=== PATIENT | female | born 1955 | race African-American/Black ===

== ENCOUNTER → 2017-01-19 | Outpatient (CLI) | payer MEDICARE, MEDICAID | LOC: OD 09:46 | PROVIDERS: ATTEND Internal Medicine | DX: M25.562 Pain in left knee (principal) ==

== ENCOUNTER 2017-03-08 10:34 | Emergency (ER) | payer MEDICARE, MEDICAID ==
[2017-03-08] MEDS ORDERED: COLCHICINE 0.6 MG TABLET PO ONE (11:06)
[2017-03-08] MEDS ORDERED: KETOROLAC TROMETHAMINE 60 MG/2 ML SDV IM ONE (11:06)
[2017-03-08 13:00] LABS: ABSOLUTE BASOPHILS # (AUTO) 0.1 10^3/uL (0.0-0.2); ABSOLUTE EOSINOPHILS # (AUTO) 0.3 10^3/uL (0.0-0.6); ABSOLUTE LYMPHOCYTES (AUTO) 1.3 10^3/uL (0.5-4.7); ABSOLUTE MONOCYTES (AUTO) 0.6 10^3/uL (0.1-1.4); ABSOLUTE NEUT (AUTO) 4.6 10^3/uL (1.7-8.2); EOSINOPHILS % (AUTO) 4.9 % (0-6); HEMOGLOBIN 9.1 g/dL (12.0-15.5); HGB HCT DIFFERENCE 1.3; LYMPHOCYTES % (AUTO) 18.6 % (13-45); MEAN CORPUSCULAR HEMOGLOBIN 30.2 pg (27.0-33.4); MEAN CORPUSCULAR HGB CONC 35.2 g/dL (32.0-36.0); MEAN CORPUSCULAR VOLUME 86 fl (80-97); MONOCYTES % (AUTO) 8.3 % (3-13); RED BLOOD COUNT 3.03 10^6/uL (3.72-5.28); RED CELL DISTRIBUTION WIDTH 15.1 % (11.5-14.0); SEGMENTED NEUTROPHILS % (AUTO) 67.2 % (42-78); WHITE BLOOD COUNT 6.9 10^3/uL (4.0-10.5)
[2017-03-08 13:22] LABS: ALANINE AMINOTRANSFERASE 19 U/L (9-52); ALBUMIN 4.2 g/dL (3.5-5.0); ALKALINE PHOSPHATASE 86 U/L (38-126); ANION GAP 15 (5-19); ASPARTATE AMINO TRANSFERASE 10 U/L (14-36); BILIRUBIN,DIRECT 0.4 mg/dL (0.0-0.4); BILIRUBIN,TOTAL 0.6 mg/dL (0.2-1.3); BLOOD UREA NITROGEN 23 mg/dL (7-20); CALCIUM 8.7 mg/dL (8.4-10.2); CARBON DIOXIDE 29 mmol/L (22-30); CHLORIDE 98 mmol/L (98-107); CREATININE RESULT 6.24 mg/dL (0.52-1.25); GLUCOSE 83 mg/dL (75-110); POTASSIUM 3.6 mmol/L (3.6-5.0); SODIUM 141.7 mmol/L (137-145); TOTAL PROTEIN 7.4 g/dL (6.3-8.2); URIC ACID 2.7 mg/dL (2.5-7.5)
--- NOTE | 2017-03-08 13:34 | ER Document Report ---
HPI - HPI Patient complains to provider of: GOUT Onset: Other - ONE MONTH Onset/Duration: Constant Quality of pain: Throbbing Severity: Severe Pain Level: 5 Context: Complains of gout to both knees, right knee worse than left. Associated Symptoms: None Exacerbated by: Movement, Walking Relieved by: Denies Similar symptoms previously: Yes Recently seen / treated by doctor: Yes Notes: Patient states she was seen by her doctor and told she had pseudogout. States her last dose of colchicine was this past Tuesday. Has been taking Tylenol for pain. - ROS ROS below otherwise negative: Yes Notes: Patient states she was last dialyzed this morning. Systems Reviewed and Negative: Yes All other systems reviewed and negative - CONSTITUTIONAL Constitutional: DENIES: Fever - EENT EENT: DENIES: Congestion - NEURO Neurology: DENIES: Headache - CARDIOVASCULAR Cardiovascular: DENIES: Chest pain - RESPIRATORY Respiratory: DENIES: Trouble Breathing - GASTROINTESTINAL Gastrointestinal: DENIES: Abdominal Pain - URINARY Urinary: DENIES: Dysuria - REPRODUCTIVE Reproductive: DENIES: : - MUSCULOSKELETAL Musculoskeletal: REPORTS: Extremity pain - Both knees, right more than le - DERM Skin Color: Normal Skin Problems: None Past Medical History - General Information source: Patient - Social History Smoking Status: Never Smoker Chew tobacco use (# tins/day): No Frequency of alcohol use: None Drug Abuse: None Lives with: Family Family History: Reviewed & Not Pertinent Patient has suicidal ideation: No Patient has homicidal ideation: No - Past Medical History Cardiac Medical History: Reports: Hx Coronary Artery Disease, Hx Hypercholesterolemia, Hx Hypertension Denies: Hx Heart Attack Pulmonary Medical History: Reports: Hx Asthma Denies: Hx Bronchitis, Hx COPD, Hx Pneumonia, Hx Tuberculosis Neurological Medical History: Denies: Hx Cerebrovascular Accident, Hx Seizures Renal/ Medical History: Reports: Hx End Stage Renal Disease - DIALYSIS T- , Hx Hemodialysis. Denies: Hx Peritoneal Dialysis GI Medical History: Reports: Hx Gastroesophageal Reflux Disease, Hx Hiatal Hernia Musculoskeltal Medical History: Reports Hx Arthritis - generalized Psychiatric Medical History: Denies: Hx Depression Infectious Medical History: Past Surgical History: Reports: Hx Abdominal Surgery - GALL BLADDER, Hx Cardiac Catheterization - 2011, Hx Section, Hx Cholecystectomy, Hx Gynecologic Surgery - hysteroscopy. Denies: Hx Hysterectomy - Immunizations Hx Diphtheria, Pertussis, Tetanus Vaccination: Yes Hx Pneumococcal Vaccination: 08/14/15 Vertical Provider Document - CONSTITUTIONAL Agree With Documented VS: Yes General Appearance: WD/WN, Moderate Distress Notes: Patient crying, hard to obtain information. Asking for something for pain. After medications given, patient more comfortable, stating pain is better. No longer crying. - INFECTION CONTROL TRAVEL OUTSIDE OF THE [place] IN LAST 30 DAYS: No - HEENT HEENT: Atraumatic, Normocephalic - RESPIRATORY Respiratory: Breath Sounds Normal, No Respiratory Distress O2 Sat by Pulse Oximetry: 99 - CARDIOVASCULAR Cardiovascular: Regular Rate, Regular Rhythm - GI/ABDOMEN Gastrointestinal: Abdomen Soft - MUSCULOSKELETAL/EXTREMETIES Musculoskeletal/Extremeties: MAEW Notes: Fistula with dressing noted to left forearm. - NEURO Level of Consciousness: Awake, Alert - DERM Integumentary: Warm, Dry Notes: Right knee feels warm, but no redness noted. Course - Re-evaluation Re-evalutation: 03/08/17 13:57 Discussed lab work with patient. Patient instructed to call her physician today for follow-up appointment. 03/08/17 13:[address] Rand. put on prednisone and give pain medications. - Vital Signs Vital signs: Temp Pulse Resp BP Pulse Ox 98.3 F 71 24 H 149/81 H 99 03/08/17 10:40 03/08/17 10:40 03/08/17 10:40 03/08/17 10:40 03/08/17 10:40 - Laboratory Result Diagrams: 03/08/17 12:30 03/08/17 12:30 Laboratory results interpreted by me: 03/08/17 03/08/17 12:30 12:30 RBC 3.03 L Hgb 9.1 L Hct 26.0 L RDW 15.1 H BUN 23 H Creatinine 6.24 H Est GFR ( Amer) 8 L Est GFR (Non-Af Amer) 7 L AST 10 L Discharge - Discharge Clinical Impression: Bilateral knee pain Qualifiers: Chronicity: acute Qualified Code(s): M25.561 - Pain in right knee; M25.562 - Pain in left knee Condition: Good Disposition: HOME, SELF-CARE Additional Instructions: Prednisone as prescribed Tylenol as needed for pain Call Dr. Salas bae for follow-up appointment Return as needed Prescriptions: Prednisone [Deltasone 10 mg Tablet] 10 mg PO ASDIR PRN #21 tablet PRN Reason:
[2017-03-08 14:19] VITALS: BP 167/91
== END 2017-03-08 14:21 | disposition home or self-care (01) ==
LOC: ER 10:34
DX: M11.262 Other chondrocalcinosis, left knee (principal); M11.261 Other chondrocalcinosis, right knee; M25.561 Pain in right knee; M25.562 Pain in left knee; I12.0 Hypertensive chronic kidney disease with stage 5 chronic kidney disease or end stage renal disease; N18.6 End stage renal disease; Z99.2 Dependence on renal dialysis; I25.10 Atherosclerotic heart disease of native coronary artery without angina pectoris
CPT/HCPCS: 99283; 96372; 36415; 84550; 85025; 80053; A9270; J1885

== ENCOUNTER 2017-05-11 14:38 | Emergency (ER) | payer MEDICARE, MEDICAID ==
[2017-05-11] MEDS ORDERED: ACETAMINOPHEN 325 MG TABLET PO ONE (15:33)
--- NOTE | 2017-05-11 15:39 | ER Document Report ---
ED Medical Screen (RME) - General Chief Complaint: Knee Pain Stated Complaint: KNEE PAIN Time Seen by Provider: 05/11/17 15:32 Notes: Patient is a 61-year-old female, past medical history ESRD ([facility]), pseudogout , presents with several days of right knee pain and swelling and 1 day of fever and redness. Denies injury, numbness, tingling, urinary symptoms, SOB, cough or open wounds. PE: febrile, swollen and tender right knee, no surrounding erythema I have greeted and performed a rapid initial assessment of this patient. A comprehensive ED assessment and evaluation of the patient, analysis of test results and completion of the medical decision making process will be conducted by additional ED providers. TRAVEL OUTSIDE OF THE [place] IN LAST 30 DAYS: No - Related Data Allergies/Adverse Reactions: codeine [Codeine] Allergy (Severe, Verified 05/11/17 14:49) Lips & tongue swell hydrocodone bitartrate [From Vicodin] Allergy (Severe, Verified 05/11/17 14:49) Throat & tongue swell, severe itch Iodinated Contrast- Oral and IV Dye [IV Dye, Iodine Containing] Allergy (Severe , Verified 05/11/17 14:49) Anaphylaxis lanthanum carbonate [From FOSRENOL] Allergy (Severe, Verified 05/11/17 14:49) losartan potassium [From Cozaar] Allergy (Severe, Verified 05/11/17 14:49) Swelling of Throat oxycodone HCl [From OxyContin] Allergy (Severe, Verified 05/11/17 14:49) Throat & tongue swell, severe itch propoxyphene napsylate [From Darvocet-N 100] Allergy (Severe, Verified 05/11/17 14:49) Mouth swells, itch ramipril [From Altace] Allergy (Severe, Verified 05/11/17 14:49) Lips, tongue & throat swell Penicillins Allergy (Intermediate, Verified 05/11/17 14:49) Generalized Itching adhesive tape [Adhesive Tape] Adverse Reaction (Intermediate, Verified 05/11/17 14:49) ITCHING, PULLS SKIN OFF aspirin [Aspirin] Adverse Reaction (Intermediate, Verified 05/11/17 14:49) Tegaderm Allergy (Intermediate, Uncoded 05/11/17 14:49) Pulls skin off, itching Past Medical History - Past Medical History Cardiac Medical History: Reports: Hx Coronary Artery Disease, Hx Hypercholesterolemia, Hx Hypertension Denies: Hx Heart Attack Pulmonary Medical History: Reports: Hx Asthma Denies: Hx Bronchitis, Hx COPD, Hx Pneumonia, Hx Tuberculosis Neurological Medical History: Denies: Hx Cerebrovascular Accident, Hx Seizures Renal/ Medical History: Reports: Hx End Stage Renal Disease - DIALYSIS T-- , Hx Hemodialysis, Hx Peritoneal Dialysis - // GI Medical History: Reports: Hx Gastroesophageal Reflux Disease, Hx Hiatal Hernia Musculoskeltal Medical History: Reports Hx Arthritis - generalized Psychiatric Medical History: Denies: Hx Depression Infectious Medical History: Past Surgical History: Reports: Hx Abdominal Surgery - GALL BLADDER, Hx Cardiac Catheterization - 2011, Hx Section, Hx Cholecystectomy, Hx Gynecologic Surgery - hysteroscopy. Denies: Hx Hysterectomy - Immunizations Hx Diphtheria, Pertussis, Tetanus Vaccination: Yes Physical Exam - Vital signs Vitals: Temp Pulse Resp BP Pulse Ox 100.9 F H 73 16 150/105 H 94 05/11/17 14:45 05/11/17 14:45 05/11/17 14:45 05/11/17 14:45 05/11/17 14:45 Course - Vital Signs Vital signs: Temp Pulse Resp BP Pulse Ox 100.9 F H 73 16 150/105 H 94 05/11/17 14:45 05/11/17 14:45 05/11/17 14:45 05/11/17 14:45 05/11/17 14:45
[2017-05-11 16:01] LABS: ABSOLUTE BASOPHILS # (AUTO) 0.1 10^3/uL (0.0-0.2); ABSOLUTE EOSINOPHILS # (AUTO) 0.4 10^3/uL (0.0-0.6); ABSOLUTE LYMPHOCYTES (AUTO) 1.3 10^3/uL (0.5-4.7); ABSOLUTE MONOCYTES (AUTO) 0.7 10^3/uL (0.1-1.4); ABSOLUTE NEUT (AUTO) 4.8 10^3/uL (1.7-8.2); BASOPHILS % (AUTO) 1.4 % (0-2); EOSINOPHILS % (AUTO) 4.8 % (0-6); HEMATOCRIT 29.7 % (36.0-47.0); HEMOGLOBIN 10.2 g/dL (12.0-15.5); HGB HCT DIFFERENCE 0.9; LYMPHOCYTES % (AUTO) 18.1 % (13-45); MEAN CORPUSCULAR HEMOGLOBIN 30.9 pg (27.0-33.4); MEAN CORPUSCULAR HGB CONC 34.2 g/dL (32.0-36.0); MEAN CORPUSCULAR VOLUME 90 fl (80-97); MONOCYTES % (AUTO) 10.1 % (3-13); RED BLOOD COUNT 3.29 10^6/uL (3.72-5.28); SEGMENTED NEUTROPHILS % (AUTO) 65.6 % (42-78); WHITE BLOOD COUNT 7.3 10^3/uL (4.0-10.5)
[2017-05-11] MEDS ORDERED: COLCHICINE 0.6 MG TABLET PO ONE (16:19)
[2017-05-11] MEDS ORDERED: KETOROLAC TROMETHAMINE 60 MG/2 ML SDV IM ONE (16:19)
[2017-05-11 16:28] LABS: ANION GAP 16 (5-19); BLOOD UREA NITROGEN 38 mg/dL (7-20); C-REACTIVE PROTEIN 18.6 mg/L (<10.0); CALCIUM 8.8 mg/dL (8.4-10.2); CARBON DIOXIDE 27 mmol/L (22-30); CHLORIDE 96 mmol/L (98-107); CREATININE RESULT 9.66 mg/dL (0.52-1.25); GLUCOSE 91 mg/dL (75-110); POTASSIUM 4.9 mmol/L (3.6-5.0); SODIUM 138.8 mmol/L (137-145)
--- NOTE | 2017-05-11 16:28 | ER Document Report ---
ED Extremity Problem, Lower - General Chief Complaint: Knee Pain Stated Complaint: KNEE PAIN Time Seen by Provider: 05/11/17 15:32 Notes: Patient is complaining of right knee pain. She has been diagnosed as having pseudogout. She has been having problems intermittently with her right knee since December. This episode began on Tuesday. No injury. Patient takes Fiorinal once a day. She also takes colchicine but is out of that medication. Not currently on any specific pain medication and she is not on any steroids, although she has been treated with him in the past. Patient is a renal dialysis patient on Tuesday, , Tuesday. Unaware of any fever although she has a slight fever here. Patient denies nausea, vomiting, or diarrhea. No UTI symptoms. No cough or cold or chest congestion. Denies fever. TRAVEL OUTSIDE OF THE [place] IN LAST 30 DAYS: No - Related Data Allergies/Adverse Reactions: codeine [Codeine] Allergy (Severe, Verified 05/11/17 14:49) Lips & tongue swell hydrocodone bitartrate [From Vicodin] Allergy (Severe, Verified 05/11/17 14:49) Throat & tongue swell, severe itch Iodinated Contrast- Oral and IV Dye [IV Dye, Iodine Containing] Allergy (Severe , Verified 05/11/17 14:49) Anaphylaxis lanthanum carbonate [From FOSRENOL] Allergy (Severe, Verified 05/11/17 14:49) losartan potassium [From Cozaar] Allergy (Severe, Verified 05/11/17 14:49) Swelling of Throat oxycodone HCl [From OxyContin] Allergy (Severe, Verified 05/11/17 14:49) Throat & tongue swell, severe itch propoxyphene napsylate [From Darvocet-N 100] Allergy (Severe, Verified 05/11/17 14:49) Mouth swells, itch ramipril [From Altace] Allergy (Severe, Verified 05/11/17 14:49) Lips, tongue & throat swell Penicillins Allergy (Intermediate, Verified 05/11/17 14:49) Generalized Itching adhesive tape [Adhesive Tape] Adverse Reaction (Intermediate, Verified 05/11/17 14:49) ITCHING, PULLS SKIN OFF aspirin [Aspirin] Adverse Reaction (Intermediate, Verified 05/11/17 14:49) Tegaderm Allergy (Intermediate, Uncoded 05/11/17 14:49) Pulls skin off, itching Past Medical History - Social History Smoking Status: Unknown if Ever Smoked Cigarette use (# per day): No Family History: Reviewed & Not Pertinent - Past Medical History Cardiac Medical History: Reports: Hx Coronary Artery Disease, Hx Hypercholesterolemia, Hx Hypertension Pulmonary Medical History: Reports: Hx Asthma Endocrine Medical History: Reports: Hx Hyperthyroidism Renal/ Medical History: Reports: Hx End Stage Renal Disease - DIALYSIS , Hx Hemodialysis, Hx Peritoneal Dialysis - // GI Medical History: Reports: Hx Gastroesophageal Reflux Disease, Hx Hiatal Hernia Musculoskeltal Medical History: Reports Hx Arthritis - generalized Infectious Medical History: Past Surgical History: Reports: Hx Abdominal Surgery - GALL BLADDER, Hx Cardiac Catheterization - 2011, Hx Section, Hx Cholecystectomy, Hx Gynecologic Surgery - hysteroscopy. Denies: Hx Hysterectomy - Immunizations Hx Diphtheria, Pertussis, Tetanus Vaccination: Yes Hx Pneumococcal Vaccination: 08/14/15 Review of Systems - Review of Systems Notes: REVIEW OF SYSTEMS: CONSTITUTIONAL : Denies fever. EENT: Denies eye, ear, nose or mouth or throat pain or other symptoms. CARDIOVASCULAR: Denies chest pain. RESPIRATORY: Denies cough, chest congestion, or shortness of breath. GASTROINTESTINAL: Denies abdominal pain or nausea, vomiting, or diarrhea. GENITOURINARY: Denies difficulty or painful urinating, urinary frequency, blood in urine. MUSCULOSKELETAL: Denies back or neck pain. See HPI. SKIN: Denies rash or skin lesions. NEUROLOGICAL: Denies LOC or altered mental status. Denies headache. Denies sensory loss or motor deficits. ALL OTHER SYSTEMS REVIEWED AND NEGATIVE. Physical Exam - Vital signs Vitals: Temp Pulse Resp BP Pulse Ox 100.9 F H 73 16 150/105 H 94 05/11/17 14:45 05/11/17 14:45 05/11/17 14:45 05/11/17 14:45 05/11/17 14:45 Interpretation: Hypertensive, Febrile - Low-grade - Notes Notes: PHYSICAL EXAMINATION: GENERAL: Well-appearing, in no acute distress except when her right knee is touched or moved. HEAD: Atraumatic, normocephalic. NECK: Normal range of motion, supple. LUNGS: Breath sounds clear and equal bilaterally. HEART: Regular rate and rhythm without murmurs. ABDOMEN: Soft, nontender. No guarding or rebound. BACK: No tenderness throughout entire back. EXTREMITIES: Medius slightly swollen and there may be some fluid present. It is difficult to assess because of the patient's size and the size and girth of her knee. It is very painful to touch the knee joint or to flex it or move it. It is slightly warm to the touch, but not erythematous. No definite fluctuance or fluid noted. NEUROLOGICAL: Normal speech, normal gait. Normal sensory, motor, and reflex exams. Awake, alert, and oriented x3. Cranial nerves normal. PSYCH: Normal mood, normal affect. SKIN: Warm, dry, no rashes. Course - Re-evaluation Re-evalutation: 05/11/17 23:[address] Clancy injected her knee a few months ago. In addition, patient says that she was here in February and received an injection for pain which helped a lot. I looked back in her files and it was Toradol 60 mg IM. I know patient has severe renal disease requiring dialysis. And, she makes some urine. However I do not think one injection of an NSAID will risk damaging what residual kidney function she still has. - Vital Signs Vital signs: Temp Pulse Resp BP Pulse Ox 100.9 F H 77 16 172/86 H 98 05/11/17 14:45 05/11/17 17:00 05/11/17 17:00 05/11/17 17:00 05/11/17 17:00 - Laboratory Result Diagrams: 05/11/17 15:46 05/11/17 15:46 Laboratory results interpreted by me: 05/11/17 05/11/17 15:46 15:46 RBC 3.29 L Hgb 10.2 L Hct 29.7 L RDW 16.0 H ESR 81 H Chloride 96 L BUN 38 H Creatinine 9.66 H Est GFR ( Amer) 5 L Est GFR (Non-Af Amer) 4 L C-Reactive Protein 18.6 H Discharge - Discharge Clinical Impression: Acute gout Qualifiers: Gout site: knee Gout etiology: idiopathic Laterality: right Qualified Code(s): M10.061 - Idiopathic gout, right knee Condition: Stable Disposition: HOME, SELF-CARE Additional Instructions: Gout You have been diagnosed as having gout. Gout is a problem caused by an excess of uric acid, a natural chemical found in the body. The cause of this disease is unknown. Gout arthritis occurs when crystals of uric acid form in the joints. The big toe is the most common joint involved, but any joint can become affected. Persons with gout may also form uric acid kidney stones, resulting in flank pain and blood in the urine. Nodules of uric acid may form under the skin. The first step of treatment is to decrease the inflammation in the joint with antiinflammatory medication. Medication to lower the uric acid level in the blood may then be prescribed. This medication should be taken regularly, as any sudden change in dosage may provoke an attack of gout. Some foods, such as red meat, can provoke an attack in some gout sufferers. Call the doctor if new symptoms arise, or if you do not improve. Colchicine Colchicine is a medication used in acute attacks of gout arthritis. It's usually very effective at stopping an attack if started within the first day of pain. It can also be used to prevent attacks. Standard treatment for an acute attack is two tablets, then one tablet every one or two hours until the pain subsides. Intestinal symptoms such as nausea, vomiting, or diarrhea are common with colchicine. These side effects become more likely with higher doses of the medicine. When taking colchicine for an acute gout attack, stop taking the pills when intestinal symptoms develop. Call the physician if you develop fever, worsening joint pain, rash, shortness of breath or wheezing, itching, or severe abdominal symptoms. STEROID MEDICATION: You have been given a medicine of the cortisone/steroid class. This medication is used to control inflammation or allergy. It is usually only given for a short period of time, until the acute process subsides. There are usually no side effects from short-term use of cortisone-like medications. Some persons feel an increased sense of well-being and are not sleepy at bedtime. Long-term use of cortisone medications is best avoided, unless required for a severe condition. If your condition does not remit, or relapses after the course of corticosteroid medication, you should consult your physician. Toradol Injection You have been given an injection of ketorolac tromethamine (Toradol). This is an excellent, safe drug for pain control. It also has potent antiinflammatory action. You should have significant pain relief within about one hour. Toradol is not addicting and is non-sedating. It does not interfere with driving or work. Call or return if you develop itching, hives, shortness of breath, or rash. Oral Narcotic Medication You have been given a prescription for pain control. This medication is a narcotic. It's best taken with food, as nausea can result if taken on an empty stomach. Don't operate machinery or drive within six hours of taking this medication. Do not combine this medicine with alcohol, or with any medication which can cause sedation (such as cold tablets or sleeping pills) unless you get permission from the physician. Narcotics tend to cause constipation. If possible, drink plenty of fluids and eat a diet high in fiber and fruits. FOLLOW-UP CARE: If you have been referred to a physician for follow-up care, call the physician s office for an appointment as you were instructed or within the next two days. If you experience worsening or a significant change in your symptoms, notify the physician immediately or return to the Emergency Department at any time for re-evaluation. Apply ice packs to your knee. Limit activity on your knee. Follow-up with your primary care provider if not better Tuesday. Prescriptions: Hydromorphone HCl [Dilaudid 2 mg Tablet] 2 mg PO Q4HP PRN #20 tablet PRN Reason: Colchicine [Colchicine 0.6 mg Tablet] 0.6 mg PO QIDP PRN #30 tablet PRN Reason: Prednisone [Deltasone 10 mg Tablet] 10 mg PO ASDIR PRN #25 tablet PRN Reason: Referrals: KEVIN REED MD [Primary Care Provider] - Follow up as needed
[2017-05-11 16:38] LABS: ERYTHROCYTE SEDIMENTATION RATE 81 mm/hr (0-30)
[2017-05-11 17:02] VITALS: BP 172/86
== END 2017-05-11 17:02 | disposition home or self-care (01) ==
LOC: ER 14:38
DX: M10.061 Idiopathic gout, right knee (principal); M25.561 Pain in right knee
CPT/HCPCS: 99283; 96372; 36415; 85025; 85652; 86140; 80048; A9270 ×2; J1885

== ENCOUNTER 2017-05-23 08:05 | Day surgery (SDC) | payer MEDICARE, MEDICAID ==
--- NOTE | 2017-05-20 09:05 | RADIOLOGY REPORT (SQ) ---
EXAM DESCRIPTION: CHEST PA/LATERAL COMPLETED DATE/TIME: 05/20/2017 8:12 am REASON FOR STUDY: PRE-OP COMPARISON: Chest films 10/04/2013, 11/08/2014 EXAM PARAMETERS: NUMBER OF VIEWS: two views TECHNIQUE: Digital Frontal and Lateral radiographic views of the chest acquired. RADIATION DOSE: NA LIMITATIONS: none FINDINGS: LUNGS AND PLEURA: Bandlike scarring along the right minor fissure and lingula. No fluffy alveolar infiltrates worrisome for edema or pneumonia. No pneumothorax or pleural effusion MEDIASTINUM AND HILAR STRUCTURES: No masses or contour abnormalities. HEART AND VASCULAR STRUCTURES: Mild cardiomegaly BONES: No acute findings. HARDWARE: None in the chest. OTHER: No other significant finding. IMPRESSION: Mild cardiomegaly. No acute findings TECHNICAL DOCUMENTATION: JOB ID: [id number] All Rights Reserved
[2017-05-20 09:16] LABS: HEMATOCRIT 31.4 % (36.0-47.0); HEMOGLOBIN 10.6 g/dL (12.0-15.5); HGB HCT DIFFERENCE 0.4; MEAN CORPUSCULAR HEMOGLOBIN 30.5 pg (27.0-33.4); MEAN CORPUSCULAR HGB CONC 33.7 g/dL (32.0-36.0); MEAN CORPUSCULAR VOLUME 90 fl (80-97); RED BLOOD COUNT 3.48 10^6/uL (3.72-5.28); RED CELL DISTRIBUTION WIDTH 16.1 % (11.5-14.0); WHITE BLOOD COUNT 5.8 10^3/uL (4.0-10.5)
[2017-05-20 09:28] LABS: ANION GAP 18 (5-19); BLOOD UREA NITROGEN 43 mg/dL (7-20); CALCIUM 8.9 mg/dL (8.4-10.2); CARBON DIOXIDE 22 mmol/L (22-30); CHLORIDE 100 mmol/L (98-107); CREATININE RESULT 9.64 mg/dL (0.52-1.25); GLUCOSE 91 mg/dL (75-110); SODIUM 139.7 mmol/L (137-145)
[2017-05-23] MEDS ORDERED: DIAZEPAM 5 MG TABLET ONE (09:08)
[2017-05-23] MEDS ORDERED: MIDAZOLAM 2 MG/2 ML INJ ONE (09:23)
[2017-05-23] MEDS ORDERED: LIDOCAINE 0.5% INJ-PF (5 MG/ML) 50 ML SDV ONE (09:24)
[2017-05-23] MEDS ORDERED: FENTANYL CITRATE INJ/PF 100 MCG/2 ML AMPUL ONE (09:24)
[2017-05-23] MEDS ORDERED: HEPARIN SOD (PORCINE) 5,000 UNIT/ML 1 ML SYRINGE ONE (09:24)
--- NOTE | 2017-05-23 10:36 | PDOC DISCHARGE SUMMARY ---
Discharge Summary (SDC) - Discharge Final Diagnosis: #1 malfunctioning arteriovenous fistula, left radiocephalic. 2. End-stage renal disease on hemodialysis. 3. Chronic central venous obstruction. 4.. Hypertension. Date of Surgery: 05/23/17 Discharge Date: 05/23/17 Condition: Fair Forms: Sedation D/C Instructions, [facility] Discharge Plan Referrals: REJI ERWIN MD [ACTIVE STAFF] - Discharge Diet: Other (Comments) - Renal Respiratory Treatments at Home: Deep Breathing/Coughing Discharge Activity: Activity As Tolerated Report the Following to Your Physician Immediately: Shortness of Breath, Unusual Bleeding
--- NOTE | 2017-05-23 10:43 | Operative Report ---
Operative Report DATE OF SURGERY: 05/23/17 PREOPERATIVE DIAGNOSIS: #1 malfunctioning arteriovenous fistula, left radiocephalic. 2. End-stage renal disease on hemodialysis. 3. Chronic central venous obstruction. 4.. Hypertension. POSTOPERATIVE DIAGNOSIS: #1 malfunctioning arteriovenous fistula, left radiocephalic. 2. End-stage renal disease on hemodialysis. 3. Chronic central venous obstruction. 4.. Hypertension. OPERATION: 1. Needle access into fistula. 2. AV fistula angioplasty. 3. Angiogram interpretation. SURGEON: REJI DE LEON [employer]: None ANESTHESIA: Moderate Sedation TISSUE REMOVED OR ALTERED: Not applicable. COMPLICATIONS: None ESTIMATED BLOOD LOSS: 5 mL. INTRAOPERATIVE FINDINGS: Firm. Stenoses noted at 25 cm and just above the axilla. Each of these represent about 50% stenosis. A stenosis noted at the distal cephalic cephalic subclavian junction 80% of the adjacent lumen about a centimeter long all of these resolved after angioplasty. Known complete occlusion of the innominate vein is again appreciated with drainage through the left internal jugular and small collaterals. PROCEDURE: PROCEDURE: After verifying the procedure and having obtained informed consent, the patient's left arm was prepared with Chlorhexidine and draped out with sterile linen. Local anesthesia infiltrated. Percutaneous access into the fistula , for, obtained about [4 cm] from the arteriovenous anastomosis using a 16-gauge needle A 0.035 [place] wire was inserted, and over this, a 7 Czech short introducer was placed, this was followed by a [8-mm ] angioplasty balloon . Angioplasty was Done first of the cephalad cephalic into the subclavian inflating up to 25 eva in increments for up to 2 minutes. This was repeated after initial angiogram was unsatisfactory. Second angiogram was actually very satisfactory. Inflation up to 20 eva done at the lesion in the axilla and also the one at 25 cm. With improvement in fistula function, not perfect as the patient has chronic obstruction of the innominate vein, the procedure concluded. Completion angiogram demonstrated [satisfactory result]. The instrumentation was now withdrawn over pressure for 10 minutes. Dressings applied, procedure concluded. Exposure time: 3 minutes Radiation: 21.3 mcg/cm Contrast: 25 mL milliliters of Isovue-300 low osmolality. DICTATING PHYSICIAN: REJI ERWIN M.D. cc: REJI ERWIN M.D. ([id number]) >>
[2017-05-23 11:47] VITALS: BP 163/79
--- NOTE | 2017-05-23 13:37 | RADIOLOGY REPORT (SQ) ---
EXAM DESCRIPTION: FISTULAGRAM W/PLASTY COMPLETED DATE/TIME: 05/23/2017 11:12 am REASON FOR STUDY: T82.858A T82.858A STENOSIS OF OTHER VASCULAR PROSTH DEV/GRFT, INIT COMPARISON: 12/01/2015 FLUOROSCOPY TIME: 3 minutes total fluoro time Multiple angiographic upper extremity cine fluoro images saved to PACS. TECHNIQUE: Intra-operative images acquired during surgical procedure to evaluate progress. NUMBER OF IMAGES: Cine fluoroscopic images. LIMITATIONS: None. FINDINGS: Imaging in fluoroscopy during left upper extremity dialysis access evaluation and plasty b y Dr. Dr. Hung . Please refer to the operative report for further details. IMPRESSION: INTRA PROCEDURAL IMAGING ABOVE . COMMENT: Quality ID [id number]: Final reports for procedures using fluoroscopy that document radiation exp osure indices, or exposure time and number of fluorographic images (if radiation exposure indices are not available) Please consult full operative report of the attending physician for description of the procedure. TECHNICAL DOCUMENTATION: JOB ID: [id number] [employer]- All Rights Reserved
== END 2017-05-23 11:34 | disposition home or self-care (01) ==
LOC: SC 08:05
PROVIDERS: ATTEND Surgery
PROC: 057F3DZ Dilation of Left Cephalic Vein with Intraluminal Device, Percutaneous Approach (ICD-10-PCS; principal; 2017-05-23)
DX: T82.858A Stenosis of other vascular prosthetic devices, implants and grafts, initial encounter (principal); Y83.2 Surgical operation with anastomosis, bypass or graft as the cause of abnormal reaction of the patient, or of later complication, without mention of misadventure at the time of the procedure; I12.0 Hypertensive chronic kidney disease with stage 5 chronic kidney disease or end stage renal disease; N18.6 End stage renal disease; Z99.2 Dependence on renal dialysis; E03.9 Hypothyroidism, unspecified; E66.9 Obesity, unspecified; Z88.8 Allergy status to other drugs, medicaments and biological substances; Z88.0 Allergy status to penicillin; Z88.5 Allergy status to narcotic agent; Z79.899 Other long term (current) drug therapy; Z79.82 Long term (current) use of aspirin
CPT/HCPCS: 36415; 85027; 80048; 36907; 36902; 71020; C1725; C1894; Q9967; C1769; J2250; J1644 ×2; A9270; J3010; J3490

== ENCOUNTER 2017-06-12 08:14 | Emergency (ER) | payer MEDICARE, MEDICAID ==
--- NOTE | 2017-06-12 09:16 | RADIOLOGY REPORT (SQ) ---
EXAM DESCRIPTION: KNEE RIGHT 4 VIEWS COMPLETED DATE/TIME: 06/12/2017 8:51 am REASON FOR STUDY: knee pain COMPARISON: None. NUMBER OF VIEWS: Four views. TECHNIQUE: AP, lateral, and both oblique radiographic images acquired of the right knee. LIMITATIONS: None. FINDINGS: MINERALIZATION: Normal. BONES: Osteophytes medial and patellofemoral compartments. JOINT: Joint effusion. Chondrocalcinosis. OTHER: Vascular calcifications. IMPRESSION: CPPD arthropathy. Joint effusion. TECHNICAL DOCUMENTATION: JOB ID: [id number]- All Rights Reserved
--- NOTE | 2017-06-12 10:00 | ER Document Report ---
ED General - General Chief Complaint: Knee Pain Stated Complaint: RIGHT KNEE PAIN Time Seen by Provider: 06/12/17 08:26 Mode of Arrival: Wheelchair Information source: Patient Notes: 61-year-old female history of chronic knee pain presents with complaints of pain in the right posterior thigh. Pt denies any knee pain tday, states she was walking and felt a pop sensation. states it hurts ot ambulate, de TRAVEL OUTSIDE OF THE [place] IN LAST 30 DAYS: No - HPI Onset: Just prior to arrival Onset/Duration: Sudden Quality of pain: Sharp Severity: Moderate Pain Level: 2 Associated symptoms: Body/muscle aches, Other Exacerbated by: Walking Relieved by: Denies Similar symptoms previously: Yes Recently seen / treated by doctor: No - Related Data Allergies/Adverse Reactions: codeine [Codeine] Allergy (Severe, Verified 06/12/17 08:37) Lips & tongue swell hydrocodone bitartrate [From Vicodin] Allergy (Severe, Verified 06/12/17 08:37) Throat & tongue swell, severe itch Iodinated Contrast- Oral and IV Dye [IV Dye, Iodine Containing] Allergy (Severe , Verified 06/12/17 08:37) Anaphylaxis lanthanum carbonate [From FOSRENOL] Allergy (Severe, Verified 06/12/17 08:37) losartan potassium [From Cozaar] Allergy (Severe, Verified 06/12/17 08:37) Swelling of Throat oxycodone HCl [From OxyContin] Allergy (Severe, Verified 06/12/17 08:37) Throat & tongue swell, severe itch propoxyphene napsylate [From Darvocet-N 100] Allergy (Severe, Verified 06/12/17 08:37) Mouth swells, itch ramipril [From Altace] Allergy (Severe, Verified 06/12/17 08:37) Lips, tongue & throat swell Penicillins Allergy (Intermediate, Verified 06/12/17 08:37) Generalized Itching adhesive tape [Adhesive Tape] Adverse Reaction (Intermediate, Verified 06/12/17 08:37) ITCHING, PULLS SKIN OFF aspirin [Aspirin] Adverse Reaction (Intermediate, Verified 06/12/17 08:37) Tegaderm Allergy (Intermediate, Uncoded 06/12/17 08:37) Pulls skin off, itching Past Medical History - Social History Smoking Status: Never Smoker Cigarette use (# per day): No Chew tobacco use (# tins/day): No Smoking Education Provided: No Frequency of alcohol use: None Drug Abuse: None Family History: Reviewed & Not Pertinent - Past Medical History Cardiac Medical History: Reports: Hx Hypercholesterolemia, Hx Hypertension Denies: Hx Coronary Artery Disease, Hx Heart Attack Pulmonary Medical History: Reports: Hx Asthma, Hx COPD - asthma Denies: Hx Bronchitis, Hx Pneumonia, Hx Tuberculosis Neurological Medical History: Denies: Hx Cerebrovascular Accident, Hx Seizures Endocrine Medical History: Reports: Hx Hyperthyroidism Renal/ Medical History: Reports: Hx End Stage Renal Disease - DIALYSIS , Hx Hemodialysis. Denies: Hx Peritoneal Dialysis GI Medical History: Reports: Hx Gastroesophageal Reflux Disease, Hx Hiatal Hernia Musculoskeltal Medical History: Reports Hx Arthritis Psychiatric Medical History: Denies: Hx Depression Infectious Medical History: Past Surgical History: Reports: Hx Abdominal Surgery - GALL BLADDER, Hx Cardiac Catheterization - 2011, Hx Section, Hx Cholecystectomy, Hx Gynecologic Surgery - hysteroscopy. Denies: Hx Hysterectomy - Immunizations Hx Diphtheria, Pertussis, Tetanus Vaccination: Yes Hx Pneumococcal Vaccination: 08/14/15 Review of Systems - Review of Systems Notes: REVIEW OF SYSTEMS: CONSTITUTIONAL : Denies fever, chills, or sweats. Denies recent illness. EENT: Denies eye, ear, throat, or mouth pain or symptoms. Denies nasal or sinus congestion or discharge. Denies throat, tongue, or mouth swelling or difficulty swallowing. CARDIOVASCULAR: Denies chest pain. Denies palpitations or racing or irregular heart beat. Denies ankle edema. RESPIRATORY: Denies cough, cold, or chest congestion. Denies shortness of breath, difficulty breathing, or wheezing. GASTROINTESTINAL: Denies abdominal pain or distention. Denies nausea, vomiting , or diarrhea. Denies blood in vomitus, stools, or per rectum. Denies black, tarry stools. Denies constipation. GENITOURINARY: Denies difficulty urinating, painful urination, burning, frequency, blood in urine, or discharge. FEMALE GENITOURINARY: Denies vaginal bleeding, heavy or abnormal periods, irregular periods. Denies vaginal discharge or odor. MUSCULOSKELETAL: Admits to right posterior thigh pain SKIN: Denies rash, lesions or sores. HEMATOLOGIC : Denies easy bruising or bleeding. LYMPHATIC: Denies swollen, enlarged glands. NEUROLOGICAL: Denies confusion or altered mental status. Denies passing out or loss of consciousness. Denies dizziness or lightheadedness. Denies headache. Denies weakness or paralysis or loss of use of either side. Denies problems with gait or speech. Denies sensory loss, numbness, or tingling. Denies seizures. PSYCHIATRIC: Denies anxiety or stress. Denies depression, suicidal ideation, or homicidal ideation. ALL OTHER SYSTEMS REVIEWED AND NEGATIVE. PHYSICAL EXAMINATION: GENERAL: Well-appearing, well-nourished and in no acute distress. HEAD: Atraumatic, normocephalic. EYES: Pupils equal round and reactive to light, extraocular movements intact, conjunctiva are normal. ENT: Nares patent, oropharynx clear without exudates. Moist mucous membranes. NECK: Normal range of motion, supple without lymphadenopathy LUNGS: Breath sounds clear to auscultation bilaterally and equal. No wheezes rales or rhonchi. HEART: Regular rate and rhythm without murmurs ABDOMEN: Soft, nontender, nondistended abdomen. No guarding, no rebound. No masses appreciated. Female : deferred Musculoskeletal: Bilateral knee effusions NEUROLOGICAL: Cranial nerves grossly intact. Normal speech, normal gait. Normal sensory, motor exams PSYCH: Normal mood, normal affect. SKIN: Warm, Dry, normal turgor, no rashes or lesions noted. Dictation was performed using [employer] voice recognition software Physical Exam - Vital signs Vitals: Temp Pulse Resp BP Pulse Ox 98.1 F 66 16 131/76 H 97 06/12/17 08:19 06/12/17 08:19 06/12/17 08:19 06/12/17 08:19 06/12/17 08:19 Course - Re-evaluation Re-evalutation: 06/12/17 11:06 Patient's x-rays consistent with fusion as well as osteoarthritic changes. Patient otherwise is stable. Since this is a traumatic injury I have very low suspicion for a pulmonary emboli or DVT. Patient otherwise appears well will be given pain control and follow-up with her own orthopedic physician After performing a Medical Screening Examination, I estimate there is LOW risk for INTRACRANIAL HEMORRHAGE, UNSTABLE SPINE FRACTURE, CENTRAL CORD SYNDROME, CAUDA EQUINA, THORACIC AORTIC DISSECTION, PNEUMOTHORAX, PERFORATED BOWEL, RUPTURED ABDOMINAL AORTIC ANEURYSM, ACUTE TENDON RUPTURE, COMPARTMENT SYNDROME, or OPEN FRACTURE, thus I consider the discharge disposition reasonable. Also, there is no evidence or peritonitis, sepsis, or toxicity. I have reevaluated this patient multiple times and no significant life threatening changes are noted. The patient and I have discussed the diagnosis and risks, and we agree with discharging home to follow-up with their primary doctor with the understanding that symptoms and presentations can change. We also discussed returning to the Emergency Department immediately if new or worsening symptoms occur. We have discussed the symptoms which are most concerning (e.g., bloody stool, fever, changing or worsening pain, vomiting) that necessitate immediate return. - Vital Signs Vital signs: Temp Pulse Resp BP Pulse Ox 97.6 F 64 16 147/75 H 95 06/12/17 10:06/12/17 10:06/12/17 10:09 06/12/17 10:06/12/17 10:09 - Diagnostic Test Radiology reviewed: Image reviewed - Osteoarthritis, Reports reviewed Discharge - Discharge Clinical Impression: Right thigh pain Knee pain Qualifiers: Chronicity: chronic Laterality: right Qualified Code(s): M25.561 - Pain in right knee Condition: Stable Disposition: HOME, SELF-CARE Instructions: Muscle Strain ([facility]) Prescriptions: Hydromorphone HCl [Dilaudid 2 mg Tablet] 2 mg PO Q4HP PRN #14 tablet PRN Reason: Referrals: KEVIN REED MD [Primary Care Provider] - Follow up tomorrow JAKE DODGE MD [ACTIVE STAFF] - Follow up tomorrow
[2017-06-12] MEDS ORDERED: HYDROMORPHONE HCL 2 MG TABLET PO ONE (10:02)
[2017-06-12 10:13] VITALS: BP 147/75
== END 2017-06-12 10:13 | disposition home or self-care (01) ==
LOC: ER 08:14
DX: M79.651 Pain in right thigh (principal); M25.461 Effusion, right knee; M25.462 Effusion, left knee; M25.561 Pain in right knee; G89.29 Other chronic pain; J44.9 Chronic obstructive pulmonary disease, unspecified; I12.0 Hypertensive chronic kidney disease with stage 5 chronic kidney disease or end stage renal disease; N18.6 End stage renal disease; Z99.2 Dependence on renal dialysis; Z88.5 Allergy status to narcotic agent; Z88.0 Allergy status to penicillin; Z91.048 Other nonmedicinal substance allergy status; Z88.6 Allergy status to analgesic agent; Z91.041 Radiographic dye allergy status; Z87.892 Personal history of anaphylaxis; Z88.8 Allergy status to other drugs, medicaments and biological substances
CPT/HCPCS: 99283; 73564; A9270

== ENCOUNTER → 2017-09-07 | Outpatient (CLI) | payer MEDICARE, MEDICAID ==
--- NOTE | 2017-09-07 15:09 | RADIOLOGY REPORT (SQ) ---
EXAM DESCRIPTION: SHOULDER RIGHT 2 OR MORE VIEWS COMPLETED DATE/TIME: 09/07/2017 2:44 pm REASON FOR STUDY: PAIN IN RIGHT SHOULDER M25.511 PAIN IN RIGHT SHOULDER COMPARISON: None. NUMBER OF VIEWS: Three views. TECHNIQUE: Internal rotation, external rotation, and Y view images acquired of the right shoulder. LIMITATIONS: None. FINDINGS: MINERALIZATION: Normal. BONES: No acute fracture or dislocation. No worrisome bone lesions. JOINTS: No dislocation. VISUALIZED LUNGS AND RIBS: No pneumothorax. No rib fracture. SOFT TISSUES: No radiopaque foreign body. OTHER: No other significant finding. IMPRESSION: NEGATIVE STUDY OF THE RIGHT SHOULDER. NO RADIOGRAPHIC EVIDENCE OF ACUTE INJURY. TECHNICAL DOCUMENTATION: JOB ID: [id number] [employer]- All Rights Reserved
== END ==
LOC: OD 14:16
PROVIDERS: ATTEND Internal Medicine
DX: M25.511 Pain in right shoulder (principal)

== ENCOUNTER 2017-10-13 15:18 | Inpatient (IN) | payer MEDICARE, MEDICAID ==
[2017-10-13] MEDS ORDERED: ASPIRIN 81 MG TABLET, CHEWABLE PO ONE (16:27)
--- NOTE | 2017-10-13 16:30 | ER Document Report ---
ED General - General Chief Complaint: Shortness Of Breath Stated Complaint: SHORTNESS OF BREATH Time Seen by Provider: 10/13/17 16:24 Mode of Arrival: Ambulatory Information source: Patient Notes: 62-year-old female presents with complaints of chest pain shortness of breath. Patient notes it is 2 out of 10 pain. She states she has a history of chronic kidney disease received dialysis today. Patient also has a history of hypertension, she noted the chest pain started this morning with shortness of breath went to dialysis and symptoms improved a bit and then when she woke up from a nap she noted that the symptoms had returned TRAVEL OUTSIDE OF THE [place] IN LAST 30 DAYS: No - HPI Onset: This morning Onset/Duration: Sudden Quality of pain: Pressure Severity: Mild Pain Level: 2 Associated symptoms: Chest pain, Nonproductive cough, Shortness of breath Exacerbated by: Denies Relieved by: Denies Similar symptoms previously: No Recently seen / treated by doctor: No - Related Data Allergies/Adverse Reactions: codeine [Codeine] Allergy (Severe, Verified 10/13/17 15:56) Lips & tongue swell hydrocodone bitartrate [From Vicodin] Allergy (Severe, Verified 10/13/17 15:56) Throat & tongue swell, severe itch Iodinated Contrast- Oral and IV Dye [IV Dye, Iodine Containing] Allergy (Severe , Verified 10/13/17 15:56) Anaphylaxis lanthanum carbonate [From FOSRENOL] Allergy (Severe, Verified 10/13/17 15:56) losartan potassium [From Cozaar] Allergy (Severe, Verified 10/13/17 15:56) Swelling of Throat oxycodone HCl [From OxyContin] Allergy (Severe, Verified 10/13/17 15:56) Throat & tongue swell, severe itch propoxyphene napsylate [From Darvocet-N 100] Allergy (Severe, Verified 10/13/17 15:56) Mouth swells, itch ramipril [From Altace] Allergy (Severe, Verified 10/13/17 15:56) Lips, tongue & throat swell Penicillins Allergy (Intermediate, Verified 10/13/17 15:56) Generalized Itching adhesive tape [Adhesive Tape] Adverse Reaction (Intermediate, Verified 10/13/17 15:56) ITCHING, PULLS SKIN OFF aspirin [Aspirin] Adverse Reaction (Intermediate, Verified 10/13/17 15:56) Tegaderm Allergy (Intermediate, Uncoded 10/13/17 15:56) Pulls skin off, itching Past Medical History - Social History Smoking Status: Never Smoker Cigarette use (# per day): No Chew tobacco use (# tins/day): No Smoking Education Provided: No Frequency of alcohol use: None Drug Abuse: None Family History: Reviewed & Not Pertinent Patient has suicidal ideation: No Patient has homicidal ideation: No - Past Medical History Cardiac Medical History: Reports: Hx Hypercholesterolemia, Hx Hypertension Denies: Hx Coronary Artery Disease, Hx Heart Attack Pulmonary Medical History: Reports: Hx Asthma, Hx COPD - asthma Denies: Hx Bronchitis, Hx Pneumonia, Hx Tuberculosis Neurological Medical History: Denies: Hx Cerebrovascular Accident, Hx Seizures Endocrine Medical History: Reports: Hx Hyperthyroidism Renal/ Medical History: Reports: Hx End Stage Renal Disease - DIALYSIS , Hx Hemodialysis. Denies: Hx Peritoneal Dialysis GI Medical History: Reports: Hx Gastroesophageal Reflux Disease, Hx Hiatal Hernia Musculoskeltal Medical History: Reports Hx Arthritis Psychiatric Medical History: Denies: Hx Depression Infectious Medical History: Past Surgical History: Reports: Hx Abdominal Surgery - GALL BLADDER, Hx Cardiac Catheterization - 2011, Hx Section, Hx Cholecystectomy, Hx Gynecologic Surgery - hysteroscopy. Denies: Hx Hysterectomy - Immunizations Hx Diphtheria, Pertussis, Tetanus Vaccination: Yes Hx Pneumococcal Vaccination: 08/14/15 Review of Systems - Review of Systems Notes: REVIEW OF SYSTEMS: CONSTITUTIONAL : Denies fever, chills, or sweats. Denies recent illness. EENT: Denies eye, ear, throat, or mouth pain or symptoms. Denies nasal or sinus congestion or discharge. Denies throat, tongue, or mouth swelling or difficulty swallowing. CARDIOVASCULAR: Admits to chest pain RESPIRATORY: Admits to shortness of breath admits to cough that started this morning GASTROINTESTINAL: Denies abdominal pain or distention. Denies nausea, vomiting , or diarrhea. Denies blood in vomitus, stools, or per rectum. Denies black, tarry stools. Denies constipation. GENITOURINARY: Denies difficulty urinating, painful urination, burning, frequency, blood in urine, or discharge. FEMALE GENITOURINARY: Denies vaginal bleeding, heavy or abnormal periods, irregular periods. Denies vaginal discharge or odor. MUSCULOSKELETAL: Denies back or neck pain or stiffness. Denies joint pain or swelling. SKIN: Denies rash, lesions or sores. HEMATOLOGIC : Denies easy bruising or bleeding. LYMPHATIC: Denies swollen, enlarged glands. NEUROLOGICAL: Denies confusion or altered mental status. Denies passing out or loss of consciousness. Denies dizziness or lightheadedness. Denies headache. Denies weakness or paralysis or loss of use of either side. Denies problems with gait or speech. Denies sensory loss, numbness, or tingling. Denies seizures. PSYCHIATRIC: Denies anxiety or stress. Denies depression, suicidal ideation, or homicidal ideation. ALL OTHER SYSTEMS REVIEWED AND NEGATIVE. PHYSICAL EXAMINATION: GENERAL: Well-appearing, well-nourished and in no acute distress. HEAD: Atraumatic, normocephalic. EYES: Pupils equal round and reactive to light, extraocular movements intact, conjunctiva are normal. ENT: Nares patent, oropharynx clear without exudates. Moist mucous membranes. NECK: Normal range of motion, supple without lymphadenopathy LUNGS: Breath sounds clear to auscultation bilaterally and equal. No wheezes rales or rhonchi. HEART: Regular rate and rhythm without murmurs ABDOMEN: Soft, nontender, nondistended abdomen. No guarding, no rebound. No masses appreciated. Female : deferred Musculoskeletal: Normal range of motion, no pitting or edema. No cyanosis. NEUROLOGICAL: Cranial nerves grossly intact. Normal speech, normal gait. Normal sensory, motor exams PSYCH: Normal mood, normal affect. SKIN: Dialysis access noted Dictation was performed using [employer] voice recognition software Physical Exam - Vital signs Vitals: Temp Pulse Resp BP Pulse Ox 98.6 F 59 L 20 178/86 H 94 10/13/17 15:31 10/13/17 15:31 10/13/17 15:31 10/13/17 15:31 10/13/17 15:31 Course - Re-evaluation Re-evalutation: 10/13/17 16:29 Patient is in no distress at this time there is an inverted T-wave noted in V5 which is new there is a worsening T-wave inversion in V6 in comparison to previous, pt is noted to have had a cough that started this moirning 10/13/17 16:41 10/13/17 17:38 I spoke with patient's primary care physician, I noted her hypertension new EKG change as well as possible infiltrate, we agreed for admission to the hospital - Vital Signs Vital signs: Temp Pulse Resp BP Pulse Ox 98.6 F 59 L 16 196/96 H 94 10/13/17 15:31 10/13/17 15:31 10/13/17 17:01 10/13/17 17:01 10/13/17 17:01 - Laboratory Result Diagrams: 10/13/17 16:47 10/13/17 16:47 Laboratory results interpreted by me: 10/13/17 10/13/17 10/13/17 16:47 16:47 16:47 Hgb 11.8 L Hct 35.0 L RDW 16.9 H Eosinophils % 7.0 H Chloride 97 L BUN 22 H Creatinine 5.97 H Est GFR ( Amer) 9 L Est GFR (Non-Af Amer) 7 L Direct Bilirubin 0.5 H Alkaline Phosphatase 237 H NT-Pro-B Natriuret Pep 57826 H - EKG Interpretation by Me EKG shows normal: Sinus rhythm, [place], Intervals, QRS Complexes When compared to previous EKG there are: Changes noted - iverted t wave in v5 v6 , Other Critical Care Note - Critical Care Note Total time excluding time spent on procedures (mins): 34 Comments: 34 minutes of critical care time spent in direct contact evaluating and reevaluating the patient, treating symptoms, reviewing labs and studies and speaking with family and consultants excluding any procedures Discharge - Discharge Clinical Impression: End-stage renal disease (ESRD), Acute electrocardiogram changes HTN (hypertension) Qualifiers: Hypertension type: renovascular hypertension Qualified Code(s): I15.0 - Renovascular hypertension Pneumonia Qualifiers: Pneumonia type: due to unspecified organism Laterality: left Lung location: unspecified part of lung Qualified Code(s): J18.9 - Pneumonia, unspecified organism Condition: Stable Disposition: ADMITTED INPATIENT Admitting Provider: [facility] Unit Admitted: Telemetry
--- NOTE | 2017-10-13 16:58 | RADIOLOGY REPORT (SQ) ---
EXAM DESCRIPTION: CHEST SINGLE VIEW COMPLETED DATE/TIME: 10/13/2017 4:46 pm REASON FOR STUDY: chest pain sob COMPARISON: 05/20/2017 EXAM PARAMETERS: NUMBER OF VIEWS: One view. TECHNIQUE: Single frontal radiographic view of the chest acquired. RADIATION DOSE: NA LIMITATIONS: None. FINDINGS: LUNGS AND PLEURA: There is ill-defined opacification adjacent to the left heart border. N o significant pleural effusion. No mass. MEDIASTINUM AND HILAR STRUCTURES: No masses. Contour normal. HEART AND VASCULAR STRUCTURES: Heart size is borderline. No failure. BONES: No acute findings. HARDWARE: None in the chest. OTHER: No other significant finding. IMPRESSION: Borderline cardiomegaly with no failure. Cannot exclude limited lingular infiltrate. TECHNICAL DOCUMENTATION: JOB ID: [id number] [employer]- All Rights Reserved
[2017-10-13 16:59] LABS: ABSOLUTE EOSINOPHILS # (AUTO) 0.4 10^3/uL (0.0-0.6); ABSOLUTE LYMPHOCYTES (AUTO) 1.5 10^3/uL (0.5-4.7); ABSOLUTE MONOCYTES (AUTO) 0.5 10^3/uL (0.1-1.4); BASOPHILS % (AUTO) 0.6 % (0-2); HEMOGLOBIN 11.8 g/dL (12.0-15.5); HGB HCT DIFFERENCE 0.4; LYMPHOCYTES % (AUTO) 23.1 % (13-45); MEAN CORPUSCULAR HEMOGLOBIN 30.4 pg (27.0-33.4); MEAN CORPUSCULAR HGB CONC 33.8 g/dL (32.0-36.0); MEAN CORPUSCULAR VOLUME 90 fl (80-97); MONOCYTES % (AUTO) 7.6 % (3-13); RED CELL DISTRIBUTION WIDTH 16.9 % (11.5-14.0); SEGMENTED NEUTROPHILS % (AUTO) 61.7 % (42-78); WHITE BLOOD COUNT 6.4 10^3/uL (4.0-10.5)
[2017-10-13 17:14] LABS: ALANINE AMINOTRANSFERASE 14 U/L (9-52); ALBUMIN 4.4 g/dL (3.5-5.0); ALKALINE PHOSPHATASE 237 U/L (38-126); ANION GAP 14 (5-19); ASPARTATE AMINO TRANSFERASE 16 U/L (14-36); BILIRUBIN,DIRECT 0.5 mg/dL (0.0-0.4); BILIRUBIN,TOTAL 0.8 mg/dL (0.2-1.3); BLOOD UREA NITROGEN 22 mg/dL (7-20); CALCIUM 8.9 mg/dL (8.4-10.2); CARBON DIOXIDE 29 mmol/L (22-30); CHLORIDE 97 mmol/L (98-107); CREATINE KINASE 61 U/L (30-135); CREATININE RESULT 5.97 mg/dL (0.52-1.25); GLUCOSE 82 mg/dL (75-110); POTASSIUM 4.5 mmol/L (3.6-5.0); SODIUM 140.3 mmol/L (137-145); TOTAL PROTEIN 7.4 g/dL (6.3-8.2)
[2017-10-13 17:26] LABS: CREATINE KINASE MB 0.25 ng/mL (<4.55)
[2017-10-13 17:32] LABS: TROPONIN I 0.056 ng/mL
[2017-10-13] MEDS ORDERED: CEFTRIAXONE 1 GM/D5W RTU 1 GM/50 ML RTUPB IV ONE (17:37)
[2017-10-13] MEDS ORDERED: HYDRALAZINE HCL INJ/PF 20 MG/1 ML SDV IV ONE (17:38)
--- NOTE | 2017-10-13 18:56 | EKG REPORT ---
SEVERITY:- ABNORMAL ECG - SINUS RHYTHM PROBABLE LEFT ATRIAL ABNORMALITY LEFT VENTRICULAR HYPERTROPHY ABNORMAL T, CONSIDER ISCHEMIA, LATERAL LEADS : Confirmed by: Hayden Cardoso MD 13-Oct-2017 18:54:50
[2017-10-13 21:18] LABS: CREATINE KINASE MB 0.31 ng/mL (<4.55); TROPONIN I 0.062 ng/mL
[2017-10-13] MEDS ORDERED: DIPHENHYDRAMINE HCL 25 MG CAPSULE PO PRN (23:09)
[2017-10-13] MEDS ORDERED: HYDROMORPHONE HCL 2 MG TABLET PO PRN (23:09)
[2017-10-13] MEDS ORDERED: COLCHICINE 0.6 MG TABLET PO PRN (23:09)
[2017-10-13] MEDS ORDERED: FAMOTIDINE 20 MG TABLET PO PRN (23:09)
[2017-10-13] MEDS ORDERED: BUDESONIDE/FORMOTEROL 80-4.5 MCG 60 PUFF/6.9 GM MDI IH PRN (23:09)
[2017-10-13] MEDS ORDERED: ALBUTEROL SULFATE HFA (90 MCG/PUFF) 8 GM MDI (1 MDI/ER DISP) IH PRN (23:09)
[2017-10-13] MEDS ORDERED: (PENDING PHARMACY ID) (Metoprolol Succinate [Toprol Xl] 200 MG) PO SCH (23:15)
[2017-10-13] MEDS ORDERED: (PENDING PHARMACY ID) (Clonidine Hcl [Catapres 0.3 Mg Tablet] 0.3 MG) PO SCH (23:15)
[2017-10-13] MEDS ORDERED: (PENDING PHARMACY ID) (Nifedipine [Nifedipine Er] 60 MG) PO SCH (23:15)
[2017-10-13] MEDS ORDERED: (PENDING PHARMACY ID) (Diclofenac Sodium [Voltaren] 100 GM) TP SCH (23:15)
[2017-10-13] MEDS ORDERED: METOPROLOL SUCCINATE 50 MG TAB.SR.24H PO ONE (23:45)
[2017-10-13] MEDS ORDERED: NIFEDIPINE 30 MG TAB.ER.24 PO ONE (23:45)
[2017-10-13] MEDS ORDERED: CINACALCET HCL 30 MG TABLET PO ONE (23:45)
[2017-10-13] MEDS ORDERED: CLONIDINE HCL 0.2 MG TABLET PO ONE (23:45)
[2017-10-14] MEDS ORDERED: CINACALCET HCL 30 MG TABLET PO ONE (02:08)
[2017-10-14] MEDS ORDERED: ACETAMINOPHEN 325 MG TABLET PO ONE (02:30)
[2017-10-14 03:04] LABS: CREATINE KINASE MB < 0.22 ng/mL (<4.55); TROPONIN I 0.058 ng/mL
[2017-10-14] MEDS ORDERED: ALBUTEROL SULFATE HFA (90 MCG/PUFF) 200 PUFF/8.5 GM MDI IH PRN (06:57)
[2017-10-14 09:46] LABS: HEMATOCRIT 34.4 % (36.0-47.0); HEMOGLOBIN 11.7 g/dL (12.0-15.5); HGB HCT DIFFERENCE 0.7; MEAN CORPUSCULAR HEMOGLOBIN 30.4 pg (27.0-33.4); MEAN CORPUSCULAR HGB CONC 34.1 g/dL (32.0-36.0); MEAN CORPUSCULAR VOLUME 89 fl (80-97); RED BLOOD COUNT 3.87 10^6/uL (3.72-5.28); RED CELL DISTRIBUTION WIDTH 17.3 % (11.5-14.0); WHITE BLOOD COUNT 5.1 10^3/uL (4.0-10.5)
[2017-10-14] MEDS ORDERED: NIFEDIPINE 30 MG TAB.ER.24 PO SCH (10:00)
[2017-10-14 10:11] LABS: ANION GAP 15 (5-19); BLOOD UREA NITROGEN 31 mg/dL (7-20); CALCIUM 8.6 mg/dL (8.4-10.2); CARBON DIOXIDE 27 mmol/L (22-30); CHLORIDE 97 mmol/L (98-107); CREATININE RESULT 8.31 mg/dL (0.52-1.25); GLUCOSE 125 mg/dL (75-110); POTASSIUM 4.3 mmol/L (3.6-5.0); SODIUM 138.6 mmol/L (137-145)
[2017-10-14 10:23] LABS: TROPONIN I 0.056 ng/mL
[2017-10-14 10:24] LABS: CREATINE KINASE MB < 0.22 ng/mL (<4.55)
[2017-10-14] MEDS: METOPROLOL SUCCINATE 50 MG TAB.SR.24H PO SCH (13:43)
[2017-10-14] MEDS: MONTELUKAST SODIUM 10 MG TABLET PO SCH (13:43)
[2017-10-14] MEDS: NIFEDIPINE 30 MG TAB.ER.24 PO SCH ×2 (13:45→21:53)
[2017-10-14] MEDS: CLONIDINE HCL 0.2 MG TABLET PO SCH ×3 (13:46→19:03)
[2017-10-14] MEDS: CEFTRIAXONE SODIUM 1,500 MG in DEXTROSE 5%-WATER 100 ML IV SCH (13:47)
[2017-10-14] MEDS ORDERED: PROMETHAZINE HCL INJ 25 MG/1 ML VIAL IV PRN (14:29)
[2017-10-14] MEDS: PROMETHAZINE HCL 25 MG TABLET PO PRN ×2 (14:38→21:53)
[2017-10-14] MEDS: LACTULOSE SYRUP 20 GM/30 ML UDCUP PO PRN (14:39)
--- NOTE | 2017-10-14 15:06 | PDOC CONSULTATION ---
Consultation Consult Date: 10/14/17 Consult reason:: ESRD for hemodialysis. History of Present Illness Admission Date/PCP: 10/13/17 17:46 KEVIN REED MD History of Present Illness: CAPO HDEZ is a 62 year old femaleHistory of ESRD in the background of hypertension comes in with a history of chest pressure for the last few days. The pressure is retrosternal with no radiation. No precipitating or relieving factors. She also describes a cough with mucopurulent expectoration going on for the last few days. No history of any hemoptysis, fever or chills. Evaluations in the ER has revealed that she has a lingular infiltrate on the chest x-ray.She was given IV Rocephin in the ER. Currently she feels better. No further orders for the antibiotic is seen in the moment. She was seen on hemodialysis that she is undergoing without any issues. Is being supervised to ensure safe and smooth procedure. Vital signs are stable. Past Medical History Cardiac Medical History: Reports: Hyperlipidemia, Hypertension-primary Denies: Coronary Artery Disease, Myocardial Infarction Pulmonary Medical History: Reports: Asthma, Bronchitis, Chronic Obstructive Pulmonary Disease (COPD) - asthma Denies: Pneumonia, Tuberculosis Neurological Medical History: Denies: Seizures Endocrine Medical History: Reports: Hyperthyroidism Renal/ Medical History: Reports: End Stage Renal Disease, Secondary Hyperparathyroidism GI Medical History: Reports: Gastroesophageal Reflux Disease, Hiatal Hernia Musculoskeltal Medical History: Reports: Arthritis Psychiatric Medical History: Denies: Depression Past Surgical History Past Surgical History: Reports: Cardiac Catheterization - 2011, Section, Cholecystectomy Denies: Hysterectomy Social History Smoking Status: Former Smoker Frequency of Alcohol Use: None Hx Recreational Drug Use: No Drugs: None Hx Prescription Drug Abuse: No - Advance Directive Resuscitation Status: Full Code Family History Parental Family History Reviewed: Yes - Negative for ESRD. Children Family History Reviewed: No Sibling(s) Family History Reviewed.: No Medication/Allergy Home Medications: Albuterol Sulfate [Proair HFA] 2 puff IH Q4HP PRN 10/14/17 Budesonide/Formoterol Fumarate [Symbicort Hfa 160-4.5 Mcg Inhaler 6 gm] 2 puff IH Q12 10/14/17 Calcium Acetate [Phoslo 667 Mg Capsule] 2,201 mg PO MEALS 10/14/17 Calcium Carbonate [Tums Chewable 500 mg Tab.chew] 500 mg PO QID 10/14/17 Chlorpheniramine Maleate [Chlor-Trimeton 4 mg Tablet] 4 mg PO Q6HP PRN 10/14/17 Cinacalcet HCl [Sensipar 60 mg Tablet] 1 tab PO DAILY 10/14/17 Clobetasol Propionate [Clobetasol Propionate Cream] 1 applic TP BID 10/14/17 Clonidine HCl [Catapres 0.3 mg Tablet] 0.3 mg PO Q8 10/14/17 Folic Acid/Vit B Complex and C [Nephro-Juan Tablet] 1 mg PO DAILY 10/14/17 Lactulose [Cephulac 20 gm/30 ml Syrup UD Cup] 20 gm PO TIDP PRN 10/14/17 Linaclotide [Linzess 145 Mcg Capsule] 145 mcg PO DAILY 10/14/17 Metoprolol Succinate [Toprol XL 200 mg Tablet] 200 mg PO DAILY 10/14/17 Montelukast Sodium [Singulair 10 mg Tablet] 10 mg PO QHS 10/14/17 Nifedipine [Nifedipine ER] 60 mg PO BID 10/14/17 Ondansetron HCl [Zofran 4 mg Tablet] 8 mg PO DAILY 10/14/17 Promethazine HCl 12.5 mg PO Q6HP PRN 10/14/17 Sevelamer Carbonate [Renvela] 1,600 mg PO DAILYP PRN 10/14/17 Sevelamer Carbonate [Renvela] 2,400 mg PO MEALS 10/14/17 Allergies/Adverse Reactions: codeine [Codeine] Allergy (Severe, Verified 10/13/17 15:56) Lips & tongue swell hydrocodone bitartrate [From Vicodin] Allergy (Severe, Verified 10/13/17 15:56) Throat & tongue swell, severe itch Iodinated Contrast- Oral and IV Dye [IV Dye, Iodine Containing] Allergy (Severe , Verified 10/13/17 15:56) Anaphylaxis lanthanum carbonate [From FOSRENOL] Allergy (Severe, Verified 10/13/17 15:56) losartan potassium [From Cozaar] Allergy (Severe, Verified 10/13/17 15:56) Swelling of Throat oxycodone HCl [From OxyContin] Allergy (Severe, Verified 10/13/17 15:56) Throat & tongue swell, severe itch propoxyphene napsylate [From Darvocet-N 100] Allergy (Severe, Verified 10/13/17 15:56) Mouth swells, itch ramipril [From Altace] Allergy (Severe, Verified 10/13/17 15:56) Lips, tongue & throat swell Penicillins Allergy (Intermediate, Verified 10/13/17 15:56) Generalized Itching adhesive tape [Adhesive Tape] Adverse Reaction (Intermediate, Verified 10/13/17 15:56) ITCHING, PULLS SKIN OFF aspirin [Aspirin] Adverse Reaction (Intermediate, Verified 10/13/17 15:56) Tegaderm Allergy (Intermediate, Uncoded 10/13/17 15:56) Pulls skin off, itching Review of Systems Constitutional: PRESENT: fatigue, weakness. ABSENT: fever(s), headache(s), night sweats Cardiovascular: ABSENT: edema, orthropnea, palpitations Respiratory: PRESENT: cough. ABSENT: dyspnea, hemoptysis Gastrointestinal: ABSENT: constipation, diarrhea, dysphagia, heartburn, hematemesis, hematochezia Neurological: ABSENT: abnormal movements, confusion, convulsions Endocrine: ABSENT: cold intolerance, heat intolerance Physical Exam Vital Signs: Temp Pulse Resp BP Pulse Ox 98.6 F 65 16 135/68 H 93 10/14/17 08:31 10/14/17 08:31 10/14/17 08:31 10/14/17 08:31 10/14/17 08:31 Intake & Output 10/13/17 10/14/17 10/15/17 06:59 06:59 06:59 Intake Total 770 360 Output Total 0 Balance 770 360 Weight 104.3 kg General appearance: PRESENT: no acute distress Eye exam: PRESENT: conjunctiva pink, EOMI, PERRLA Ear exam: PRESENT: normal external ear exam Mouth exam: PRESENT: moist, neck supple Neck exam: ABSENT: lymphadenopathy, meningismus, tenderness, thyromegaly, tracheal deviation Respiratory exam: PRESENT: clear to auscultation alcira. ABSENT: crackles, rhonchi , stridor Cardiovascular exam: PRESENT: +S1, +S2 GI/Abdominal exam: PRESENT: normal bowel sounds, soft. ABSENT: organomegaly, tenderness Extremities exam: PRESENT: +1 edema Neurological exam: PRESENT: alert, awake, oriented to person, oriented to place Skin exam: PRESENT: dry. ABSENT: erythema, mottled, rash Results Laboratory Results: 10/14/17 08:55 10/14/17 08:55 10/14/17 10/14/17 08:55 08:55 WBC 5.1 RBC 3.87 Hgb 11.7 L Hct 34.4 L MCV 89 MCH 30.4 MCHC 34.1 RDW 17.3 H Plt Count 174 Sodium 138.6 Potassium 4.3 Chloride 97 L Carbon Dioxide 27 Anion Gap 15 BUN 31 H Creatinine 8.31 H Est GFR ( Amer) 6 L Est GFR (Non-Af Amer) 5 L Glucose 125 H Calcium 8.6 10/13/17 10/13/17 10/14/17 20:15 20:15 02:23 Creatine Kinase 48 42 CK-MB (CK-2) 0.31 Troponin I 0.062 10/14/17 10/14/17 10/14/17 02:23 08:55 08:55 Creatine Kinase 47 CK-MB (CK-2) < 0.22 < 0.22 Troponin I 0.058 0.056 Impressions: Chest X-Ray 10/13/17 16:28 IMPRESSION: Borderline cardiomegaly with no failure. Cannot exclude limited lingular infiltrate. Assessment & Plan - Diagnosis (1) End-stage renal disease (ESRD) Plan: Is currently undergoing dialysis without any issues. Is being supervised to ensure safe and smooth procedure. Vital signs are stable. Plan to remove 1-2 L as tolerated. Orders were discussed with the treating nurse Tereza. (2) HTN (hypertension) Qualifiers: Hypertension type: renovascular hypertension Qualified Code(s): I15.0 - Renovascular hypertension Plan: Controlled on hemodialysis. (3) Pneumonia Qualifiers: Pneumonia type: due to unspecified organism Laterality: left Lung location: unspecified part of lung Qualified Code(s): J18.9 - Pneumonia, unspecified organism Plan: Lingular infiltrate. She was given IV Rocephin in the ER according to the patient. She had no allergic reactions for that. Will order the same starting this evening.
--- NOTE | 2017-10-14 20:31 | PDOC H&P ---
History of Present Illness Admission Date/PCP: 10/13/17 17:46 KEVIN REED MD History of Present Illness: Patient 62-year-old female with end-stage kidney disease on maintenance hemodialysis she came to the emergency room for evaluation of chest pain, the pain is retrosternal it does not radiate. A chest x-ray was done in the emergency room there was questionable left lingula infiltrate, patient is not showing symptoms of pneumonia, , she had chest pain before she went for dialysis she was dialyze as well today, the chest pain persisted after hemodialysis so she came to emergency room. Past Medical History Cardiac Medical History: Reports: Hyperlipidema, Hypertension Pulmonary Medical History: Reports: Asthma, Bronchitis, Chronic Obstructive Pulmonary Disease (COPD) - asthma Renal/ Medical History: Reports: End Stage Renal Disease GI Medical History: Reports: Gastroesophageal Reflux Disease, Hiatal Hernia Musculoskeltal Medical History: Reports: Arthritis Hematology: Reports: Anemia Past Surgical History Past Surgical History: Reports: Cardiac Catheterization - 2011, Section, Cholecystectomy Denies: Hysterectomy Social History Smoking Status: Former Smoker Frequency of Alcohol Use: None Hx Recreational Drug Use: No Drugs: None Hx Prescription Drug Abuse: No - Advance Directive Resuscitation Status: Full Code Family History Family History: Reviewed & Not Pertinent Parental Family History Reviewed: Yes Children Family History Reviewed: Yes Sibling(s) Family History Reviewed.: Yes Medication/Allergy Home Medications: Albuterol Sulfate [Proair HFA] 2 puff IH Q4HP PRN 10/14/17 Albuterol Sulfate [Ventolin Hfa] 2 puff IH Q4HP PRN 10/14/17 Allopurinol [Zyloprim 100 mg Tablet] 100 mg PO DAILY 10/14/17 Budesonide/Formoterol Fumarate [Symbicort Hfa 160-4.5 Mcg Inhaler 6 gm] 2 puff IH Q12 10/14/17 Calcium Acetate [Phoslo 667 Mg Capsule] 2,201 mg PO MEALS 10/14/17 Calcium Carbonate [Tums Chewable 500 mg Tab.chew] 500 mg PO QID 10/14/17 Chlorpheniramine Maleate [Chlor-Trimeton 4 mg Tablet] 4 mg PO Q6HP PRN 10/14/17 Cinacalcet HCl [Sensipar 60 mg Tablet] 1 tab PO DAILY 10/14/17 Clobetasol Propionate [Clobetasol Propionate Cream] 1 applic TP BID 10/14/17 Clonidine HCl [Catapres 0.3 mg Tablet] 0.3 mg PO Q8 10/14/17 Colchicine [Colcrys 0.6 mg Tablet] 1 tab PO DAILY 10/14/17 Diclofenac Sodium [Voltaren] 100 gm TP DAILY 10/14/17 Folic Acid/Vit B Complex and C [Nephro-Juan Tablet] 1 mg PO DAILY 10/14/17 Lactulose [Cephulac 20 gm/30 ml Syrup UD Cup] 20 gm PO TIDP PRN 10/14/17 Linaclotide [Linzess 145 Mcg Capsule] 145 mcg PO DAILY 10/14/17 Metoprolol Succinate [Toprol XL 200 mg Tablet] 200 mg PO DAILY 10/14/17 Montelukast Sodium [Singulair 10 mg Tablet] 10 mg PO QHS 10/14/17 Nifedipine [Nifedipine ER] 60 mg PO BID 10/14/17 Ondansetron HCl [Zofran 4 mg Tablet] 8 mg PO DAILY 10/14/17 Promethazine HCl 12.5 mg PO Q6HP PRN 10/14/17 Sevelamer Carbonate [Renvela] 1,600 mg PO DAILYP PRN 10/14/17 Sevelamer Carbonate [Renvela] 2,400 mg PO MEALS 10/14/17 Allergies/Adverse Reactions: codeine [Codeine] Allergy (Severe, Verified 10/13/17 15:56) Lips & tongue swell hydrocodone bitartrate [From Vicodin] Allergy (Severe, Verified 10/13/17 15:56) Throat & tongue swell, severe itch Iodinated Contrast- Oral and IV Dye [IV Dye, Iodine Containing] Allergy (Severe , Verified 10/13/17 15:56) Anaphylaxis lanthanum carbonate [From FOSRENOL] Allergy (Severe, Verified 10/13/17 15:56) losartan potassium [From Cozaar] Allergy (Severe, Verified 10/13/17 15:56) Swelling of Throat oxycodone HCl [From OxyContin] Allergy (Severe, Verified 10/13/17 15:56) Throat & tongue swell, severe itch propoxyphene napsylate [From Darvocet-N 100] Allergy (Severe, Verified 10/13/17 15:56) Mouth swells, itch ramipril [From Altace] Allergy (Severe, Verified 10/13/17 15:56) Lips, tongue & throat swell Penicillins Allergy (Intermediate, Verified 10/13/17 15:56) Generalized Itching adhesive tape [Adhesive Tape] Adverse Reaction (Intermediate, Verified 10/13/17 15:56) ITCHING, PULLS SKIN OFF aspirin [Aspirin] Adverse Reaction (Intermediate, Verified 10/13/17 15:56) Tegaderm Allergy (Intermediate, Uncoded 10/13/17 15:56) Pulls skin off, itching Review of Systems Constitutional: ABSENT: chills, fever(s), headache(s), weight gain, weight loss Eyes: ABSENT: visual disturbances Ears: ABSENT: hearing changes Respiratory: ABSENT: cough, hemoptysis Gastrointestinal: ABSENT: abdominal pain, constipation, diarrhea, hematemesis, hematochezia, nausea, vomiting Genitourinary: ABSENT: dysuria, hematuria Musculoskeletal: ABSENT: joint swelling Integumentary: ABSENT: rash, wounds Neurological: ABSENT: abnormal gait, abnormal speech, confusion, dizziness, focal weakness, syncope Psychiatric: ABSENT: anxiety, depression, homidical ideation, suicidal ideation Endocrine: ABSENT: cold intolerance, heat intolerance, menstrual abnormalities, polydipsia, polyuria Hematologic/Lymphatic: ABSENT: easy bleeding, easy bruising, lymphadenopathy Physical Exam Vital Signs: Temp Pulse Resp BP Pulse Ox 98.6 F 65 12 131/68 H 94 10/14/17 15:53 10/14/17 19:00 10/14/17 15:53 10/14/17 15:53 10/14/17 15:53 Intake & Output 10/13/17 10/14/17 10/15/17 06:59 06:59 06:59 Intake Total 770 360 Output Total 2500 Balance 770 -2140 Weight 104.3 kg General appearance: PRESENT: no acute distress, well-developed, well-nourished Head exam: PRESENT: atraumatic, normocephalic Eye exam: PRESENT: conjunctiva pink, EOMI, PERRLA Ear exam: PRESENT: normal external ear exam Mouth exam: PRESENT: moist, tongue midline Neck exam: PRESENT: full ROM Respiratory exam: PRESENT: clear to auscultation alcira Cardiovascular exam: PRESENT: RRR, +S1, +S2 Pulses: PRESENT: normal dorsalis pedis pul, +2 pedal pulses bilateral Vascular exam: PRESENT: normal capillary refill GI/Abdominal exam: PRESENT: normal bowel sounds, soft Rectal exam: PRESENT: deferred Neurological exam: PRESENT: alert, awake, oriented to person, oriented to place , oriented to time, oriented to situation, CN II-XII grossly intact. ABSENT: motor sensory deficit Psychiatric exam: PRESENT: appropriate affect, normal mood Skin exam: PRESENT: dry, intact, warm Results Laboratory Results: 10/14/17 08:55 10/14/17 08:55 10/14/17 10/14/17 08:55 08:55 WBC 5.1 RBC 3.87 Hgb 11.7 L Hct 34.4 L MCV 89 MCH 30.4 MCHC 34.1 RDW 17.3 H Plt Count 174 Sodium 138.6 Potassium 4.3 Chloride 97 L Carbon Dioxide 27 Anion Gap 15 BUN 31 H Creatinine 8.31 H Est GFR ( Amer) 6 L Est GFR (Non-Af Amer) 5 L Glucose 125 H Calcium 8.6 10/13/17 10/13/17 10/14/17 20:15 20:15 02:23 Creatine Kinase 48 42 CK-MB (CK-2) 0.31 Troponin I 0.062 10/14/17 10/14/17 10/14/17 02:23 08:55 08:55 Creatine Kinase 47 CK-MB (CK-2) < 0.22 < 0.22 Troponin I 0.058 0.056 Impressions: Chest X-Ray 10/13/17 16:28 IMPRESSION: Borderline cardiomegaly with no failure. Cannot exclude limited lingular infiltrate. Assessment & Plan - Diagnosis (1) Chest pain Qualifiers: Chest pain type: unspecified Qualified Code(s): R07.9 - Chest pain, unspecified Is this a current diagnosis for this admission?: Yes Plan: She has chest pain, history of end-stage renal disease increased risk of CAD she had a stress test in April of this year (2) End-stage renal disease (ESRD) Is this a current diagnosis for this admission?: Yes (3) HTN (hypertension) Qualifiers: Hypertension type: renovascular hypertension Qualified Code(s): I15.0 - Renovascular hypertension
[2017-10-14] MEDS ORDERED: AZITHROMYCIN 250 MG TABLET PO SCH (22:00)
[2017-10-14] MEDS ORDERED: CINACALCET HCL 30 MG TABLET PO SCH (22:00)
[2017-10-15] MEDS: MONTELUKAST SODIUM 10 MG TABLET PO SCH (07:33)
[2017-10-15] MEDS: NIFEDIPINE 30 MG TAB.ER.24 PO SCH (11:08)
[2017-10-15] MEDS: CLONIDINE HCL 0.2 MG TABLET PO SCH ×2 (11:09→13:54)
[2017-10-15] MEDS: METOPROLOL SUCCINATE 50 MG TAB.SR.24H PO SCH (11:11)
[2017-10-15] MEDS: LACTULOSE SYRUP 20 GM/30 ML UDCUP PO PRN (11:20)
[2017-10-15 12:41] VITALS: BP 145/76
--- NOTE | 2017-10-15 12:41 | PDOC DISCHARGE SUMMARY ---
General - Admit/Disc Date/PCP Admission Date/Primary Care Provider: 10/13/17 17:46 KEVIN REED MD Discharge Date: 10/15/17 - Discharge Diagnosis (1) Chest pain Is this a current diagnosis for this admission?: Yes (2) End-stage renal disease (ESRD) Is this a current diagnosis for this admission?: Yes - Additional Information Resuscitation Status: Full Code Discharge Diet: Other (Comments) - RENAL DIET Discharge Activity: Activity As Tolerated Home Medications: Albuterol Sulfate [Proair HFA] 2 puff IH Q4HP PRN 10/14/17 Albuterol Sulfate [Ventolin Hfa] 2 puff IH Q4HP PRN 10/14/17 Allopurinol [Zyloprim 100 mg Tablet] 100 mg PO DAILY 10/14/17 Budesonide/Formoterol Fumarate [Symbicort HFA 160-4.5 mcg Inhaler 6 gm] 2 puff IH Q12 10/14/17 Calcium Acetate [Phoslo 667 mg Capsule] 2,201 mg PO MEALS 10/14/17 Calcium Carbonate [Tums Chewable 500 mg Tab.chew] 500 mg PO QID 10/14/17 Chlorpheniramine Maleate [Chlor-Trimeton 4 mg Tablet] 4 mg PO Q6HP PRN 10/14/17 Cinacalcet HCl [Sensipar 60 mg Tablet] 1 tab PO DAILY 10/14/17 Clobetasol Propionate [Clobetasol Propionate Cream] 1 applic TP BID 10/14/17 Clonidine HCl [Catapres 0.3 mg Tablet] 0.3 mg PO Q8 10/14/17 Colchicine [Colcrys 0.6 mg Tablet] 1 tab PO DAILY 10/14/17 Diclofenac Sodium [Voltaren] 100 gm TP DAILY 10/14/17 Folic Acid/Vit B Complex and C [Nephro-Juan Tablet] 1 mg PO DAILY 10/14/17 Lactulose [Cephulac Syrup 20 gm/30 ml Udcup] 20 gm PO TIDP PRN 10/14/17 Linaclotide [Linzess 145 Mcg Capsule] 145 mcg PO DAILY 10/14/17 Metoprolol Succinate [Toprol XL 200 mg Tablet] 200 mg PO DAILY 10/14/17 Montelukast Sodium [Singulair 10 mg Tablet] 10 mg PO QHS 10/14/17 Nifedipine [Nifedipine ER] 60 mg PO BID 10/14/17 Ondansetron HCl [Zofran 4 mg Tablet] 8 mg PO DAILY 10/14/17 Promethazine HCl 12.5 mg PO Q6HP PRN 10/14/17 Sevelamer Carbonate [Renvela] 1,600 mg PO DAILYP PRN 10/14/17 Sevelamer Carbonate [Renvela] 2,400 mg PO MEALS 10/14/17 Azithromycin [Zithromax 250 mg Tablet] 250 mg PO QHS #7 tablet 10/15/17 History of Present Illness History of Present Illness: Patient 62-year-old female with end-stage kidney disease on maintenance hemodialysis she came to the emergency room for evaluation of chest pain, the pain is retrosternal it does not radiate. A chest x-ray was done in the emergency room there was questionable left lingula infiltrate, patient is not showing symptoms of pneumonia, , she had chest pain before she went for dialysis she was dialyze as well today, the chest pain persisted after hemodialysis so she came to emergency room. Hospital Course Hospital Course: Patient was admitted for evaluation of chest pain, 3 sets of cardiac enzymes did not suggest any acute injury, she has a history of end-stage renal disease on maintenance hemodialysis, he was seen by nephrology she underwent dialysis on this admission. She was brought in for observation. She had a stress test done April of this year, the stress test was negative for any ischemia. There was a question of infiltrate in the lingular lobe the left lung, patient did not show any signs of pneumonia, there is no cough there is no shortness of breath there is no fever there is no reason to believe she has pneumonia. She was observed for 2 days she feels much better to be discharged home today Physical Exam Vital Signs: Temp Pulse Resp BP Pulse Ox 97.5 F 53 L 16 131/73 H 97 10/15/17 09:28 10/15/17 09:28 10/15/17 09:28 10/15/17 09:28 10/15/17 09:28 Intake & Output 10/14/17 10/15/17 10/16/17 06:59 06:59 06:59 Intake Total 770 892 Output Total 2500 Balance 770 -1608 Weight 104.3 kg General appearance: PRESENT: no acute distress, well-developed, well-nourished Head exam: PRESENT: atraumatic, normocephalic Eye exam: PRESENT: conjunctiva pink, EOMI, PERRLA Ear exam: PRESENT: normal external ear exam Mouth exam: PRESENT: moist, tongue midline Neck exam: PRESENT: full ROM Respiratory exam: PRESENT: clear to auscultation alcira Cardiovascular exam: PRESENT: RRR, +S1, +S2 Pulses: PRESENT: normal dorsalis pedis pul, +2 pedal pulses bilateral Vascular exam: PRESENT: normal capillary refill GI/Abdominal exam: PRESENT: normal bowel sounds, soft Rectal exam: PRESENT: deferred Neurological exam: PRESENT: alert, awake, oriented to person, oriented to place , oriented to time, oriented to situation, CN II-XII grossly intact Psychiatric exam: PRESENT: appropriate affect, normal mood Skin exam: PRESENT: dry, intact, warm. ABSENT: cyanosis, rash Results Laboratory Results: 10/14/17 08:55 10/14/17 08:55 10/13/17 10/13/17 10/14/17 20:15 20:15 02:23 Creatine Kinase 48 42 CK-MB (CK-2) 0.31 Troponin I 0.062 10/14/17 10/14/17 10/14/17 02:23 08:55 08:55 Creatine Kinase 47 CK-MB (CK-2) < 0.22 < 0.22 Troponin I 0.058 0.056 Impressions: Chest X-Ray 10/13/17 16:28 IMPRESSION: Borderline cardiomegaly with no failure. Cannot exclude limited lingular infiltrate.
[2017-10-15] MEDS: CEFTRIAXONE SODIUM 1,500 MG in DEXTROSE 5%-WATER 100 ML IV SCH (13:54)
== END 2017-10-15 13:45 | disposition home or self-care (01) | DRG 313 ==
LOC: ER 15:18 → EH 17:46 → 4S 19:17
PROVIDERS: ADMIT Internal Medicine; ATTEND Internal Medicine
PROC: 5A1D70Z Performance of Urinary Filtration, Intermittent, Less than 6 Hours Per Day (ICD-10-PCS; principal; 2017-10-14)
DX: R07.89 Other chest pain (principal); N18.6 End stage renal disease; I12.0 Hypertensive chronic kidney disease with stage 5 chronic kidney disease or end stage renal disease; R91.8 Other nonspecific abnormal finding of lung field; K21.9 Gastro-esophageal reflux disease without esophagitis; M19.90 Unspecified osteoarthritis, unspecified site; E05.90 Thyrotoxicosis, unspecified without thyrotoxic crisis or storm; J44.9 Chronic obstructive pulmonary disease, unspecified; Z99.2 Dependence on renal dialysis; E78.5 Hyperlipidemia, unspecified; Z88.6 Allergy status to analgesic agent; Z79.51 Long term (current) use of inhaled steroids; Z91.041 Radiographic dye allergy status; Z79.899 Other long term (current) drug therapy; Z88.0 Allergy status to penicillin; Z88.8 Allergy status to other drugs, medicaments and biological substances; Z87.891 Personal history of nicotine dependence
CPT/HCPCS: 36415; 71010; 80048; 80053; 82550; 82553; 83880; 84484; 85025; 85027; 86317; 86704; 87040; 87340; 93005; 93010; 94660; 99291; J0360; J0696; J3490

== ENCOUNTER 2018-01-23 15:34 | Inpatient (IN) | payer MEDICARE, MEDICAID ==
--- NOTE | 2018-01-23 21:13 | PDOC H&P ---
History of Present Illness Admission Date/PCP: 01/23/18 15:34 KEVIN REED MD History of Present Illness: CAPO HDEZ 62 Year old female , She has end-stage renal disease on maintenance hemodialysis, she came to the office this morning for evaluation of acute onset, 1 day duration substernal chest pain associated with shortness of breath. She has a history of superior vena cava syndrome, presently being evaluated at [facility] scheduled for a procedure soon. In the office, 12-lead EKG was done, it shows sinus rhythm, Q-wave in inferolateral leads suggesting old MO, the age of the MO could not be ascertained. She stated that she had a stress test last year at [place] and she said it was normal, I have no access to the result of the stress test, because she has significant risk factor for ischemic heart disease, she is a patient on hemodialysis, history of hypertension, now present with suspicious chest pain, I felt patient needed to be admitted to the hospital for evaluation and management. Past Medical History Cardiac Medical History: Reports: Hyperlipidema, Hypertension Pulmonary Medical History: Reports: Asthma, Bronchitis, Chronic Obstructive Pulmonary Disease (COPD) - asthma Endocrine Medical History: Reports: Hyperthyroidism Renal/ Medical History: Reports: End Stage Renal Disease GI Medical History: Reports: Gastroesophageal Reflux Disease, Hiatal Hernia Musculoskeltal Medical History: Reports: Arthritis Hematology: Reports: Anemia Past Surgical History Past Surgical History: Reports: Cardiac Catheterization - 2011, Section, Cholecystectomy Social History Smoking Status: Former Smoker Frequency of Alcohol Use: None Hx Recreational Drug Use: No Drugs: None Hx Prescription Drug Abuse: No Family History Family History: Reviewed & Not Pertinent Parental Family History Reviewed: Yes Children Family History Reviewed: Yes Sibling(s) Family History Reviewed.: Yes Medication/Allergy Home Medications: Albuterol Sulfate [Proair HFA] 2 puff IH Q4HP PRN 10/14/17 Albuterol Sulfate [Ventolin Hfa] 2 puff IH Q4HP PRN 10/14/17 Allopurinol [Zyloprim 100 mg Tablet] 100 mg PO DAILY 10/14/17 Budesonide/Formoterol Fumarate [Symbicort HFA 160-4.5 mcg Inhaler 6 gm] 2 puff IH Q12 10/14/17 Calcium Acetate [Phoslo 667 mg Capsule] 2,201 mg PO MEALS 10/14/17 Calcium Carbonate [Tums Chewable 500 mg Tab.chew] 500 mg PO QID 10/14/17 Chlorpheniramine Maleate [Chlor-Trimeton 4 mg Tablet] 4 mg PO Q6HP PRN 10/14/17 Cinacalcet HCl [Sensipar 60 mg Tablet] 1 tab PO DAILY 10/14/17 Clobetasol Propionate [Clobetasol Propionate Cream] 1 applic TP BID 10/14/17 Clonidine HCl [Catapres 0.3 mg Tablet] 0.3 mg PO Q8 10/14/17 Colchicine [Colcrys 0.6 mg Tablet] 1 tab PO DAILY 10/14/17 Diclofenac Sodium [Voltaren] 100 gm TP DAILY 10/14/17 Folic Acid/Vit B Complex and C [Nephro-Juan Tablet] 1 mg PO DAILY 10/14/17 Lactulose [Cephulac Syrup 20 gm/30 ml Udcup] 20 gm PO TIDP PRN 10/14/17 Linaclotide [Linzess 145 Mcg Capsule] 145 mcg PO DAILY 10/14/17 Metoprolol Succinate [Toprol XL 200 mg Tablet] 200 mg PO DAILY 10/14/17 Montelukast Sodium [Singulair 10 mg Tablet] 10 mg PO QHS 10/14/17 Nifedipine [Nifedipine ER] 60 mg PO BID 10/14/17 Ondansetron HCl [Zofran 4 mg Tablet] 8 mg PO DAILY 10/14/17 Promethazine HCl 12.5 mg PO Q6HP PRN 10/14/17 Sevelamer Carbonate [Renvela] 1,600 mg PO DAILYP PRN 10/14/17 Sevelamer Carbonate [Renvela] 2,400 mg PO MEALS 10/14/17 Azithromycin [Zithromax 250 mg Tablet] 250 mg PO QHS #7 tablet 10/15/17 Allergies/Adverse Reactions: codeine [Codeine] Allergy (Severe, Verified 10/13/17 15:56) Lips & tongue swell hydrocodone bitartrate [From Vicodin] Allergy (Severe, Verified 10/13/17 15:56) Throat & tongue swell, severe itch Iodinated Contrast- Oral and IV Dye [IV Dye, Iodine Containing] Allergy (Severe , Verified 10/13/17 15:56) Anaphylaxis lanthanum carbonate [From FOSRENOL] Allergy (Severe, Verified 10/13/17 15:56) losartan potassium [From Cozaar] Allergy (Severe, Verified 10/13/17 15:56) Swelling of Throat oxycodone HCl [From OxyContin] Allergy (Severe, Verified 10/13/17 15:56) Throat & tongue swell, severe itch propoxyphene napsylate [From Darvocet-N 100] Allergy (Severe, Verified 10/13/17 15:56) Mouth swells, itch ramipril [From Altace] Allergy (Severe, Verified 10/13/17 15:56) Lips, tongue & throat swell Penicillins Allergy (Intermediate, Verified 10/13/17 15:56) Generalized Itching adhesive tape [Adhesive Tape] Adverse Reaction (Intermediate, Verified 10/13/17 15:56) ITCHING, PULLS SKIN OFF aspirin [Aspirin] Adverse Reaction (Intermediate, Verified 10/13/17 15:56) Tegaderm Allergy (Intermediate, Uncoded 10/13/17 15:56) Pulls skin off, itching Review of Systems Constitutional: ABSENT: chills, fever(s), headache(s), weight gain, weight loss Eyes: ABSENT: visual disturbances Ears: ABSENT: hearing changes Cardiovascular: PRESENT: chest pain Respiratory: PRESENT: dyspnea. ABSENT: cough, hemoptysis Gastrointestinal: ABSENT: abdominal pain, constipation, diarrhea, hematemesis, hematochezia, nausea, vomiting Genitourinary: ABSENT: dysuria, hematuria Musculoskeletal: ABSENT: joint swelling Integumentary: ABSENT: rash, wounds Neurological: ABSENT: abnormal gait, abnormal speech, confusion, dizziness, focal weakness, syncope Psychiatric: ABSENT: anxiety, depression, homidical ideation, suicidal ideation Endocrine: ABSENT: cold intolerance, heat intolerance, menstrual abnormalities, polydipsia, polyuria Hematologic/Lymphatic: ABSENT: easy bleeding, easy bruising, lymphadenopathy Physical Exam Vital Signs: Temp Pulse Resp BP Pulse Ox 98.5 F 78 21 H 152/77 H 100 01/23/18 20:12 01/23/18 20:12 01/23/18 20:12 01/23/18 20:12 01/23/18 20:12 Intake & Output 01/22/18 01/23/18 01/24/18 06:59 06:59 06:59 Weight 99.4 kg General appearance: PRESENT: no acute distress, well-developed, well-nourished Head exam: PRESENT: atraumatic, normocephalic Eye exam: PRESENT: conjunctiva pink, EOMI, PERRLA Ear exam: PRESENT: normal external ear exam Mouth exam: PRESENT: moist, tongue midline Neck exam: PRESENT: full ROM Respiratory exam: PRESENT: clear to auscultation alcira Cardiovascular exam: PRESENT: RRR, +S1, +S2 Pulses: PRESENT: normal dorsalis pedis pul, +2 pedal pulses bilateral Vascular exam: PRESENT: normal capillary refill GI/Abdominal exam: PRESENT: normal bowel sounds, soft Rectal exam: PRESENT: deferred Neurological exam: PRESENT: alert, awake, oriented to person, oriented to place , oriented to time, oriented to situation, CN II-XII grossly intact Psychiatric exam: PRESENT: appropriate affect, normal mood Skin exam: PRESENT: dry, intact, warm Assessment & Plan - Diagnosis (1) Chest pain Qualifiers: Chest pain type: unspecified Qualified Code(s): R07.9 - Chest pain, unspecified Is this a current diagnosis for this admission?: Yes Plan: She has acute onset 1 day duration substernal chest pain, suspicious for unstable angina, she is admitted for evaluation, given a dose of Plavix and aspirin, consultation requested from cardiology, Dr. Howe (2) Superior vena cava syndrome Is this a current diagnosis for this admission?: Yes (3) End-stage renal disease (ESRD) Is this a current diagnosis for this admission?: Yes Plan: Consultation obtained from nephrology, Dr. Lang Red
[2018-01-23 21:24] LABS: ABSOLUTE EOSINOPHILS # (AUTO) 0.3 10^3/uL (0.0-0.6); ABSOLUTE LYMPHOCYTES (AUTO) 0.9 10^3/uL (0.5-4.7); ABSOLUTE MONOCYTES (AUTO) 0.4 10^3/uL (0.1-1.4); ABSOLUTE NEUT (AUTO) 4.4 10^3/uL (1.7-8.2); BASOPHILS % (AUTO) 0.5 % (0-2); EOSINOPHILS % (AUTO) 5.3 % (0-6); HEMATOCRIT 35.6 % (36.0-47.0); LYMPHOCYTES % (AUTO) 15.4 % (13-45); MEAN CORPUSCULAR HEMOGLOBIN 29.6 pg (27.0-33.4); MEAN CORPUSCULAR HGB CONC 33.6 g/dL (32.0-36.0); MEAN CORPUSCULAR VOLUME 88 fl (80-97); MONOCYTES % (AUTO) 6.2 % (3-13); PLATELET COUNT 184 10^3/uL (150-450); RED BLOOD COUNT 4.04 10^6/uL (3.72-5.28); RED CELL DISTRIBUTION WIDTH 16.3 % (11.5-14.0); SEGMENTED NEUTROPHILS % (AUTO) 72.6 % (42-78); TOTAL CELLS COUNTED % (AUTO) 100 %; WHITE BLOOD COUNT 6.1 10^3/uL (4.0-10.5)
[2018-01-23 21:37] LABS: INTERNATIONAL RATION (INR) 0.87; PROTHROMBIN TIME 12.5 SEC (11.4-15.4)
[2018-01-23 21:38] LABS: PARTIAL THROMBOPLASTIN TIME 31.5 SEC (23.5-35.8)
[2018-01-23 21:45] LABS: ANION GAP 12 (5-19); BLOOD UREA NITROGEN 31 mg/dL (7-20); CALCIUM 9.1 mg/dL (8.4-10.2); CARBON DIOXIDE 29 mmol/L (22-30); CHLORIDE 98 mmol/L (98-107); GLUCOSE 120 mg/dL (75-110); POTASSIUM 3.7 mmol/L (3.6-5.0); SODIUM 139.1 mmol/L (137-145)
[2018-01-23] MEDS: ATORVASTATIN CALCIUM 80 MG TABLET PO SCH (21:57)
[2018-01-23 21:58] LABS: TROPONIN I 0.053 ng/mL
[2018-01-23 22:03] LABS: CREATINE KINASE MB < 0.22 ng/mL (<4.55)
[2018-01-23] MEDS ORDERED: CLOPIDOGREL BISULFATE 300 MG TABLET PO ONE (22:30)
--- NOTE | 2018-01-24 01:03 | RADIOLOGY REPORT (SQ) ---
EXAM DESCRIPTION: CHEST PA/LAT CLINICAL HISTORY: 62 years, Female, chest pain COMPARISON: None. NUMBER OF VIEWS: 2 LIMITATIONS: None. FINDINGS: Minimal atelectasis or scar of the left midlung field, stable. Atherosclerosis. Normal cardiac silhouette. Intact bony thorax. IMPRESSION: No acute cardiopulmonary findings.
[2018-01-24 03:40] LABS: HEMATOCRIT 34.4 % (36.0-47.0); HEMOGLOBIN 11.9 g/dL (12.0-15.5); MEAN CORPUSCULAR HEMOGLOBIN 30.7 pg (27.0-33.4); MEAN CORPUSCULAR HGB CONC 34.7 g/dL (32.0-36.0); MEAN CORPUSCULAR VOLUME 88 fl (80-97); PLATELET COUNT 173 10^3/uL (150-450); RED CELL DISTRIBUTION WIDTH 16.3 % (11.5-14.0); WHITE BLOOD COUNT 6.6 10^3/uL (4.0-10.5)
[2018-01-24 03:57] LABS: PHOSPHORUS 4.1 mg/dL (2.5-4.5); TRIGLYCERIDES 268 mg/dL (<150)
[2018-01-24 04:07] LABS: DIRECT LDL 70 mg/dL (<100)
[2018-01-24 04:08] LABS: TROPONIN I 0.068 ng/mL
[2018-01-24 04:10] LABS: VLDL CHOLESTEROL 53.6 mg/dL (10-31)
[2018-01-24 04:11] LABS: CREATINE KINASE MB < 0.22 ng/mL (<4.55)
--- NOTE | 2018-01-24 07:32 | EKG REPORT ---
SEVERITY:- ABNORMAL ECG - SINUS RHYTHM PROBABLE LEFT ATRIAL ABNORMALITY LEFT VENTRICULAR HYPERTROPHY ABNORMAL T, CONSIDER ISCHEMIA, LATERAL LEADS : Confirmed by: Hayden Cardoso MD 24-Jan-2018 07:31:28
[2018-01-24] MEDS ORDERED: ALBUTEROL SULFATE HFA (90 MCG/PUFF) 8 GM MDI (1 MDI/ER DISP) IH PRN (08:33)
[2018-01-24] MEDS ORDERED: LACTULOSE SYRUP 20 GM/30 ML UDCUP PO PRN (08:33)
[2018-01-24] MEDS ORDERED: CHLORPHENIRAMINE MALEATE 4 MG TABLET PO PRN (08:33)
--- NOTE | 2018-01-24 09:25 | Physician Advisory Note ---
Physician Advisor ProgressNote .: [facility] I have reviewed the medical record for this patient. Physician Advisor Statement: Excellent documentation of clinical risk factors & concerns. Please: 1. continue to document the most likely cause of CP in PNs & DCSummary 2. also document "obesity w/BMI 42" in all notes. Status: approp'ly Obs. Thanks! CK
[2018-01-24] MEDS: ASPIRIN 81 MG TABLET, ENT COATED PO SCH (09:39)
[2018-01-24] MEDS: COLCHICINE 0.6 MG TABLET PO SCH ×3 (09:39→18:14)
[2018-01-24] MEDS: METOPROLOL SUCCINATE 50 MG TAB.SR.24H PO SCH (09:40)
[2018-01-24] MEDS: NIFEDIPINE 30 MG TAB.ER.24 PO SCH ×2 (09:40→21:12)
[2018-01-24] MEDS: CLONIDINE HCL 0.2 MG TABLET PO SCH (09:41)
[2018-01-24] MEDS: ALLOPURINOL 100 MG TABLET PO SCH (09:41)
[2018-01-24] MEDS: CALCIUM CARBONATE 500 MG TAB.CHEW PO SCH ×4 (09:41→21:11)
[2018-01-24] MEDS: FOLIC ACID/VITAMIN B COMP W-C CAPSULE PO SCH (09:42)
[2018-01-24] MEDS ORDERED: (PENDING PHARMACY ID) (Linaclotide 145 MCG) PO SCH (10:00)
[2018-01-24] MEDS ORDERED: FOLIC ACID PO SCH (10:00)
[2018-01-24] MEDS ORDERED: VIT B COMPLEX AND C PO SCH (10:00)
[2018-01-24 11:01] LABS: TROPONIN I 0.076 ng/mL
[2018-01-24 11:03] LABS: CREATINE KINASE MB < 0.22 ng/mL (<4.55)
[2018-01-24] MEDS ORDERED: CLOPIDOGREL BISULFATE 75 MG TABLET PO ONE (13:00)
--- NOTE | 2018-01-24 16:29 | PDOC CONSULTATION ---
Consultation Consult Date: 01/23/18 Consult reason:: For HD History of Present Illness Admission Date/PCP: 01/23/18 15:34 KEVIN REED MD History of Present Illness: CAPO HDEZ 62 Year old female with h/o Hypertension, end-stage renal disease on hemodialysis, was admitted by Dr Marina with a h/o substernal chest pain associated with shortness of breath. She also has had a a wet cough and the pain gets worse with that as well as deep breathing. There was no h/o radiation of the pain into the neck or arms. She was seen on HD yesterday and this is late note. She is undergoing HD without any issues. VS are stable and she is comfortable on the dialyser. Orders were discussed with her treating RN. She has a history of superior vena cava syndrome, presently being evaluated at [facility] scheduled for a procedure soon. Her 12-lead EKG was done apparently at Dr Marina office and it shows sinus rhythm, Q-wave in inferolateral leads suggesting old AZ, the age of the AZ could not be ascertained. She stated that she had a stress test last year at [place] . Past Medical History Cardiac Medical History: Reports: Hyperlipidemia, Hypertension-primary Pulmonary Medical History: Reports: Asthma, Bronchitis, Chronic Obstructive Pulmonary Disease (COPD) - asthma Endocrine Medical History: Reports: Hyperthyroidism Renal/ Medical History: Reports: End Stage Renal Disease, Secondary Hyperparathyroidism GI Medical History: Reports: Gastroesophageal Reflux Disease, Hiatal Hernia Musculoskeltal Medical History: Reports: Arthritis Psychiatric Medical History: Denies: Depression Hematology Medical History: Reports Anemia of Chronic Kidney Disease Past Surgical History Past Surgical History: Reports: Cardiac Catheterization - 2011, Section, Cholecystectomy Denies: Hysterectomy, Pacemaker Social History Smoking Status: Former Smoker Frequency of Alcohol Use: None Hx Recreational Drug Use: No Drugs: None Hx Prescription Drug Abuse: No Family History Parental Family History Reviewed: Yes - negative for ESRD Children Family History Reviewed: No Sibling(s) Family History Reviewed.: No Medication/Allergy Home Medications: Albuterol Sulfate [Ventolin Hfa] 2 puff IH Q4HP PRN 10/14/17 Allopurinol [Zyloprim 100 mg Tablet] 100 mg PO DAILY 10/14/17 Budesonide/Formoterol Fumarate [Symbicort HFA 160-4.5 mcg Inhaler 6 gm] 2 puff IH Q12 10/14/17 Calcium Carbonate [Tums Chewable 500 mg Tab.chew] 500 mg PO QID 10/14/17 Chlorpheniramine Maleate [Chlor-Trimeton 4 mg Tablet] 4 mg PO Q6HP PRN 10/14/17 Clonidine HCl [Catapres 0.3 mg Tablet] 0.3 mg PO Q8 10/14/17 Colchicine [Colcrys 0.6 mg Tablet] 1 tab PO TID 10/14/17 Folic Acid/Vit B Complex and C [Nephro-Juan Tablet] 1 mg PO DAILY 10/14/17 Lactulose [Cephulac Syrup 20 gm/30 ml Udcup] 20 gm PO TIDP PRN 10/14/17 Linaclotide [Linzess 145 Mcg Capsule] 145 mcg PO DAILY PRN 10/14/17 Metoprolol Succinate [Toprol XL 200 mg Tablet] 200 mg PO DAILY 10/14/17 Montelukast Sodium [Singulair 10 mg Tablet] 10 mg PO QHS 10/14/17 Nifedipine [Nifedipine ER] 60 mg PO BID 10/14/17 Promethazine HCl 12.5 mg PO Q6HP PRN 10/14/17 Sevelamer Carbonate [Renvela] 1,600 mg PO DAILYP PRN 10/14/17 Cinacalcet HCl [Sensipar 90 mg Tablet] 1 tab PO DAILY 18 Allergies/Adverse Reactions: codeine [Codeine] Allergy (Severe, Verified 10/13/17 15:56) Lips & tongue swell hydrocodone bitartrate [From Vicodin] Allergy (Severe, Verified 10/13/17 15:56) Throat & tongue swell, severe itch Iodinated Contrast- Oral and IV Dye [IV Dye, Iodine Containing] Allergy (Severe , Verified 10/13/17 15:56) Anaphylaxis lanthanum carbonate [From FOSRENOL] Allergy (Severe, Verified 10/13/17 15:56) losartan potassium [From Cozaar] Allergy (Severe, Verified 10/13/17 15:56) Swelling of Throat oxycodone HCl [From OxyContin] Allergy (Severe, Verified 10/13/17 15:56) Throat & tongue swell, severe itch propoxyphene napsylate [From Darvocet-N 100] Allergy (Severe, Verified 11/30/17 15:56) Mouth swells, itch ramipril [From Altace] Allergy (Severe, Verified 10/13/17 15:56) Lips, tongue & throat swell Penicillins Allergy (Intermediate, Verified 10/13/17 15:56) Generalized Itching adhesive tape [Adhesive Tape] Adverse Reaction (Intermediate, Verified 10/13/17 15:56) ITCHING, PULLS SKIN OFF aspirin [Aspirin] Adverse Reaction (Intermediate, Verified 10/13/17 15:56) Tegaderm Allergy (Intermediate, Uncoded 10/13/17 15:56) Pulls skin off, itching Review of Systems Constitutional: PRESENT: fatigue. ABSENT: fever(s), headache(s), night sweats, weakness Cardiovascular: PRESENT: chest pain, dyspnea on exertion. ABSENT: edema, orthropnea Gastrointestinal: ABSENT: abdominal pain, coffee ground emesis, diarrhea, dysphagia, heartburn, hematemesis, hematochezia, nausea, vomiting Musculoskeletal: ABSENT: joint swelling, muscle weakness Neurological: ABSENT: abnormal gait, abnormal movements, abnormal speech, focal weakness Psychiatric: ABSENT: anxiety Hematologic/Lymphatic: ABSENT: easy bruising, lymphadenopathy Physical Exam Vital Signs: Temp Pulse Resp BP Pulse Ox 99.2 F 69 16 151/86 H 98 01/24/18 07:22 01/24/18 07:22 01/24/18 07:22 01/24/18 07:22 01/24/18 07:22 Intake & Output 01/23/18 01/24/18 01/25/18 06:59 06:59 06:59 Intake Total 130 Output Total 3300 Balance -3170 Weight 104.3 kg General appearance: PRESENT: no acute distress Eye exam: PRESENT: conjunctiva pink, EOMI, PERRLA. ABSENT: nystagmus Ear exam: PRESENT: normal external ear exam Mouth exam: PRESENT: moist, neck supple Neck exam: ABSENT: lymphadenopathy, meningismus, tenderness, thyromegaly, tracheal deviation Respiratory exam: PRESENT: clear to auscultation alcira, other - no tenderness on pushing at her rib cage.. ABSENT: crackles, stridor Cardiovascular exam: PRESENT: RRR, +S1, +S2 GI/Abdominal exam: PRESENT: normal bowel sounds, soft. ABSENT: ascites, distended, guarding, organomegaly, tenderness Extremities exam: ABSENT: pedal edema Neurological exam: PRESENT: alert, awake, oriented to person, oriented to place Psychiatric exam: PRESENT: appropriate affect Skin exam: ABSENT: cyanosis, erythema, mottled Results Laboratory Results: 01/24/18 03:28 18 21:12 01/23/18 01/23/18 01/24/18 21:12 21:12 03:28 WBC 6.1 6.6 RBC 4.04 3.90 Hgb 12.0 11.9 L Hct 35.6 L 34.4 L MCV 88 88 MCH 29.6 30.7 MCHC 33.6 34.7 RDW 16.3 H 16.3 H Plt Count 184 173 Seg Neutrophils % 72.6 Lymphocytes % 15.4 Monocytes % 6.2 Eosinophils % 5.3 Basophils % 0.5 Absolute Neutrophils 4.4 Absolute Lymphocytes 0.9 Absolute Monocytes 0.4 Absolute Eosinophils 0.3 Absolute Basophils 0.0 Sodium 139.1 Potassium 3.7 Chloride 98 Carbon Dioxide 29 Anion Gap 12 BUN 31 H Creatinine 6.47 H Est GFR ( Amer) 8 L Est GFR (Non-Af Amer) 7 L Glucose 120 H Calcium 9.1 Phosphorus Triglycerides Cholesterol LDL Cholesterol Direct VLDL Cholesterol HDL Cholesterol 01/24/18 03:28 WBC RBC Hgb Hct MCV MCH MCHC RDW Plt Count Seg Neutrophils % Lymphocytes % Monocytes % Eosinophils % Basophils % Absolute Neutrophils Absolute Lymphocytes Absolute Monocytes Absolute Eosinophils Absolute Basophils Sodium Potassium Chloride Carbon Dioxide Anion Gap BUN Creatinine Est GFR ( Amer) Est GFR (Non-Af Amer) Glucose Calcium Phosphorus 4.1 Triglycerides 268 H Cholesterol 183.00 LDL Cholesterol Direct 70 VLDL Cholesterol 53.6 H HDL Cholesterol 56 01/23/18 01/24/18 01/24/18 21:12 03:28 09:02 CK-MB (CK-2) < 0.22 < 0.22 < 0.22 Troponin I 0.053 0.068 0.076 Impressions: Chest X-Ray 01/23/18 20:58 IMPRESSION: No acute cardiopulmonary findings. Assessment & Plan - Diagnosis (1) Chest pain Qualifiers: Chest pain type: unspecified Qualified Code(s): R07.9 - Chest pain, unspecified Is this a current diagnosis for this admission?: Yes Plan: As per Dr Poe (2) End-stage renal disease (ESRD) Is this a current diagnosis for this admission?: Yes Plan: Currently being dialysed. Its being supervised to ensure a safe and smooth procedure. VS are stable.Orders were discussed with her treating RN.Plan to remove 2-3 L as tolerated. (3) HTN (hypertension) Qualifiers: Hypertension type: renovascular hypertension Qualified Code(s): I15.0 - Renovascular hypertension Plan: Monitor.See response to HD.
[2018-01-24] MEDS: LANSOPRAZOLE 30 MG TAB.RAP.DR PO SCH (17:15)
[2018-01-24] MEDS: CINACALCET HCL 30 MG TABLET PO SCH (17:16)
[2018-01-24] MEDS: BUDESONIDE/FORMOTEROL 160-4.5 MCG 60 PUFF/6 GM MDI IH SCH ×2 (17:16→21:11)
--- NOTE | 2018-01-24 19:32 | PDOC CONSULTATION ---
Consultation Consult Date: 01/24/18 Attending physician:: KEVIN REED Consult reason:: Chest pain History of Present Illness Admission Date/PCP: 01/23/18 15:34 KEVIN REED MD Patient complains of: Chest pain History of Present Illness: CAPO HDEZ 62 Year old female , She has end-stage renal disease on maintenance hemodialysis, she came to the office this morning for evaluation of acute onset, 1 day duration substernal chest pain associated with shortness of breath. She has a history of superior vena cava syndrome, presently being evaluated at [facility] scheduled for a procedure soon. In the office, 12-lead EKG was done, it shows sinus rhythm, Q-wave in inferolateral leads suggesting old VT, the age of the VT could not be ascertained. She stated that she had a stress test last year at [place] and she said it was normal, I have no access to the result of the stress test, because she has significant risk factor for ischemic heart disease, she is a patient on hemodialysis, history of hypertension, now present with suspicious chest pain, I felt patient needed to be admitted to the hospital for evaluation and management. This history was reviewed and confirmed. Will try to obtain previous stress test report. Will order a 2D echocardiogram. Past Medical History Cardiac Medical History: Reports: Hyperlipidema, Hypertension Pulmonary Medical History: Reports: Asthma, Bronchitis, Chronic Obstructive Pulmonary Disease (COPD) - asthma Endocrine Medical History: Reports: Hyperthyroidism Renal/ Medical History: Reports: End Stage Renal Disease GI Medical History: Reports: Gastroesophageal Reflux Disease, Hiatal Hernia Musculoskeltal Medical History: Reports: Arthritis Psychiatric Medical History: Denies: Depression Hematology: Reports: Anemia Past Surgical History Past Surgical History: Reports: Cardiac Catheterization - 2011, Section, Cholecystectomy Denies: Adenoidectomy, Hysterectomy, Pacemaker Social History Information Source: Patient Smoking Status: Former Smoker Frequency of Alcohol Use: None Hx Recreational Drug Use: No Drugs: None Hx Prescription Drug Abuse: No - Advance Directive Resuscitation Status: Full Code Surrogate healthcare decision maker:: Patient's daughter is the surrogate decision-maker Family History Family History: Hypertension Parental Family History Reviewed: Yes Children Family History Reviewed: Yes Sibling(s) Family History Reviewed.: Yes Medication/Allergy Home Medications: Albuterol Sulfate [Ventolin Hfa] 2 puff IH Q4HP PRN 10/14/17 Allopurinol [Zyloprim 100 mg Tablet] 100 mg PO DAILY 10/14/17 Budesonide/Formoterol Fumarate [Symbicort HFA 160-4.5 mcg Inhaler 6 gm] 2 puff IH Q12 10/14/17 Calcium Carbonate [Tums Chewable 500 mg Tab.chew] 500 mg PO QID 10/14/17 Chlorpheniramine Maleate [Chlor-Trimeton 4 mg Tablet] 4 mg PO Q6HP PRN 10/14/17 Clonidine HCl [Catapres 0.3 mg Tablet] 0.3 mg PO Q8 10/14/17 Colchicine [Colcrys 0.6 mg Tablet] 1 tab PO TID 10/14/17 Folic Acid/Vit B Complex and C [Nephro-Juan Tablet] 1 mg PO DAILY 10/14/17 Lactulose [Cephulac Syrup 20 gm/30 ml Udcup] 20 gm PO TIDP PRN 10/14/17 Linaclotide [Linzess 145 Mcg Capsule] 145 mcg PO DAILY PRN 10/14/17 Metoprolol Succinate [Toprol XL 200 mg Tablet] 200 mg PO DAILY 10/14/17 Montelukast Sodium [Singulair 10 mg Tablet] 10 mg PO QHS 10/14/17 Nifedipine [Nifedipine ER] 60 mg PO BID 10/14/17 Promethazine HCl 12.5 mg PO Q6HP PRN 10/14/17 Sevelamer Carbonate [Renvela] 1,600 mg PO DAILYP PRN 10/14/17 Cinacalcet HCl [Sensipar 90 mg Tablet] 1 tab PO DAILY 01/24/18 Allergies/Adverse Reactions: codeine [Codeine] Allergy (Severe, Verified 10/13/17 15:56) Lips & tongue swell hydrocodone bitartrate [From Vicodin] Allergy (Severe, Verified 10/13/17 15:56) Throat & tongue swell, severe itch Iodinated Contrast- Oral and IV Dye [IV Dye, Iodine Containing] Allergy (Severe , Verified 10/13/17 15:56) Anaphylaxis lanthanum carbonate [From FOSRENOL] Allergy (Severe, Verified 10/13/17 15:56) losartan potassium [From Cozaar] Allergy (Severe, Verified 10/13/17 15:56) Swelling of Throat oxycodone HCl [From OxyContin] Allergy (Severe, Verified 10/13/17 15:56) Throat & tongue swell, severe itch propoxyphene napsylate [From Darvocet-N 100] Allergy (Severe, Verified 10/13/17 15:56) Mouth swells, itch ramipril [From Altace] Allergy (Severe, Verified 10/13/17 15:56) Lips, tongue & throat swell Penicillins Allergy (Intermediate, Verified 10/13/17 15:56) Generalized Itching adhesive tape [Adhesive Tape] Adverse Reaction (Intermediate, Verified 10/13/17 15:56) ITCHING, PULLS SKIN OFF aspirin [Aspirin] Adverse Reaction (Intermediate, Verified 10/13/17 15:56) Tegaderm Allergy (Intermediate, Uncoded 10/13/17 15:56) Pulls skin off, itching Physical Exam Vital Signs: Temp Pulse Resp BP Pulse Ox 99.2 F 69 16 151/86 H 98 01/24/18 07:22 01/24/18 07:22 01/24/18 07:22 01/24/18 07:22 01/24/18 07:22 Intake & Output 01/23/1818 18 06:59 06:59 06:59 Intake Total 130 Output Total 3300 Balance -3170 Weight 104.3 kg Exam: GENERAL: well-nourished and in no acute distress. Alert and oriented x3 HEAD: Atraumatic, normocephalic. EYES: Pupils equal round and reactive to light, extraocular movements intact, sclera anicteric, conjunctiva are normal. ENT: TMs normal, nares patent, oropharynx clear without exudates. Moist mucous membranes. No oral ulcerations or bleeding gums noted NECK: supple without lymphadenopathy. Trachea is central. No cervical or axillary lymphadenopathy noted. Carotids are 2+, JVD WNL LUNGS: Respiration seems nonlabored, no significant accessory muscle action noted. Breath sounds clear to auscultation bilaterally and equal noted. No wheezes rales or rhonchi noted. No significant dullness noted on percussion. CHEST: Palpation of the chest wall shows no significant chest wall tenderness. No other significant abnormalities noted. 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 ABDOMEN: Soft, no significant tenderness appreciated, normoactive bowel sounds. No guarding, no rebound. No rigidity noted . No masses appreciated. EXTREMITIES: Pedal pulses are 1-2+, no calf tenderness noted. No clubbing or cyanosis.trace to 1+ pedal edema noted NEUROLOGICAL: Focused neurological exam showed no significant neurologic deficit. Normal speech, no focal weakness appreciated. PSYCH: Normal mood, normal affect. Judgment and insight within normal limits. SKIN: No significant ecchymosis, skin is noted to be warm. MUSCULOSKELETAL EXAM: No significant acute joint swelling noted. Results Laboratory Results: 01/24/18 03:28 01/23/18 21:12 01/23/18 01/23/18 01/24/18 21:12 21:12 03:28 WBC 6.1 6.6 RBC 4.04 3.90 Hgb 12.0 11.9 L Hct 35.6 L 34.4 L MCV 88 88 MCH 29.6 30.7 MCHC 33.6 34.7 RDW 16.3 H 16.3 H Plt Count 184 173 Seg Neutrophils % 72.6 Lymphocytes % 15.4 Monocytes % 6.2 Eosinophils % 5.3 Basophils % 0.5 Absolute Neutrophils 4.4 Absolute Lymphocytes 0.9 Absolute Monocytes 0.4 Absolute Eosinophils 0.3 Absolute Basophils 0.0 Sodium 139.1 Potassium 3.7 Chloride 98 Carbon Dioxide 29 Anion Gap 12 BUN 31 H Creatinine 6.47 H Est GFR ( Amer) 8 L Est GFR (Non-Af Amer) 7 L Glucose 120 H Calcium 9.1 Phosphorus Triglycerides Cholesterol LDL Cholesterol Direct VLDL Cholesterol HDL Cholesterol 01/24/18 03:28 WBC RBC Hgb Hct MCV MCH MCHC RDW Plt Count Seg Neutrophils % Lymphocytes % Monocytes % Eosinophils % Basophils % Absolute Neutrophils Absolute Lymphocytes Absolute Monocytes Absolute Eosinophils Absolute Basophils Sodium Potassium Chloride Carbon Dioxide Anion Gap BUN Creatinine Est GFR ( Amer) Est GFR (Non-Af Amer) Glucose Calcium Phosphorus 4.1 Triglycerides 268 H Cholesterol 183.00 LDL Cholesterol Direct 70 VLDL Cholesterol 53.6 H HDL Cholesterol 56 01/23/18 01/24/18 01/24/18 21:12 03:28 09:02 CK-MB (CK-2) < 0.22 < 0.22 < 0.22 Troponin I 0.053 0.068 0.076 EKG Comments: Sinus rhythm with minor nonspecific T inversion lateral chest leads and limb leads. Impressions: Chest X-Ray 01/23/18 20:58 IMPRESSION: No acute cardiopulmonary findings. Assessment & Plan - Diagnosis (1) Chest pain Qualifiers: Chest pain type: unspecified Qualified Code(s): R07.9 - Chest pain, unspecified Is this a current diagnosis for this admission?: Yes (2) Superior vena cava syndrome Is this a current diagnosis for this admission?: Yes (3) End-stage renal disease (ESRD) Is this a current diagnosis for this admission?: Yes (4) HTN (hypertension) Qualifiers: Hypertension type: renovascular hypertension Qualified Code(s): I15.0 - Renovascular hypertension Is this a current diagnosis for this admission?: Yes (5) Shortness of breath Is this a current diagnosis for this admission?: Yes (6) Hyperlipidemia Qualifiers: Hyperlipidemia type: unspecified Qualified Code(s): E78.5 - Hyperlipidemia , unspecified Is this a current diagnosis for this admission?: Yes - Notes Notes: Chest pain: There are multiple differential diagnosis. Includes cardiac ischemia, gastroesophageal reflux, pericarditis, musculoskeletal pain. Patient did have a stress test last year, patient claims it was negative but need to review results prior to scheduling another one. Have placed patient on empiric proton pump inhibitor. May consider CTA of the chest to rule out pulmonary embolism. Would also recommend a 2D echo to look for any pericardial effusion since cardiac silhouette is somewhat enlarged on chest x-ray. Dyspnea: Possibly related to CHF from possibly diastolic dysfunction/systolic dysfunction. Chest x-ray shows fluid in the minor fissure and major fissure. Some pulmonary venous congestion is also noted. Recommend remove fluid on dialysis. Also will obtain 2D echocardiogram. History of superior vena cava syndrome. Currently seems stable. Hypertension: Blood pressure is reasonably well controlled. Continue with current management plans. Hyperlipidemia: Recommend statin therapy. LDL goal should be less than 100. End-stage renal disease: Currently being managed by sales and marketing vice president. Patient on a dialysis regimen. - Time Time Spent: 30 to 50 Minutes - CODE STATUS was discussed, patient remains full code. Surrogate decision-maker patient's daughter. Multiple medical problems were addressed. More than 50% of the time spent coordinating care, discussing management plans with involved caregivers. Management plans discussed with involved personnels. Medical decision making was of moderate to high complexity , patient's has multiple comorbidities. Medications reviewed and adjusted accordingly: Yes
--- NOTE | 2018-01-24 20:37 | PDOC PROGRESS REPORT ---
Subjective Progress Note for:: 01/24/18 Subjective:: Patient was admitted yesterday for evaluation of a suspicious chest pain, she presented to the office with a 1 day history of substernal chest pain associated with shortness of breath, because of concern for unstable angina she was admitted directly from the office to the hospital. Consultation was requested from cardiology and also from nephrology, she has end-stage renal disease on maintenance hemodialysis. She was seen by Dr. Lang Red contract assistant and she had hemodialysis yesterday, she was seen by Dr. Howe, cardiology, she has been scheduled for 2D echo to be done today. She was seen by the bedside she was coughing, the cough is dry, the d-dimer was elevated, CTA could not be done because she has contrast allergy, a VQ scan is ordered to rule out pulmonary embolism. Reason For Visit: ACUTE ONSET SUBSTERNAL CHEST PAIN,ESRD Physical Exam Vital Signs: Temp Pulse Resp BP Pulse Ox 100.0 F 75 16 141/71 H 98 01/24/18 15:24 01/24/18 15:24 01/24/18 15:24 01/24/18 15:24 01/24/18 15:24 Intake & Output 01/23/18 01/24/18 01/25/18 06:59 06:59 06:59 Intake Total 130 310 Output Total 3300 Balance -3170 310 Weight 104.3 kg General appearance: PRESENT: no acute distress Head exam: PRESENT: atraumatic, normocephalic Eye exam: PRESENT: conjunctiva pink, EOMI, PERRLA Mouth exam: PRESENT: moist, tongue midline Neck exam: PRESENT: full ROM Cardiovascular exam: PRESENT: RRR, +S1, +S2 Pulses: PRESENT: normal dorsalis pedis pul, +2 pedal pulses bilateral Vascular exam: PRESENT: normal capillary refill GI/Abdominal exam: PRESENT: normal bowel sounds, soft Rectal exam: PRESENT: deferred Neurological exam: PRESENT: alert, awake, oriented to person, oriented to place , oriented to time, oriented to situation, CN II-XII grossly intact Psychiatric exam: PRESENT: appropriate affect, normal mood Skin exam: PRESENT: dry, intact, warm Results Laboratory Results: 01/24/18 03:28 01/23/18 21:12 01/23/18 01/23/18 01/24/18 21:12 21:12 03:28 WBC 6.1 6.6 RBC 4.04 3.90 Hgb 12.0 11.9 L Hct 35.6 L 34.4 L MCV 88 88 MCH 29.6 30.7 MCHC 33.6 34.7 RDW 16.3 H 16.3 H Plt Count 184 173 Seg Neutrophils % 72.6 Lymphocytes % 15.4 Monocytes % 6.2 Eosinophils % 5.3 Basophils % 0.5 Absolute Neutrophils 4.4 Absolute Lymphocytes 0.9 Absolute Monocytes 0.4 Absolute Eosinophils 0.3 Absolute Basophils 0.0 Sodium 139.1 Potassium 3.7 Chloride 98 Carbon Dioxide 29 Anion Gap 12 BUN 31 H Creatinine 6.47 H Est GFR ( Amer) 8 L Est GFR (Non-Af Amer) 7 L Glucose 120 H Calcium 9.1 Phosphorus Triglycerides Cholesterol LDL Cholesterol Direct VLDL Cholesterol HDL Cholesterol 01/24/18 03:28 WBC RBC Hgb Hct MCV MCH MCHC RDW Plt Count Seg Neutrophils % Lymphocytes % Monocytes % Eosinophils % Basophils % Absolute Neutrophils Absolute Lymphocytes Absolute Monocytes Absolute Eosinophils Absolute Basophils Sodium Potassium Chloride Carbon Dioxide Anion Gap BUN Creatinine Est GFR ( Amer) Est GFR (Non-Af Amer) Glucose Calcium Phosphorus 4.1 Triglycerides 268 H Cholesterol 183.00 LDL Cholesterol Direct 70 VLDL Cholesterol 53.6 H HDL Cholesterol 56 01/23/18 01/24/18 01/24/18 21:12 03:28 09:02 CK-MB (CK-2) < 0.22 < 0.22 < 0.22 Troponin I 0.053 0.068 0.076 Impressions: Chest X-Ray 01/23/18 20:58 IMPRESSION: No acute cardiopulmonary findings. Assessment & Plan - Diagnosis (1) Chest pain Qualifiers: Chest pain type: unspecified Qualified Code(s): R07.9 - Chest pain, unspecified Is this a current diagnosis for this admission?: Yes (2) Superior vena cava syndrome Is this a current diagnosis for this admission?: Yes (3) End-stage renal disease (ESRD) Is this a current diagnosis for this admission?: Yes (4) Elevated d-dimer Is this a current diagnosis for this admission?: Yes Plan: VQ scan ordered
[2018-01-24] MEDS: AZITHROMYCIN 250 MG TABLET PO SCH (21:10)
[2018-01-24] MEDS: ATORVASTATIN CALCIUM 80 MG TABLET PO SCH (21:11)
[2018-01-24] MEDS: MONTELUKAST SODIUM 10 MG TABLET PO SCH (21:11)
--- NOTE | 2018-01-24 22:07 | RADIOLOGY REPORT (SQ) ---
EXAM DESCRIPTION: NM LUNG VENT/PERF SCAN COMPLETED DATE/TIME: 01/24/2018 9:12 pm REASON FOR STUDY: elevated D Dimer R07.89 OTHER CHEST PAIN COMPARISON: Two-view chest 01/24/2018 AP chest 10/13/2017 RADIONUCLIDE AND DOSE: 5 millicuries TC-99m MAA Intravenous 30 millicuries TC-99m DTPA Inhaled aerosol TECHNIQUE: Eight views of the lungs acquired post ventilation of DTPA aerosol. Eight matching views of the lungs acquired following injection of MAA. LIMITATIONS: None. FINDINGS: VENTILATION: Symmetric and homogeneous distribution of DTPA aerosol during ventilatory pha se. No significant areas of photopenia. PERFUSION: Perfusion images with normal homogenous activity and no wedge-shaped or segmental defects. No ventilation-perfusion mismatches. OTHER: No other significant finding. IMPRESSION: NORMAL VENTILATION-PERFUSION LUNG SCAN. NEGATIVE FOR PULMONARY EMBOLI. TECHNICAL DOCUMENTATION: JOB ID: [id number] [employer]- All Rights Reserved Reading location - IP/workstation name: [email or web address]
[2018-01-25] MEDS: LANSOPRAZOLE 30 MG TAB.RAP.DR PO SCH ×2 (05:12→17:25)
[2018-01-25 05:29] LABS: HEMATOCRIT 30.8 % (36.0-47.0); HEMOGLOBIN 10.8 g/dL (12.0-15.5); MEAN CORPUSCULAR HEMOGLOBIN 30.7 pg (27.0-33.4); MEAN CORPUSCULAR VOLUME 88 fl (80-97); PLATELET COUNT 154 10^3/uL (150-450); RED BLOOD COUNT 3.51 10^6/uL (3.72-5.28); RED CELL DISTRIBUTION WIDTH 15.9 % (11.5-14.0); WHITE BLOOD COUNT 6.2 10^3/uL (4.0-10.5)
[2018-01-25 05:52] LABS: ANION GAP 14 (5-19); BLOOD UREA NITROGEN 53 mg/dL (7-20); CALCIUM 8.5 mg/dL (8.4-10.2); CARBON DIOXIDE 27 mmol/L (22-30); CHLORIDE 95 mmol/L (98-107); GLUCOSE 92 mg/dL (75-110); POTASSIUM 4.9 mmol/L (3.6-5.0); SODIUM 135.9 mmol/L (137-145)
[2018-01-25] MEDS: ALBUTEROL SULFATE HFA (90 MCG/PUFF) 200 PUFF/8.5 GM MDI IH PRN (06:08)
[2018-01-25] MEDS: ACETAMINOPHEN 325 MG TABLET PO PRN ×2 (09:34→19:18)
[2018-01-25] MEDS: BUDESONIDE/FORMOTEROL 160-4.5 MCG 60 PUFF/6 GM MDI IH SCH ×2 (13:27→21:27)
[2018-01-25] MEDS: CLONIDINE HCL 0.2 MG TABLET PO SCH (13:28)
[2018-01-25] MEDS: ALLOPURINOL 100 MG TABLET PO SCH (13:29)
[2018-01-25] MEDS: CALCIUM CARBONATE 500 MG TAB.CHEW PO SCH ×3 (13:30→21:26)
[2018-01-25] MEDS: COLCHICINE 0.6 MG TABLET PO SCH ×2 (13:30→17:25)
[2018-01-25] MEDS: CLOPIDOGREL BISULFATE 75 MG TABLET PO SCH (13:30)
[2018-01-25] MEDS: ASPIRIN 81 MG TABLET, ENT COATED PO SCH (13:30)
[2018-01-25] MEDS: FOLIC ACID/VITAMIN B COMP W-C CAPSULE PO SCH (13:31)
[2018-01-25] MEDS: NIFEDIPINE 30 MG TAB.ER.24 PO SCH ×2 (13:31→21:24)
[2018-01-25] MEDS: METOPROLOL SUCCINATE 50 MG TAB.SR.24H PO SCH (13:32)
--- NOTE | 2018-01-25 16:38 | PDOC PROGRESS REPORT ---
Subjective Progress Note for:: 01/25/18 Subjective:: She was seen by the bedside, the VQ scan negative for PE, seen by cardiology, scheduled for Cardiolite Lexiscan stress test on Tuesday. She had hemodialysis today Reason For Visit: CHEST PAIN, ESRD Physical Exam Vital Signs: Temp Pulse Resp BP Pulse Ox 99.4 F 69 16 146/67 H 94 01/25/18 03:37 01/25/18 13:26 01/25/18 13:26 01/25/18 13:26 01/25/18 13:26 Intake & Output 01/24/18 01/25/18 01/26/18 06:59 06:59 06:59 Intake Total 230 320 733 Output Total 3301 0 Balance -3071 320 733 Weight 104.3 kg 102.4 kg General appearance: PRESENT: no acute distress Eye exam: PRESENT: PERRLA Respiratory exam: PRESENT: clear to auscultation alcira Cardiovascular exam: PRESENT: +S1, +S2 GI/Abdominal exam: PRESENT: soft Results Laboratory Results: 01/25/18 04:59 01/25/18 04:59 01/25/18 01/25/18 01/25/18 04:59 04:59 04:59 WBC 6.2 RBC 3.51 L Hgb 10.8 L Hct 30.8 L MCV 88 MCH 30.7 MCHC 35.0 RDW 15.9 H Plt Count 154 Sodium 135.9 L Potassium 4.9 Chloride 95 L Carbon Dioxide 27 Anion Gap 14 BUN 53 H Creatinine 10.87 H Est GFR ( Amer) 4 L Est GFR (Non-Af Amer) 4 L Glucose 92 Calcium 8.5 Phosphorus 4.2 01/23/18 01/24/18 01/24/18 21:12 03:28 09:02 CK-MB (CK-2) < 0.22 < 0.22 < 0.22 Troponin I 0.053 0.068 0.076 Impressions: Chest X-Ray 01/23/18 20:58 IMPRESSION: No acute cardiopulmonary findings. Lung Scan-VQ NM 01/24/18 17:59 IMPRESSION: NORMAL VENTILATION-PERFUSION LUNG SCAN. NEGATIVE FOR PULMONARY EMBOLI. Assessment & Plan - Diagnosis (1) Chest pain Qualifiers: Chest pain type: unspecified Qualified Code(s): R07.9 - Chest pain, unspecified Is this a current diagnosis for this admission?: Yes (2) Superior vena cava syndrome Is this a current diagnosis for this admission?: Yes (3) End-stage renal disease (ESRD) Is this a current diagnosis for this admission?: Yes (4) Elevated d-dimer Is this a current diagnosis for this admission?: Yes
[2018-01-25] MEDS: CINACALCET HCL 30 MG TABLET PO SCH (17:25)
--- NOTE | 2018-01-25 17:51 | XCELERA REPORT ---
[address] [address] Transthoracic Echocardiogram Report Name: CAPO HDEZ Age: 62 yrs Gender: Female : 1955 Patient Status: Inpatient Patient Location: [address] [place] [address] Study Date: 01/25/2018 01:10 PM Height: 62 in Weight: 229 lb BSA: 2.0 m2 Procedure: A complete two-dimensional transthoracic echocardiogram was performed (2D, M-mode, spectral and color flow Doppler). The study was technically adequate with some images being suboptimal in quality. Reason For Study: Chest pain Ordering Physician: DEE DEE CAMPA Performed By: Hamida Martinez Interpretation Summary The left ventricular ejection fraction is within normal limits. There is moderate concentric left ventricular hypertrophy. Doppler measurements suggest pseudonormalized left ventricular relaxation, which is associated with grade II/IV or mild to moderate diastolic dysfunction The left ventricle is grossly normal size. Wall motion cannot be accurately commented on, but no definite regional wall motion abnormalities noted. The right ventricular systolic function is normal. The left atrium is mildly dilated. The right atrium is normal in size There is a mild amount of mitral regurgitation There is no mitral valve stenosis. There is a trace to mild amount of aortic regurgitation There is no aortic valve stenosis There is no tricuspid stenosis. No tricuspid regurgitation. The aortic root is not well visualized but is probably normal size. The inferior vena cava appeared normal and decreased > 50% with respiration (RAP 5-10 mmHg) There is no pericardial effusion. MMode/2D Measurements & Calculations RVDd: 3.3 cm LVIDd: 4.9 cm FS: 38.7 % Ao root diam: 2.8 cm IVSd: 1.4 cm LVIDs: 3.0 cm EDV(Teich): 113.1 ml LVPWd: 1.3 cm ESV(Teich): 35.2 ml Ao root area: 6.2 cm2 EF(Teich): 68.9 % Doppler Measurements & Calculations MV E max abel: MV dec slope: Ao V2 max: AI max abel: 69.9 cm/sec 244.6 cm/sec 446.5 cm/sec MV A max abel: 335.4 cm/sec2 Ao max PG: AI max P.0 cm/sec MV dec time: 23.9 mmHg 79.7 mmHg MV E/A: 1.2 0.21 sec AI dec slope: 160.1 cm/sec2 AI P1/2t: 817.0 msec LV V1 max PG: PA V2 max: 9.1 mmHg 135.8 cm/sec LV V1 max: PA max P.4 mmHg 150.6 cm/sec Left Ventricle The left ventricle is grossly normal size. There is moderate concentric left ventricular hypertrophy. The left ventricular ejection fraction is within normal limits. Doppler measurements suggest pseudonormalized left ventricular relaxation, which is associated with grade II/IV or mild to moderate diastolic dysfunction. Wall motion cannot be accurately commented on, but no definite regional wall motion abnormalities noted. Right Ventricle The right ventricle is grossly normal size. There is normal right ventricular wall thickness. The right ventricular systolic function is normal. Atria The right atrium is normal in size. The left atrium is mildly dilated. Interarterial septum not well visualized and not well dopplered. Cannot comment on ASD/PFO presence. Mitral Valve The mitral valve leaflets are sclerotic, but show no functional abnormalities. There is no mitral valve stenosis. There is a mild amount of mitral regurgitation. Aortic Valve The aortic valve is grossly normal. There is no aortic valve stenosis. There is a trace to mild amount of aortic regurgitation. Tricuspid Valve The tricuspid valve is not well visualized, but is grossly normal. There is no tricuspid stenosis. No tricuspid regurgitation. Pulmonic Valve The pulmonic valve is not well visualized. Great Vessels The aortic root is not well visualized but is probably normal size. The inferior vena cava appeared normal and decreased > 50% with respiration (RAP 5-10 mmHg). Effusions There is no pericardial effusion. : DEE DEE CAMPA > Dee Dee Campa
[2018-01-25 19:34] LABS: APPEARANCE,URINE CLOUDY; BILIRUBIN,URINE NEGATIVE (NEGATIVE); COLOR,URINE YELLOW; GLUCOSE, URINE NEGATIVE (NEGATIVE); KETONES,URINE NEGATIVE (NEGATIVE); LEUKOCYTE ESTERASE,URINE NEGATIVE (NEGATIVE); NITRITE,URINE NEGATIVE (NEGATIVE); PROTEIN,URINE 100 mg/dL (NEGATIVE); URINE SPECIFIC GRAVITY 1.006; UROBILINOGEN,URINE NEGATIVE mg/dL (<2.0)
--- NOTE | 2018-01-25 20:02 | PDOC PROGRESS REPORT ---
Subjective Progress Note for:: 01/25/18 Subjective:: Patient seems to be doing better. Pt is denying any chest arm or neck discomfort. Patient denying any PND, orthopnea. Patient denied any sustained palpitations, dizziness, syncope, near syncope. Patient denying any fever chills. Patient denying any other significant discomfort. Patient is maintaining sinus rhythm. Review of systems: Rest review of systems negative. Medications: Medications have been reviewed. Reason For Visit: CHEST PAIN, ESRD Physical Exam Vital Signs: Temp Pulse Resp BP Pulse Ox 98.7 F 77 22 H 141/75 H 95 01/25/18 15:42 01/25/18 15:42 01/25/18 15:42 01/25/18 15:42 01/25/18 15:42 Intake & Output 01/24/18 01/25/18 01/26/18 06:59 06:59 06:59 Intake Total 993 320 1724 Output Total 3301 0 Balance -3071 320 1000 Weight 104.3 kg 102.4 kg 102.4 kg Exam: GENERAL: well-nourished and in no acute distress. Alert and oriented x3 HEAD: Atraumatic, normocephalic. EYES: Pupils equal round and reactive to light, extraocular movements intact, sclera anicteric, conjunctiva are normal. ENT: TMs normal, nares patent, oropharynx clear without exudates. Moist mucous membranes. No oral ulcerations or bleeding gums noted NECK: supple without lymphadenopathy. Trachea is central. No cervical or axillary lymphadenopathy noted. Carotids are 2+, JVD WNL LUNGS: Respiration seems nonlabored, no significant accessory muscle action noted. Breath sounds clear to auscultation bilaterally and equal noted. No wheezes rales or rhonchi noted. No significant dullness noted on percussion. CHEST: Palpation of the chest wall shows no significant chest wall tenderness. No other significant abnormalities noted. 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 ABDOMEN: Soft, no significant tenderness appreciated, normoactive bowel sounds. No guarding, no rebound. No rigidity noted . No masses appreciated. EXTREMITIES: Pedal pulses are 1-2+, no calf tenderness noted. No clubbing or cyanosis.trace to 1+ pedal edema noted NEUROLOGICAL: Focused neurological exam showed no significant neurologic deficit. Normal speech, no focal weakness appreciated. PSYCH: Normal mood, normal affect. Judgment and insight within normal limits. SKIN: No significant ecchymosis, skin is noted to be warm. MUSCULOSKELETAL EXAM: No significant acute joint swelling noted. Results Laboratory Results: 01/25/18 04:59 01/25/18 04:59 01/25/18 01/25/18 01/25/18 04:59 04:59 04:59 WBC 6.2 RBC 3.51 L Hgb 10.8 L Hct 30.8 L MCV 88 MCH 30.7 MCHC 35.0 RDW 15.9 H Plt Count 154 Sodium 135.9 L Potassium 4.9 Chloride 95 L Carbon Dioxide 27 Anion Gap 14 BUN 53 H Creatinine 10.87 H Est GFR ( Amer) 4 L Est GFR (Non-Af Amer) 4 L Glucose 92 Calcium 8.5 Phosphorus 4.2 Urine Color Urine Appearance Urine pH Ur Specific [place] Urine Protein Urine Glucose (UA) Urine Ketones Urine Blood Urine Nitrite Ur Leukocyte Esterase Urine WBC (Auto) Urine RBC (Auto) 01/25/18 17:00 WBC RBC Hgb Hct MCV MCH MCHC RDW Plt Count Sodium Potassium Chloride Carbon Dioxide Anion Gap BUN Creatinine Est GFR ( Amer) Est GFR (Non-Af Amer) Glucose Calcium Phosphorus Urine Color YELLOW Urine Appearance CLOUDY Urine pH 9.0 Ur Specific [place] 1.006 Urine Protein 100 H Urine Glucose (UA) NEGATIVE Urine Ketones NEGATIVE Urine Blood NEGATIVE Urine Nitrite NEGATIVE Ur Leukocyte Esterase NEGATIVE Urine WBC (Auto) 1 Urine RBC (Auto) 2 01/23/18 01/24/18 01/24/18 21:12 03:28 09:02 CK-MB (CK-2) < 0.22 < 0.22 < 0.22 Troponin I 0.053 0.068 0.076 EKG Comments: Telemetry shows sinus rhythm without any sustained tachycardia or bradycardia. Impressions: Chest X-Ray 01/23/18 20:58 IMPRESSION: No acute cardiopulmonary findings. Lung Scan-VQ NM 01/24/18 17:59 IMPRESSION: NORMAL VENTILATION-PERFUSION LUNG SCAN. NEGATIVE FOR PULMONARY EMBOLI. Assessment & Plan - Diagnosis (1) Chest pain Qualifiers: Chest pain type: unspecified Qualified Code(s): R07.9 - Chest pain, unspecified Is this a current diagnosis for this admission?: Yes (2) Superior vena cava syndrome Is this a current diagnosis for this admission?: Yes (3) End-stage renal disease (ESRD) Is this a current diagnosis for this admission?: Yes (4) HTN (hypertension) Qualifiers: Hypertension type: renovascular hypertension Qualified Code(s): I15.0 - Renovascular hypertension Is this a current diagnosis for this admission?: Yes (5) Shortness of breath Is this a current diagnosis for this admission?: Yes (6) Hyperlipidemia Qualifiers: Hyperlipidemia type: unspecified Qualified Code(s): E78.5 - Hyperlipidemia , unspecified Is this a current diagnosis for this admission?: Yes - Notes Notes: Awaiting nuclear stress test results from [facility]. Will order CT chest without contrast in the morning. This is to look for any other cause of chest pain. Especially since patient tells me that previous stress test was negative. I am told by Dr. Bell that patient is severely allergic to contrast agent. VQ scan was actually ordered yesterday and was noted to be negative. 2D echo was reviewed. Showed no significant findings. Findings to be discussed with the patient tomorrow. Patient otherwise stable. Management plans discussed. - Time Time with patient: 15-25 minutes - CODE STATUS was discussed, patient remains full code. Surrogate decision-maker unchanged. Multiple medical problems were addressed. More than 50% of the time spent coordinating care, discussing management plans with involved caregivers. Management plans discussed with involved personnels. Medical decision making was of moderate to high complexity , patient's has multiple comorbidities. Medications reviewed and adjusted accordingly: Yes
[2018-01-25] MEDS: MONTELUKAST SODIUM 10 MG TABLET PO SCH (21:24)
[2018-01-25] MEDS: ATORVASTATIN CALCIUM 80 MG TABLET PO SCH (21:26)
[2018-01-25] MEDS: AZITHROMYCIN 250 MG TABLET PO SCH (21:26)
[2018-01-26] MEDS: LANSOPRAZOLE 30 MG TAB.RAP.DR PO SCH ×2 (05:25→17:03)
[2018-01-26 06:30] LABS: HEMATOCRIT 30.4 % (36.0-47.0); HEMOGLOBIN 10.4 g/dL (12.0-15.5); MEAN CORPUSCULAR HGB CONC 34.1 g/dL (32.0-36.0); MEAN CORPUSCULAR VOLUME 88 fl (80-97); PLATELET COUNT 134 10^3/uL (150-450); RED BLOOD COUNT 3.45 10^6/uL (3.72-5.28); RED CELL DISTRIBUTION WIDTH 16.1 % (11.5-14.0); WHITE BLOOD COUNT 5.2 10^3/uL (4.0-10.5)
--- NOTE | 2018-01-26 10:20 | PDOC PROGRESS REPORT ---
Subjective Progress Note for:: 01/25/18 Reason For Visit: Seen on HD today.Has no issues.Still intermittent sub sternal chest pains. No dyspnea, fever or chills.Labs and meds were reviewed with her and treating HD RN. Physical Exam Vital Signs: Temp Pulse Resp BP Pulse Ox 99.4 F 69 16 146/67 H 94 01/25/18 03:37 01/25/18 13:26 01/25/18 13:26 01/25/18 13:26 01/25/18 13:26 Intake & Output 01/24/18 01/25/18 01/26/18 06:59 06:59 06:59 Intake Total 230 320 733 Output Total 3301 0 Balance -3071 320 733 Weight 104.3 kg 102.4 kg General appearance: PRESENT: no acute distress Respiratory exam: PRESENT: clear to auscultation alcira. ABSENT: crackles, rhonchi Cardiovascular exam: PRESENT: RRR, +S1, +S2 GI/Abdominal exam: PRESENT: normal bowel sounds, soft. ABSENT: ascites, distended, guarding, organomegaly, tenderness Extremities exam: ABSENT: pedal edema Neurological exam: PRESENT: alert, awake, oriented to person, oriented to place Results Laboratory Results: 01/25/18 04:59 01/25/18 04:59 01/25/18 01/25/18 01/25/18 04:59 04:59 04:59 WBC 6.2 RBC 3.51 L Hgb 10.8 L Hct 30.8 L MCV 88 MCH 30.7 MCHC 35.0 RDW 15.9 H Plt Count 154 Sodium 135.9 L Potassium 4.9 Chloride 95 L Carbon Dioxide 27 Anion Gap 14 BUN 53 H Creatinine 10.87 H Est GFR ( Amer) 4 L Est GFR (Non-Af Amer) 4 L Glucose 92 Calcium 8.5 Phosphorus 4.2 01/23/18 01/24/18 01/24/18 21:12 03:28 09:02 CK-MB (CK-2) < 0.22 < 0.22 < 0.22 Troponin I 0.053 0.068 0.076 Impressions: Chest X-Ray 01/23/18 20:58 IMPRESSION: No acute cardiopulmonary findings. Lung Scan-VQ NM 01/24/18 17:59 IMPRESSION: NORMAL VENTILATION-PERFUSION LUNG SCAN. NEGATIVE FOR PULMONARY EMBOLI. Assessment & Plan - Diagnosis (1) Chest pain Qualifiers: Chest pain type: unspecified Qualified Code(s): R07.9 - Chest pain, unspecified Is this a current diagnosis for this admission?: Yes Plan: As per Dr Poe (2) End-stage renal disease (ESRD) Is this a current diagnosis for this admission?: Yes Plan: Currently being dialysed. Its being supervised to ensure a safe and smooth procedure. VS are stable.Orders were discussed with her treating RN.Plan to remove 2 L as tolerated. (3) HTN (hypertension) Qualifiers: Hypertension type: renovascular hypertension Qualified Code(s): I15.0 - Renovascular hypertension Is this a current diagnosis for this admission?: Yes Plan: Monitor.See response to HD.
[2018-01-26] MEDS: CALCIUM CARBONATE 500 MG TAB.CHEW PO SCH ×4 (10:58→21:36)
[2018-01-26] MEDS: FOLIC ACID/VITAMIN B COMP W-C CAPSULE PO SCH (10:58)
[2018-01-26] MEDS: CLONIDINE HCL 0.2 MG TABLET PO SCH (10:58)
[2018-01-26] MEDS: METOPROLOL SUCCINATE 50 MG TAB.SR.24H PO SCH (10:59)
[2018-01-26] MEDS: COLCHICINE 0.6 MG TABLET PO SCH ×3 (10:59→17:04)
[2018-01-26] MEDS: ALLOPURINOL 100 MG TABLET PO SCH (10:59)
[2018-01-26] MEDS: NIFEDIPINE 30 MG TAB.ER.24 PO SCH ×2 (10:59→21:36)
[2018-01-26] MEDS: CLOPIDOGREL BISULFATE 75 MG TABLET PO SCH (11:00)
[2018-01-26] MEDS: ASPIRIN 81 MG TABLET, ENT COATED PO SCH (11:00)
[2018-01-26] MEDS: BUDESONIDE/FORMOTEROL 160-4.5 MCG 60 PUFF/6 GM MDI IH SCH ×2 (11:01→21:34)
[2018-01-26] MEDS: ALBUTEROL SULFATE HFA (90 MCG/PUFF) 200 PUFF/8.5 GM MDI IH PRN (11:01)
[2018-01-26] MEDS: ACETAMINOPHEN 325 MG TABLET PO PRN ×2 (11:10→19:48)
--- NOTE | 2018-01-26 12:27 | PDOC PROGRESS REPORT ---
Subjective Progress Note for:: 01/26/18 Subjective:: Patient seems to be doing better with gradual improvement. Pt is denying any chest arm or neck discomfort. Patient denying any PND, orthopnea. Patient denied any sustained palpitations, dizziness, syncope, near syncope. Patient denying any fever chills. Patient denying any other significant discomfort. Patient is maintaining sinus rhythm. Review of systems: Rest review of systems negative. Medications: Medications have been reviewed. Reason For Visit: CHEST PAIN, ESRD Physical Exam Vital Signs: Temp Pulse Resp BP Pulse Ox 98.0 F 67 15 158/91 H 100 01/26/18 08:08 01/26/18 08:08 01/26/18 08:08 01/26/18 08:08 01/26/18 08:08 Intake & Output 01/25/18 01/26/18 01/27/18 06:59 06:59 06:59 Intake Total 320 1237 Output Total 0 3800 Balance 320 -2563 Weight 102.4 kg 101.4 kg Exam: GENERAL: well-nourished and in no acute distress. Alert and oriented x3 HEAD: Atraumatic, normocephalic. EYES: Pupils equal round and reactive to light, extraocular movements intact, sclera anicteric, conjunctiva are normal. ENT: TMs normal, nares patent, oropharynx clear without exudates. Moist mucous membranes. No oral ulcerations or bleeding gums noted NECK: supple without lymphadenopathy. Trachea is central. No cervical or axillary lymphadenopathy noted. Carotids are 2+, JVD WNL LUNGS: Respiration seems nonlabored, no significant accessory muscle action noted. Breath sounds clear to auscultation bilaterally and equal noted. No wheezes rales or rhonchi noted. No significant dullness noted on percussion. CHEST: Palpation of the chest wall shows no significant chest wall tenderness. No other significant abnormalities noted. 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 ABDOMEN: Soft, no significant tenderness appreciated, normoactive bowel sounds. No guarding, no rebound. No rigidity noted . No masses appreciated. EXTREMITIES: Pedal pulses are 1-2+, no calf tenderness noted. No clubbing or cyanosis.trace pedal edema noted NEUROLOGICAL: Focused neurological exam showed no significant neurologic deficit. Normal speech, no focal weakness appreciated. PSYCH: Normal mood, normal affect. Judgment and insight within normal limits. SKIN: No significant ecchymosis, skin is noted to be warm. MUSCULOSKELETAL EXAM: No significant acute joint swelling noted. Results Laboratory Results: 01/26/18 05:35 01/25/18 04:59 01/25/18 01/26/18 01/26/18 17:00 05:35 05:35 WBC 5.2 RBC 3.45 L Hgb 10.4 L Hct 30.4 L MCV 88 MCH 30.0 MCHC 34.1 RDW 16.1 H Plt Count 134 L Phosphorus 4.0 Urine Color YELLOW Urine Appearance CLOUDY Urine pH 9.0 Ur Specific [place] 1.006 Urine Protein 100 H Urine Glucose (UA) NEGATIVE Urine Ketones NEGATIVE Urine Blood NEGATIVE Urine Nitrite NEGATIVE Ur Leukocyte Esterase NEGATIVE Urine WBC (Auto) 1 Urine RBC (Auto) 2 01/23/18 01/24/18 01/24/18 21:12 03:28 09:02 CK-MB (CK-2) < 0.22 < 0.22 < 0.22 Troponin I 0.053 0.068 0.076 EKG Comments: Shows sinus rhythm without any sustained tachycardia or bradycardia. Impressions: Chest X-Ray 01/23/18 20:58 IMPRESSION: No acute cardiopulmonary findings. Lung Scan-VQ NM 01/24/18 17:59 IMPRESSION: NORMAL VENTILATION-PERFUSION LUNG SCAN. NEGATIVE FOR PULMONARY EMBOLI. Assessment & Plan - Diagnosis (1) Chest pain Qualifiers: Chest pain type: unspecified Qualified Code(s): R07.9 - Chest pain, unspecified Is this a current diagnosis for this admission?: Yes (2) Superior vena cava syndrome Is this a current diagnosis for this admission?: Yes (3) End-stage renal disease (ESRD) Is this a current diagnosis for this admission?: Yes (4) HTN (hypertension) Qualifiers: Hypertension type: renovascular hypertension Qualified Code(s): I15.0 - Renovascular hypertension Is this a current diagnosis for this admission?: Yes (5) Shortness of breath Is this a current diagnosis for this admission?: Yes - Notes Notes: Chest pain: There are multiple differential diagnosis. Includes cardiac ischemia, gastroesophageal reflux, pericarditis, musculoskeletal pain. Patient did have a stress test last year, patient claims it was negative but need to review results prior to scheduling another one. Have placed patient on empiric proton pump inhibitor. 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 Therefore she prefers to do a nuclear stress test. 2D echo results were reviewed. It was negative for significant LV systolic dysfunction, valvular abnormalities or pericardial effusion. Patient did have a VQ scan which was reviewed and was noted to be negative. Dyspnea: Possibly related to CHF from possibly diastolic dysfunction/systolic dysfunction. Chest x-ray shows fluid in the minor fissure and major fissure. Some pulmonary venous congestion is also noted. Recommend remove fluid on dialysis. Currently seems stable. Hypertension: Blood pressure is reasonably well controlled. Continue with current management plans. End-stage renal disease: Currently being managed by sales team manager. Patient on a dialysis regimen. - Time Time with patient: Greater than 35 minutes - CODE STATUS was discussed, patient remains full code. Surrogate decision-maker unchanged. Multiple medical problems were addressed. More than 50% of the time spent coordinating care, discussing management plans with involved caregivers. Management plans discussed with involved personnels. Medical decision making was of moderate to high complexity, patient's has multiple comorbidities. Medications reviewed and adjusted accordingly: Yes
--- NOTE | 2018-01-26 12:50 | PDOC PROGRESS REPORT ---
Subjective Progress Note for:: 01/26/18 Subjective:: Patient is currently doing well. She is sitting up in bed not complaining of chest pain or pressure. Denies SOB, n/v/d/c. She did have a minor episode of chest pain last night. It went away without interventions. Possible stress test in the next few days. Reason For Visit: CHEST PAIN, ESRD Physical Exam Vital Signs: Temp Pulse Resp BP Pulse Ox 98.0 F 67 15 158/91 H 100 01/26/18 08:08 01/26/18 08:08 01/26/18 08:08 01/26/18 08:08 01/26/18 08:08 Intake & Output 01/25/18 01/26/18 01/27/18 06:59 06:59 06:59 Intake Total 320 1237 Output Total 0 3800 Balance 320 -2563 Weight 102.4 kg 101.4 kg General appearance: PRESENT: no acute distress, well-developed, well-nourished Mouth exam: PRESENT: moist, neck supple Respiratory exam: PRESENT: clear to auscultation alcira. ABSENT: accessory muscle use, crackles, rales, rhonchi, wheezes Cardiovascular exam: PRESENT: RRR, +S1, +S2 GI/Abdominal exam: PRESENT: normal bowel sounds, soft. ABSENT: ascites, distended, guarding, organomegaly, tenderness Extremities exam: PRESENT: pedal edema - -trace+. ABSENT: tenderness Musculoskeletal exam: ABSENT: normal inspection, tenderness Neurological exam: PRESENT: alert, awake, oriented to person, oriented to place , oriented to time, oriented to situation Psychiatric exam: PRESENT: appropriate affect, normal mood Skin exam: PRESENT: dry, intact, warm. ABSENT: cyanosis Results Laboratory Results: 01/26/18 05:35 01/25/18 04:59 01/25/18 01/26/18 01/26/18 17:00 05:35 05:35 WBC 5.2 RBC 3.45 L Hgb 10.4 L Hct 30.4 L MCV 88 MCH 30.0 MCHC 34.1 RDW 16.1 H Plt Count 134 L Phosphorus 4.0 Urine Color YELLOW Urine Appearance CLOUDY Urine pH 9.0 Ur Specific [place] 1.006 Urine Protein 100 H Urine Glucose (UA) NEGATIVE Urine Ketones NEGATIVE Urine Blood NEGATIVE Urine Nitrite NEGATIVE Ur Leukocyte Esterase NEGATIVE Urine WBC (Auto) 1 Urine RBC (Auto) 2 01/23/18 01/24/18 01/24/18 21:12 03:28 09:02 CK-MB (CK-2) < 0.22 < 0.22 < 0.22 Troponin I 0.053 0.068 0.076 Impressions: Chest X-Ray 01/23/18 20:58 IMPRESSION: No acute cardiopulmonary findings. Lung Scan-VQ NM 01/24/18 17:59 IMPRESSION: NORMAL VENTILATION-PERFUSION LUNG SCAN. NEGATIVE FOR PULMONARY EMBOLI. Assessment & Plan - Diagnosis (1) Chest pain Qualifiers: Chest pain type: unspecified Qualified Code(s): R07.9 - Chest pain, unspecified Is this a current diagnosis for this admission?: Yes Plan: currently being managed by cardiology. All test currently negative. Possible stress test soon (2) End-stage renal disease (ESRD) Is this a current diagnosis for this admission?: Yes Plan: Will set her up for dialysis tomorrow, lung sounds were normal, but chest x-ray shows some pulmonary congestion. Will look to continue challenging and removing extra fluid off. (3) HTN (hypertension) Qualifiers: Hypertension type: renovascular hypertension Qualified Code(s): I15.0 - Renovascular hypertension Is this a current diagnosis for this admission?: Yes Plan: blood pressure should become better controlled as extra fluid is removed on dialysis. - Notes Notes: case was discussed with Dr. Red.
[2018-01-26] MEDS: CINACALCET HCL 30 MG TABLET PO SCH (17:03)
--- NOTE | 2018-01-26 20:10 | PDOC PROGRESS REPORT ---
Subjective Progress Note for:: 01/26/18 Subjective:: Patient is scheduled for stress test in the morning Reason For Visit: CHEST PAIN, ESRD Physical Exam Vital Signs: Temp Pulse Resp BP Pulse Ox 98.7 F 71 17 124/70 96 01/26/18 16:13 01/26/18 16:13 01/26/18 16:13 01/26/18 16:13 01/26/18 16:13 Intake & Output 01/25/18 01/26/18 01/27/18 06:59 06:59 06:59 Intake Total 320 1237 731 Output Total 0 3800 Balance 320 -2563 731 Weight 102.4 kg 101.4 kg General appearance: PRESENT: no acute distress Eye exam: PRESENT: PERRLA Respiratory exam: PRESENT: clear to auscultation alcira Cardiovascular exam: PRESENT: +S1, +S2 GI/Abdominal exam: PRESENT: soft Results Laboratory Results: 01/26/18 05:35 01/25/18 04:59 01/26/18 01/26/18 05:35 05:35 WBC 5.2 RBC 3.45 L Hgb 10.4 L Hct 30.4 L MCV 88 MCH 30.0 MCHC 34.1 RDW 16.1 H Plt Count 134 L Phosphorus 4.0 01/23/18 01/24/18 01/24/18 21:12 03:28 09:02 CK-MB (CK-2) < 0.22 < 0.22 < 0.22 Troponin I 0.053 0.068 0.076 Impressions: Chest X-Ray 01/23/18 20:58 IMPRESSION: No acute cardiopulmonary findings. Lung Scan-VQ NM 01/24/18 17:59 IMPRESSION: NORMAL VENTILATION-PERFUSION LUNG SCAN. NEGATIVE FOR PULMONARY EMBOLI. Assessment & Plan - Diagnosis (1) Chest pain Qualifiers: Chest pain type: unspecified Qualified Code(s): R07.9 - Chest pain, unspecified Is this a current diagnosis for this admission?: Yes (2) Superior vena cava syndrome Is this a current diagnosis for this admission?: Yes (3) End-stage renal disease (ESRD) Is this a current diagnosis for this admission?: Yes (4) Elevated d-dimer Is this a current diagnosis for this admission?: Yes
[2018-01-26] MEDS: ATORVASTATIN CALCIUM 80 MG TABLET PO SCH (21:36)
[2018-01-26] MEDS: AZITHROMYCIN 250 MG TABLET PO SCH (21:37)
[2018-01-26] MEDS: MONTELUKAST SODIUM 10 MG TABLET PO SCH (21:37)
[2018-01-27] MEDS ORDERED: EPOETIN ALFA INJ 20000 UNIT/1 ML VIAL (RENAL) IV PRN (05:00)
[2018-01-27] MEDS: LANSOPRAZOLE 30 MG TAB.RAP.DR PO SCH ×2 (05:24→17:38)
[2018-01-27 07:21] LABS: HEMATOCRIT 31.1 % (36.0-47.0); HEMOGLOBIN 10.8 g/dL (12.0-15.5); MEAN CORPUSCULAR HEMOGLOBIN 30.3 pg (27.0-33.4); MEAN CORPUSCULAR HGB CONC 34.7 g/dL (32.0-36.0); MEAN CORPUSCULAR VOLUME 87 fl (80-97); PLATELET COUNT 130 10^3/uL (150-450); RED BLOOD COUNT 3.56 10^6/uL (3.72-5.28); RED CELL DISTRIBUTION WIDTH 15.7 % (11.5-14.0); WHITE BLOOD COUNT 5.6 10^3/uL (4.0-10.5)
[2018-01-27] MEDS: PROMETHAZINE HCL 25 MG TABLET PO PRN ×2 (07:30→13:25)
[2018-01-27 07:44] LABS: ANION GAP 18 (5-19); BLOOD UREA NITROGEN 59 mg/dL (7-20); CALCIUM 8.4 mg/dL (8.4-10.2); CARBON DIOXIDE 23 mmol/L (22-30); CHLORIDE 94 mmol/L (98-107); GLUCOSE 89 mg/dL (75-110); POTASSIUM 4.8 mmol/L (3.6-5.0); SODIUM 134.6 mmol/L (137-145)
[2018-01-27] MEDS ORDERED: EPOETIN ALFA 5,000 UNIT in SYRINGE, DISPOSABLE, 1 EACH IV PRN (08:56)
[2018-01-27] MEDS: ALLOPURINOL 100 MG TABLET PO SCH (09:58)
[2018-01-27] MEDS: BUDESONIDE/FORMOTEROL 160-4.5 MCG 60 PUFF/6 GM MDI IH SCH (09:58)
[2018-01-27] MEDS: CALCIUM CARBONATE 500 MG TAB.CHEW PO SCH ×3 (09:58→17:38)
[2018-01-27] MEDS: COLCHICINE 0.6 MG TABLET PO SCH ×3 (09:58→17:39)
[2018-01-27] MEDS: FOLIC ACID/VITAMIN B COMP W-C CAPSULE PO SCH (09:58)
[2018-01-27] MEDS: CLOPIDOGREL BISULFATE 75 MG TABLET PO SCH (10:00)
[2018-01-27] MEDS: NIFEDIPINE 30 MG TAB.ER.24 PO SCH (12:39)
[2018-01-27] MEDS: ASPIRIN 81 MG TABLET, ENT COATED PO SCH (12:41)
--- NOTE | 2018-01-27 14:25 | DRAGON STRESS TEST REPORT ---
INTRAVENOUS LEXISCAN CARDIOLITE STRESS TEST USING SINGLE PHOTON EMMISION COMPUTERIZED TOMOGRAPHIC. DATE OF PROCEDURE: January 27, 2018, INDICATION : Chest pain CARDIAC RISK FACTORS: Hypertension, dyslipidemia, end-stage renal disease RESTING EKG: Sinus rhythm, LVH with secondary ST-T wave changes STRESS EKG: No significant ST segment changes noted with LexiScan bolus REASON FOR TERMINATION: Protocol. PROCEDURE REPORT: Baseline heart rate 70 beats per minute with blood pressure of 155/92. Patient had no significant complaints. Patient was bolused with Lexiscan 0.4 mg intravenously followed by saline bolus. Heart rate at 2 minutes post bolus 81 with a blood pressure of 107/84. 3 minutes post bolus heart rate 78 with blood pressure of 168/88. No significant EKG changes were noted. Patient had no significant complaints during the procedure or postprocedure. Patient injected with Aminophyllin 75 mg at 3 minutes or later after Lexiscan bolus. CONCLUSIONS: Normal EKG and hemodynamic response to IV LexiScan. NUCLEAR DATA: At rest the patient was given 14.55 millicuries of technetium 99 sestamibi injected intravenously. As per protocol rest gated SPECT images were obtained. On day of stress test, the patient was given intravenous LexiScan at a dose of 0.4 mg in 5 mL intravenously, followed by flush with normal saline. Subsequently the stress dose of 44.1 millicuries of technetium 99 sestamibi was injected intravenously. As per protocol stress gated images were obtained. NUCLEAR INTERPRETATION: Both raw and processed data were used for interpretation. Visual, qualitative, computer-generated quantitative data was used. There was good myocardial uptake of technetium compound. Motion artifact and soft tissue attenuations were noted. Increased visceral uptake was noted. No definitive areas of transient perfusion defect noted, No definitive areas of fixed perfusion defect or scars noted. EKG gated imaging showed LV EF at 41 %, rest and stress gated EF similar visually. Mild distal lateral wall hypokinesia noted. T. I D. ratio was 1.05. Lung heart ratio noted to be within normal limits 0.29. No significant extracardiac and abnormal radiotracer activities were noted. RV free wall uptake was noted to be WNL. IMPRESSION: Also refer to comments under nuclear interpretation. Also test results needs to be interpreted in the context of pretest probability. 1. No definitive areas of transient perfusion defect noted. 2. Mild fixed defect noted distal lateral wall, consistent with prior myocardial infarction. Total area is small. 3. EKG gated imaging shows left ventricular ejection fraction of approx. 41 %. 4. Clinical correlation requested as occasionally single vessel disease or balanced ischemia could be missed. In approximately 10% of the cases Lexiscan may not cause adequate vasodilatory stress. RECOMMENDATIONS: Aggressive risk factor modification and medical management. Further evaluation may be needed if continued symptoms or other high risk indicators are noted on clinical evaluation. Close cardiology follow-up is also recommended. Clinical correlation with echocardiogram derived ejection fraction. Inability to exercise by itself can lead to increased cardiovascular event risks. Consider cardiology consultation and or follow-up if clinically indicated. 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 JENNIFER
--- NOTE | 2018-01-27 15:45 | PDOC PROGRESS REPORT ---
Subjective Progress Note for:: 01/27/18 Reason For Visit: Seen on HD today.Undergoing dialysis without any issues. She still has some chest pain but it is markedly better.No dyspnea, fever or chills. She has had a stress done today and is awaiting results.Labs and meds were reviewed with her.Orders were discussed with treating Shiela RN. Physical Exam Vital Signs: Temp Pulse Resp BP Pulse Ox 98.1 F 76 16 159/78 H 94 01/27/18 12:08 01/27/18 12:08 01/27/18 12:08 01/27/18 12:08 01/27/18 12:08 Intake & Output 01/26/18 01/27/18 01/28/18 06:59 06:59 06:59 Intake Total 1237 1231 150 Output Total 3800 Balance -2563 1231 150 Weight 101.4 kg 103.6 kg General appearance: PRESENT: no acute distress Respiratory exam: PRESENT: clear to auscultation alcira. ABSENT: crackles, rhonchi Cardiovascular exam: PRESENT: RRR, +S1, +S2 GI/Abdominal exam: PRESENT: normal bowel sounds, soft. ABSENT: ascites, distended, guarding, organomegaly, tenderness Extremities exam: ABSENT: pedal edema Neurological exam: PRESENT: alert, awake, oriented to person, oriented to place Results Laboratory Results: 01/27/18 06:21 01/27/18 06:21 01/27/18 01/27/18 06:21 06:21 WBC 5.6 RBC 3.56 L Hgb 10.8 L Hct 31.1 L MCV 87 MCH 30.3 MCHC 34.7 RDW 15.7 H Plt Count 130 L Sodium 134.6 L Potassium 4.8 Chloride 94 L Carbon Dioxide 23 Anion Gap 18 BUN 59 H Creatinine 11.39 H Est GFR ( Amer) 4 L Est GFR (Non-Af Amer) 3 L Glucose 89 Calcium 8.4 01/23/18 01/24/18 01/24/18 21:12 03:28 09:02 CK-MB (CK-2) < 0.22 < 0.22 < 0.22 Troponin I 0.053 0.068 0.076 Impressions: Chest X-Ray 01/23/18 20:58 IMPRESSION: No acute cardiopulmonary findings. Lung Scan-VQ NM 01/24/18 17:59 IMPRESSION: NORMAL VENTILATION-PERFUSION LUNG SCAN. NEGATIVE FOR PULMONARY EMBOLI. Assessment & Plan - Diagnosis (1) Chest pain Qualifiers: Chest pain type: unspecified Qualified Code(s): R07.9 - Chest pain, unspecified Is this a current diagnosis for this admission?: Yes Plan: As per Dr Poe (2) End-stage renal disease (ESRD) Is this a current diagnosis for this admission?: Yes Plan: Currently being dialysed. Its being supervised to ensure a safe and smooth procedure. VS are stable.Orders were discussed with her treating RN. Plan to remove 2 L as tolerated. (3) HTN (hypertension) Qualifiers: Hypertension type: renovascular hypertension Qualified Code(s): I15.0 - Renovascular hypertension Is this a current diagnosis for this admission?: Yes Plan: Relatively well controlled. Monitor.See response to HD.
[2018-01-27] MEDS ORDERED: AMINOPHYLLINE INJ/PF 250 MG/10 ML SDV IV ONE (15:54)
[2018-01-27] MEDS ORDERED: REGADENOSON INJ 0.4 MG/5 ML DISP.SYRIN IV ONE (15:54)
[2018-01-27] MEDS: CLONIDINE HCL 0.2 MG TABLET PO SCH (17:00)
[2018-01-27] MEDS: METOPROLOL SUCCINATE 50 MG TAB.SR.24H PO SCH (17:00)
--- NOTE | 2018-01-27 17:02 | PDOC DISCHARGE SUMMARY ---
General - Admit/Disc Date/PCP Admission Date/Primary Care Provider: 01/25/18 14:05 KEVIN REED MD Discharge Date: 01/27/18 - Discharge Diagnosis (1) Chest pain Is this a current diagnosis for this admission?: Yes (2) Superior vena cava syndrome Is this a current diagnosis for this admission?: Yes (3) End-stage renal disease (ESRD) Is this a current diagnosis for this admission?: Yes (4) Elevated d-dimer Is this a current diagnosis for this admission?: Yes (5) Acute bronchitis Is this a current diagnosis for this admission?: Yes - Additional Information Resuscitation Status: Full Code Prescriptions: Azithromycin [Zithromax 250 mg Tablet] 250 mg PO DAILY #5 tablet Home Medications: Albuterol Sulfate [Ventolin Hfa] 2 puff IH Q4HP PRN 10/14/17 Allopurinol [Zyloprim 100 mg Tablet] 100 mg PO DAILY 10/14/17 Budesonide/Formoterol Fumarate [Symbicort HFA 160-4.5 mcg Inhaler 6 gm] 2 puff IH Q12 10/14/17 Calcium Carbonate [Tums Chewable 500 mg Tab.chew] 500 mg PO QID 10/14/17 Chlorpheniramine Maleate [Chlor-Trimeton 4 mg Tablet] 4 mg PO Q6HP PRN 10/14/17 Clonidine HCl [Catapres 0.3 mg Tablet] 0.3 mg PO Q8 10/14/17 Colchicine [Colcrys 0.6 mg Tablet] 1 tab PO TID 10/14/17 Folic Acid/Vit B Complex and C [Nephro-Juan Tablet] 1 mg PO DAILY 10/14/17 Lactulose [Cephulac Syrup 20 gm/30 ml Udcup] 20 gm PO TIDP PRN 10/14/17 Linaclotide [Linzess 145 Mcg Capsule] 145 mcg PO DAILY PRN 10/14/17 Metoprolol Succinate [Toprol XL 200 mg Tablet] 200 mg PO DAILY 10/14/17 Montelukast Sodium [Singulair 10 mg Tablet] 10 mg PO QHS 10/14/17 Nifedipine [Nifedipine ER] 60 mg PO BID 10/14/17 Promethazine HCl 12.5 mg PO Q6HP PRN 10/14/17 Sevelamer Carbonate [Renvela] 1,600 mg PO DAILYP PRN 10/14/17 Cinacalcet HCl [Sensipar 90 mg Tablet] 1 tab PO DAILY 01/24/18 Azithromycin [Zithromax 250 mg Tablet] 250 mg PO DAILY #5 tablet 01/27/18 History of Present Illness History of Present Illness: CAPO HDEZ 62 Year old female , She has end-stage renal disease on maintenance hemodialysis, she came to the office this morning for evaluation of acute onset, 1 day duration substernal chest pain associated with shortness of breath. She has a history of superior vena cava syndrome, presently being evaluated at [facility] scheduled for a procedure soon. In the office, 12-lead EKG was done, it shows sinus rhythm, Q-wave in inferolateral leads suggesting old NM, the age of the NM could not be ascertained. She stated that she had a stress test last year at [place] and she said it was normal, I have no access to the result of the stress test, because she has significant risk factor for ischemic heart disease, she is a patient on hemodialysis, history of hypertension, now present with suspicious chest pain, I felt patient needed to be admitted to the hospital for evaluation and management. Hospital Course Hospital Course: She was admitted for the evaluation of chest pain, cardiac enzymes negative for acute NM, she underwent Cardiolite Lexiscan stress test there was no reversibility to suggest ischemia. A VQ scan was done because of elevated d- dimer, this was negative for pulmonary embolism. She has end-stage kidney disease on hemodialysis, she was seen by nephrology and she has sessions of hemodialysis at the hospital. She also had episode of cough that was productive of sputum, she was diagnosed as having bronchitis and she was treated with azithromycin. Physical Exam Vital Signs: Temp Pulse Resp BP Pulse Ox 98.1 F 75 16 159/78 H 94 01/27/18 12:08 01/27/18 14:00 01/27/18 12:08 01/27/18 12:08 01/27/18 12:08 Intake & Output 01/26/18 01/27/18 01/28/18 06:59 06:59 06:59 Intake Total 1237 1231 150 Output Total 3800 Balance -2563 1231 150 Weight 101.4 kg 103.6 kg General appearance: PRESENT: no acute distress, well-developed, well-nourished Head exam: PRESENT: atraumatic, normocephalic Eye exam: PRESENT: conjunctiva pink, EOMI, PERRLA Ear exam: PRESENT: normal external ear exam Mouth exam: PRESENT: moist, tongue midline Neck exam: PRESENT: full ROM Respiratory exam: PRESENT: clear to auscultation alcira Cardiovascular exam: PRESENT: RRR, +S1, +S2 Pulses: PRESENT: normal dorsalis pedis pul, +2 pedal pulses bilateral Vascular exam: PRESENT: normal capillary refill GI/Abdominal exam: PRESENT: normal bowel sounds, soft Rectal exam: PRESENT: deferred Neurological exam: PRESENT: alert, awake, oriented to person, oriented to place , oriented to time, oriented to situation, CN II-XII grossly intact Psychiatric exam: PRESENT: appropriate affect, normal mood Skin exam: PRESENT: dry, intact, warm Results Laboratory Results: 01/27/18 06:21 01/27/18 06:21 01/27/18 01/27/18 06:21 06:21 WBC 5.6 RBC 3.56 L Hgb 10.8 L Hct 31.1 L MCV 87 MCH 30.3 MCHC 34.7 RDW 15.7 H Plt Count 130 L Sodium 134.6 L Potassium 4.8 Chloride 94 L Carbon Dioxide 23 Anion Gap 18 BUN 59 H Creatinine 11.39 H Est GFR ( Amer) 4 L Est GFR (Non-Af Amer) 3 L Glucose 89 Calcium 8.4 01/23/18 01/24/18 01/24/18 21:12 03:28 09:02 CK-MB (CK-2) < 0.22 < 0.22 < 0.22 Troponin I 0.053 0.068 0.076 Impressions: Chest X-Ray 01/23/18 20:58 IMPRESSION: No acute cardiopulmonary findings. Lung Scan-VQ NM 01/24/18 17:59 IMPRESSION: NORMAL VENTILATION-PERFUSION LUNG SCAN. NEGATIVE FOR PULMONARY EMBOLI. Qualifiers - * PATEINT BEING DISCHARGED WITH ANY OF THE FOLLOWING DIAGNOSIS?: No VTE patient discharged on overlapping Therapy?: Yes
[2018-01-27] MEDS: CINACALCET HCL 30 MG TABLET PO SCH (17:39)
[2018-01-27 19:00] VITALS: BP 141/52
--- NOTE | 2018-01-27 21:20 | PDOC PROGRESS REPORT ---
Subjective Progress Note for:: 01/27/18 Subjective:: Patient seems to be doing better. Pt is denying any chest arm or neck discomfort. Patient denying any PND, orthopnea. Patient denied any sustained palpitations, dizziness, syncope, near syncope. Patient denying any fever chills. Patient denying any other significant discomfort. Patient is maintaining sinus rhythm. Review of systems: Rest review of systems negative. Medications: Medications have been reviewed. Reason For Visit: CHEST PAIN, ESRD Physical Exam Vital Signs: Temp Pulse Resp BP Pulse Ox 98.2 F 77 16 135/77 H 96 01/27/18 18:44 01/27/18 18:44 01/27/18 18:44 01/27/18 18:44 01/27/18 18:44 Intake & Output 01/26/18 01/27/18 01/28/18 06:59 06:59 06:59 Intake Total 1237 1231 180 Output Total 3800 3300 Balance -2563 1231 -3120 Weight 101.4 kg 103.6 kg Exam: GENERAL: well-nourished and in no acute distress. Alert and oriented x3 HEAD: Atraumatic, normocephalic. EYES: Pupils equal round and reactive to light, extraocular movements intact, sclera anicteric, conjunctiva are normal. ENT: TMs normal, nares patent, oropharynx clear without exudates. Moist mucous membranes. No oral ulcerations or bleeding gums noted NECK: supple without lymphadenopathy. Trachea is central. No cervical or axillary lymphadenopathy noted. Carotids are 2+, JVD WNL LUNGS: Respiration seems nonlabored, no significant accessory muscle action noted. Breath sounds clear to auscultation bilaterally and equal noted. No wheezes rales or rhonchi noted. No significant dullness noted on percussion. CHEST: Palpation of the chest wall shows no significant chest wall tenderness. No other significant abnormalities noted. HEART: [place] WIRE LATHER, No PSH, 1/6 CAROLANN aortic area, 1/6 bright systolic murmur mitral area, no rubs, no gallops. ABDOMEN: Soft, no significant tenderness appreciated, normoactive bowel sounds. No guarding, no rebound. No rigidity noted . No masses appreciated. EXTREMITIES: Pedal pulses are 1-2+, no calf tenderness noted. No clubbing or cyanosis.trace to 1+ pedal edema noted NEUROLOGICAL: Focused neurological exam showed no significant neurologic deficit. Normal speech, no focal weakness appreciated. PSYCH: Normal mood, normal affect. Judgment and insight within normal limits. SKIN: No significant ecchymosis, skin is noted to be warm. MUSCULOSKELETAL EXAM: No significant acute joint swelling noted. Results Laboratory Results: 01/27/18 06:21 01/27/18 06:21 01/27/18 01/27/18 06:21 06:21 WBC 5.6 RBC 3.56 L Hgb 10.8 L Hct 31.1 L MCV 87 MCH 30.3 MCHC 34.7 RDW 15.7 H Plt Count 130 L Sodium 134.6 L Potassium 4.8 Chloride 94 L Carbon Dioxide 23 Anion Gap 18 BUN 59 H Creatinine 11.39 H Est GFR ( Amer) 4 L Est GFR (Non-Af Amer) 3 L Glucose 89 Calcium 8.4 01/23/18 01/24/18 01/24/18 21:12 03:28 09:02 CK-MB (CK-2) < 0.22 < 0.22 < 0.22 Troponin I 0.053 0.068 0.076 Impressions: Chest X-Ray 01/23/18 20:58 IMPRESSION: No acute cardiopulmonary findings. Lung Scan-VQ NM 01/24/18 17:59 IMPRESSION: NORMAL VENTILATION-PERFUSION LUNG SCAN. NEGATIVE FOR PULMONARY EMBOLI. Assessment & Plan - Diagnosis (1) Chest pain Qualifiers: Chest pain type: unspecified Qualified Code(s): R07.9 - Chest pain, unspecified Is this a current diagnosis for this admission?: Yes (2) Superior vena cava syndrome Is this a current diagnosis for this admission?: Yes (3) End-stage renal disease (ESRD) Is this a current diagnosis for this admission?: Yes (4) HTN (hypertension) Qualifiers: Hypertension type: renovascular hypertension Qualified Code(s): I15.0 - Renovascular hypertension Is this a current diagnosis for this admission?: Yes (5) Shortness of breath Is this a current diagnosis for this admission?: Yes (6) Hyperlipidemia Qualifiers: Hyperlipidemia type: unspecified Qualified Code(s): E78.5 - Hyperlipidemia , unspecified Is this a current diagnosis for this admission?: Yes - Notes Notes: Chest pain was evaluated by a nuclear stress test. No significant ischemia noted. Stress test results were discussed with the patient and findings were discussed in detail. At this point medical management is being recommended. Should patient continue to have recurrent chest pain then heart catheterization could be considered after ruling out other causes of possible chest pain. Patient offered follow-up with me. Dyspnea: Possibly related to CHF from possibly diastolic dysfunction/systolic dysfunction. Chest x-ray shows fluid in the minor fissure and major fissure. Some pulmonary venous congestion is also noted. Recommend remove fluid on dialysis. Currently seems stable. Patient is significantly improved and is expected to be discharged. Hypertension: Blood pressure is reasonably well controlled. Continue with current management plans. End-stage renal disease: Currently being managed by tribal council member. Patient on a dialysis regimen. - Time Time Spent with patient: Patient was seen multiple times. Total time exceeds 40 minutes. In the morning nuclear stress test procedure, risks benefits, alternatives were discussed. Patient seen during the stress test. Patient also seen after stress test when results were discussed with the patient in detail. Patient's questions were answered. Nuclear stress test results were discussed with the patient. Patient was informed that no definitive evidence of pharmacologic stress- induced ischemia noted. No definite fixed defects were noted. Patient informed that occasionally significant single vessel disease or balanced ischemia could be missed. However based on the current study results, would recommend aggressive risk factor modification and medical therapy. It may also be worthwhile to consider evaluation or empiric management of other causes of chest pain. Should no other cause be found and if persistent in having chest pain, then cardiac catheterization should be considered. Right now, recommendations are for aggressive risk factor modification and medical management. Time with patient: Greater than 35 minutes Medications reviewed and adjusted accordingly: Yes
== END 2018-01-27 19:30 | disposition home or self-care (01) | DRG 682 ==
LOC: INTOOBSV 15:34 → 3S 15:34 → OBSVTOIN 01-25 14:05 → 3S 01-27 15:51
PROVIDERS: ADMIT Internal Medicine; ATTEND Internal Medicine
PROC: 5A1D70Z Performance of Urinary Filtration, Intermittent, Less than 6 Hours Per Day (ICD-10-PCS; principal; 2018-01-23)
PROC: 5A09457 Assistance with Respiratory Ventilation, 24-96 Consecutive Hours, Continuous Positive Airway Pressure (ICD-10-PCS; 2018-01-24)
PROC: 5A1D70Z Performance of Urinary Filtration, Intermittent, Less than 6 Hours Per Day (ICD-10-PCS; 2018-01-25)
PROC: 5A1D70Z Performance of Urinary Filtration, Intermittent, Less than 6 Hours Per Day (ICD-10-PCS; 2018-01-27)
DX: I13.11 Hypertensive heart and chronic kidney disease without heart failure, with stage 5 chronic kidney disease, or end stage renal disease (principal); N18.6 End stage renal disease; I87.1 Compression of vein; N25.81 Secondary hyperparathyroidism of renal origin; R79.1 Abnormal coagulation profile; J20.9 Acute bronchitis, unspecified; E78.00 Pure hypercholesterolemia, unspecified; J44.9 Chronic obstructive pulmonary disease, unspecified; K21.9 Gastro-esophageal reflux disease without esophagitis; M19.90 Unspecified osteoarthritis, unspecified site; D63.1 Anemia in chronic kidney disease; E05.90 Thyrotoxicosis, unspecified without thyrotoxic crisis or storm; I25.2 Old myocardial infarction; Z79.899 Other long term (current) drug therapy; Z99.2 Dependence on renal dialysis; Z90.49 Acquired absence of other specified parts of digestive tract; Z87.891 Personal history of nicotine dependence; Z88.0 Allergy status to penicillin; Z88.6 Allergy status to analgesic agent; Z91.041 Radiographic dye allergy status; Z82.49 Family history of ischemic heart disease and other diseases of the circulatory system; Z84.1 Family history of disorders of kidney and ureter
CPT/HCPCS: 36415; 71046; 78452; 78582; 80048; 80061; 81001; 82553; 84100; 84484; 85025; 85027; 85379; 85610; 85730; 93005; 93010; 93017; 93306; 94660; A9500; A9540; A9567; G0378; G0379; J0280; J2785; J3490; Q4081; Q9969

== ENCOUNTER 2018-02-27 07:19 | Day surgery (SDC) | payer MEDICARE, MEDICAID ==
[~2018-02-27 07:19] MED LIST: DIAZEPAM 5 MG TABLET PO PRN; OXYCODONE-ACETAMINOPHEN 5-325 MG TABLET PO PRN
[2018-02-27 08:27] LABS: HEMATOCRIT 32.2 % (36.0-47.0); HEMOGLOBIN 11.1 g/dL (12.0-15.5); MEAN CORPUSCULAR HEMOGLOBIN 30.5 pg (27.0-33.4); MEAN CORPUSCULAR HGB CONC 34.4 g/dL (32.0-36.0); MEAN CORPUSCULAR VOLUME 89 fl (80-97); PLATELET COUNT 205 10^3/uL (150-450); RED BLOOD COUNT 3.63 10^6/uL (3.72-5.28); RED CELL DISTRIBUTION WIDTH 16.8 % (11.5-14.0); WHITE BLOOD COUNT 8.6 10^3/uL (4.0-10.5)
[2018-02-27] MEDS ORDERED: FAMOTIDINE INJ/PF 20 MG/2 ML SDV IV ONE (08:28)
[2018-02-27 08:56] LABS: ANION GAP 18 (5-19); BLOOD UREA NITROGEN 58 mg/dL (7-20); CALCIUM 9.5 mg/dL (8.4-10.2); CARBON DIOXIDE 24 mmol/L (22-30); CHLORIDE 97 mmol/L (98-107); GLUCOSE 117 mg/dL (75-110); POTASSIUM 5.1 mmol/L (3.6-5.0); SODIUM 138.8 mmol/L (137-145)
[2018-02-27] MEDS ORDERED: MIDAZOLAM 2 MG/2 ML INJ ONE (10:50)
[2018-02-27] MEDS ORDERED: LIDOCAINE 0.5% INJ-PF (5 MG/ML) 50 ML SDV ONE (10:50)
[2018-02-27] MEDS ORDERED: HEPARIN SOD (PORCINE) 5,000 UNIT/ML 1 ML SYRINGE ONE (10:51)
[2018-02-27] MEDS ORDERED: FENTANYL CITRATE INJ/PF 100 MCG/2 ML AMPUL ONE (10:51)
--- NOTE | 2018-02-27 12:57 | Discharge Summary ---
Discharge Summary (SDC) - Discharge Final Diagnosis: #1 malfunctioning AV fistula left radiocephalic. 2. Central venous stenosis. 3. End-stage renal disease on hemodialysis. 4. Hypertension. Date of Surgery: 02/27/18 Discharge Date: 02/27/18 Condition: Good Treatment or Instructions: Discharge home [after recovery per ASU criteria]. Diet , [renal],as tolerated, when fully awake advance as tolerated. Activities within moderation encouraged. Follow up in my office by appointment in about [1 week]. Call for appointment. Leave wounds [covered], [keep clean and dry, until office visit in 1 week]. Meds per med rec. Hold of on school/work [until evaluation in office]. May shower [in 48 hrs], [try to keep operated area as dry as possible]. Referrals: KEVIN REED MD [Primary Care Provider] - Discharge Diet: Other (Comments) - Renal. Respiratory Treatments at Home: Deep Breathing/Coughing Discharge Activity: Activity As Tolerated Report the Following to Your Physician Immediately: Shortness of Breath, Unusual Bleeding
--- NOTE | 2018-02-27 13:01 | Operative Report ---
Operative Report DATE OF SURGERY: 02/27/18 PREOPERATIVE DIAGNOSIS: #1 malfunctioning AV fistula left radiocephalic. 2. Central venous stenosis. 3. End-stage renal disease on hemodialysis. 4. Hypertension. POSTOPERATIVE DIAGNOSIS: #1 malfunctioning AV fistula left radiocephalic. 2. Central venous stenosis. 3. End-stage renal disease on hemodialysis. 4. Hypertension. OPERATION: 1. Needle access into left forearm radiocephalic fistula. 2. Angioplasty in arteriovenous fistula. 3. Angiogram and interpretation. SURGEON: REJI ED LEON FIELD SERVICE TECHNICIAN POULTRY: None. ANESTHESIA: Moderate Sedation TISSUE REMOVED OR ALTERED: Not applicable. COMPLICATIONS: None. ESTIMATED BLOOD LOSS: 2 mL. INTRAOPERATIVE FINDINGS: Of a well founded left forearm radiocephalic fistula. Somewhat aneurysmal and hyper pulsatile. Subjectively improved to palpation post procedure. Findings consisted of multiple stenoses, 4 in number, from the cephalic subclavian junction up to the upper arm. Another at about 27 cm. Each of these individually about 70% of the adjacent lumen. All corrected by angioplasty. Most disappointingly, the central stenosis alleviated by Dr. Sparks at [place] on 15 February is back. I was unable to cross the left innominate with the 0.035 Glidewire. Flow preferentially seems upward into the internal jugular. PROCEDURE: PROCEDURE: After verifying the procedure and having obtained informed consent, the patient's left arm was prepared with Chlorhexidine and draped out with sterile linen. Local anesthesia infiltrated. Percutaneous access into the fistula ,[ antegrade], obtained about [10 cm] from the arteriovenous anastomosis using a micro puncture needle followed by micro puncture wire and then a micro puncture catheter. Angiogram demonstrated the aforementioned findings. Angioplasty was elected. A 0.035 [place] wire was inserted, and over this, a 7 [place] short introducer was placed, this was followed by a 8-mm] angioplasty balloon . Angioplasty was done in the culprit areas from the cephalic subclavian junction to the introducer. Inflating with a 3 mils syringe for 1-2 minutes at a time.]. Completion angiogram demonstrated [satisfactory result]. The instrumentation was now withdrawn over a short piece of catheter and a 5-0 Prolene suture. Dressings applied, procedure concluded. DICTATING PHYSICIAN: REJI ERWIN M.D. cc: REJI ERWIN M.D. ([id number]) >>
[2018-02-27 13:38] VITALS: BP 145/87
--- NOTE | 2018-02-27 14:26 | RADIOLOGY REPORT (SQ) ---
EXAM DESCRIPTION: FISTULAGRAM W/PLASTY COMPLETED DATE/TIME: 02/27/2018 12:21 pm REASON FOR STUDY: T82.858A T82.858A STENOSIS OF OTHER VASCULAR PROSTH DEV/GRFT, INIT COMPARISON: Multiple previous FLUOROSCOPY TIME: 1.9 minutes 28 series of digital images saved to PACS. TECHNIQUE: Intra-operative images acquired during surgical procedure to evaluate progress. NUMBER OF IMAGES: 28 series of digital images saved to pac's LIMITATIONS: None. FINDINGS: Imaging and fluoro during evaluation and plasty of a left upper extremity dialysis access. Please see the operative report for further details IMPRESSION: Intra procedural imaging and fluoro COMMENT: Quality ID [id number]: Final reports for procedures using fluoroscopy that document radiation exp osure indices, or exposure time and number of fluorographic images (if radiation exposure indices are not available) Please consult full operative report of the attending physician for description of the procedure. TECHNICAL DOCUMENTATION: JOB ID: [id number] [employer]- All Rights Reserved Reading location - IP/workstation name: [email or web address]
== END 2018-02-27 13:38 | disposition home or self-care (01) ==
LOC: CCL 07:19
PROVIDERS: ATTEND Surgery
PROC: 057F3DZ Dilation of Left Cephalic Vein with Intraluminal Device, Percutaneous Approach (ICD-10-PCS; principal; 2018-02-27)
DX: T82.858A Stenosis of other vascular prosthetic devices, implants and grafts, initial encounter (principal); Y83.2 Surgical operation with anastomosis, bypass or graft as the cause of abnormal reaction of the patient, or of later complication, without mention of misadventure at the time of the procedure; I12.0 Hypertensive chronic kidney disease with stage 5 chronic kidney disease or end stage renal disease; N18.6 End stage renal disease; Z99.2 Dependence on renal dialysis; E66.9 Obesity, unspecified; I87.1 Compression of vein; E03.9 Hypothyroidism, unspecified; Z88.5 Allergy status to narcotic agent; Z88.0 Allergy status to penicillin; Z88.8 Allergy status to other drugs, medicaments and biological substances; Z87.891 Personal history of nicotine dependence; Z79.82 Long term (current) use of aspirin; Z79.899 Other long term (current) drug therapy; Z91.041 Radiographic dye allergy status; Z68.32 Body mass index [BMI] 32.0-32.9, adult
CPT/HCPCS: 36415; 85027; 80048; 36902; C1725; C1752; C1894; Q9967; C1769; J2250; J1644 ×2; A9270; J3010; J3490; S0028

== ENCOUNTER 2018-04-05 08:18 | Day surgery (SDC) | payer MEDICARE, MEDICAID ==
[2018-04-05] MEDS ORDERED: MIDAZOLAM 2 MG/2 ML INJ ONE (08:50)
[2018-04-05] MEDS ORDERED: LIDOCAINE 0.5% INJ-PF (5 MG/ML) 50 ML SDV ONE (08:50)
[2018-04-05] MEDS ORDERED: FENTANYL CITRATE INJ/PF 100 MCG/2 ML AMPUL ONE (08:51)
[2018-04-05] MEDS ORDERED: BACITRACIN INJ 50,000 UNIT VIAL ONE (08:51)
[2018-04-05] MEDS ORDERED: HEPARIN SOD (PORCINE) 1,000 UNIT/ML 10 ML VIAL ONE (08:54)
--- NOTE | 2018-04-05 09:09 | RADIOLOGY REPORT (SQ) ---
EXAM DESCRIPTION: CHEST SINGLE VIEW COMPLETED DATE/TIME: 04/05/2018 8:53 am REASON FOR STUDY: preop COMPARISON: Chest films 11/08/2014, 10/13/2017, 01/24/2018 EXAM PARAMETERS: NUMBER OF VIEWS: One view. TECHNIQUE: Single frontal radiographic view of the chest acquired. RADIATION DOSE: NA LIMITATIONS: None. FINDINGS: LUNGS AND PLEURA: No focal infiltrates. Mild thickening right minor fissure, bandlike at electasis left perihilar region unchanged. No pleural effusions. No pneumothorax. MEDIASTINUM AND HILAR STRUCTURES: No masses. Contour normal. HEART AND VASCULAR STRUCTURES: Stable mild cardiomegaly BONES: No acute findings. HARDWARE: None in the chest. OTHER: No other significant finding. IMPRESSION: No acute changes TECHNICAL DOCUMENTATION: JOB ID: [id number] [employer]- All Rights Reserved Reading location - IP/workstation name: [email or web address]
[2018-04-05 09:41] LABS: HEMATOCRIT 31.7 % (36.0-47.0); HEMOGLOBIN 10.8 g/dL (12.0-15.5); MEAN CORPUSCULAR HEMOGLOBIN 29.8 pg (27.0-33.4); MEAN CORPUSCULAR VOLUME 88 fl (80-97); PLATELET COUNT 194 10^3/uL (150-450); RED BLOOD COUNT 3.61 10^6/uL (3.72-5.28); RED CELL DISTRIBUTION WIDTH 16.9 % (11.5-14.0); WHITE BLOOD COUNT 6.8 10^3/uL (4.0-10.5)
[2018-04-05 10:04] LABS: INTERNATIONAL RATION (INR) 0.99; PROTHROMBIN TIME 13.6 SEC (11.4-15.4)
[2018-04-05 10:05] LABS: PARTIAL THROMBOPLASTIN TIME 30.3 SEC (23.5-35.8)
[2018-04-05 10:06] LABS: ANION GAP 17 (5-19); BLOOD UREA NITROGEN 41 mg/dL (7-20); CALCIUM 9.9 mg/dL (8.4-10.2); CARBON DIOXIDE 27 mmol/L (22-30); CHLORIDE 97 mmol/L (98-107); GLUCOSE 111 mg/dL (75-110); POTASSIUM 4.1 mmol/L (3.6-5.0); SODIUM 141.4 mmol/L (137-145)
[2018-04-05] MEDS ORDERED: HEPARIN SOD (PORCINE) 5,000 UNIT/ML 1 ML SYRINGE ONE (10:59)
--- NOTE | 2018-04-05 11:28 | Discharge Summary ---
Discharge Summary (SDC) - Discharge Final Diagnosis: #1 malfunctioning AV fistula, left radiocephalic. 2. End-stage renal disease on hemodialysis. 3. Superior vena cava syndrome, chronic. 4. Obesity. 5. Hypertension. Date of Surgery: 04/05/18 Discharge Date: 04/05/18 Condition: Good Treatment or Instructions: Discharge home [after recovery per ASU criteria]. Diet , [renal],as tolerated, when fully awake advance as tolerated. Activities within moderation encouraged. Follow up in my office by appointment in about [1 week]. Call for appointment. Leave wounds [covered], [keep clean and dry, until hemodialysis. Hold of on school/work [until evaluation in office]. Meds per med rec. May shower [in 48 hrs], [try to keep operated area as dry as possible]. Referrals: KEVIN REED MD [Primary Care Provider] - Discharge Diet: Other (Comments) - Renal. Respiratory Treatments at Home: Deep Breathing/Coughing Discharge Activity: Activity As Tolerated Report the Following to Your Physician Immediately: Shortness of Breath
--- NOTE | 2018-04-05 11:32 | Operative Report ---
Operative Report DATE OF SURGERY: 04/05/18 PREOPERATIVE DIAGNOSIS: #1 malfunctioning AV fistula, left radiocephalic. 2. End-stage renal disease on hemodialysis. 3. Superior vena cava syndrome, chronic. 4. Obesity. 5. Hypertension. POSTOPERATIVE DIAGNOSIS: #1 malfunctioning AV fistula, left radiocephalic. 2. End-stage renal disease on hemodialysis. 3. Superior vena cava syndrome, chronic. 4. Obesity. 5. Hypertension. OPERATION: 1. Needle access into fistula. 2. Angioplasty and fistula. 3. Angiogram and interpretation. SURGEON: REJI DE LEON MATH AND SCIENCES DEPARTMENT CHAIR: None. ANESTHESIA: Moderate Sedation TISSUE REMOVED OR ALTERED: None. COMPLICATIONS: None. ESTIMATED BLOOD LOSS: 2 mL. INTRAOPERATIVE FINDINGS: Of a well founded, [place] fistula in the left forearm, radiocephalic. Angiogram demonstrated a stenosis at the cephalad cephalic about 2 cm long, both 70% of the adjacent lumen. Completely corrected with angioplasty using an 8 mm balloon. In addition there is continued complete occlusion of the left innominate vein with collateral circulation left internal jugular, retrograde. This is consistent with her chronic superior vena cava syndrome. In addition his stenoses representing about 70% of the lumen were noted at 27 cm and at about 35 cm from the anastomosis. These were corrected with the 8 mm angioplasty balloon. PROCEDURE: PROCEDURE: After verifying the procedure and having obtained informed consent, the patient's left arm was prepared with Chlorhexidine and draped out with sterile linen. Local anesthesia infiltrated. Percutaneous access into the fistula ,[ antegrade], obtained about [4 cm] from the arteriovenous anastomosis using a micro puncture needle followed by micro puncture wire and then a micro puncture catheter. Angiogram demonstrated the aforementioned findings. Angioplasty was elected. A 0.035 [place] wire was inserted, and over this, a 7 [place] short introducer was placed, this was followed by a [8-mm ] angioplasty balloon . Angioplasty was Done at the cephalad cephalic vein using a 3 mils syringe. Angioplasty was now done at about 35 cm and 27 cm from the anastomosis these were done using the same 8 mm angioplasty balloon and a 3 mils syringe. Completion angiogram demonstrated [satisfactory result]. The instrumentation was now withdrawn over hand pressure for 10 minutes. Dressings applied, procedure concluded. Exposure time: 1.8 minutes. Radiation: 26.7 Rola taylor. Contrast: 25 mils of Isovue-300, low osmolality. DICTATING PHYSICIAN: REJI ERWIN M.D. cc: REJI ERWIN M.D. ([id number]) >>
--- NOTE | 2018-04-05 11:42 | RADIOLOGY REPORT (SQ) ---
"EXAM DESCRIPTION: FISTULAGRAM W/PLASTY COMPLETED DATE/TIME: 04/05/2018 11:05 am REASON FOR STUDY: T82.858A T82.858A STENOSIS OF OTHER VASCULAR PROSTH DEV/GRFT, INIT Z79.01 LONG T ERM (CURRENT) USE OF ANTICOAGULANTS COMPARISON: 02/27/2018 FLUOROSCOPY TIME: 1.8 minutes 63 digital radiographic images saved to PACS. TECHNIQUE: Intra-operative images acquired during surgical procedure to evaluate progress. NUMBER OF IMAGES: 63 digital radiographic images saved to pac's LIMITATIONS: None. FINDINGS: Intra procedural imaging and fluoro during evaluation and plasty of left upper extremity d ialysis access by Dr. Hung. Please see the operative report for further details. IMPRESSION: Intra procedural imaging and fluoro COMMENT: Quality ID [id number]: Final reports for procedures using fluoroscopy that document radiation exp osure indices, or exposure time and number of fluorographic images (if radiation exposure indices are not available) Please consult full operative report of the attending physician for description of the procedure. TECHNICAL DOCUMENTATION: JOB ID: [id number] [employer] | Anywhere- All Rights Reserved Reading location - IP/workstation name: [email or web address]"
[2018-04-05 12:27] VITALS: BP 167/98
--- NOTE | 2018-04-05 13:16 | EKG REPORT ---
SEVERITY:- ABNORMAL ECG - SINUS RHYTHM PROBABLE LEFT ATRIAL ABNORMALITY LEFT VENTRICULAR HYPERTROPHY : Confirmed by: Hayden Cardoso MD 05-Apr-2018 13:16:13
== END 2018-04-05 12:35 | disposition home or self-care (01) ==
LOC: CCL 08:18
PROVIDERS: ATTEND Surgery
DX: T82.858A Stenosis of other vascular prosthetic devices, implants and grafts, initial encounter (principal); Y83.2 Surgical operation with anastomosis, bypass or graft as the cause of abnormal reaction of the patient, or of later complication, without mention of misadventure at the time of the procedure; I10 Essential (primary) hypertension; N18.6 End stage renal disease; Z99.2 Dependence on renal dialysis; E66.9 Obesity, unspecified; E03.9 Hypothyroidism, unspecified; Z88.0 Allergy status to penicillin; Z88.5 Allergy status to narcotic agent; Z88.8 Allergy status to other drugs, medicaments and biological substances; Z79.82 Long term (current) use of aspirin; Z79.899 Other long term (current) drug therapy; Z68.33 Body mass index [BMI] 33.0-33.9, adult
CPT/HCPCS: 36415; 85027; 85610; 85730; 80048; 36902; 71045; 93005; 93010; C1725; C1752; C1894; Q9967; C1769; J2250; J1644 ×2; J3010; J3490

== ENCOUNTER 2018-05-10 23:22 | Inpatient (IN) | payer MEDICARE, MEDICAID ==
[2018-05-11 00:24] LABS: ABSOLUTE BASOPHILS # (AUTO) 0.1 10^3/uL (0.0-0.2); ABSOLUTE EOSINOPHILS # (AUTO) 0.5 10^3/uL (0.0-0.6); ABSOLUTE LYMPHOCYTES (AUTO) 1.6 10^3/uL (0.5-4.7); ABSOLUTE MONOCYTES (AUTO) 0.5 10^3/uL (0.1-1.4); BASOPHILS % (AUTO) 1.4 % (0-2); EOSINOPHILS % (AUTO) 5.9 % (0-6); HEMOGLOBIN 10.7 g/dL (12.0-15.5); LYMPHOCYTES % (AUTO) 20.5 % (13-45); MEAN CORPUSCULAR HEMOGLOBIN 29.9 pg (27.0-33.4); MEAN CORPUSCULAR HGB CONC 33.5 g/dL (32.0-36.0); MEAN CORPUSCULAR VOLUME 89 fl (80-97); MONOCYTES % (AUTO) 6.9 % (3-13); PLATELET COUNT 202 10^3/uL (150-450); RED CELL DISTRIBUTION WIDTH 16.6 % (11.5-14.0); SEGMENTED NEUTROPHILS % (AUTO) 65.3 % (42-78); TOTAL CELLS COUNTED % (AUTO) 100 %; WHITE BLOOD COUNT 7.6 10^3/uL (4.0-10.5)
[2018-05-11 00:28] LABS: INTERNATIONAL RATION (INR) 0.98; PROTHROMBIN TIME 13.5 SEC (11.4-15.4)
[2018-05-11] MEDS ORDERED: METHYLPREDNISOLONE INJ 125 MG/2 ML SDV IV ONE (00:30)
--- NOTE | 2018-05-11 00:34 | ER Document Report ---
ED General - General Chief Complaint: Breathing Difficulty Stated Complaint: DIFFICULTY BREATHING Time Seen by Provider: 05/11/18 00:09 Mode of Arrival: Ambulatory Information source: Patient Notes: Chief complaint: Wheezing History of complain:( obtained from----patient) 62 years old female with a history of end-stage renal disease on dialysis, asthma, esophageal stricture, today had a barium swallow done in the hospital. As an outpatient. When she went home she started having wheezing for the nebulizer treatment and presented to the ED. Because of the wheezing and nauseous feeling as well as vomited a few times she is having substernal chest pain according to her. She also had loose bowel movement. Denies any fever chills or other constitutional symptoms. Onset: As above Duration: Gradual Severity: Moderate Quality: dull Context: Post barium edema Exacerbating factor and relieving factors: Not contributable REVIEW OF SYSTEMS: CONSTITUTIONAL : Denies fever, chills, or sweats. Denies recent illness. EENT: Denies eye, ear, throat, or mouth pain or symptoms. Denies nasal or sinus congestion or discharge. Denies throat, tongue, or mouth swelling or difficulty swallowing. CARDIOVASCULAR: Denies chest pain. Denies palpitations or racing or irregular heart beat. Denies ankle edema. RESPIRATORY: Denies cough, cold, or chest congestion. Denies shortness of breath, difficulty breathing, or wheezing. GASTROINTESTINAL: Denies distention. , vomiting, or diarrhea. Denies blood in vomitus, stools, or per rectum. Denies black, tarry stools. Denies constipation. GENITOURINARY: Denies difficulty urinating, painful urination, burning, frequency, blood in urine, or discharge. FEMALE GENITOURINARY: Denies vaginal bleeding, heavy or abnormal periods, irregular periods. Denies vaginal discharge or odor. MUSCULOSKELETAL: Denies back or neck pain or stiffness. Denies joint pain or swelling. SKIN: Denies rash, lesions or sores. HEMATOLOGIC : Denies easy bruising or bleeding. LYMPHATIC: Denies swollen, enlarged glands. NEUROLOGICAL: Denies confusion or altered mental status. Denies passing out or loss of consciousness. Denies dizziness or lightheadedness. Denies headache. Denies weakness or paralysis or loss of use of either side. Denies problems with gait or speech. Denies sensory loss, numbness, or tingling. Denies seizures. PSYCHIATRIC: Denies anxiety or stress. Denies depression, suicidal ideation, or homicidal ideation. ALL OTHER SYSTEMS REVIEWED AND NEGATIVE. PHYSICAL EXAMINATION: GENERAL: Well-appearing, well-nourished and in no acute distress. Obesity HEAD: Atraumatic, normocephalic. EYES: Pupils equal round and reactive to light, extraocular movements intact, conjunctiva are normal. ENT: Nares patent, oropharynx clear without exudates. Moist mucous membranes. NECK: Normal range of motion, supple without lymphadenopathy LUNGS: Breath sounds clear to auscultation bilaterally and equal. No wheezes rales or rhonchi. HEART: Regular rate and rhythm without murmurs ABDOMEN: Soft, nontender, nondistended abdomen. No guarding, no rebound. No masses appreciated. Examination of genitals-deferred Musculoskeletal: Normal range of motion, no pitting or edema. No cyanosis. Left AV shunt noted the forearm NEUROLOGICAL: Cranial nerves grossly intact. Normal speech, normal gait. Normal sensory, motor exams PSYCH: Normal mood, normal affect. SKIN: Warm, Dry, normal turgor, no rashes or lesions noted. Dictation was performed using [employer] voice recognition software TRAVEL OUTSIDE OF THE [place] IN LAST 30 DAYS: No - HPI Patient complains to provider of: dictated - Related Data Allergies/Adverse Reactions: codeine [Codeine] Allergy (Severe, Verified 05/11/18 00:23) Lips & tongue swell hydrocodone bitartrate [From Vicodin] Allergy (Severe, Verified 05/11/18 00:23) Throat & tongue swell, severe itch Iodinated Contrast- Oral and IV Dye [IV Dye, Iodine Containing] Allergy (Severe , Verified 05/11/18 00:23) Anaphylaxis lanthanum carbonate [From FOSRENOL] Allergy (Severe, Verified 05/11/18 00:23) losartan potassium [From Cozaar] Allergy (Severe, Verified 05/11/18 00:23) Swelling of Throat oxycodone HCl [From OxyContin] Allergy (Severe, Verified 05/11/18 00:23) Throat & tongue swell, severe itch propoxyphene napsylate [From Darvocet-N 100] Allergy (Severe, Verified 05/11/18 00:23) Mouth swells, itch ramipril [From Altace] Allergy (Severe, Verified 05/11/18 00:23) Lips, tongue & throat swell Penicillins Allergy (Intermediate, Verified 05/11/18 00:23) Generalized Itching acetaminophen [From Percocet] Allergy (Verified 05/11/18 00:23) ITCHING angiotensin II acetate, human Allergy (Verified 05/11/18 00:23) SEVERE STOMACH PAIN hydralazine Allergy (Verified 05/11/18 00:23) Swollen tongue oxycodone [From Percocet] Allergy (Verified 05/11/18 00:23) ITCHING adhesive tape [Adhesive Tape] Adverse Reaction (Intermediate, Verified 05/11/18 00:23) ITCHING, PULLS SKIN OFF aspirin [Aspirin] Adverse Reaction (Intermediate, Verified 05/11/18 00:23) Tegaderm Allergy (Intermediate, Uncoded 04/05/18 09:04) Pulls skin off, itching Past Medical History - Social History Smoking Status: Smoker,Current Status Unk Chew tobacco use (# tins/day): No Smoking Education Provided: No Frequency of alcohol use: Rare Drug Abuse: None Lives with: Family Family History: Reviewed & Not Pertinent, Hypertension - Past Medical History Cardiac Medical History: Reports: Hx Hypercholesterolemia, Hx Hypertension - ON MEDS Denies: Hx Coronary Artery Disease, Hx Heart Attack Pulmonary Medical History: Reports: Hx Asthma, Hx Bronchitis, Hx COPD - ASTHMA Denies: Hx Pneumonia Neurological Medical History: Denies: Hx Cerebrovascular Accident, Hx Seizures Endocrine Medical History: Reports: Hx Hyperthyroidism Renal/ Medical History: Reports: Hx End Stage Renal Disease, Hx Hemodialysis. Denies: Hx Peritoneal Dialysis GI Medical History: Reports: Hx Gastroesophageal Reflux Disease, Hx Hiatal Hernia Musculoskeltal Medical History: Reports Hx Arthritis - GOUT Psychiatric Medical History: Denies: Hx Depression Infectious Medical History: Past Surgical History: Reports: Hx Abdominal Surgery - GALL BLADDER, Hx Cardiac Catheterization - 2011, Hx Section, Hx Cholecystectomy, Hx Gynecologic Surgery - hysteroscopy. Denies: Hx Adenoidectomy, Hx Hysterectomy, Hx Pacemaker - Immunizations Hx Diphtheria, Pertussis, Tetanus Vaccination: No Hx Pneumococcal Vaccination: 08/14/15 Physical Exam - Vital signs Vitals: Temp Pulse BP Pulse Ox 98.7 F 86 177/94 H 86 L 05/10/18 23:37 05/10/18 23:37 05/10/18 23:37 05/10/18 23:37 Course - Re-evaluation Re-evalutation: 05/11/18 03:09 Barium swallow was reviewed, which indicates esophageal strictures - Vital Signs Vital signs: Temp Pulse Resp BP Pulse Ox 98.1 F 81 12 176/74 H 94 05/11/18 15:28 05/11/18 15:28 05/11/18 15:28 05/11/18 15:28 05/11/18 15:28 - Laboratory Result Diagrams: 05/11/18 00:10 05/11/18 00:10 Laboratory results interpreted by me: 05/11/18 05/11/18 00:10 00:10 RBC 3.60 L Hgb 10.7 L Hct 32.0 L RDW 16.6 H BUN 39 H Creatinine 10.98 H Est GFR ( Amer) 4 L Est GFR (Non-Af Amer) 4 L Direct Bilirubin 0.6 H AST 11 L Alkaline Phosphatase 177 H - Diagnostic Test Radiology reviewed: Reports reviewed - Chest x-ray reported by radiologist as developing retrocardiac infiltrate - EKG Interpretation by Me EKG shows normal: Sinus rhythm Rhythm: NSR - Electrocardiogram shows normal sinus rhythm at the rate of 86 bpm normal axis no acute ST elevation ST depression, but T-wave inversion in V5 and V6. Discharge - Discharge Clinical Impression: Chest pain, rule out acute myocardial infarction, End-stage renal disease (ESRD ), Esophageal stricture Condition: Fair Disposition: ADMITTED INPATIENT Admitting Provider: [facility] Unit Admitted: Telemetry
[2018-05-11 00:56] LABS: ALANINE AMINOTRANSFERASE 14 U/L (9-52); ALKALINE PHOSPHATASE 177 U/L (38-126); ANION GAP 17 (5-19); ASPARTATE AMINO TRANSFERASE 11 U/L (14-36); BILIRUBIN,DIRECT 0.6 mg/dL (0.0-0.4); BILIRUBIN,TOTAL 0.6 mg/dL (0.2-1.3); BLOOD UREA NITROGEN 39 mg/dL (7-20); CALCIUM 9.3 mg/dL (8.4-10.2); CARBON DIOXIDE 29 mmol/L (22-30); CHLORIDE 99 mmol/L (98-107); CREATINE KINASE 57 U/L (30-135); GLUCOSE 97 mg/dL (75-110); POTASSIUM 4.8 mmol/L (3.6-5.0); SODIUM 144.8 mmol/L (137-145); TOTAL PROTEIN 7.3 g/dL (6.3-8.2)
[2018-05-11 01:07] LABS: CREATINE KINASE MB 0.28 ng/mL (<4.55)
[2018-05-11 01:09] LABS: TROPONIN I 0.066 ng/mL
--- NOTE | 2018-05-11 01:52 | RADIOLOGY REPORT (SQ) ---
EXAM DESCRIPTION: XR CHEST 2 VIEWS COMPLETED DATE/TME: 05/11/2018 00:30 CLINICAL HISTORY: chest pain COMPARISON: 04/05/2018 FINDINGS: Frontal and lateral views of the chest. Atherosclerotic calcification tortuosity of the thoracic aorta. Cardiomegaly. Discoid atelectasis in the midlung. Patchy left retrocardiac opacity. No pneumothorax or definite effusion. No displaced rib fractures identified. Upper abdominal soft tissues are unremarkable. IMPRESSION: 1. Patchy left retrocardiac opacity may represent developing pneumonia. 2. Bilateral midlung discoid atelectasis.
[2018-05-11] MEDS ORDERED: CLOPIDOGREL BISULFATE 75 MG TABLET PO ONE (03:27)
[2018-05-11] MEDS: HEPARIN SOD (PORCINE) 5,000 UNIT/ML 1 ML SYRINGE SUBCUT SCH ×3 (06:10→22:01)
--- NOTE | 2018-05-11 07:49 | EKG REPORT ---
SEVERITY:- ABNORMAL ECG - SINUS RHYTHM PROBABLE LEFT ATRIAL ABNORMALITY LEFT VENTRICULAR HYPERTROPHY : Confirmed by: Enriqueta Butcher MD 11-May-2018 07:48:56
[2018-05-11] MEDS ORDERED: (PENDING PHARMACY ID) (Linaclotide 145 MCG) PO PRN ×2 (17:27→18:06)
[2018-05-11] MEDS ORDERED: BUDESONIDE/FORMOTEROL 160-4.5 MCG 60 PUFF/6 GM MDI IH PRN (17:27)
[2018-05-11] MEDS ORDERED: CHLORPHENIRAMINE MALEATE 4 MG TABLET PO PRN (17:27)
[2018-05-11] MEDS ORDERED: ALBUTEROL SULFATE HFA (90 MCG/PUFF) 200 PUFF/8.5 GM MDI IH PRN (17:27)
[2018-05-11] MEDS ORDERED: PROMETHAZINE HCL 25 MG TABLET PO PRN (17:27)
[2018-05-11] MEDS ORDERED: (PENDING PHARMACY ID) (Lactulose [Constulose 10 Gm/15 Ml Oral Solution] 30 ML) PO PRN (17:27)
[2018-05-11] MEDS ORDERED: PROMETHAZINE HCL 25 MG TABLET PO ONE (17:45)
[2018-05-11] MEDS: MONTELUKAST SODIUM 10 MG TABLET PO SCH (17:54)
[2018-05-11] MEDS ORDERED: (PENDING PHARMACY ID) (Sevelamer Carbonate [Renvela] 1,600 MG) PO SCH (18:00)
[2018-05-11] MEDS ORDERED: (PENDING PHARMACY ID) (Nifedipine [Nifedipine Er] 90 MG) PO SCH (18:00)
[2018-05-11] MEDS ORDERED: (PENDING PHARMACY ID) (Clonidine Hcl [Catapres 0.3 Mg Tablet] 0.3 MG) PO SCH (18:00)
[2018-05-11] MEDS ORDERED: LACTULOSE SYRUP 20 GM/30 ML UDCUP PO PRN (18:04)
[2018-05-11] MEDS ORDERED: (PENDING PHARMACY ID) (Diclofenac Sodium [Voltaren] 1 APPLIC) TOP SCH (18:15)
[2018-05-11] MEDS ORDERED: CLONIDINE HCL 0.1 MG TABLET PO ONE (18:30)
--- NOTE | 2018-05-11 20:40 | PDOC H&P ---
History of Present Illness Admission Date/PCP: 05/11/18 03:25 KEVIN REDE MD History of Present Illness: CAPO HDEZ is a 62 year old female, She could emergency room for evaluation of chest pain, she was admitted in this hospital on January 27, 2018 for evaluation of chest pain at the time she underwent Cardiolite nuclear stress test was negative for acute ischemia, 3 sets of cardiac enzymes are negative for acute HI. She has end-stage renal disease on hemodialysis Past Medical History Cardiac Medical History: Reports: Hyperlipidema, Hypertension - ON MEDS Pulmonary Medical History: Reports: Asthma, Bronchitis, Chronic Obstructive Pulmonary Disease (COPD) - ASTHMA Renal/ Medical History: Reports: End Stage Renal Disease GI Medical History: Reports: Gastroesophageal Reflux Disease, Hiatal Hernia Musculoskeltal Medical History: Reports: Arthritis - GOUT Hematology: Reports: Anemia - HX OF Past Surgical History Past Surgical History: Reports: Cardiac Catheterization - 2011, Section, Cholecystectomy Social History Lives with: Family Smoking Status: Never Smoker Frequency of Alcohol Use: None Hx Recreational Drug Use: No Drugs: None Hx Prescription Drug Abuse: No - Advance Directive Resuscitation Status: Full Code Family History Family History: Reviewed & Not Pertinent, Hypertension Parental Family History Reviewed: Yes Children Family History Reviewed: Yes Sibling(s) Family History Reviewed.: Yes Medication/Allergy Home Medications: Albuterol Sulfate [Proair HFA Inhalation Aerosol 8.5 gm MDI] 2 puff IH Q4HP PRN 05/11/18 Allopurinol [Zyloprim 100 mg Tablet] 100 mg PO DAILY 05/11/18 Budesonide/Formoterol Fumarate [Symbicort HFA 160-4.5 mcg Inhaler 6 gm] 2 puff IH Q12HP PRN 05/11/18 Cinacalcet HCl [Sensipar 60 mg Tablet] 60 mg PO DAILY 05/11/18 Clonidine HCl [Catapres 0.3 mg Tablet] 0.3 mg PO TID MDD HALF TAB IN AM ON DIALYSIS DAY 05/11/18 Colchicine [Colcrys 0.6 mg Tablet] 0.6 mg PO DAILY 05/11/18 Diclofenac Sodium [Voltaren] 1 applic TOP DAILY 05/11/18 Esomeprazole Mag Trihydrate [Nexium] 40 mg PO DAILY 05/11/18 Linaclotide [Linzess 145 Mcg Capsule] 145 mcg PO DAILYP PRN 05/11/18 Metoprolol Succinate [Toprol XL 200 mg Tablet] 200 mg PO DAILY 05/11/18 Montelukast Sodium [Singulair 10 mg Tablet] 10 mg PO QPM 05/11/18 Promethazine HCl [Phenergan 25 mg Tablet] 12.5 mg PO Q6HP PRN 05/11/18 RX: Calcium Carbonate [Tums Chewable 500 mg Tab.chew] 1,000 mg PO QHS 05/11/18 RX: Chlorpheniramine Maleate [Aller-Chlor 4 mg Tablet] 4 mg PO Q6HP PRN RX: Lactulose [Constulose 10 gm/15 mL Oral Solution] 30 ml PO TIDP PRN 05/11/18 RX: Nifedipine [Nifedipine ER] 90 mg PO BID 05/11/18 Sevelamer Carbonate [Renvela] 1,600 mg PO BID MDD TAKE WITH SNACKS 05/11/18 Sevelamer Carbonate [Renvela] 2,400 mg PO MEALS 05/11/18 Tramadol HCl [Ultram 50 mg Tablet] 50 mg PO Q6HP PRN 05/11/18 Vit B Comp No.3/Folic/C/Biotin [Nephro-Juan Rx Tablet] 1 tab PO DAILY 05/11/18 Allergies/Adverse Reactions: codeine [Codeine] Allergy (Severe, Verified 05/11/18 00:23) Lips & tongue swell hydrocodone bitartrate [From Vicodin] Allergy (Severe, Verified 05/11/18 00:23) Throat & tongue swell, severe itch Iodinated Contrast- Oral and IV Dye [IV Dye, Iodine Containing] Allergy (Severe , Verified 05/11/18 00:23) Anaphylaxis lanthanum carbonate [From FOSRENOL] Allergy (Severe, Verified 05/11/18 00:23) losartan potassium [From Cozaar] Allergy (Severe, Verified 05/11/18 00:23) Swelling of Throat oxycodone HCl [From OxyContin] Allergy (Severe, Verified 05/11/18 00:23) Throat & tongue swell, severe itch propoxyphene napsylate [From Darvocet-N 100] Allergy (Severe, Verified 05/11/18 00:23) Mouth swells, itch ramipril [From Altace] Allergy (Severe, Verified 05/11/18 00:23) Lips, tongue & throat swell Penicillins Allergy (Intermediate, Verified 05/11/18 00:23) Generalized Itching acetaminophen [From Percocet] Allergy (Verified 05/11/18 00:23) ITCHING angiotensin II acetate, human Allergy (Verified 05/11/18 00:23) SEVERE STOMACH PAIN hydralazine Allergy (Verified 05/11/18 00:23) Swollen tongue oxycodone [From Percocet] Allergy (Verified 05/11/18 00:23) ITCHING adhesive tape [Adhesive Tape] Adverse Reaction (Intermediate, Verified 05/11/18 00:23) ITCHING, PULLS SKIN OFF aspirin [Aspirin] Adverse Reaction (Intermediate, Verified 05/11/18 00:23) Tegaderm Allergy (Intermediate, Uncoded 04/05/18 09:04) Pulls skin off, itching Review of Systems Constitutional: ABSENT: chills, fever(s), headache(s), weight gain, weight loss Eyes: ABSENT: visual disturbances Ears: ABSENT: hearing changes Cardiovascular: PRESENT: chest pain Respiratory: ABSENT: cough, hemoptysis Gastrointestinal: ABSENT: abdominal pain, constipation, diarrhea, hematemesis, hematochezia, nausea, vomiting Genitourinary: ABSENT: dysuria, hematuria Musculoskeletal: ABSENT: joint swelling Integumentary: ABSENT: rash, wounds Neurological: ABSENT: abnormal gait, abnormal speech, confusion, dizziness, focal weakness, syncope Psychiatric: ABSENT: anxiety, depression, homidical ideation, suicidal ideation Endocrine: ABSENT: cold intolerance, heat intolerance, menstrual abnormalities, polydipsia, polyuria Hematologic/Lymphatic: ABSENT: easy bleeding, easy bruising, lymphadenopathy Physical Exam Vital Signs: Temp Pulse Resp BP Pulse Ox 98.5 F 95 30 H 181/89 H 88 L 05/11/18 19:37 05/11/18 19:37 05/11/18 19:37 05/11/18 19:37 05/11/18 19:37 Intake & Output 05/10/18 05/11/18 05/12/18 06:59 06:59 06:59 Intake Total 250 Balance 250 Weight 100.3 kg General appearance: PRESENT: no acute distress, well-developed, well-nourished Head exam: PRESENT: atraumatic, normocephalic Eye exam: PRESENT: conjunctiva pink, EOMI, PERRLA Ear exam: PRESENT: normal external ear exam Mouth exam: PRESENT: moist, tongue midline Neck exam: PRESENT: full ROM Respiratory exam: PRESENT: clear to auscultation alcira Cardiovascular exam: PRESENT: RRR, +S1, +S2 Pulses: PRESENT: normal dorsalis pedis pul, +2 pedal pulses bilateral Vascular exam: PRESENT: normal capillary refill GI/Abdominal exam: PRESENT: normal bowel sounds, soft Rectal exam: PRESENT: deferred Neurological exam: PRESENT: alert, awake, oriented to person, oriented to place , oriented to time, oriented to situation, CN II-XII grossly intact Psychiatric exam: PRESENT: appropriate affect, normal mood Skin exam: PRESENT: dry, intact, warm Results Laboratory Results: 05/11/18 05/11/18 05/11/18 09:59 09:59 15:25 Creatine Kinase 52 54 Troponin I 0.048 05/11/18 15:25 Creatine Kinase Troponin I 0.045 Impressions: Chest X-Ray 05/11/18 00:30 IMPRESSION: 1. Patchy left retrocardiac opacity may represent developing pneumonia. 2. Bilateral midlung discoid atelectasis. Assessment & Plan - Diagnosis (1) Chest pain Qualifiers: Chest pain type: unspecified Qualified Code(s): R07.9 - Chest pain, unspecified Is this a current diagnosis for this admission?: Yes Plan: She is admitted for observation, consultation will be requested from cardiology (2) Chronic diastolic heart failure Is this a current diagnosis for this admission?: Yes (3) End-stage renal disease (ESRD) Is this a current diagnosis for this admission?: Yes (4) HTN (hypertension) Qualifiers: Hypertension type: unspecified Qualified Code(s): I10 - Essential (primary ) hypertension Is this a current diagnosis for this admission?: Yes
[2018-05-11] MEDS: CALCIUM CARBONATE 500 MG TAB.CHEW PO SCH (22:02)
[2018-05-11] MEDS: CLONIDINE HCL 0.1 MG TABLET PO SCH (22:04)
[2018-05-12 05:30] LABS: ABSOLUTE BASOPHILS # (AUTO) 0.1 10^3/uL (0.0-0.2); ABSOLUTE EOSINOPHILS # (AUTO) 0.3 10^3/uL (0.0-0.6); ABSOLUTE LYMPHOCYTES (AUTO) 1.7 10^3/uL (0.5-4.7); ABSOLUTE MONOCYTES (AUTO) 0.4 10^3/uL (0.1-1.4); ABSOLUTE NEUT (AUTO) 3.1 10^3/uL (1.7-8.2); BASOPHILS % (AUTO) 1.2 % (0-2); EOSINOPHILS % (AUTO) 4.6 % (0-6); HEMATOCRIT 28.3 % (36.0-47.0); HEMOGLOBIN 9.9 g/dL (12.0-15.5); LYMPHOCYTES % (AUTO) 31.1 % (13-45); MEAN CORPUSCULAR HEMOGLOBIN 30.6 pg (27.0-33.4); MEAN CORPUSCULAR HGB CONC 34.8 g/dL (32.0-36.0); MEAN CORPUSCULAR VOLUME 88 fl (80-97); MONOCYTES % (AUTO) 7.8 % (3-13); PLATELET COUNT 166 10^3/uL (150-450); RED BLOOD COUNT 3.22 10^6/uL (3.72-5.28); RED CELL DISTRIBUTION WIDTH 16.6 % (11.5-14.0); SEGMENTED NEUTROPHILS % (AUTO) 55.3 % (42-78); TOTAL CELLS COUNTED % (AUTO) 100 %; WHITE BLOOD COUNT 5.5 10^3/uL (4.0-10.5)
[2018-05-12 06:01] LABS: ANION GAP 14 (5-19); BLOOD UREA NITROGEN 55 mg/dL (7-20); CARBON DIOXIDE 28 mmol/L (22-30); CHLORIDE 98 mmol/L (98-107); GLUCOSE 87 mg/dL (75-110); POTASSIUM 5.2 mmol/L (3.6-5.0); SODIUM 140.4 mmol/L (137-145)
[2018-05-12] MEDS ORDERED: (PENDING PHARMACY ID) (Sevelamer Carbonate [Renvela] 2,400 MG) PO SCH (08:00)
[2018-05-12] MEDS: HEPARIN SOD (PORCINE) 5,000 UNIT/ML 1 ML SYRINGE SUBCUT SCH ×3 (08:35→21:21)
[2018-05-12] MEDS: CLONIDINE HCL 0.1 MG TABLET PO SCH ×3 (08:35→21:22)
[2018-05-12] MEDS: SEVELAMER HCL 400 MG TABLET PO SCH ×3 (08:35→21:22)
[2018-05-12] MEDS ORDERED: SEVELAMER HCL 400 MG TABLET PO SCH (10:00)
[2018-05-12] MEDS ORDERED: [UNRECOGNIZED DRUG - REMARK] PO SCH (10:00)
[2018-05-12] MEDS ORDERED: (PENDING PHARMACY ID) (Cinacalcet Hcl [Sensipar 60 Mg Tablet] 60 MG) PO SCH (10:00)
[2018-05-12] MEDS ORDERED: (PENDING PHARMACY ID) (Esomeprazole Mag Trihydrate [Nexium] 40 MG) PO SCH (10:00)
[2018-05-12] MEDS ORDERED: (PENDING PHARMACY ID) (Diclofenac Sodium [Voltaren] 1 APPLIC) TOP SCH (10:00)
[2018-05-12] MEDS ORDERED: (PENDING PHARMACY ID) (Metoprolol Succinate [Toprol Xl 200 Mg Tablet] 200 MG) PO SCH (10:00)
[2018-05-12] MEDS: NIFEDIPINE 30 MG TAB.ER.24 PO SCH ×2 (11:55→21:22)
[2018-05-12] MEDS: METOPROLOL SUCCINATE 50 MG TAB.SR.24H PO SCH (11:56)
--- NOTE | 2018-05-12 13:52 | RADIOLOGY REPORT (SQ) ---
EXAM DESCRIPTION: CHEST SINGLE VIEW COMPLETED DATE/TIME: 05/12/2018 1:19 pm REASON FOR STUDY: worsening sob COMPARISON: CHEST FILMS 01/14/2018, 04/05/2018, 05/11/2018 EXAM PARAMETERS: NUMBER OF VIEWS: One view. TECHNIQUE: Single frontal radiographic view of the chest acquired. RADIATION DOSE: NA LIMITATIONS: None. FINDINGS: LUNGS AND PLEURA: Increasing alveolar and interstitial edema as compared to prior chest fi lms 05/11/2018, 137 hours. Question trace bile pleural fluid. No pneumothorax MEDIASTINUM AND HILAR STRUCTURES: No masses. Contour normal. HEART AND VASCULAR STRUCTURES: Moderate cardiomegaly BONES: No acute findings. HARDWARE: None in the chest. OTHER: No other significant finding. IMPRESSION: Increasing alveolar and interstitial infiltrates worrisome for worsening fluid overload or congestive failure. TECHNICAL DOCUMENTATION: JOB ID: [id number] [employer] All Rights Reserved Reading location - IP/workstation name: [email or web address]
--- NOTE | 2018-05-12 17:16 | PDOC CONSULTATION ---
Consultation Consult Date: 05/12/18 Consult reason:: Hemodialysis. History of Present Illness Admission Date/PCP: 05/11/18 03:25 KEVIN REED MD History of Present Illness: CAPO HDEZ is a 62 year old femaleHistory of ESRD in the background of hypertension comes in with history of acute exacerberation of asthma, cough and chest pain. The pain i worse on coughing. She denies any history of fever or chills. Evaluations including X -ray shows developing left pneumonia. Today her breathing decompensated and she was put on Bi pap and transferred to the ICU where she is now undergoing Dialysis. Starting to feel better. Labs and medications were reviewed with the patient. Patient being seen currently on hemodialysis which she is undergoing without any issues. Past Medical History Cardiac Medical History: Reports: Hyperlipidemia, Hypertension-primary Denies: Coronary Artery Disease, Myocardial Infarction Pulmonary Medical History: Reports: Asthma, Bronchitis, Chronic Obstructive Pulmonary Disease (COPD) - ASTHMA Denies: Pneumonia Neurological Medical History: Denies: Seizures Endocrine Medical History: Reports: Hyperthyroidism Renal/ Medical History: Reports: End Stage Renal Disease, Secondary Hyperparathyroidism GI Medical History: Reports: Gastroesophageal Reflux Disease, Hiatal Hernia Musculoskeltal Medical History: Reports: Arthritis - GOUT Psychiatric Medical History: Denies: Depression Hematology Medical History: Reports Anemia of Chronic Kidney Disease Past Surgical History Past Surgical History: Reports: Cardiac Catheterization - 2011, Section, Cholecystectomy Denies: Hysterectomy, Pacemaker Social History Lives with: Family Smoking Status: Smoker,Current Status Unk Frequency of Alcohol Use: None Hx Recreational Drug Use: No Drugs: None Hx Prescription Drug Abuse: No - Advance Directive Resuscitation Status: Full Code Family History Parental Family History Reviewed: Yes - Negative for ESRD. Children Family History Reviewed: No Sibling(s) Family History Reviewed.: No Medication/Allergy Home Medications: Albuterol Sulfate [Proair HFA Inhalation Aerosol 8.5 gm MDI] 2 puff IH Q4HP PRN 05/11/18 Allopurinol [Zyloprim 100 mg Tablet] 100 mg PO DAILY 05/11/18 Budesonide/Formoterol Fumarate [Symbicort HFA 160-4.5 mcg Inhaler 6 gm] 2 puff IH Q12HP PRN 05/11/18 Calcium Carbonate [Tums Chewable 500 mg Tab.chew] 1,000 mg PO QHS 05/11/18 Chlorpheniramine Maleate [Aller-Chlor 4 mg Tablet] 4 mg PO Q6HP PRN 05/11/18 Cinacalcet HCl [Sensipar 60 mg Tablet] 60 mg PO DAILY 05/11/18 Clonidine HCl [Catapres 0.3 mg Tablet] 0.3 mg PO TID MDD HALF TAB IN AM ON DIALYSIS DAY 05/11/18 Colchicine [Colcrys 0.6 mg Tablet] 0.6 mg PO DAILY 05/11/18 Diclofenac Sodium [Voltaren] 1 applic TOP DAILY 05/11/18 Esomeprazole Mag Trihydrate [Nexium] 40 mg PO DAILY 05/11/18 Lactulose [Constulose 10 gm/15 mL Oral Solution] 30 ml PO TIDP PRN 05/11/18 Linaclotide [Linzess 145 Mcg Capsule] 145 mcg PO DAILYP PRN 05/11/18 Metoprolol Succinate [Toprol XL 200 mg Tablet] 200 mg PO DAILY 05/11/18 Montelukast Sodium [Singulair 10 mg Tablet] 10 mg PO QPM 05/11/18 Nifedipine [Nifedipine ER] 90 mg PO BID 05/11/18 Promethazine HCl [Phenergan 25 mg Tablet] 12.5 mg PO Q6HP PRN 05/11/18 Sevelamer Carbonate [Renvela] 1,600 mg PO BID MDD TAKE WITH SNACKS 05/11/18 Sevelamer Carbonate [Renvela] 2,400 mg PO MEALS 05/11/18 Tramadol HCl [Ultram 50 mg Tablet] 50 mg PO Q6HP PRN 05/11/18 Vit B Comp No.3/Folic/C/Biotin [Nephro-Juan Rx Tablet] 1 tab PO DAILY 05/11/18 Allergies/Adverse Reactions: codeine [Codeine] Allergy (Severe, Verified 05/11/18 00:23) Lips & tongue swell hydrocodone bitartrate [From Vicodin] Allergy (Severe, Verified 05/11/18 00:23) Throat & tongue swell, severe itch Iodinated Contrast- Oral and IV Dye [IV Dye, Iodine Containing] Allergy (Severe , Verified 05/11/18 00:23) Anaphylaxis lanthanum carbonate [From FOSRENOL] Allergy (Severe, Verified 05/11/18 00:23) losartan potassium [From Cozaar] Allergy (Severe, Verified 05/11/18 00:23) Swelling of Throat oxycodone HCl [From OxyContin] Allergy (Severe, Verified 05/11/18 00:23) Throat & tongue swell, severe itch propoxyphene napsylate [From Darvocet-N 100] Allergy (Severe, Verified 05/11/18 00:23) Mouth swells, itch ramipril [From Altace] Allergy (Severe, Verified 05/11/18 00:23) Lips, tongue & throat swell Penicillins Allergy (Intermediate, Verified 05/11/18 00:23) Generalized Itching acetaminophen [From Percocet] Allergy (Verified 05/11/18 00:23) ITCHING angiotensin II acetate, human Allergy (Verified 05/11/18:23) SEVERE STOMACH PAIN hydralazine Allergy (Verified 05/11/18 00:23) Swollen tongue oxycodone [From Percocet] Allergy (Verified 05/11/18 00:23) ITCHING adhesive tape [Adhesive Tape] Adverse Reaction (Intermediate, Verified 05/11/18 00:23) ITCHING, PULLS SKIN OFF aspirin [Aspirin] Adverse Reaction (Intermediate, Verified 05/11/18 00:23) Tegaderm Allergy (Intermediate, Uncoded 04/05/18 09:04) Pulls skin off, itching Review of Systems Constitutional: ABSENT: fever(s), headache(s), night sweats, weakness Nose, Mouth, and Throat: ABSENT: mouth pain, sore throat Cardiovascular: ABSENT: edema, orthropnea Gastrointestinal: ABSENT: abdominal pain, constipation, diarrhea, dysphagia, heartburn Genitourinary: ABSENT: dysuria, hematuria Neurological: ABSENT: abnormal movements, abnormal speech, confusion, convulsions, focal weakness Hematologic/Lymphatic: ABSENT: easy bruising, lymphadenopathy Physical Exam Vital Signs: Temp Pulse Resp BP Pulse Ox 97.8 F 75 20 150/82 H 98 05/12/18 07:56 05/12/18 07:56 05/12/18 07:56 05/12/18 07:56 05/12/18 07:56 Intake & Output 05/11/18 05/12/18 05/13/18 06:59 06:59 06:59 Intake Total 500 Balance 500 Weight 102.2 kg General appearance: PRESENT: no acute distress Eye exam: PRESENT: conjunctiva pink, EOMI, PERRLA Ear exam: PRESENT: normal external ear exam Mouth exam: PRESENT: moist, neck supple Neck exam: ABSENT: lymphadenopathy, meningismus, tenderness, thyromegaly, tracheal deviation Respiratory exam: PRESENT: clear to auscultation alcira. ABSENT: crackles, rhonchi Cardiovascular exam: PRESENT: +S1, +S2 GI/Abdominal exam: PRESENT: normal bowel sounds, soft. ABSENT: organomegaly, tenderness Extremities exam: PRESENT: pedal edema Neurological exam: PRESENT: alert, awake, oriented to person, oriented to place , oriented to time Psychiatric exam: PRESENT: appropriate affect Skin exam: ABSENT: cyanosis, erythema, mottled Results Laboratory Results: 05/12/18 04:39 05/12/18 04:39 05/12/18 05/12/18 04:39 04:39 WBC 5.5 RBC 3.22 L Hgb 9.9 L Hct 28.3 L MCV 88 MCH 30.6 MCHC 34.8 RDW 16.6 H Plt Count 166 Seg Neutrophils % 55.3 Lymphocytes % 31.1 Monocytes % 7.8 Eosinophils % 4.6 Basophils % 1.2 Absolute Neutrophils 3.1 Absolute Lymphocytes 1.7 Absolute Monocytes 0.4 Absolute Eosinophils 0.3 Absolute Basophils 0.1 Sodium 140.4 Potassium 5.2 H Chloride 98 Carbon Dioxide 28 Anion Gap 14 BUN 55 H Creatinine 13.23 H Est GFR ( Amer) 3 L Est GFR (Non-Af Amer) 3 L Glucose 87 Calcium 9.0 05/11/18 05/11/18 05/11/18 09:59 09:59 15:25 Creatine Kinase 52 54 Troponin I 0.048 05/11/18 05/11/18 05/11/18 15:25 21:30 21:30 Creatine Kinase 48 Troponin I 0.045 0.063 Impressions: Chest X-Ray 05/11/18 00:30 IMPRESSION: 1. Patchy left retrocardiac opacity may represent developing pneumonia. 2. Bilateral midlung discoid atelectasis. Assessment & Plan - Diagnosis (1) Chest pain, rule out acute myocardial infarction Plan: Pleuritic in nature . (2) End-stage renal disease (ESRD) Plan: Patient seen on dialysis.She is having dialysis without any issues.Its being supervised to ensure a safe and smooth procedure.VS are stable.Plan to remove 4- 5 L as tolerated.Dialysis orders were reviewed with khanh office assistant. (3) HTN (hypertension) Qualifiers: Hypertension type: renovascular hypertension Qualified Code(s): I15.0 - Renovascular hypertension Plan: Monitor.See response to dialysis. (4) Pneumonia Qualifiers: Pneumonia type: due to unspecified organism Laterality: left Lung location: unspecified part of lung Qualified Code(s): J18.9 - Pneumonia, unspecified organism Plan: As per Dr Marina. (5) Acute respiratory failure Plan: Currently on Bi pap.An element of CHF on top of asthma exacerberation. See response to volume removal on Dialysis. (6) Asthma exacerbation Plan: As per Dr Marina.
--- NOTE | 2018-05-12 18:24 | XCELERA REPORT ---
[address] [address] Transthoracic Echocardiogram Report Name: CAPO HDEZ Age: 62 yrs Gender: Female : 1955 Patient Status: Inpatient Patient Location: [address] [place] [address] Study Date: 05/12/2018 12:15 PM Height: 62 in Weight: 225 lb BSA: 2.0 m2 Procedure: A complete two-dimensional transthoracic echocardiogram was performed (2D, M-mode, spectral and color flow Doppler). The study was technically difficult with many images being suboptimal in quality. Reason For Study: eval for pericardial disease, CP Ordering Physician: DEE DEE CAMPA Performed By: Shereen Torres Interpretation Summary The left ventricular ejection fraction is normal. Doppler measurements suggest pseudonormalized left ventricular relaxation, which is associated with grade II/IV or mild to moderate diastolic dysfunction There is mild concentric left ventricular hypertrophy. The left ventricle is grossly normal size. Wall motion cannot be accurately commented on, but no definite regional wall motion abnormalities noted. The right ventricular systolic function is normal. The left atrium is mildly dilated. The right atrium is normal in size There is a moderate to severe amount of mitral regurgitation There is no mitral valve stenosis. There is mild to moderate aortic stenosis There is a peak gradient of 25 mm of Hg. There is a moderate amount of aortic regurgitation There is a mild amount of tricuspid regurgitation There is moderate pulmonary hypertension by echo Best estimated RVSP is approximately 50 mm/Hg. The aortic root is not well visualized. The inferior vena cava was not well visualized There is no pericardial effusion. MMode/2D Measurements & Calculations RVDd: 3.0 cm LVIDd: 6.4 cm FS: 23.8 % Ao root diam: IVSd: 1.0 cm LVIDs: 4.9 cm EDV(Teich): 3.0 cm LVPWd: 1.1 cm 206.5 ml Ao root area: ESV(Teich): 110.6 ml 7.3 cm2 EF(Teich): 46.5 % LA dimension: 4.3 cm LVLd ap4: 8.3 cm SV(MOD-sp4): EDV(MOD-sp4): 60.0 ml 136.0 ml LVLs ap4: 8.0 cm ESV(MOD-sp4): 76.0 ml EF(MOD-sp4): 44.1 % Doppler Measurements & Calculations MV E max abel: MV P1/2t max abel: Ao V2 max: AI max abel: 130.8 cm/sec 130.8 cm/sec 251.1 cm/sec 564.7 cm/sec MV A max abel: MV P1/2t: 47.6 msec Ao max PG: AI max P.6 cm/sec MVA(P1/2t): 4.6 cm2 25.2 mmHg 127.5 mmHg MV E/A: 2.0 MV dec slope: AI dec slope: 804.5 cm/sec2 371.3 cm/sec2 MV dec time: AI P1/2t: 0.18 sec 445.5 msec LV V1 max PG: PA V2 max: TR max aebl: 5.7 mmHg 97.2 cm/sec 336.6 cm/sec LV V1 max: PA max P.8 mmHg TR max P.0 cm/sec 45.3 mmHg Left Ventricle The left ventricle is grossly normal size. There is mild concentric left ventricular hypertrophy. The left ventricular ejection fraction is normal. Doppler measurements suggest pseudonormalized left ventricular relaxation, which is associated with grade II/IV or mild to moderate diastolic dysfunction. Wall motion cannot be accurately commented on, but no definite regional wall motion abnormalities noted. Right Ventricle The right ventricle is grossly normal size. There is normal right ventricular wall thickness. The right ventricular systolic function is normal. Atria The right atrium is normal in size. The left atrium is mildly dilated. Interarterial septum not well visualized and not well dopplered. Cannot comment on ASD/PFO presence. Mitral Valve The mitral valve leaflets are sclerotic, but show no functional abnormalities. There is no mitral valve stenosis. There is a moderate to severe amount of mitral regurgitation. Aortic Valve The aortic valve is moderately calcified. There is mild to moderate aortic stenosis. There is a peak gradient of 25 mm of Hg. There is a moderate amount of aortic regurgitation. Tricuspid Valve The tricuspid valve is not well visualized, but is grossly normal. There is no tricuspid stenosis. There is a mild amount of tricuspid regurgitation. There is moderate pulmonary hypertension by echo. Best estimated RVSP is approximately 50 mm/Hg. Pulmonic Valve The pulmonic valve is not well visualized. Great Vessels The aortic root is not well visualized. The inferior vena cava was not well visualized. Effusions There is no pericardial effusion. : DEE DEE CAMPA > Dee Dee Campa
[2018-05-12] MEDS ORDERED: LORAZEPAM INJ 2 MG/1 ML VIAL ONE (19:44)
[2018-05-12] MEDS ORDERED: ONDANSETRON HCL INJ/PF 4 MG/2 ML SDV ONE (19:44)
--- NOTE | 2018-05-12 19:55 | PDOC CONSULTATION ---
Consultation Consult Date: 05/12/18 Attending physician:: KEVIN REED Consult reason:: CHF, respiratory distress, chest pain History of Present Illness Admission Date/PCP: 05/11/18 03:25 KEVIN REED MD Patient complains of: Shortness of breath History of Present Illness: CAPO HDEZ is a 62 year old female, She could emergency room for evaluation of chest pain, she was admitted in this hospital on January 27, 2018 for evaluation of chest pain at the time she underwent Cardiolite nuclear stress test was negative for acute ischemia, 3 sets of cardiac enzymes are negative for acute [place]. She has end-stage renal disease on hemodialysis. Patient was noted to be severely short of breath and felt to be fluid overloaded. A 2D echocardiogram was performed today which showed significant change from 3 months ago. It shows now moderate to severe mitral regurgitation , moderate aortic incompetence. Although EF reported as normal but I feel that this is at least mildly depressed. Patient also has abnormal troponin I but not in the non-STEMI range. Patient currently very lethargic and sleepy. She is on bilevel therapy. Patient currently undergoing dialysis. She was noted to have transient severe bradycardia. Exact etiology not clear but could have been related to sleep apnea or some underlying cardiac ischemia. Patient currently receiving dialysis and has unstable blood pressure. Patient cannot give any history at this point. No immediate family members available. Nurses interviewed. Past Medical History Cardiac Medical History: Reports: Hyperlipidema, Hypertension - ON MEDS Denies: Coronary Artery Disease, Myocardial Infarction Pulmonary Medical History: Reports: Asthma, Bronchitis, Chronic Obstructive Pulmonary Disease (COPD) - ASTHMA Denies: Pneumonia Neurological Medical History: Denies: Seizures Endocrine Medical History: Reports: Hyperthyroidism Renal/ Medical History: Reports: End Stage Renal Disease GI Medical History: Reports: Gastroesophageal Reflux Disease, Hiatal Hernia Musculoskeltal Medical History: Reports: Arthritis - GOUT Psychiatric Medical History: Denies: Depression Hematology: Reports: Anemia - HX OF Past Surgical History Past Surgical History: Reports: Cardiac Catheterization - 2011, Section, Cholecystectomy Denies: Adenoidectomy, Hysterectomy, Pacemaker Social History Information Source: [facility] Records Lives with: Family Smoking Status: Smoker,Current Status Unk Frequency of Alcohol Use: None Hx Recreational Drug Use: No Drugs: None Hx Prescription Drug Abuse: No - Advance Directive Resuscitation Status: Full Code Surrogate healthcare decision maker:: I am told patient's son is the surrogate decision-maker Family History Family History: Reviewed & Not Pertinent, Hypertension Parental Family History Reviewed: No Children Family History Reviewed: No Sibling(s) Family History Reviewed.: No - Patient not able to give a history at this point. Medication/Allergy Home Medications: Albuterol Sulfate [Proair HFA Inhalation Aerosol 8.5 gm MDI] 2 puff IH Q4HP PRN 05/11/18 Allopurinol [Zyloprim 100 mg Tablet] 100 mg PO DAILY 05/11/18 Budesonide/Formoterol Fumarate [Symbicort HFA 160-4.5 mcg Inhaler 6 gm] 2 puff IH Q12HP PRN 05/11/18 Calcium Carbonate [Tums Chewable 500 mg Tab.chew] 1,000 mg PO QHS 05/11/18 Chlorpheniramine Maleate [Aller-Chlor 4 mg Tablet] 4 mg PO Q6HP PRN 05/11/18 Cinacalcet HCl [Sensipar 60 mg Tablet] 60 mg PO DAILY 05/11/18 Clonidine HCl [Catapres 0.3 mg Tablet] 0.3 mg PO TID MDD HALF TAB IN AM ON DIALYSIS DAY 05/11/18 Colchicine [Colcrys 0.6 mg Tablet] 0.6 mg PO DAILY 05/11/18 Diclofenac Sodium [Voltaren] 1 applic TOP DAILY 05/11/18 Esomeprazole Mag Trihydrate [Nexium] 40 mg PO DAILY 05/11/18 Lactulose [Constulose 10 gm/15 mL Oral Solution] 30 ml PO TIDP PRN 05/11/18 Linaclotide [Linzess 145 Mcg Capsule] 145 mcg PO DAILYP PRN 05/11/18 Metoprolol Succinate [Toprol XL 200 mg Tablet] 200 mg PO DAILY 05/11/18 Montelukast Sodium [Singulair 10 mg Tablet] 10 mg PO QPM 05/11/18 Nifedipine [Nifedipine ER] 90 mg PO BID 05/11/18 Promethazine HCl [Phenergan 25 mg Tablet] 12.5 mg PO Q6HP PRN 05/11/18 Sevelamer Carbonate [Renvela] 1,600 mg PO BID MDD TAKE WITH SNACKS 05/11/18 Sevelamer Carbonate [Renvela] 2,400 mg PO MEALS 05/11/18 Tramadol HCl [Ultram 50 mg Tablet] 50 mg PO Q6HP PRN 05/11/18 Vit B Comp No.3/Folic/C/Biotin [Nephro-Juan Rx Tablet] 1 tab PO DAILY 05/11/18 Allergies/Adverse Reactions: codeine [Codeine] Allergy (Severe, Verified 05/11/18 00:23) Lips & tongue swell hydrocodone bitartrate [From Vicodin] Allergy (Severe, Verified 05/11/18 00:23) Throat & tongue swell, severe itch Iodinated Contrast- Oral and IV Dye [IV Dye, Iodine Containing] Allergy (Severe , Verified 05/11/18 00:23) Anaphylaxis lanthanum carbonate [From FOSRENOL] Allergy (Severe, Verified 05/11/18 00:23) losartan potassium [From Cozaar] Allergy (Severe, Verified 05/11/18 00:23) Swelling of Throat oxycodone HCl [From OxyContin] Allergy (Severe, Verified 05/11/18 00:23) Throat & tongue swell, severe itch propoxyphene napsylate [From Darvocet-N 100] Allergy (Severe, Verified 05/11/18 00:23) Mouth swells, itch ramipril [From Altace] Allergy (Severe, Verified 05/11/18 00:23) Lips, tongue & throat swell Penicillins Allergy (Intermediate, Verified 05/11/18 00:23) Generalized Itching acetaminophen [From Percocet] Allergy (Verified 05/11/18 00:23) ITCHING angiotensin II acetate, human Allergy (Verified 05/11/18 00:23) SEVERE STOMACH PAIN hydralazine Allergy (Verified 05/11/18 00:23) Swollen tongue oxycodone [From Percocet] Allergy (Verified 05/11/18 00:23) ITCHING adhesive tape [Adhesive Tape] Adverse Reaction (Intermediate, Verified 05/11/18 00:23) ITCHING, PULLS SKIN OFF aspirin [Aspirin] Adverse Reaction (Intermediate, Verified 05/11/18 00:23) Tegaderm Allergy (Intermediate, Uncoded 04/05/18 09:04) Pulls skin off, itching Review of Systems ROS unobtainable: Due to mental status Physical Exam Vital Signs: Temp Pulse Resp BP Pulse Ox 98.5 F 71 28 H 180/92 H 100 05/12/18 15:19 05/12/18 15:19 05/12/18 18:05 05/12/18 18:05 05/12/18 18:05 Intake & Output 05/11/18 05/12/18 05/13/18 06:59 06:59 06:59 Intake Total 500 1260 Output Total 5400 Balance 500 -4140 Weight 102.2 kg Exam: GENERAL: well-nourished and in no acute distress. Patient is very lethargic, orientation cannot be checked HEAD: Atraumatic, normocephalic. EYES: Pupils equal round and reactive to light, extraocular movements intact, sclera anicteric, conjunctiva are normal. ENT: TMs normal, nares patent, oropharynx clear without exudates. Moist mucous membranes. No oral ulcerations or bleeding gums noted NECK: supple without lymphadenopathy or JVD. Trachea is central. No cervical or axillary lymphadenopathy noted. Carotids are 2+ LUNGS: Breath sounds bibasilar fine crackles at bases. No significant dullness noted. CHEST: Palpation of chest wall shows no significant chest wall tenderness. 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 ABDOMEN: Soft, no significant tenderness appreciated, normoactive bowel sounds. No guarding, no rebound. No rigidity noted . No masses appreciated. EXTREMITIES: Pedal pulses are 1-2+, no calf tenderness noted, Trace + pedal edema noted. No clubbing or cyanosis. NEUROLOGICAL: Patient is alert but is not able to participate in neurological exam because of patient's current mental status PSYCH: Patient cannot participate in a neurologic and psych exam because of the patient's current mental status SKIN: No significant ecchymosis, rash, ulcerations or signs of pruritus noted. MUSCULOSKELETAL EXAM: No significant joint swelling noted. Results Laboratory Results: 05/12/18 04:39 05/12/18 04:39 05/12/18 05/12/18 04:39 04:39 WBC 5.5 RBC 3.22 L Hgb 9.9 L Hct 28.3 L MCV 88 MCH 30.6 MCHC 34.8 RDW 16.6 H Plt Count 166 Seg Neutrophils % 55.3 Lymphocytes % 31.1 Monocytes % 7.8 Eosinophils % 4.6 Basophils % 1.2 Absolute Neutrophils 3.1 Absolute Lymphocytes 1.7 Absolute Monocytes 0.4 Absolute Eosinophils 0.3 Absolute Basophils 0.1 Sodium 140.4 Potassium 5.2 H Chloride 98 Carbon Dioxide 28 Anion Gap 14 BUN 55 H Creatinine 13.23 H Est GFR ( Amer) 3 L Est GFR (Non-Af Amer) 3 L Glucose 87 Calcium 9.0 05/11/18 05/11/18 05/11/18 09:59 09:59 15:25 Creatine Kinase 52 54 Troponin I 0.048 05/11/18 05/11/18 05/11/18 15:25 21:30 21:30 Creatine Kinase 48 Troponin I 0.045 0.063 EKG Comments: Shows sinus rhythm, minor nonspecific T-wave inversion in lateral chest leads. Impressions: Chest X-Ray 05/12/18 12:52 IMPRESSION: Increasing alveolar and interstitial infiltrates worrisome for worsening fluid overload or congestive failure. Assessment & Plan - Diagnosis (1) Congestive heart failure Qualifiers: Heart failure type: unspecified Is this a current diagnosis for this admission?: Yes (2) Bradycardia Is this a current diagnosis for this admission?: Yes (3) Mitral regurgitation Qualifiers: Cardiac valve disease etiology: nonrheumatic Qualified Code(s): I34.0 - Nonrheumatic mitral (valve) insufficiency Is this a current diagnosis for this admission?: Yes (4) Chest pain Qualifiers: Chest pain type: unspecified Qualified Code(s): R07.9 - Chest pain, unspecified Is this a current diagnosis for this admission?: Yes (5) End-stage renal disease (ESRD) Is this a current diagnosis for this admission?: Yes (6) Acute respiratory failure Qualifiers: Respiratory failure complication: unspecified whether with hypoxia or hypercapnia Qualified Code(s): J96.00 - Acute respiratory failure, unspecified whether with hypoxia or hypercapnia Is this a current diagnosis for this admission?: Yes (7) HTN (hypertension) Qualifiers: Hypertension type: unspecified Qualified Code(s): I10 - Essential (primary ) hypertension Is this a current diagnosis for this admission?: Yes (8) Hyperlipidemia Qualifiers: Hyperlipidemia type: unspecified Qualified Code(s): E78.5 - Hyperlipidemia , unspecified Is this a current diagnosis for this admission?: Yes (9) Sleep apnea syndrome Qualifiers: Sleep apnea type: unspecified type Qualified Code(s): G47.30 - Sleep apnea , unspecified Is this a current diagnosis for this admission?: Yes - Notes Notes: Patient has severe multiple comorbid condition and patient is critically ill. Believe patient may be better served being transferred to tertiary care as she will probably benefit from a heart catheterization, further evaluation of valvular heart disease and more cardiorespiratory, nephrology support as a whole. This was related to hospitalist. I am available tomorrow but from Tuesday, Dr. Butcher would be covering. CHF: Patient noted to be in congestive heart failure. This is probably related to mitral regurgitation in the setting of also diastolic dysfunction and fluid overload. Agree with removing fluid on dialysis. Recommend vasodilator therapy as tolerated by blood pressure. Bradycardia: Patient noted to have transient bradycardia. Exact etiology not clear but could be related to sleep apnea syndrome, severe hypoxemia, cardiac ischemia causing this. Monitor patient closely. Rule out hyperkalemia rule out thyroid problems. Mitral regurgitation: Patient noted to have moderate to severe mitral regurgitation. Patient also noted to have moderate pulmonary hypertension. Chest pain: Currently patient not able to complain. Enzymes were not in the non -STEMI range. Will repeat an EKG. Recommend empiric proton pump inhibitor. 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 Acute respiratory failure: Most likely related to COPD, obesity hypoventilation syndrome, sleep apnea syndrome, CHF in combination. Will have low threshold for intubation. Recommend pulmonary consultation. Hypertension: Blood pressure noted to be labile. Exact etiology of labile nature not.. Hyperlipidemia continue high potency statin therapy. Sleep apnea syndrome: Continue positive pressure ventilation by noninvasive weight. - Time Time Spent: 50 to 70 Minutes - CODE STATUS was discussed, patient remains full code. Surrogate decision-maker unchanged. Multiple medical problems were addressed. More than 50% of the time spent coordinating care, discussing management plans with involved caregivers. Management plans discussed with involved personnels. Medical decision making was of moderate to high complexity , patient's has multiple comorbidities. Medications reviewed and adjusted accordingly: Yes
--- NOTE | 2018-05-12 20:42 | PDOC PROGRESS REPORT ---
Subjective Progress Note for:: 05/12/18 Subjective:: Patient was admitted yesterday for evaluation of chest pain, she has end-stage renal disease on maintenance hemodialysis she was initially admitted for observation, she developed acute shortness of breath, she required a noninvasive ventilation with BiPAP, she was transferred from medical floor to ICU, she underwent hemodialysis today a 2D echo was done that showed moderate to severe mitral valve regurgitation, aortic valve incompetence, preserved ejection fraction with acute diastolic heart failure. She was seen by cardiology in consultation, is suggesting that patient be referred to tertiary care presently in ICU for close monitoring Reason For Visit: CHEST PAIN,ESRD Physical Exam Vital Signs: Temp Pulse Resp BP Pulse Ox 98.5 F 71 28 H 180/92 H 100 05/12/18 15:19 05/12/18 15:19 05/12/18 18:05 05/12/18 18:05 05/12/18 18:05 Intake & Output 05/11/18 05/12/18 05/13/18 06:59 06:59 06:59 Intake Total 500 1260 Output Total 5400 Balance 500 -4140 Weight 102.2 kg General appearance: PRESENT: severe distress Eye exam: PRESENT: PERRLA Respiratory exam: PRESENT: rhonchi Cardiovascular exam: PRESENT: +S1, +S2 GI/Abdominal exam: PRESENT: soft Neurological exam: PRESENT: alert Results Laboratory Results: 05/12/18 04:39 05/12/18 04:39 05/12/18 05/12/18 04:39 04:39 WBC 5.5 RBC 3.22 L Hgb 9.9 L Hct 28.3 L MCV 88 MCH 30.6 MCHC 34.8 RDW 16.6 H Plt Count 166 Seg Neutrophils % 55.3 Lymphocytes % 31.1 Monocytes % 7.8 Eosinophils % 4.6 Basophils % 1.2 Absolute Neutrophils 3.1 Absolute Lymphocytes 1.7 Absolute Monocytes 0.4 Absolute Eosinophils 0.3 Absolute Basophils 0.1 Sodium 140.4 Potassium 5.2 H Chloride 98 Carbon Dioxide 28 Anion Gap 14 BUN 55 H Creatinine 13.23 H Est GFR ( Amer) 3 L Est GFR (Non-Af Amer) 3 L Glucose 87 Calcium 9.0 05/11/18 05/11/18 05/11/18 09:59 09:59 15:25 Creatine Kinase 52 54 Troponin I 0.048 05/11/18 05/11/18 05/11/18 15:25 21:30 21:30 Creatine Kinase 48 Troponin I 0.045 0.063 Impressions: Chest X-Ray 05/12/18 12:52 IMPRESSION: Increasing alveolar and interstitial infiltrates worrisome for worsening fluid overload or congestive failure. Assessment & Plan - Diagnosis (1) Chest pain Qualifiers: Chest pain type: unspecified Qualified Code(s): R07.9 - Chest pain, unspecified Is this a current diagnosis for this admission?: Yes (2) Mitral valve regurgitation Qualifiers: Cardiac valve disease etiology: etiology unspecified Qualified Code(s): I34.0 - Nonrheumatic mitral (valve) insufficiency Is this a current diagnosis for this admission?: Yes (3) Acute diastolic heart failure Is this a current diagnosis for this admission?: Yes (4) ESRD (end stage renal disease) Is this a current diagnosis for this admission?: Yes - Plan Summary Plan Summary: Patient presently in ICU on noninvasive ventilation
[2018-05-12] MEDS: FOLIC ACID/VITAMIN B COMP W-C CAPSULE PO SCH (21:22)
[2018-05-12] MEDS: ALLOPURINOL 100 MG TABLET PO SCH (21:22)
[2018-05-12] MEDS: COLCHICINE 0.6 MG TABLET PO SCH (21:22)
[2018-05-12] MEDS: MONTELUKAST SODIUM 10 MG TABLET PO SCH (21:22)
[2018-05-12] MEDS: CINACALCET HCL 30 MG TABLET PO SCH (21:22)
[2018-05-12] MEDS: LANSOPRAZOLE 30 MG TAB.RAP.DR PO SCH (21:22)
[2018-05-12] MEDS: CALCIUM CARBONATE 500 MG TAB.CHEW PO SCH (21:22)
[2018-05-13] MEDS: CLONIDINE HCL 0.1 MG TABLET PO SCH ×3 (05:43→22:09)
[2018-05-13] MEDS: HEPARIN SOD (PORCINE) 5,000 UNIT/ML 1 ML SYRINGE SUBCUT SCH ×3 (05:44→22:09)
[2018-05-13] MEDS: SEVELAMER HCL 400 MG TABLET PO SCH ×3 (08:50→17:23)
[2018-05-13] MEDS: COLCHICINE 0.6 MG TABLET PO SCH (10:54)
[2018-05-13] MEDS: CINACALCET HCL 30 MG TABLET PO SCH (10:55)
[2018-05-13] MEDS: METOPROLOL SUCCINATE 50 MG TAB.SR.24H PO SCH (10:56)
[2018-05-13] MEDS: FOLIC ACID/VITAMIN B COMP W-C CAPSULE PO SCH (10:57)
[2018-05-13] MEDS: LANSOPRAZOLE 30 MG TAB.RAP.DR PO SCH (10:57)
[2018-05-13] MEDS: NIFEDIPINE 30 MG TAB.ER.24 PO SCH ×2 (10:58→17:24)
[2018-05-13] MEDS: ALLOPURINOL 100 MG TABLET PO SCH (10:59)
--- NOTE | 2018-05-13 16:29 | PDOC PROGRESS REPORT ---
Subjective Progress Note for:: 05/13/18 Subjective:: She was seen by the bedside, presently in ICU very comfortable, she was dialyzed yesterday, 2D echo was done that showed severe mitral regurgitation, it was felt that she should be transferred to tertiary care but she is not symptomatic today she is stable I spoke to Dr. Howe, he recommended transfer to tertiary care but I do not see an indication at this time for transfer Dr. Howe is agreeable not to transfer the patient at this moment because she is stable. She will be downgraded to telemetry floor Reason For Visit: CHEST PAIN,ESRD Physical Exam Vital Signs: Temp Pulse Resp BP Pulse Ox 98 F 66 24 H 166/79 H 99 05/13/18 14:00 05/12/18 20:21 05/13/18 15:33 05/13/18 15:33 05/13/18 15:33 Intake & Output 05/12/18 05/13/18 05/14/18 06:59 06:59 06:59 Output Total 0 Balance 0 General appearance: PRESENT: no acute distress Head exam: PRESENT: atraumatic, normocephalic Eye exam: PRESENT: conjunctiva pink, EOMI, PERRLA Ear exam: PRESENT: normal external ear exam Mouth exam: PRESENT: moist, tongue midline Neck exam: PRESENT: full ROM Respiratory exam: PRESENT: clear to auscultation alcira Cardiovascular exam: PRESENT: RRR, +S1, +S2, systolic murmur Pulses: PRESENT: normal dorsalis pedis pul, +2 pedal pulses bilateral Vascular exam: PRESENT: normal capillary refill GI/Abdominal exam: PRESENT: normal bowel sounds, soft Rectal exam: PRESENT: deferred Neurological exam: PRESENT: alert, awake, oriented to person, oriented to place , oriented to time, oriented to situation, CN II-XII grossly intact Psychiatric exam: PRESENT: appropriate affect, normal mood Skin exam: PRESENT: dry, intact, warm Results Impressions: Chest X-Ray 05/12/18 12:52 IMPRESSION: Increasing alveolar and interstitial infiltrates worrisome for worsening fluid overload or congestive failure. Assessment & Plan - Diagnosis (1) Chest pain Qualifiers: Chest pain type: unspecified Qualified Code(s): R07.9 - Chest pain, unspecified Is this a current diagnosis for this admission?: Yes (2) Chronic diastolic heart failure Is this a current diagnosis for this admission?: Yes (3) End-stage renal disease (ESRD) Is this a current diagnosis for this admission?: Yes (4) HTN (hypertension) Qualifiers: Hypertension type: unspecified Qualified Code(s): I10 - Essential (primary ) hypertension Is this a current diagnosis for this admission?: Yes (5) Mitral valve regurgitation Qualifiers: Cardiac valve disease etiology: nonrheumatic Qualified Code(s): I34.0 - Nonrheumatic mitral (valve) insufficiency Is this a current diagnosis for this admission?: Yes
--- NOTE | 2018-05-13 17:16 | PDOC PROGRESS REPORT ---
Subjective Progress Note for:: 05/13/18 Subjective:: Patient seems to be doing better with remarkable and significant improvement. Pt is denying any chest arm or neck discomfort. Patient denying any PND, orthopnea. Patient denied any sustained palpitations, dizziness, syncope, near syncope. Patient denying any fever chills. Patient denying any other significant discomfort. Patient now alert and oriented x3. Patient did admit to missing dialysis. She missed her last dialysis. Patient is maintaining sinus rhythm. Review of systems: Rest review of systems negative. Medications: Medications have been reviewed. Reason For Visit: CHEST PAIN,ESRD Physical Exam Vital Signs: Temp Pulse Resp BP Pulse Ox 98 F 66 24 H 166/79 H 99 05/13/18 14:00 05/12/18 20:21 05/13/18 15:33 05/13/18 15:33 05/13/18 15:33 Intake & Output 05/12/18 05/13/18 05/14/18 06:59 06:59 06:59 Output Total 0 Balance 0 Exam: GENERAL: well-nourished and in no acute distress. Alert and oriented x3 HEAD: Atraumatic, normocephalic. EYES: Pupils equal round and reactive to light, extraocular movements intact, sclera anicteric, conjunctiva are normal. ENT: TMs normal, nares patent, oropharynx clear without exudates. Moist mucous membranes. No oral ulcerations or bleeding gums noted NECK: supple without lymphadenopathy. Trachea is central. No cervical or axillary lymphadenopathy noted. Carotids are 2+, JVD WNL LUNGS: Respiration seems nonlabored, no significant accessory muscle action noted. Few bibasilar crackles are noted.. No wheezes rales or rhonchi noted. No significant dullness noted on percussion. CHEST: Palpation of the chest wall shows no significant chest wall tenderness. 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 ABDOMEN: Soft, no significant tenderness appreciated, normoactive bowel sounds. No guarding, no rebound. No rigidity noted . No masses appreciated. EXTREMITIES: Pedal pulses are 1-2+, no calf tenderness noted. No clubbing or cyanosis. negative pedal edema noted NEUROLOGICAL: Focused neurological exam showed no significant neurologic deficit. Normal speech, no focal weakness appreciated. PSYCH: Normal mood, normal affect. Judgment and insight within normal limits. SKIN: No significant ecchymosis, skin is noted to be warm. MUSCULOSKELETAL EXAM: No significant acute joint swelling noted. Results Impressions: Chest X-Ray 05/12/18 12:52 IMPRESSION: Increasing alveolar and interstitial infiltrates worrisome for worsening fluid overload or congestive failure. Assessment & Plan - Diagnosis (1) Congestive heart failure Qualifiers: Heart failure type: unspecified Is this a current diagnosis for this admission?: Yes (2) Bradycardia Is this a current diagnosis for this admission?: Yes (3) Mitral regurgitation Qualifiers: Cardiac valve disease etiology: nonrheumatic Qualified Code(s): I34.0 - Nonrheumatic mitral (valve) insufficiency Is this a current diagnosis for this admission?: Yes (4) Chest pain Qualifiers: Chest pain type: unspecified Qualified Code(s): R07.9 - Chest pain, unspecified Is this a current diagnosis for this admission?: Yes (5) End-stage renal disease (ESRD) Is this a current diagnosis for this admission?: Yes (6) Acute respiratory failure Qualifiers: Respiratory failure complication: unspecified whether with hypoxia or hypercapnia Qualified Code(s): J96.00 - Acute respiratory failure, unspecified whether with hypoxia or hypercapnia Is this a current diagnosis for this admission?: Yes (7) HTN (hypertension) Qualifiers: Hypertension type: unspecified Qualified Code(s): I10 - Essential (primary ) hypertension Is this a current diagnosis for this admission?: Yes (8) Hyperlipidemia Qualifiers: Hyperlipidemia type: unspecified Qualified Code(s): E78.5 - Hyperlipidemia , unspecified Is this a current diagnosis for this admission?: Yes (9) Sleep apnea syndrome Qualifiers: Sleep apnea type: unspecified type Qualified Code(s): G47.30 - Sleep apnea , unspecified Is this a current diagnosis for this admission?: Yes - Notes Notes: CHF: Significantly improved since fluid on dialysis. Agree with removing fluid on dialysis. Recommend vasodilator therapy as tolerated by blood pressure. Bradycardia: Patient noted to have transient bradycardia. No further bradycardia episodes noted overnight. Bradycardia transient was probably related to vagal stimulation, sleep apnea syndrome, hypoxemia etc. Mitral regurgitation: Patient noted to have moderate to severe mitral regurgitation. Patient also noted to have moderate pulmonary hypertension. Seems improved clinically. May need follow-up echocardiogram as an outpatient. Chest pain: Patient is denying any chest pain. Enzymes were not in the non- STEMI range. Will repeat an EKG. Recommend empiric proton pump inhibitor. 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 Acute respiratory failure: Most likely related to COPD, obesity hypoventilation syndrome, sleep apnea syndrome, CHF in combination. This has significantly improved. Hypertension: Blood pressure noted to be stable today. Blood pressure goal is 135/95 mmHg Hyperlipidemia continue high potency statin therapy. Sleep apnea syndrome: Continue noninvasive positive pressure ventilation nightly and during the day when as needed. - Time Time with patient: Greater than 35 minutes - CODE STATUS was discussed, patient remains full code. Surrogate decision-maker unchanged. Multiple medical problems were addressed. More than 50% of the time spent coordinating care, discussing management plans with involved caregivers. Management plans discussed with involved personnels. Medical decision making was of moderate to high complexity, patient's has multiple comorbidities. Medications reviewed and adjusted accordingly: Yes
[2018-05-13] MEDS: MONTELUKAST SODIUM 10 MG TABLET PO SCH (17:24)
[2018-05-13] MEDS ORDERED: NORMAL SALINE 500 ML IV ONE (19:00)
[2018-05-13] MEDS: CALCIUM CARBONATE 500 MG TAB.CHEW PO SCH (22:09)
[2018-05-13] MEDS: TRAMADOL HCL 50 MG TABLET PO PRN (22:17)
[2018-05-14] MEDS: CLONIDINE HCL 0.1 MG TABLET PO SCH ×3 (05:26→21:52)
[2018-05-14] MEDS: HEPARIN SOD (PORCINE) 5,000 UNIT/ML 1 ML SYRINGE SUBCUT SCH ×3 (05:26→21:51)
[2018-05-14] MEDS: METRONIDAZOLE PO SCH ×4 (10:15→21:52)
[2018-05-14] MEDS: TETRACYCLINE PO SCH ×4 (10:15→21:52)
[2018-05-14] MEDS: [UNRECOGNIZED DRUG - OTHER] PO SCH ×4 (10:15→21:52)
[2018-05-14] MEDS: FOLIC ACID/VITAMIN B COMP W-C CAPSULE PO SCH (10:17)
[2018-05-14] MEDS: COLCHICINE 0.6 MG TABLET PO SCH (10:17)
[2018-05-14] MEDS: NIFEDIPINE 30 MG TAB.ER.24 PO SCH ×2 (10:17→18:16)
[2018-05-14] MEDS: CINACALCET HCL 30 MG TABLET PO SCH (10:17)
[2018-05-14] MEDS: ALLOPURINOL 100 MG TABLET PO SCH (10:17)
[2018-05-14] MEDS: METOPROLOL SUCCINATE 50 MG TAB.SR.24H PO SCH (10:18)
[2018-05-14] MEDS: LANSOPRAZOLE 15 MG TAB.RAP.DR PO SCH ×2 (10:20→18:15)
[2018-05-14] MEDS: SEVELAMER HCL 400 MG TABLET PO SCH ×3 (10:22→18:10)
--- NOTE | 2018-05-14 15:41 | PDOC PROGRESS REPORT ---
Subjective Progress Note for:: 05/14/18 Subjective:: Patient seen by the bedside there is no indication at this time for transfer Reason For Visit: CHEST PAIN,ESRD Physical Exam Vital Signs: Temp Pulse Resp BP Pulse Ox 97.3 F 63 18 139/93 H 93 05/14/18 12:00 05/14/18 12:00 05/14/18 12:00 05/14/18 12:00 05/14/18 12:00 Intake & Output 05/13/18 05/14/18 05/15/18 06:59 06:59 06:59 Output Total 0 Balance 0 General appearance: PRESENT: no acute distress Head exam: PRESENT: atraumatic, normocephalic Eye exam: PRESENT: PERRLA Mouth exam: PRESENT: moist, tongue midline Neck exam: PRESENT: full ROM Respiratory exam: PRESENT: clear to auscultation alcira Cardiovascular exam: PRESENT: RRR, +S1, +S2 Vascular exam: PRESENT: normal capillary refill GI/Abdominal exam: PRESENT: normal bowel sounds, soft Rectal exam: PRESENT: deferred Neurological exam: PRESENT: alert, awake, oriented to person, oriented to place , oriented to time, oriented to situation, CN II-XII grossly intact. ABSENT: motor sensory deficit Psychiatric exam: PRESENT: appropriate affect, normal mood. ABSENT: homicidal ideation, suicidal ideation Skin exam: PRESENT: dry, intact, warm Results Impressions: Chest X-Ray 05/12/18 12:52 IMPRESSION: Increasing alveolar and interstitial infiltrates worrisome for worsening fluid overload or congestive failure. Assessment & Plan - Diagnosis (1) Chest pain Qualifiers: Chest pain type: unspecified Qualified Code(s): R07.9 - Chest pain, unspecified Is this a current diagnosis for this admission?: Yes (2) Chronic diastolic heart failure Is this a current diagnosis for this admission?: Yes (3) End-stage renal disease (ESRD) Is this a current diagnosis for this admission?: Yes (4) HTN (hypertension) Qualifiers: Hypertension type: unspecified Qualified Code(s): I10 - Essential (primary ) hypertension Is this a current diagnosis for this admission?: Yes (5) Mitral valve regurgitation Qualifiers: Cardiac valve disease etiology: nonrheumatic Qualified Code(s): I34.0 - Nonrheumatic mitral (valve) insufficiency Is this a current diagnosis for this admission?: Yes
[2018-05-14] MEDS: MONTELUKAST SODIUM 10 MG TABLET PO SCH (18:15)
--- NOTE | 2018-05-14 18:35 | PROGRESS NOTE E ---
Progress Note NAME: CAPO HDEZ : 1955 AGE: 62Y DATE: 05/14/2018 ROOM: 534 SUBJECTIVE: The patient denies any chest pain or discomfort. She does have orthopnea but no PND. There is no shortness of breath. There is no pedal edema. There is no arrhythmia seen on the monitor. She denies any TIA or CVA symptoms. OBJECTIVE: GENERAL: On examination, the patient is moderately obese in no acute distress. She is well groomed. VITAL SIGNS: She is afebrile with a temperature of 97.3 degrees Fahrenheit, pulse is 68 beats per minute, blood pressure is 139/93, respirations are 18 per minute, O2 saturations are 93% on room air. HEENT: Head is atraumatic, normocephalic. Eyes: Pupils are equal, round, regular, reactive to light and accommodation. Extraocular movements are normal. There is no conjunctival pallor. There is no scleral icterus. ENT is negative. NECK: Supple. There is no JVD. Carotids are equal. There is no bruit. There is *------* murmur over both carotids from the aortic area. There is no carotid delay. There is no lymphadenopathy. Trachea is central. There is no goiter. LUNGS: Clear to auscultation and percussion. No evidence of rales of CHF. There is no chest wall tenderness. HEART: S1 and S2 are heard. There is no S3 gallop. There is no S4 gallop. There is a systolic murmur in the left sternal border on the apex. There is no rub. There is murmur of mild aortic stenosis present with preserved *------* atrial sound. There is no carotid delay. There is a murmur of mitral regurgitation present. ABDOMEN: Obese, nontender. There is no hepatosplenomegaly. Bowel sounds are well heard. There are no tender areas or masses. EXTREMITIES: Femorals are deep. Femorals are diminished. Leg pulses are diminished. There are no femoral bruits. There is no pedal edema. There is no cyanosis or clubbing. There is no DVT or cellulitis. CENTRAL NERVOUS SYSTEM: The patient is conscious, awake, alert, oriented x3 with no focal deficit. PSYCHIATRIC: The patient's judgment and insight are intact. Her affect is normal. CODE STATUS: The patient is a FULL CODE. Her son, Christian, is the surrogate healthcare decision maker for the patient. IMPRESSION: 1. CONGESTIVE HEART FAILURE, PROBABLY SECONDARY TO EARLY DIASTOLIC DYSFUNCTION OR VOLUME OVERLOAD DUE TO MISSED DIALYSIS AND MITRAL REGURGITATION. 2. BRADYCARDIA, RESOLVED, AT PRESENT HEART RATE IS IN NORMAL RANGE. 3. MILD AORTIC STENOSIS BY EXAM. 4. MITRAL REGURGITATION, [id number] BY ECHO. 5. CHEST PAIN, RESOLVED. 6. END STAGE RENAL DISEASE, ON HEMODIALYSIS. 7. HYPERTENSION, BLOOD PRESSURE FAIR BUT THE DIASTOLIC NEEDS TO COME DOWN FURTHER. 8. SLEEP APNEA. The patient does use CPAP. RECOMMENDATIONS: 1. Continue dialysis. 2. Continue her current clonidine and metoprolol/Toprol XL at 200 mg p.o. daily and nifedipine. 3. Note: Her medications have been reviewed. TIME SPENT: Thirty-five minutes spent on this patient with more than 50% of the time spent on direct patient care. Medical decision making is of moderate complexity. We will follow with you. Discussed with other care giving providers on the case. DICTATING PHYSICIAN: MEDARDO DAY M.D. [id number] CHON#: [id number] ID: [id number] JOB#: [id number] ACCT: [id number] cc: >
[2018-05-14] MEDS ORDERED: CALCIUM CARBONATE 500 MG TAB.CHEW PO PRN (20:48)
[2018-05-14] MEDS: TRAMADOL HCL 50 MG TABLET PO PRN (21:53)
[2018-05-15] MEDS: SEVELAMER HCL 400 MG TABLET PO SCH ×3 (06:00→16:09)
[2018-05-15] MEDS: HEPARIN SOD (PORCINE) 5,000 UNIT/ML 1 ML SYRINGE SUBCUT SCH ×3 (06:00→22:54)
[2018-05-15] MEDS: TETRACYCLINE PO SCH ×4 (06:01→22:54)
[2018-05-15] MEDS: [UNRECOGNIZED DRUG - OTHER] PO SCH ×4 (06:01→22:54)
[2018-05-15] MEDS: METRONIDAZOLE PO SCH ×4 (06:01→22:54)
[2018-05-15] MEDS: LANSOPRAZOLE 15 MG TAB.RAP.DR PO SCH ×2 (06:02→17:53)
[2018-05-15] MEDS: CLONIDINE HCL 0.1 MG TABLET PO SCH ×3 (06:02→22:55)
[2018-05-15 07:11] LABS: ABSOLUTE BASOPHILS # (AUTO) 0.1 10^3/uL (0.0-0.2); ABSOLUTE EOSINOPHILS # (AUTO) 0.5 10^3/uL (0.0-0.6); ABSOLUTE LYMPHOCYTES (AUTO) 1.1 10^3/uL (0.5-4.7); ABSOLUTE MONOCYTES (AUTO) 0.3 10^3/uL (0.1-1.4); ABSOLUTE NEUT (AUTO) 2.9 10^3/uL (1.7-8.2); BASOPHILS % (AUTO) 2.1 % (0-2); EOSINOPHILS % (AUTO) 10.6 % (0-6); HEMATOCRIT 30.7 % (36.0-47.0); HEMOGLOBIN 10.4 g/dL (12.0-15.5); LYMPHOCYTES % (AUTO) 22.4 % (13-45); MEAN CORPUSCULAR HEMOGLOBIN 29.7 pg (27.0-33.4); MEAN CORPUSCULAR HGB CONC 33.8 g/dL (32.0-36.0); MEAN CORPUSCULAR VOLUME 88 fl (80-97); MONOCYTES % (AUTO) 6.7 % (3-13); PLATELET COUNT 177 10^3/uL (150-450); RED BLOOD COUNT 3.49 10^6/uL (3.72-5.28); RED CELL DISTRIBUTION WIDTH 16.5 % (11.5-14.0); SEGMENTED NEUTROPHILS % (AUTO) 58.2 % (42-78); TOTAL CELLS COUNTED % (AUTO) 100 %
[2018-05-15 07:40] LABS: ANION GAP 18 (5-19); BLOOD UREA NITROGEN 74 mg/dL (7-20); CALCIUM 9.2 mg/dL (8.4-10.2); CARBON DIOXIDE 25 mmol/L (22-30); CHLORIDE 98 mmol/L (98-107); GLUCOSE 92 mg/dL (75-110); POTASSIUM 5.8 mmol/L (3.6-5.0); SODIUM 141.3 mmol/L (137-145)
--- NOTE | 2018-05-15 10:32 | PDOC PROGRESS REPORT ---
Subjective Progress Note for:: 05/15/18 Reason For Visit: Patient seen on dialysis today. She is undergoing dialysis without any issues. Vital signs are stable. She is denies any history of chest pain or shortness of breath. Labs and medications were reviewed with the patient. Dialysis orders were reviewed with the treating dialysis nurse. Physical Exam Vital Signs: Temp Pulse Resp BP Pulse Ox 97.4 F 72 14 121/67 96 05/15/18 03:17 05/15/18 07:00 05/15/18 03:17 05/15/18 03:17 05/15/18 03:17 Intake & Output 05/14/18 05/15/18 05/16/18 06:59 06:59 06:59 Intake Total 1120 Output Total 0 Balance 0 1120 Weight 98.5 kg General appearance: PRESENT: no acute distress Respiratory exam: PRESENT: clear to auscultation alcira. ABSENT: crackles, rhonchi Cardiovascular exam: PRESENT: +S1, +S2 GI/Abdominal exam: PRESENT: normal bowel sounds, soft. ABSENT: organomegaly, tenderness Neurological exam: PRESENT: alert, awake, oriented to person, oriented to place Results Laboratory Results: 05/15/18 06:20 05/15/18 06:20 05/15/18 05/15/18 06:20 06:20 WBC 5.0 RBC 3.49 L Hgb 10.4 L Hct 30.7 L MCV 88 MCH 29.7 MCHC 33.8 RDW 16.5 H Plt Count 177 Seg Neutrophils % 58.2 Lymphocytes % 22.4 Monocytes % 6.7 Eosinophils % 10.6 H Basophils % 2.1 H Absolute Neutrophils 2.9 Absolute Lymphocytes 1.1 Absolute Monocytes 0.3 Absolute Eosinophils 0.5 Absolute Basophils 0.1 Sodium 141.3 Potassium 5.8 H Chloride 98 Carbon Dioxide 25 Anion Gap 18 BUN 74 H Creatinine 14.78 H Est GFR ( Amer) 3 L Est GFR (Non-Af Amer) 3 L Glucose 92 Calcium 9.2 Impressions: Chest X-Ray 05/12/18 12:52 IMPRESSION: Increasing alveolar and interstitial infiltrates worrisome for worsening fluid overload or congestive failure. Assessment & Plan - Diagnosis (1) Chest pain, rule out acute myocardial infarction Plan: As per Dr. Bell and cardiology. (2) End-stage renal disease (ESRD) Is this a current diagnosis for this admission?: Yes Plan: Patient undergoing dialysis without any issues. Vital signs are stable. He is being supervised to ensure safe and smooth procedure. Orders were reviewed and discussed with the treating dialysis nurse. Plan to remove between 4-5 L as tolerated. Advised on proper dietary modifications. (3) HTN (hypertension) Qualifiers: Hypertension type: unspecified Qualified Code(s): I10 - Essential (primary ) hypertension Is this a current diagnosis for this admission?: Yes Plan: Controlled. See further response to dialysis. (4) Pneumonia Qualifiers: Pneumonia type: due to unspecified organism Laterality: left Lung location: unspecified part of lung Qualified Code(s): J18.9 - Pneumonia, unspecified organism (5) Acute respiratory failure Qualifiers: Respiratory failure complication: unspecified whether with hypoxia or hypercapnia Qualified Code(s): J96.00 - Acute respiratory failure, unspecified whether with hypoxia or hypercapnia Is this a current diagnosis for this admission?: Yes Plan: Secondary to apparent diastolic congestive heart failure. See cardiology. (6) Asthma exacerbation Plan: Now under control.
[2018-05-15] MEDS: FOLIC ACID/VITAMIN B COMP W-C CAPSULE PO SCH (11:46)
[2018-05-15] MEDS: COLCHICINE 0.6 MG TABLET PO SCH (11:47)
[2018-05-15] MEDS: ALLOPURINOL 100 MG TABLET PO SCH (11:47)
[2018-05-15] MEDS: METOPROLOL SUCCINATE 50 MG TAB.SR.24H PO SCH (11:56)
[2018-05-15] MEDS: NIFEDIPINE 30 MG TAB.ER.24 PO SCH ×2 (12:46→22:55)
[2018-05-15] MEDS: TRAMADOL HCL 50 MG TABLET PO PRN (16:09)
[2018-05-15] MEDS: MONTELUKAST SODIUM 10 MG TABLET PO SCH (17:54)
--- NOTE | 2018-05-15 20:04 | PDOC PROGRESS REPORT ---
Subjective Progress Note for:: 05/15/18 Subjective:: Patient was seen by the bedside, she was hemodialyzed today, hopefully she could be discharged home tomorrow. Reason For Visit: CHEST PAIN,ESRD Physical Exam Vital Signs: Temp Pulse Resp BP Pulse Ox 98.4 F 72 20 145/64 H 94 05/15/18 16:17 05/15/18 16:17 05/15/18 16:17 05/15/18 16:17 05/15/18 16:17 Intake & Output 05/14/18 05/15/18 05/16/18 06:59 06:59 06:59 Intake Total 1120 236 Output Total 0 Balance 0 1120 236 Weight 98.5 kg General appearance: PRESENT: no acute distress Eye exam: PRESENT: PERRLA Respiratory exam: PRESENT: clear to auscultation alcira Cardiovascular exam: PRESENT: +S1, +S2 GI/Abdominal exam: PRESENT: soft Neurological exam: PRESENT: alert Results Laboratory Results: 05/15/18 06:20 05/15/18 06:20 05/15/18 05/15/18 06:20 06:20 WBC 5.0 RBC 3.49 L Hgb 10.4 L Hct 30.7 L MCV 88 MCH 29.7 MCHC 33.8 RDW 16.5 H Plt Count 177 Seg Neutrophils % 58.2 Lymphocytes % 22.4 Monocytes % 6.7 Eosinophils % 10.6 H Basophils % 2.1 H Absolute Neutrophils 2.9 Absolute Lymphocytes 1.1 Absolute Monocytes 0.3 Absolute Eosinophils 0.5 Absolute Basophils 0.1 Sodium 141.3 Potassium 5.8 H Chloride 98 Carbon Dioxide 25 Anion Gap 18 BUN 74 H Creatinine 14.78 H Est GFR ( Amer) 3 L Est GFR (Non-Af Amer) 3 L Glucose 92 Calcium 9.2 Impressions: Chest X-Ray 05/12/18 12:52 IMPRESSION: Increasing alveolar and interstitial infiltrates worrisome for worsening fluid overload or congestive failure. Assessment & Plan - Diagnosis (1) Chest pain Qualifiers: Chest pain type: unspecified Qualified Code(s): R07.9 - Chest pain, unspecified Is this a current diagnosis for this admission?: Yes (2) Chronic diastolic heart failure Is this a current diagnosis for this admission?: Yes (3) End-stage renal disease (ESRD) Is this a current diagnosis for this admission?: Yes (4) HTN (hypertension) Qualifiers: Hypertension type: unspecified Qualified Code(s): I10 - Essential (primary ) hypertension Is this a current diagnosis for this admission?: Yes (5) Mitral valve regurgitation Qualifiers: Cardiac valve disease etiology: nonrheumatic Qualified Code(s): I34.0 - Nonrheumatic mitral (valve) insufficiency Is this a current diagnosis for this admission?: Yes
[2018-05-15] MEDS ORDERED: CINACALCET HCL 30 MG TABLET PO SCH (22:00)
--- NOTE | 2018-05-15 22:50 | PROGRESS NOTE E ---
Progress Note NAME: CAPO HDEZ : 1955 AGE: 62Y DATE: 05/15/2018 ROOM: 534 SUBJECTIVE: Patient seen while she is having dialysis. Except for some vague nonspecific complaints of not feeling well, she particularly denies any chest pain or discomfort. There is no shortness of breath. There is no PND. She has chronic orthopnea. She has no palpitations. There are no arrhythmias seen on the monitor. She has no leg edema. OBJECTIVE: GENERAL: The patient is morbidly obese, but in no acute distress. She is well-groomed. She is undergoing dialysis. VITAL SIGNS: Her pulse is 72 beats per minute, temperature is 97.4, respirations are 14 per minute, blood pressure is 141/67. Her respirations are 96% on pulse ox on room air. HEENT: Head is atraumatic, normocephalic. Eyes: Pupils are equal, round, regular, reactive to light and accommodation. Extraocular movements are normal. There is no conjunctival pallor. There is no scleral icterus. ENT is negative. NECK: Supple. There is no JVD. Carotids are equal. There is no bruit. There is no transmitted murmur over the carotids in the aortic area. There is no carotid delay. There is no lymphadenopathy. Trachea is central. There is no goiter. LUNGS: Clear to auscultation and percussion. No evidence of rales or CHF. There is no chest wall tenderness. On auscultation, there are no rhonchi, rales or wheezing. HEART: S1, S2 are heard. There is no S3 gallop. There is no S4 gallop. There is a systolic murmur in the left sternal border, at the apex. There is murmur of mild aortic stenosis present with preserved A2. There is no carotid delay. There is murmur of mitral regurgitation present. ABDOMEN: Obese, nontender. There is no hepatosplenomegaly. Bowel sounds are well-heard. There are no tender areas or masses. EXTREMITIES: Femorals are deep. Femorals are diminished. Leg pulses diminished. There are no femoral bruits. There is no pedal edema. There is no cyanosis or clubbing. There is no DVT or cellulitis. 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 DIAGNOSTICS: The patient's white count is 5000, hemoglobin is 10.4, hematocrit is 30.7, and the patient's platelet count is 177,000. The patient's sodium is 141.3, potassium is 5.8; this was prior to dialysis. The patient's CO2 is 25, chloride is 98. Patient's BUN is 74, creatinine is 14.78. GFR is reduced to 3 mL. Her glucose is 92, calcium is 9.2. IMPRESSION: 1. CONGESTIVE HEART FAILURE, SECONDARY TO DIASTOLIC DYSFUNCTION PLUS VOLUME OVERLOAD DUE TO MISSED DIALYSIS AND ALSO MITRAL REGURGITATION. 2. BRADYCARDIA, RESOLVED. 3. MILD AORTIC STENOSIS BY EXAM AND ECHO. 4. MITRAL REGURGITATION, MODERATE TO SEVERE BY ECHO. 5. CHEST PAIN, RESOLVED. No recurrence. 6. END-STAGE RENAL DISEASE ON HEMODIALYSIS. 7. HYPERTENSION. Blood pressure well-controlled. 8. SLEEP APNEA. Patient does use CPAP. RECOMMENDATIONS: Continue dialysis. Continue current medications, including metoprolol XL at 200 mg p.o. daily and nifedipine and clonidine. Medications have been reviewed. Discussed with the other care-giving providers on the case. Medical decision-making is of moderate complexity. Will sign off of the case, as the cardiac status is stable. She will follow up with Dr. Cristobal in [place], and they will address the issue of the patient's mitral regurgitation. Note, 40 minutes spent on the patient, with more than 50% of the time spent on direct patient care. Will sign off the case. DICTATING PHYSICIAN: MEDARDO DAY M.D. [id number] CHON#: [id number] ID: [id number] JOB#: [id number] ACCT: [id number] cc: >
[2018-05-16] MEDS ORDERED: CINACALCET HCL 30 MG TABLET PO ONE ×2 (01:05→01:45)
[2018-05-16] MEDS: CLONIDINE HCL 0.1 MG TABLET PO SCH ×2 (06:44→14:14)
[2018-05-16] MEDS: HEPARIN SOD (PORCINE) 5,000 UNIT/ML 1 ML SYRINGE SUBCUT SCH ×2 (06:45→14:14)
[2018-05-16] MEDS: TETRACYCLINE PO SCH ×3 (11:14→17:39)
[2018-05-16] MEDS: METRONIDAZOLE PO SCH ×3 (11:14→17:39)
[2018-05-16] MEDS: [UNRECOGNIZED DRUG - OTHER] PO SCH ×3 (11:14→17:39)
[2018-05-16] MEDS: LANSOPRAZOLE 15 MG TAB.RAP.DR PO SCH ×2 (11:16→17:36)
[2018-05-16] MEDS: COLCHICINE 0.6 MG TABLET PO SCH (11:17)
[2018-05-16] MEDS: FOLIC ACID/VITAMIN B COMP W-C CAPSULE PO SCH (11:17)
[2018-05-16] MEDS: METOPROLOL SUCCINATE 50 MG TAB.SR.24H PO SCH (11:17)
[2018-05-16] MEDS: ALLOPURINOL 100 MG TABLET PO SCH (11:19)
[2018-05-16] MEDS: NIFEDIPINE 30 MG TAB.ER.24 PO SCH (11:19)
[2018-05-16] MEDS: SEVELAMER HCL 400 MG TABLET PO SCH ×3 (11:20→17:37)
[2018-05-16] MEDS: MONTELUKAST SODIUM 10 MG TABLET PO SCH (17:36)
--- NOTE | 2018-05-16 18:47 | PDOC DISCHARGE SUMMARY ---
General - Admit/Disc Date/PCP Admission Date/Primary Care Provider: 05/13/18 07:48 KEVIN REED MD Discharge Date: 05/16/18 - Discharge Diagnosis (1) Chest pain Is this a current diagnosis for this admission?: Yes (2) Chronic diastolic heart failure Is this a current diagnosis for this admission?: Yes (3) End-stage renal disease (ESRD) Is this a current diagnosis for this admission?: Yes (4) HTN (hypertension) Is this a current diagnosis for this admission?: Yes (5) Mitral valve regurgitation Is this a current diagnosis for this admission?: Yes (6) Acute pulmonary edema Is this a current diagnosis for this admission?: Yes - Additional Information Resuscitation Status: Full Code Home Medications: Albuterol Sulfate [Proair HFA Inhalation Aerosol 8.5 gm MDI] 2 puff IH Q4HP PRN 05/11/18 Allopurinol [Zyloprim 100 mg Tablet] 100 mg PO DAILY 05/11/18 Budesonide/Formoterol Fumarate [Symbicort HFA 160-4.5 mcg Inhaler 6 gm] 2 puff IH Q12HP PRN 05/11/18 Calcium Carbonate [Tums Chewable 500 mg Tab.chew] 1,000 mg PO QHS 05/11/18 Chlorpheniramine Maleate [Aller-Chlor 4 mg Tablet] 4 mg PO Q6HP PRN 05/11/18 Cinacalcet HCl [Sensipar 60 mg Tablet] 60 mg PO DAILY 05/11/18 Clonidine HCl [Catapres 0.3 mg Tablet] 0.3 mg PO TID MDD HALF TAB IN AM ON DIALYSIS DAY 05/11/18 Colchicine [Colcrys 0.6 mg Tablet] 0.6 mg PO DAILY 05/11/18 Diclofenac Sodium [Voltaren] 1 applic TOP DAILY 05/11/18 Esomeprazole Mag Trihydrate [Nexium] 40 mg PO DAILY 05/11/18 Lactulose [Constulose 10 gm/15 mL Oral Solution] 30 ml PO TIDP PRN 05/11/18 Linaclotide [Linzess 145 Mcg Capsule] 145 mcg PO DAILYP PRN 05/11/18 Metoprolol Succinate [Toprol XL 200 mg Tablet] 200 mg PO DAILY 05/11/18 Montelukast Sodium [Singulair 10 mg Tablet] 10 mg PO QPM 05/11/18 Nifedipine [Nifedipine ER] 90 mg PO BID 05/11/18 Promethazine HCl [Phenergan 25 mg Tablet] 12.5 mg PO Q6HP PRN 05/11/18 Sevelamer Carbonate [Renvela] 1,600 mg PO BID MDD TAKE WITH SNACKS 05/11/18 Sevelamer Carbonate [Renvela] 2,400 mg PO MEALS 05/11/18 Tramadol HCl [Ultram 50 mg Tablet] 50 mg PO Q6HP PRN 05/11/18 Vit B Comp No.3/Folic/C/Biotin [Nephro-Juan Rx Tablet] 1 tab PO DAILY 05/11/18 History of Present Illness History of Present Illness: CAPO HDEZ is a 62 year old female, She could emergency room for evaluation of chest pain, she was admitted in this hospital on January 27, 2018 for evaluation of chest pain at the time she underwent Cardiolite nuclear stress test was negative for acute ischemia, 3 sets of cardiac enzymes are negative for acute AZ. She has end-stage renal disease on hemodialysis Hospital Course Hospital Course: Patient was admitted initially for evaluation of chest pain, 3 sets of cardiac enzymes negative for acute AZ. Hospital course was complicated with acute pulmonary edema due to combination of severe mitral valve regurgitation, Missed hemodialysis sessions. She required noninvasive positive pressure ventilation with BiPAP, this reduces work of breathing when she had severe pulmonary edema. After hemodialysis the pulmonary edema improved, she was less symptomatic. Physical Exam Vital Signs: Temp Pulse Resp BP Pulse Ox 98.1 F 70 24 H 138/84 H 95 05/16/18 16:00 05/16/18 16:00 05/16/18 16:00 05/16/18 16:00 05/16/18 16:00 Intake & Output 05/15/18 05/16/18 05/17/18 06:59 06:59 06:59 Intake Total 1120 456 577 Output Total 0890 Balance 1120 -9903 577 Weight 98.5 kg 100.5 kg General appearance: PRESENT: no acute distress, well-developed, well-nourished Head exam: PRESENT: atraumatic, normocephalic Eye exam: PRESENT: conjunctiva pink, EOMI, PERRLA Ear exam: PRESENT: normal external ear exam Mouth exam: PRESENT: moist, tongue midline Neck exam: PRESENT: full ROM Respiratory exam: PRESENT: clear to auscultation alcira Cardiovascular exam: PRESENT: RRR, +S1, +S2 Pulses: PRESENT: normal dorsalis pedis pul, +2 pedal pulses bilateral Vascular exam: PRESENT: normal capillary refill GI/Abdominal exam: PRESENT: normal bowel sounds, soft Rectal exam: PRESENT: deferred Neurological exam: PRESENT: alert, awake, oriented to person, oriented to place , oriented to time, oriented to situation, CN II-XII grossly intact Psychiatric exam: PRESENT: appropriate affect, normal mood Skin exam: PRESENT: dry, intact, warm Results Laboratory Results: 05/15/18 06:20 05/15/18 06:20 Impressions: Chest X-Ray 05/12/18 12:52 IMPRESSION: Increasing alveolar and interstitial infiltrates worrisome for worsening fluid overload or congestive failure. Qualifiers - * PATIENT BEING DISCHARGED WITH ANY OF THE FOLLOWING DIAGNOSIS: No
[2018-05-17 00:23] VITALS: BP 140/74
== END 2018-05-16 20:45 | disposition home or self-care (01) | DRG 291 ==
LOC: ER 23:22 → INTOOBSV 05-11 03:25 → UNDOADMOB 05-11 03:25 → EH 05-11 03:25 → 4W 05-11 11:56 → EH 05-11 11:56 → 3N 05-11 13:04 → 4W 05-11 13:04 → 3N 05-12 19:26 → ICU 05-12 19:26 → OBSVTOIN 05-13 07:48 → 5 05-13 18:03
PROVIDERS: ADMIT Internal Medicine; ATTEND Internal Medicine
PROC: 5A09457 Assistance with Respiratory Ventilation, 24-96 Consecutive Hours, Continuous Positive Airway Pressure (ICD-10-PCS; 2018-05-11)
PROC: 5A1D70Z Performance of Urinary Filtration, Intermittent, Less than 6 Hours Per Day (ICD-10-PCS; 2018-05-12)
PROC: 5A1D70Z Performance of Urinary Filtration, Intermittent, Less than 6 Hours Per Day (ICD-10-PCS; principal; 2018-05-14)
DX: I11.0 Hypertensive heart disease with heart failure (principal); N18.6 End stage renal disease; J96.00 Acute respiratory failure, unspecified whether with hypoxia or hypercapnia; E66.2 Morbid (severe) obesity with alveolar hypoventilation; Z68.41 Body mass index [BMI] 40.0-44.9, adult; I50.33 Acute on chronic diastolic (congestive) heart failure; E87.5 Hyperkalemia; R00.1 Bradycardia, unspecified; I27.20 Pulmonary hypertension, unspecified; I08.0 Rheumatic disorders of both mitral and aortic valves; J44.9 Chronic obstructive pulmonary disease, unspecified; K21.9 Gastro-esophageal reflux disease without esophagitis; E05.90 Thyrotoxicosis, unspecified without thyrotoxic crisis or storm; D63.1 Anemia in chronic kidney disease; M19.90 Unspecified osteoarthritis, unspecified site; Z99.2 Dependence on renal dialysis; Z88.6 Allergy status to analgesic agent; Z88.0 Allergy status to penicillin; Z88.8 Allergy status to other drugs, medicaments and biological substances
CPT/HCPCS: 36415; 71045; 71046; 80048; 80053; 82550; 82553; 84484; 85025; 85610; 93005; 93010; 93306; 94660; 96374; 99285; G0378; J1644; J2060; J2405; J2930; J3490

== ENCOUNTER → 2018-05-10 | Outpatient (CLI) | payer MEDICARE, MEDICAID ==
--- NOTE | 2018-05-10 10:25 | RADIOLOGY REPORT (SQ) ---
EXAM DESCRIPTION: BARIUM SWALLOW ESOPHAGUS COMPLETED DATE/TIME: 05/10/2018 8:18 am REASON FOR STUDY: UNSPECIFIED CHRONIC GASTRITIS WITHOUT BLEEDING (K29.50) K29.50 UNSPECIFIED CHRONI C GASTRITIS WITHOUT BLEEDING COMPARISON: None. TECHNIQUE: Under fluoroscopic guidance, patient ingested effervescent granules followed by thick and thin barium. Fluoroscopic spot images and routine radiographic images acquired and stored on PACS. 12 MM BARIUM TABLET GIVEN: Yes. No significant delay in passage. LIMITATIONS: None. FLUOROSCOPY TIME: FLUORO TIME: 1 minutes 4 seconds 8 series of digital images saved to PACS. FINDINGS: NEUROMUSCULAR COORDINATION OF SWALLOW: Normal. No aspiration. ESOPHAGEAL MOTILITY: Normal peristalsis. There is a 5 cm long area of distal esophageal narrowing ab out 10 cm cephalad to the GE junction. This is likely a reflux related stricture. ESOPHAGEAL MUCOSA: Small mucosal ulcerations are seen in the upper 3rd of the esophagus. In the dist al esophagus just above the GE junction, a 1.5 cm mucosal or submucosal nodule persists on multiple s wallowing images. There is mild distal esophageal mucosal irregularity, Galaviz's esophagus could be present. GASTRO-ESOPHAGEAL JUNCTION: Small hiatal hernia. Unprovoked gastroesophageal reflux to the cervical esophagus NON-GI TRACT STRUCTURES: Cardiomegaly. OTHER: No other significant finding. IMPRESSION: Small hiatal hernia with gastroesophageal reflux to the cervical esophagus. Cervical esophageal mucosal irregularity worrisome for small ulcerations. 1.5 cm mucosal or submucosal nodule in the distal 3rd of the esophagus, just above the GE junction 5 cm long esophageal mild peptic stricture, 10 cm cephalad to the GE junction. COMMENT: Quality ID [id number]: Final reports for procedures using fluoroscopy that document radiation exp osure indices, or exposure time and number of fluorographic images (if radiation exposure indices are not available) TECHNICAL DOCUMENTATION: JOB ID: [id number] [employer]- All Rights Reserved Reading location - IP/workstation name: [email or web address]
== END ==
LOC: RAD 07:37
PROVIDERS: ATTEND Internal Medicine Gastroenterology
DX: K29.50 Unspecified chronic gastritis without bleeding (principal); K21.9 Gastro-esophageal reflux disease without esophagitis; K44.9 Diaphragmatic hernia without obstruction or gangrene
CPT/HCPCS: 74220

== ENCOUNTER → 2018-05-22 | Outpatient (CLI) | payer MEDICARE, MEDICAID ==
--- NOTE | 2018-05-22 10:20 | RADIOLOGY REPORT (SQ) ---
EXAM DESCRIPTION: CT CHEST WITHOUT COMPLETED DATE/TIME: 05/22/2018 9:31 am REASON FOR STUDY: PULMONARY NODULE R91.1 SOLITARY PULMONARY NODULE COMPARISON: 05/11/2018 TECHNIQUE: CT scan performed of the chest without intravenous contrast. Images reviewed with lung, soft tissue and bone windows. Reconstructed coronal and sagittal MPR images reviewed. All images st ored on PACS. All CT scanners at this facility use dose modulation, iterative reconstruction, and/or weight based d osing when appropriate to reduce radiation dose to as low as reasonably achievable (ALARA). [facility]: Dose Right [facility]: CareDose [facility]: Dose Right [facility]: Teradose 4D [facility]: [employer] RADIATION DOSE: CT Rad equipment meets quality standard of care and radiation dose reduction techniq ues were employed. CTDIvol: 19.3 mGy. DLP: 742 mGy-cm. mGy. LIMITATIONS: No technical limitations. FINDINGS: LUNGS AND PLEURA: Linear areas of scattered atelectasis or scar in the lungs. Bilateral pleural based nodular opacities in the lower lobes, some of the largest measure 10 mm. No pneumothor ax or pleural effusion. The central airways are clear. HILAR AND MEDIASTINAL STRUCTURES: Borderline to mildly prominent mediastinal lymph nodes. HEART AND VASCULAR STRUCTURES: Atherosclerotic changes involving the thoracic aorta. Coronary arter y calcifications. No aneurysm. No pericardial effusion. UPPER ABDOMEN: Prior cholecystectomy. Atherosclerotic changes involving the visualized upper abdomi nal aorta and branch vessels. Small hiatal hernia. Splenule, normal anatomic variant. Bilateral re nal cysts. Very small non-obstructing left renal calculus. Limited exam. THYROID AND OTHER SOFT TISSUES: No masses. No adenopathy. BONES: Diffuse sclerotic appearance to the osseous structures. Schmorl's node versus mild compressi on deformity of the mid lumbar vertebra on the film's edge. HARDWARE: None in the chest. OTHER: No other significant findings. IMPRESSION: 1 Bilateral pleural based nodular opacities in the lower lobes. Linear areas of scatter ed atelectasis or scar in the lungs. Follow-up three-month CT chest examination is suggested. 2. Borderline mildly prominent mediastinal lymph nodes. 3 Very small nonobstructing left renal calculus. 4 Diffuse sclerotic appearance to the osseous structures. Considerations for these findings include possible metabolic disorders, as well as other etiologies. Schmorl's node versus compression deformi ty involving the mid lumbar vertebra on the film's edge. Correlation with the patient's history pavithra khalil. 5. Additional findings as above. TECHNICAL DOCUMENTATION: JOB ID: [id number] Quality ID # [id number]: Final reports with documentation of one or more dose reduction techniques (e.g., Au tomated exposure control, adjustment of the mA and/or kV according to patient size, use of iterative reconstruction technique) 2010 [employer]- All Rights Reserved Reading location - IP/workstation name: [email or web address]
== END ==
LOC: RAD 09:09
PROVIDERS: ATTEND Internal Medicine Critical Care Medicine
DX: R91.1 Solitary pulmonary nodule (principal)
CPT/HCPCS: 71250

== ENCOUNTER 2018-06-18 20:46 | Inpatient (IN) | payer MEDICARE, MEDICAID ==
[2018-06-18] MEDS ORDERED: IPRATROPIUM/ALBUTEROL 0.5-2.5 MG/3 ML AMPUL NEB ONE (21:41)
--- NOTE | 2018-06-18 21:41 | ER Document Report ---
ED Respiratory Problem - General Information source: Patient TRAVEL OUTSIDE OF THE [place] IN LAST 30 DAYS: No <LADONNA HOWELL - Last Filed: 06/18/18 21:45> <ZORAN MATIAS - Last Filed: 06/19/18 03:31> - General Chief Complaint: Respiratory Distress Stated Complaint: BREATHING DIFFICULTY Time Seen by Provider: 06/18/18 21:17 Notes: 62-year-old female who presents to the emergency department today with complaints of increased shortness of breath. Patient has end-stage renal disease and is on dialysis and her last dialysis treatment was Tuesday. Patient states this treatment was normal, there were no abnormalities. Patient states she does not know if they took the normal amount of fluid off or not. Patient states her PCP ordered oxygen for her at home on Tuesday but she has not received it yet. Patient states she has had a slight cough but denies any chest pain or fevers. (LADONNA HOWELL) - Related Data Allergies/Adverse Reactions: codeine [Codeine] Allergy (Severe, Verified 05/11/18 00:23) Lips & tongue swell hydrocodone bitartrate [From Vicodin] Allergy (Severe, Verified 05/11/18 00:23) Throat & tongue swell, severe itch Iodinated Contrast- Oral and IV Dye [IV Dye, Iodine Containing] Allergy (Severe , Verified 05/11/18 00:23) Anaphylaxis lanthanum carbonate [From FOSRENOL] Allergy (Severe, Verified 05/11/18 00:23) losartan potassium [From Cozaar] Allergy (Severe, Verified 05/11/18 00:23) Swelling of Throat oxycodone HCl [From OxyContin] Allergy (Severe, Verified 05/11/18 00:23) Throat & tongue swell, severe itch propoxyphene napsylate [From Darvocet-N 100] Allergy (Severe, Verified 05/11/18 00:23) Mouth swells, itch ramipril [From Altace] Allergy (Severe, Verified 05/11/18 00:23) Lips, tongue & throat swell Penicillins Allergy (Intermediate, Verified 05/11/18 00:23) Generalized Itching acetaminophen [From Percocet] Allergy (Verified 05/11/18 00:23) ITCHING angiotensin II acetate, human Allergy (Verified 05/11/18 00:23) SEVERE STOMACH PAIN hydralazine Allergy (Verified 05/11/18 00:23) Swollen tongue oxycodone [From Percocet] Allergy (Verified 05/11/18 00:23) ITCHING adhesive tape [Adhesive Tape] Adverse Reaction (Intermediate, Verified 05/11/18 00:23) ITCHING, PULLS SKIN OFF aspirin [Aspirin] Adverse Reaction (Intermediate, Verified 05/11/18 00:23) Tegaderm Allergy (Intermediate, Uncoded 04/05/18 09:04) Pulls skin off, itching Past Medical History - General Information source: Patient - Social History Smoking Status: Former Smoker Frequency of alcohol use: None Drug Abuse: None Lives with: Family Family History: Reviewed & Not Pertinent, Hypertension Patient has suicidal ideation: No Patient has homicidal ideation: No - Past Medical History Cardiac Medical History: Reports: Hx Hypercholesterolemia, Hx Hypertension - ON MEDS Pulmonary Medical History: Reports: Hx Asthma, Hx Bronchitis, Hx COPD - ASTHMA Endocrine Medical History: Reports: Hx Hyperthyroidism Renal/ Medical History: Reports: Hx End Stage Renal Disease, Hx Hemodialysis GI Medical History: Reports: Hx Gastroesophageal Reflux Disease, Hx Hiatal Hernia Musculoskeletal Medical History: Reports Hx Arthritis - GOUT Infectious Medical History: Past Surgical History: Reports: Hx Abdominal Surgery - GALL BLADDER, Hx Cardiac Catheterization - 2011, Hx Section, Hx Cholecystectomy, Hx Gynecologic Surgery - hysteroscopy - Immunizations Hx Diphtheria, Pertussis, Tetanus Vaccination: No Hx Pneumococcal Vaccination: 08/14/15 <LADONNA HOWELL - Last Filed: 06/18/18 21:45> Review of Systems - Review of Systems Constitutional: denies: Fever EENT: No symptoms reported Cardiovascular: denies: Chest pain Respiratory: See HPI, Cough, Short of breath Gastrointestinal: No symptoms reported Genitourinary: No symptoms reported Female Genitourinary: No symptoms reported Musculoskeletal: No symptoms reported Skin: No symptoms reported Hematologic/Lymphatic: No symptoms reported Neurological/Psychological: No symptoms reported -: Yes All other systems reviewed and negative <LADONNA HOWELL - Last Filed: 06/18/18 21:45> Physical Exam - Vital signs Interpretation: Hypoxic, Tachypneic <LADONNA HOWELL - Last Filed: 06/18/18 21:45> <ZORAN MATIAS - Last Filed: 06/19/18 03:31> - Vital signs Vitals: Pulse Ox 91 L 06/18/18 21:03 - Notes Notes: Physical Exam: General: Alert, appears short of breath. HEENT: Normocephalic. Atraumatic. PERRL. Extraocular movements intact. Oropharynx clear. Neck: Supple. Non-tender. Respiratory: Moderate respiratory distress. Tachypneic. Decreased air movement bilaterally. Slight expiratory wheeze at the apices bilaterally. Cardiovascular: Regular rate and rhythm. Abdominal: Normal Inspection. Non-tender. No distension. Normal Bowel Sounds. Back: Non-tender. No deformity or step off. Extremities: Moves all four extremities. Upper extremities: Left arm fistula. Normal ROM. Lower extremities: Normal inspection. No edema. Normal ROM. Neurological: Normal cognition. AAOx4. Normal speech. Psychological: Normal affect. Normal Mood. Skin: Warm. Dry. Normal color. (LADONNA HOWELL) Course <LADONNA HOWELL - Last Filed: 06/18/18 21:45> - Laboratory Result Diagrams: 06/18/18 21:43 06/18/18 21:43 <ZORAN MATIAS - Last Filed: 06/19/18 03:31> - Re-evaluation Re-evalutation: 06/19/18 Patient is a 62-year-old female who comes in complaining of difficulty breathing. Patient is noted to be in respiratory distress. Patient is a history of heart failure and dialysis for chronic renal insufficiency. Chemistry is at baseline. No hyperkalemia. Chest x-ray is concerning for fluid overload versus possible pneumonia. Patient will be started on antibiotics. She has had a cough recently but no fever here. She is placed on BiPAP and given 1 DuoNeb. States that she is feeling much better at this time. Differential includes heart failure, asthma exacerbation, and pneumonia. Patient will be kept in the hospital for further observation due to hypoxia and respiratory distress on presentation. Of note, no problems with dialysis on Tuesday in the full amount was taken off. Stable at time of admission to Dr. Bell under Dr. Betancourt service. (ZORAN MATIAS) - Vital Signs Vital signs: Temp Pulse Resp BP Pulse Ox 98.0 F 21 H 149/79 H 97 06/18/18 21:55 06/19/18 02:01 06/19/18 02:01 06/19/18 02:01 - Laboratory Laboratory results interpreted by me: 06/18/18 06/18/18 06/18/18 21:20 21:43 21:43 RBC 3.48 L Hgb 10.5 L Hct 30.7 L RDW 16.9 H VBG pH VBG HCO3 BUN 37 H Creatinine 8.38 H Est GFR ( Amer) 6 L Est GFR (Non-Af Amer) 5 L Alkaline Phosphatase 165 H Urine Protein 100 H Ur Leukocyte Esterase TRACE H 06/18/18 21:43 RBC Hgb Hct RDW VBG pH 7.47 H VBG HCO3 32.9 H BUN Creatinine Est GFR ( Amer) Est GFR (Non-Af Amer) Alkaline Phosphatase Urine Protein Ur Leukocyte Esterase Critical Care Note - Critical Care Note Total time excluding time spent on procedures (mins): 35 - Evaluation and management of respiratory distress, hypoxia, multiple re-evaluations, initiation of BiPAP, coordination of admission, counseling patient <ZORAN MATIAS - Last Filed: 06/19/18 03:31> Discharge <LADONNA HOWELL - Last Filed: 06/18/18 21:45> - Discharge Admitting Provider: [facility] Unit Admitted: [facility] <ZORAN MATIAS - Last Filed: 06/19/18 03:31> - Discharge Clinical Impression: Acute diastolic heart failure, Concern for pneumonia Acute respiratory failure Qualifiers: Respiratory failure complication: unspecified whether with hypoxia or hypercapnia Qualified Code(s): J96.00 - Acute respiratory failure, unspecified whether with hypoxia or hypercapnia Condition: Stable Disposition: ADMITTED INPATIENT Scribe Attestation: 06/19/18 03:31 I personally performed the services described in the documentation, reviewed and edited the documentation which was dictated to the scribe in my presence, and it accurately records my words and actions. (ZORAN MATIAS) Scribe Documentation - Scribe Written by Scribe:: Otf Sánchez, 06/18/2018 [id number] acting as scribe for :: Dewayne <LADONNA HOWELL - Last Filed: 06/18/18 21:45>
[2018-06-18 21:58] LABS: VENOUS BLOOD BASE EXCESS 8.1 mmol/L; VENOUS BLOOD HCO3 32.9 mmol/L (20-32); VENOUS BLOOD PCO2 46.6 mmHg (35-63); VENOUS BLOOD PH 7.47 (7.30-7.42)
[2018-06-18 22:00] LABS: ABSOLUTE BASOPHILS # (AUTO) 0.1 10^3/uL (0.0-0.2); ABSOLUTE EOSINOPHILS # (AUTO) 0.3 10^3/uL (0.0-0.6); ABSOLUTE LYMPHOCYTES (AUTO) 1.2 10^3/uL (0.5-4.7); ABSOLUTE MONOCYTES (AUTO) 0.4 10^3/uL (0.1-1.4); ABSOLUTE NEUT (AUTO) 4.6 10^3/uL (1.7-8.2); EOSINOPHILS % (AUTO) 4.6 % (0-6); HEMATOCRIT 30.7 % (36.0-47.0); HEMOGLOBIN 10.5 g/dL (12.0-15.5); LYMPHOCYTES % (AUTO) 18.7 % (13-45); MEAN CORPUSCULAR HEMOGLOBIN 30.1 pg (27.0-33.4); MEAN CORPUSCULAR HGB CONC 34.1 g/dL (32.0-36.0); MEAN CORPUSCULAR VOLUME 88 fl (80-97); MONOCYTES % (AUTO) 6.3 % (3-13); PLATELET COUNT 198 10^3/uL (150-450); RED BLOOD COUNT 3.48 10^6/uL (3.72-5.28); RED CELL DISTRIBUTION WIDTH 16.9 % (11.5-14.0); SEGMENTED NEUTROPHILS % (AUTO) 69.4 % (42-78); TOTAL CELLS COUNTED % (AUTO) 100 %; WHITE BLOOD COUNT 6.6 10^3/uL (4.0-10.5)
[2018-06-18 22:04] LABS: INTERNATIONAL RATION (INR) 0.99; PROTHROMBIN TIME 13.6 SEC (11.4-15.4)
[2018-06-18 22:12] LABS: ALANINE AMINOTRANSFERASE 11 U/L (9-52); ALBUMIN 4.2 g/dL (3.5-5.0); ALKALINE PHOSPHATASE 165 U/L (38-126); ANION GAP 13 (5-19); ASPARTATE AMINO TRANSFERASE 23 U/L (14-36); BILIRUBIN,DIRECT 0.4 mg/dL (0.0-0.4); BILIRUBIN,TOTAL 0.6 mg/dL (0.2-1.3); BLOOD UREA NITROGEN 37 mg/dL (7-20); CALCIUM 9.1 mg/dL (8.4-10.2); CARBON DIOXIDE 30 mmol/L (22-30); CHLORIDE 99 mmol/L (98-107); GLUCOSE 92 mg/dL (75-110); POTASSIUM 4.4 mmol/L (3.6-5.0); SODIUM 142.4 mmol/L (137-145); TOTAL PROTEIN 7.6 g/dL (6.3-8.2)
[2018-06-18 22:13] LABS: APPEARANCE,URINE CLOUDY; BILIRUBIN,URINE NEGATIVE (NEGATIVE); COLOR,URINE YELLOW; GLUCOSE, URINE NEGATIVE (NEGATIVE); KETONES,URINE NEGATIVE (NEGATIVE); LEUKOCYTE ESTERASE,URINE TRACE (NEGATIVE); NITRITE,URINE NEGATIVE (NEGATIVE); PROTEIN,URINE 100 mg/dL (NEGATIVE); UROBILINOGEN,URINE NEGATIVE mg/dL (<2.0)
--- NOTE | 2018-06-18 22:23 | RADIOLOGY REPORT (SQ) ---
EXAM DESCRIPTION: CHEST SINGLE VIEW COMPLETED DATE/TIME: 06/18/2018 9:57 pm REASON FOR STUDY: SOB COMPARISON: 05/22/2018 EXAM PARAMETERS: NUMBER OF VIEWS: One view. TECHNIQUE: Single frontal radiographic view of the chest acquired. RADIATION DOSE: NA LIMITATIONS: None. FINDINGS: LUNGS AND PLEURA: Patchy airspace opacities are present throughout both lung bases. Small pleural effusions. No pneumothorax. MEDIASTINUM AND HILAR STRUCTURES: Stable. HEART AND VASCULAR STRUCTURES: Stable. BONES: No acute findings. HARDWARE: None in the chest. OTHER: No other significant finding. IMPRESSION: Patchy airspace opacities are present throughout both lung bases. Small pleural effusio ns. TECHNICAL DOCUMENTATION: JOB ID: [id number] [id number] 2010 [employer]- All Rights Reserved Reading location - IP/workstation name: [employer]
[2018-06-18] MEDS ORDERED: CEFEPIME 2 GM/D5W RTU 2 GM/50 ML RTUPB IV ONE (22:39)
[2018-06-18] MEDS ORDERED: LEVOFLOXACIN 750 MG/D5W RTU 750 MG/150 ML RTUPB IV ONE (23:19)
[2018-06-18] MEDS ORDERED: VANCOMYCIN HCL INJ 1000 MG VIAL IV ONE (23:19)
--- NOTE | 2018-06-18 23:50 | EKG REPORT ---
SEVERITY:- ABNORMAL ECG - SINUS RHYTHM ABNORMAL T, CONSIDER ISCHEMIA, LATERAL LEADS LVH : Confirmed by: Dee Dee Howe 18-Jun-2018 23:49:40
[2018-06-18] MEDS ORDERED: IPRATROPIUM BROMIDE 0.02% NEB 0.5 MG/2.5 ML AMPUL NEB PRN (23:53)
[2018-06-19] MEDS ORDERED: AZTREONAM INJ 1 GM VIAL INJ PRN (00:08)
[2018-06-19] MEDS: LEVALBUTEROL HCL NEB 1.25 MG/3 ML AMPUL NEB SCH ×8 (01:51→23:50)
[2018-06-19] MEDS: HEPARIN SOD (PORCINE) 5,000 UNIT/ML 1 ML SYRINGE SUBCUT SCH ×3 (06:27→21:37)
[2018-06-19] MEDS: AZITHROMYCIN 500 MG in DEXTROSE 5%-WATER 250 ML IV SCH (10:00)
[2018-06-19] MEDS ORDERED: AZTREONAM 1.5 GM in DEXTROSE 5%-WATER 100 ML IV SCH ×3 (10:00)
--- NOTE | 2018-06-19 11:32 | PDOC CONSULTATION ---
Consultation Consult Date: 06/19/18 Consult reason:: Emergent hemodialysis. History of Present Illness Admission Date/PCP: 06/18/18 23:47 KEVIN REED MD History of Present Illness: CAPO HDEZ is a 62 year old female with a history of ESRD in the background of chronic hypertension and who also has other comorbidities including a recent admission for congestive heart failure in the setting of moderately severe mitral valve disease, moderately severe pulmonary hypertension , morbid obesity, sleep apnea was admitted with history of progressive shortness of breath. She also admitted to the fact that she was having intermittent dry cough. No complaints of any fever or chills.Evaluations revealed that she is in congestive heart failure. Her last dialysis was Tuesday where she had appropriate fluid removal. She says she is watching her diet. No history of being on any NSAIDs. Currently she is on dialysis when she is being seen. She is undergoing dialysis without any issues. Past Medical History Cardiac Medical History: Reports: Hyperlipidemia, Hypertension-primary Denies: Coronary Artery Disease, Myocardial Infarction Pulmonary Medical History: Reports: Asthma, Bronchitis, Chronic Obstructive Pulmonary Disease (COPD) - ASTHMA Denies: Pneumonia Neurological Medical History: Denies: Seizures Renal/ Medical History: Reports: End Stage Renal Disease, Secondary Hyperparathyroidism GI Medical History: Reports: Gastroesophageal Reflux Disease, Hiatal Hernia Musculoskeltal Medical History: Reports: Arthritis - GOUT Psychiatric Medical History: Denies: Depression Hematology Medical History: Reports Anemia of Chronic Kidney Disease Past Surgical History Past Surgical History: Reports: Cardiac Catheterization - 2011, Section, Cholecystectomy Denies: Hysterectomy, Pacemaker Social History Lives with: Family Smoking Status: Former Smoker Frequency of Alcohol Use: None Hx Recreational Drug Use: No Drugs: None Hx Prescription Drug Abuse: No Family History Parental Family History Reviewed: Yes - Negative for ESRD Children Family History Reviewed: No Sibling(s) Family History Reviewed.: No Medication/Allergy Home Medications: Albuterol Sulfate [Albuterol Sulfate 2.5mg/3 mL] 1 vial IH RTQ6HP PRN 06/19/18 Albuterol Sulfate [Proair HFA] 2 puff IH Q6HP PRN 06/19/18 Budesonide/Formoterol Fumarate [Symbicort Hfa 160-4.5 Mcg Inhaler 6 gm] 2 puff IH Q12 06/19/18 Calcium Carbonate [Tums Chewable 500 mg Tab.chew] 1,000 mg PO DAILYP PRN Cinacalcet HCl [Sensipar] 60 mg PO QHS 06/19/18 Clonidine HCl [Catapres 0.3 mg Tablet] 0.15 mg PO .DIALYSIS 06/19/18 Clonidine HCl [Catapres 0.3 mg Tablet] 0.3 mg PO Q8 06/19/18 Colchicine [Colcrys 0.6 mg Tablet] 0.6 mg PO DAILY 06/19/18 Diclofenac Sodium [Voltaren] 1 applic TP DAILY 06/19/18 Esomeprazole Magnesium [Nexium] 40 mg PO Q6AM 06/19/18 Folic Acid/Vitamin B Comp W-C [Nephrocaps Multiple Vitamin Capsule] 1 cap PO DAILY 06/19/18 Lactulose [Cephulac 20 gm/30 ml Syrup UD Cup] 20 gm PO DAILYP PRN 06/19/18 Linaclotide [Linzess 145 Mcg Capsule] 145 mcg PO DAILYP PRN 06/19/18 Metoprolol Succinate [Toprol XL 200 mg Tablet] 200 mg PO DAILY 06/19/18 Montelukast Sodium [Singulair 10 mg Tablet] 10 mg PO QHS 06/19/18 Nifedipine [Nifedipine ER] 90 mg PO Q12 06/19/18 Promethazine HCl [Phenergan 25 mg Tablet] 12.5 mg PO Q6HP PRN 06/19/18 Sevelamer Carbonate [Renvela] 1,600 mg PO .SNACKS 06/19/18 Sevelamer Carbonate [Renvela] 2,400 mg PO MEALS 06/19/18 Tramadol HCl [Ultram 50 mg Tablet] 50 mg PO Q6HP PRN 06/19/18 Allergies/Adverse Reactions: codeine [Codeine] Allergy (Severe, Verified 05/11/18 00:23) Lips & tongue swell hydrocodone bitartrate [From Vicodin] Allergy (Severe, Verified 05/11/18 00:23) Throat & tongue swell, severe itch Iodinated Contrast- Oral and IV Dye [IV Dye, Iodine Containing] Allergy (Severe , Verified 05/11/18 00:23) Anaphylaxis lanthanum carbonate [From FOSRENOL] Allergy (Severe, Verified 05/11/18 00:23) losartan potassium [From Cozaar] Allergy (Severe, Verified 05/11/18 00:23) Swelling of Throat oxycodone HCl [From OxyContin] Allergy (Severe, Verified 05/11/18 00:23) Throat & tongue swell, severe itch propoxyphene napsylate [From Darvocet-N 100] Allergy (Severe, Verified 05/11/18 00:23) Mouth swells, itch ramipril [From Altace] Allergy (Severe, Verified 05/11/18 00:23) Lips, tongue & throat swell Penicillins Allergy (Intermediate, Verified 05/11/18 00:23) Generalized Itching acetaminophen [From Percocet] Allergy (Verified 05/11/18 00:23) ITCHING angiotensin II acetate, human Allergy (Verified 05/11/18:23) SEVERE STOMACH PAIN hydralazine Allergy (Verified 05/11/18 00:23) Swollen tongue oxycodone [From Percocet] Allergy (Verified 05/11/18 00:23) ITCHING adhesive tape [Adhesive Tape] Adverse Reaction (Intermediate, Verified 05/11/18 00:23) ITCHING, PULLS SKIN OFF aspirin [Aspirin] Adverse Reaction (Intermediate, Verified 05/11/18 00:23) Tegaderm Allergy (Intermediate, Uncoded 04/05/18 09:04) Pulls skin off, itching Review of Systems Constitutional: PRESENT: headache(s). ABSENT: fever(s), night sweats, weakness Eyes: ABSENT: visual disturbances Nose, Mouth, and Throat: ABSENT: mouth pain, sore throat Cardiovascular: PRESENT: dyspnea on exertion, orthropnea, palpitations. ABSENT : edema Respiratory: PRESENT: cough, dyspnea. ABSENT: hemoptysis, sputum Gastrointestinal: ABSENT: abdominal pain, diarrhea, dysphagia, heartburn, hematemesis, hematochezia, nausea, vomiting Neurological: ABSENT: confusion, dizziness, focal weakness, frequent falls Hematologic/Lymphatic: ABSENT: easy bleeding, easy bruising, lymphadenopathy Physical Exam Vital Signs: Temp Pulse Resp BP Pulse Ox 98.0 F 78 21 H 140/63 H 98 06/19/18 03:01 06/19/18 08:09 06/19/18 08:09 06/19/18 06:01 06/19/18 08:09 Intake & Output 06/18/18 06/19/18 06/20/18 06:59 06:59 06:59 Intake Total 250 Balance 250 Weight 100 kg General appearance: PRESENT: mild distress, obese Eye exam: PRESENT: conjunctiva pink, EOMI, PERRLA Ear exam: PRESENT: normal external ear exam Mouth exam: PRESENT: moist, neck supple Neck exam: ABSENT: lymphadenopathy, meningismus, tenderness, thyromegaly, tracheal deviation Respiratory exam: PRESENT: clear to auscultation alcira, crackles. ABSENT: rhonchi Cardiovascular exam: PRESENT: +S1, +S2, systolic murmur GI/Abdominal exam: PRESENT: normal bowel sounds, soft. ABSENT: organomegaly, tenderness Extremities exam: PRESENT: pedal edema Neurological exam: PRESENT: alert, awake, oriented to person, oriented to place , oriented to time Skin exam: ABSENT: cyanosis, erythema, mottled, rash Results Laboratory Results: 06/19/18 06/19/18 02:35 02:35 Creatine Kinase 54 Troponin I 0.068 Impressions: Chest X-Ray 06/18/18 00:00 IMPRESSION: Patchy airspace opacities are present throughout both lung bases. Small pleural effusions. Assessment & Plan - Diagnosis (1) Acute diastolic heart failure Plan: Clinically and radiologically she is in congestive heart failure. She should improve with dialysis. Discuss orders with the treating dialysis nurse. Currently she is undergoing dialysis without any issues. Plan to remove approximately 4 L of fluid as tolerated. We will readjust her dry weight on outpatient dialysis. Vital signs are currently stable. She is being supervised to ensure safe and smooth procedure. Orders were reviewed and discussed with the treating dialysis nurse Tereza. (2) Acute respiratory failure Qualifiers: Respiratory failure complication: unspecified whether with hypoxia or hypercapnia Qualified Code(s): J96.00 - Acute respiratory failure, unspecified whether with hypoxia or hypercapnia Plan: Presently better on 6 L of nasal cannula after being on BiPAP the ER. See her response to dialysis and fluid removal. She has a mitral valve disease which needs to be looked at and interrogated more carefully by cardiology/CT surgeon. (3) ESRD (end stage renal disease) Plan: Patient undergoing dialysis without any issues. Is being supervised to ensure safe and smooth procedure. Vital signs are stable. Plan to remove at least 4 L as tolerated. Orders were reviewed and discussed with the treating dialysis nurse. (4) HTN (hypertension) Qualifiers: Plan: Uncontrolled. See response to dialysis. Monitor. (5) Mitral valve regurgitation Qualifiers: Plan: Possibly a cause for her recurring decompensation. As per cardiology. (6) Sleep apnea syndrome Qualifiers: Plan: Advised compliance with the CPAP. She also has moderate pulmonary hypertension which adds to her compounding comorbidities. (7) Anemia in chronic kidney disease Plan: Presently stable. No indications for erythropoietin. Monitor.
[2018-06-19] MEDS: BUDESONIDE/FORMOTEROL 160-4.5 MCG 60 PUFF/6 GM MDI IH SCH ×3 (14:18→22:01)
[2018-06-19] MEDS: AZTREONAM 0.5 GM in DEXTROSE 5%-WATER 50 ML IV SCH ×2 (14:27→21:41)
[2018-06-19] MEDS ORDERED: LACTULOSE SYRUP 20 GM/30 ML UDCUP PO PRN (16:36)
[2018-06-19] MEDS ORDERED: (PENDING PHARMACY ID) (Linaclotide 145 MCG) PO PRN (16:36)
[2018-06-19] MEDS ORDERED: CALCIUM CARBONATE 500 MG TAB.CHEW PO PRN (16:36)
[2018-06-19] MEDS ORDERED: ALBUTEROL SULFATE 0.083% NEB 2.5 MG/3 ML AMPUL NEB PRN (16:36)
[2018-06-19] MEDS ORDERED: CLONIDINE HCL 0.15 MG PO SCH (16:45)
[2018-06-19] MEDS ORDERED: (PENDING PHARMACY ID) (Sevelamer Carbonate [Renvela] 1,600 MG) PO SCH (16:45)
[2018-06-19] MEDS ORDERED: CLONIDINE HCL 0.1 MG TABLET PO PRN (16:45)
[2018-06-19] MEDS ORDERED: (PENDING PHARMACY ID) (Sevelamer Carbonate [Renvela] 2,400 MG) PO SCH (17:00)
[2018-06-19] MEDS: TRAMADOL HCL 50 MG TABLET PO PRN (17:22)
[2018-06-19] MEDS ORDERED: ALBUTEROL SULFATE HFA (90 MCG/PUFF) 200 PUFF/8.5 GM MDI IH PRN (17:30)
[2018-06-19] MEDS ORDERED: SEVELAMER HCL 800 MG TABLET PO PRN (18:00)
[2018-06-19] MEDS: SEVELAMER HCL 800 MG TABLET PO SCH (18:40)
[2018-06-19] MEDS: PROMETHAZINE HCL 25 MG TABLET PO PRN (19:57)
[2018-06-19] MEDS: CLONIDINE HCL 0.1 MG TABLET PO SCH (21:34)
[2018-06-19] MEDS: MONTELUKAST SODIUM 10 MG TABLET PO SCH (21:35)
[2018-06-19] MEDS: NIFEDIPINE 30 MG TAB.ER.24 PO SCH (21:35)
--- NOTE | 2018-06-19 21:46 | PDOC H&P ---
History of Present Illness Admission Date/PCP: 06/18/18 23:47 KEVIN REED MD History of Present Illness: CAPO HDEZ is a 62 year old female, She has a history of severe persistent asthma, allergy, end-stage renal disease on hemodialysis, she came to the emergency room for evaluation of shortness of breath, a chest x-ray was done, it demonstrated air space opacities in both lung bases, it was felt by the ED physicians that patient have pneumonia. She has a history of severe mitral valve regurgitation, chronic diastolic heart failure, she is scheduled to see the CT surgeon at [facility] regarding the mitral valve incompetence, she may need a repair/replacement of the mitral valve. She was dialyzed this morning she was admitted last night, she was empirically started on IV antibiotic for pneumonia. Because she has a history of asthma on the floor that the chest x-ray showed infiltrate, allergy bronchopulmonary aspergillosis was suspected as a potential etiology of her symptoms, IgE and aspergillus antibody ordered but a symptom is more consistent with acute pulmonary edema secondary to mitral valve regurgitation in the setting of diastolic heart failure.The emergency room physician stated that when the patient arrived in the ER she was wheezing, she required bronchodilators and also noninvasive positive pressure ventilation with BiPAP to support breathing Past Medical History Cardiac Medical History: Reports: Hyperlipidema, Hypertension - ON MEDS Pulmonary Medical History: Reports: Asthma, Bronchitis Neurological Medical History: Denies: Seizures Endocrine Medical History: Reports: Hyperthyroidism Renal/ Medical History: Reports: End Stage Renal Disease GI Medical History: Reports: Gastroesophageal Reflux Disease, Hiatal Hernia Musculoskeltal Medical History: Reports: Arthritis - GOUT Hematology: Reports: Anemia - HX OF Past Surgical History Past Surgical History: Reports: Cardiac Catheterization - 2011, Section, Cholecystectomy Social History Lives with: Family Smoking Status: Former Smoker Number of Years Smokin Last Time Smoked: 2009 Frequency of Alcohol Use: None Hx Recreational Drug Use: No Drugs: None Hx Prescription Drug Abuse: No Family History Family History: Reviewed & Not Pertinent, Hypertension Parental Family History Reviewed: Yes Children Family History Reviewed: Yes Sibling(s) Family History Reviewed.: Yes Medication/Allergy Home Medications: Albuterol Sulfate [Albuterol Sulfate 2.5mg/3 mL] 1 vial IH [id number] PRN 06/19/18 Albuterol Sulfate [Proair HFA] 2 puff IH Q6HP PRN 06/19/18 Budesonide/Formoterol Fumarate [Symbicort Hfa 160-4.5 Mcg Inhaler 6 gm] 2 puff IH Q12 06/19/18 Calcium Carbonate [Tums Chewable 500 mg Tab.chew] 1,000 mg PO DAILYP PRN Cinacalcet HCl [Sensipar] 60 mg PO QHS 06/19/18 Clonidine HCl [Catapres 0.3 mg Tablet] 0.15 mg PO .DIALYSIS 06/19/18 Clonidine HCl [Catapres 0.3 mg Tablet] 0.3 mg PO Q8 06/19/18 Colchicine [Colcrys 0.6 mg Tablet] 0.6 mg PO DAILY 06/19/18 Diclofenac Sodium [Voltaren] 1 applic TP DAILY 06/19/18 Esomeprazole Magnesium [Nexium] 40 mg PO Q6AM 06/19/18 Folic Acid/Vitamin B Comp W-C [Nephrocaps Multiple Vitamin Capsule] 1 cap PO DAILY 06/19/18 Lactulose [Cephulac 20 gm/30 ml Syrup UD Cup] 20 gm PO DAILYP PRN 06/19/18 Linaclotide [Linzess 145 Mcg Capsule] 145 mcg PO DAILYP PRN 06/19/18 Metoprolol Succinate [Toprol XL 200 mg Tablet] 200 mg PO DAILY 06/19/18 Montelukast Sodium [Singulair 10 mg Tablet] 10 mg PO QHS 06/19/18 Nifedipine [Nifedipine ER] 90 mg PO Q12 06/19/18 Promethazine HCl [Phenergan 25 mg Tablet] 12.5 mg PO Q6HP PRN 06/19/18 Sevelamer Carbonate [Renvela] 1,600 mg PO .SNACKS 06/19/18 Sevelamer Carbonate [Renvela] 2,400 mg PO MEALS 06/19/18 Tramadol HCl [Ultram 50 mg Tablet] 50 mg PO Q6HP PRN 06/19/18 Allergies/Adverse Reactions: codeine [Codeine] Allergy (Severe, Verified 05/11/18 00:23) Lips & tongue swell hydrocodone bitartrate [From Vicodin] Allergy (Severe, Verified 05/11/18 00:23) Throat & tongue swell, severe itch Iodinated Contrast- Oral and IV Dye [IV Dye, Iodine Containing] Allergy (Severe , Verified 05/11/18 00:23) Anaphylaxis lanthanum carbonate [From FOSRENOL] Allergy (Severe, Verified 05/11/18:23) losartan potassium [From Cozaar] Allergy (Severe, Verified 05/11/18 00:23) Swelling of Throat oxycodone HCl [From OxyContin] Allergy (Severe, Verified 05/11/18:23) Throat & tongue swell, severe itch propoxyphene napsylate [From Darvocet-N 100] Allergy (Severe, Verified 05/11/18:23) Mouth swells, itch ramipril [From Altace] Allergy (Severe, Verified 05/11/18:23) Lips, tongue & throat swell Penicillins Allergy (Intermediate, Verified 05/11/18:23) Generalized Itching acetaminophen [From Percocet] Allergy (Verified 05/11/18:23) ITCHING angiotensin II acetate, human Allergy (Verified 05/11/18:23) SEVERE STOMACH PAIN hydralazine Allergy (Verified 05/11/18 00:23) Swollen tongue oxycodone [From Percocet] Allergy (Verified 05/11/18:23) ITCHING adhesive tape [Adhesive Tape] Adverse Reaction (Intermediate, Verified 05/11/18:23) ITCHING, PULLS SKIN OFF aspirin [Aspirin] Adverse Reaction (Intermediate, Verified 05/11/18 00:23) Tegaderm Allergy (Intermediate, Uncoded 04/05/18 09:04) Pulls skin off, itching Review of Systems Constitutional: ABSENT: chills, fever(s), headache(s), weight gain, weight loss Eyes: ABSENT: visual disturbances Ears: ABSENT: hearing changes Cardiovascular: ABSENT: chest pain, dyspnea on exertion, edema, orthropnea, palpitations Respiratory: ABSENT: cough, hemoptysis Gastrointestinal: ABSENT: abdominal pain, constipation, diarrhea, hematemesis, hematochezia, nausea, vomiting Genitourinary: ABSENT: dysuria, hematuria Musculoskeletal: ABSENT: joint swelling Integumentary: ABSENT: rash, wounds Neurological: ABSENT: abnormal gait, abnormal speech, confusion, dizziness, focal weakness, syncope Psychiatric: ABSENT: anxiety, depression, homidical ideation, suicidal ideation Endocrine: ABSENT: cold intolerance, heat intolerance, menstrual abnormalities, polydipsia, polyuria Hematologic/Lymphatic: ABSENT: easy bleeding, easy bruising, lymphadenopathy Physical Exam Vital Signs: Temp Pulse Resp BP Pulse Ox 98.9 F 80 22 H 142/78 H 100 06/19/18 15:39 06/19/18 19:33 06/19/18 19:33 06/19/18 15:39 06/19/18 19:33 Intake & Output 06/18/18 06/19/18 06/20/18 06:59 06:59 06:59 Intake Total 250 50 Output Total 3700 Balance 250 -3650 Weight 97.3 kg 97.3 kg General appearance: PRESENT: no acute distress, well-developed, well-nourished Head exam: PRESENT: atraumatic, normocephalic Eye exam: PRESENT: conjunctiva pink, EOMI, PERRLA Ear exam: PRESENT: normal external ear exam Mouth exam: PRESENT: moist, tongue midline Neck exam: PRESENT: full ROM Respiratory exam: PRESENT: clear to auscultation alcira Cardiovascular exam: PRESENT: RRR, +S1, +S2 Pulses: PRESENT: normal dorsalis pedis pul, +2 pedal pulses bilateral Vascular exam: PRESENT: normal capillary refill GI/Abdominal exam: PRESENT: normal bowel sounds, soft Rectal exam: PRESENT: deferred Neurological exam: PRESENT: alert, awake, oriented to person, oriented to place , oriented to time, oriented to situation, CN II-XII grossly intact Psychiatric exam: PRESENT: appropriate affect, normal mood Skin exam: PRESENT: dry, intact, warm Results Laboratory Results: 06/19/18 06/19/18 02:35 02:35 Creatine Kinase 54 Troponin I 0.068 Impressions: Chest X-Ray 06/18/18 00:00 IMPRESSION: Patchy airspace opacities are present throughout both lung bases. Small pleural effusions. Assessment & Plan - Diagnosis (1) Acute diastolic heart failure Is this a current diagnosis for this admission?: Yes Plan: She probably have acute diastolic heart failure (2) Severe persistent asthma with exacerbation Is this a current diagnosis for this admission?: Yes Plan: She has background history of severe persistent asthma, she was wheezing when she arrived in the ER, cannot completely rule out asthma, she was started on Symbicort (3) Allergic bronchopulmonary aspergillosis Is this a current diagnosis for this admission?: Yes Plan: This is a potential diagnosis in this patient with chronic asthma, serum IgE is ordered and also Aspergillus antibody (4) Mitral valve regurgitation Qualifiers: Cardiac valve disease etiology: nonrheumatic Qualified Code(s): I34.0 - Nonrheumatic mitral (valve) insufficiency Is this a current diagnosis for this admission?: Yes (5) End stage renal disease Is this a current diagnosis for this admission?: Yes (6) Pneumonia Qualifiers: Pneumonia type: due to unspecified organism Laterality: bilateral Lung location: unspecified part of lung Qualified Code(s): J18.9 - Pneumonia, unspecified organism Is this a current diagnosis for this admission?: Yes Plan: Cannot completely rule out pneumonia at this time we will continue antibiotic for now, Chest x-ray be repeated if it is normal, it would be unlikely to be pneumonia
[2018-06-19] MEDS ORDERED: (PENDING PHARMACY ID) (Clonidine Hcl [Catapres 0.3 Mg Tablet] 0.3 MG) PO SCH (22:00)
[2018-06-19] MEDS ORDERED: BUDESONIDE/FORMOTEROL 160-4.5 MCG 60 PUFF/6 GM MDI IH SCH (22:00)
[2018-06-19] MEDS: CINACALCET HCL 30 MG TABLET PO SCH (22:01)
--- NOTE | 2018-06-20 00:56 | RADIOLOGY REPORT (SQ) ---
EXAM DESCRIPTION: XR CHEST 2 VIEWS COMPLETED DATE/TME: 06/19/2018 00:00 CLINICAL HISTORY: pneumonia COMPARISON: 06/18/2018 FINDINGS: Frontal and lateral views of the chest. Atherosclerotic calcification tortuosity of the thoracic aorta. Heart is not enlarged. Linear bilateral airspace opacities with improved aeration of the lung bases bilaterally. No pneumothorax or large effusion. Leads overlie the chest. No acute osseous abnormalities. Upper abdominal soft tissues are unremarkable. IMPRESSION: 1. Linear bibasilar opacities may be related to atelectasis or developing pneumonia. Improved aeration of the lung bases from the comparison study.
[2018-06-20] MEDS: LEVALBUTEROL HCL NEB 1.25 MG/3 ML AMPUL NEB SCH ×6 (02:19→19:51)
[2018-06-20] MEDS: AZTREONAM 0.5 GM in DEXTROSE 5%-WATER 50 ML IV SCH ×2 (05:08→13:18)
[2018-06-20] MEDS: HEPARIN SOD (PORCINE) 5,000 UNIT/ML 1 ML SYRINGE SUBCUT SCH ×3 (05:09→21:35)
[2018-06-20] MEDS: CLONIDINE HCL 0.1 MG TABLET PO SCH ×3 (05:10→21:34)
[2018-06-20] MEDS: LANSOPRAZOLE 30 MG TAB.RAP.DR PO SCH (05:10)
[2018-06-20] MEDS ORDERED: (PENDING PHARMACY ID) (Diclofenac Sodium [Voltaren] 1 APPLIC) TP SCH (10:00)
[2018-06-20] MEDS: AZITHROMYCIN 500 MG in DEXTROSE 5%-WATER 250 ML IV SCH (10:01)
[2018-06-20] MEDS: COLCHICINE 0.6 MG TABLET PO SCH (10:02)
[2018-06-20] MEDS: METOPROLOL SUCCINATE 50 MG TAB.SR.24H PO SCH (10:02)
[2018-06-20] MEDS: NIFEDIPINE 30 MG TAB.ER.24 PO SCH ×2 (10:02→21:35)
[2018-06-20] MEDS: FOLIC ACID/VITAMIN B COMP W-C CAPSULE PO SCH (10:03)
[2018-06-20] MEDS: BUDESONIDE/FORMOTEROL 160-4.5 MCG 60 PUFF/6 GM MDI IH SCH ×2 (10:04→21:42)
[2018-06-20] MEDS: SEVELAMER HCL 800 MG TABLET PO SCH ×3 (10:05→17:45)
[2018-06-20] MEDS: TRAMADOL HCL 50 MG TABLET PO PRN ×2 (13:23→21:59)
--- NOTE | 2018-06-20 13:30 | RADIOLOGY REPORT (SQ) ---
EXAM DESCRIPTION: CHEST 2 VIEWS COMPLETED DATE/TIME: 06/20/2018 12:37 pm REASON FOR STUDY: pneumonia COMPARISON: 06/20/2018 EXAM PARAMETERS: NUMBER OF VIEWS: two views TECHNIQUE: Digital Frontal and Lateral radiographic views of the chest acquired. RADIATION DOSE: NA LIMITATIONS: none FINDINGS: LUNGS AND PLEURA: Few markings both mid lung zones probably representing chronic change or subsegmental atelectasis. Similar to that of 06/20/2018. MEDIASTINUM AND HILAR STRUCTURES: No masses or contour abnormalities. HEART AND VASCULAR STRUCTURES: Heart normal size. No evidence for failure. BONES: No acute findings. HARDWARE: None in the chest. OTHER: No other significant finding. IMPRESSION: No interval change since the recent earlier chest x-ray. Few markings both mid lung zon es probably representing subsegmental atelectasis or scarring. TECHNICAL DOCUMENTATION: JOB ID: [id number] [email or web address]- All Rights Reserved Reading location - IP/workstation name: [email or web address]
--- NOTE | 2018-06-20 13:40 | PDOC PROGRESS REPORT ---
Subjective Progress Note for:: 06/20/18 Subjective:: patient was sitting up in her chair comfortably. She at the time was on oxygen at 2L via [place]. She denied SOB and said that she was feeling much better. Denies fevers, chills, chest pain, n/v/d/c. Reason For Visit: PNEUMONIA,H/O ASTHMA,INFILTRATES ON CXR ? Physical Exam Vital Signs: Temp Pulse Resp BP Pulse Ox 98.0 F 80 16 129/79 H 98 06/20/18 11:59 06/20/18 11:59 06/20/18 11:59 06/20/18 11:59 06/20/18 11:59 Intake & Output 06/19/18 06/20/18 06/21/18 06:59 06:59 06:59 Intake Total 250 175 250 Output Total 3700 Balance 250 -3525 250 Weight 97.3 kg 98.7 kg General appearance: PRESENT: no acute distress, well-developed, well-nourished Neck exam: ABSENT: JVD, tracheal deviation Respiratory exam: PRESENT: clear to auscultation alcira. ABSENT: accessory muscle use, crackles, decreased breath sounds, rales, rhonchi, wheezes Cardiovascular exam: PRESENT: +S1, +S2, systolic murmur GI/Abdominal exam: PRESENT: normal bowel sounds, soft. ABSENT: organomegaly, tenderness Extremities exam: PRESENT: pedal edema - -trace+. ABSENT: +1 edema, +2 edema Musculoskeletal exam: PRESENT: normal inspection. ABSENT: tenderness Neurological exam: PRESENT: alert, awake, oriented to person, oriented to place , oriented to time, oriented to situation Psychiatric exam: PRESENT: appropriate affect, normal mood Skin exam: PRESENT: dry, erythema, warm. ABSENT: cyanosis Results Laboratory Results: 06/19/18 06/19/18 02:35 02:35 Creatine Kinase 54 Troponin I 0.068 Assessment & Plan - Diagnosis (1) Acute diastolic heart failure Is this a current diagnosis for this admission?: Yes Plan: Improving, will remove more fluid tomorrow with dialysis. (2) Acute respiratory failure Qualifiers: Respiratory failure complication: unspecified whether with hypoxia or hypercapnia Qualified Code(s): J96.00 - Acute respiratory failure, unspecified whether with hypoxia or hypercapnia Plan: Improving, will look to remove more fluid tomorrow. (3) End stage renal disease Is this a current diagnosis for this admission?: Yes Plan: Will look to set her up for dialysis tomorrow. Will also look to remove more fluid from her. (4) Anemia in chronic kidney disease Plan: will get a cbc before dialysis tomorrow. Will consider epogen for during dialysis. (5) Mitral valve regurgitation Qualifiers: Cardiac valve disease etiology: nonrheumatic Qualified Code(s): I34.0 - Nonrheumatic mitral (valve) insufficiency Is this a current diagnosis for this admission?: Yes (6) HTN (hypertension) Qualifiers: Plan: improving
[2018-06-20] MEDS ORDERED: LEVALBUTEROL HCL NEB 0.63 MG/3 ML AMPUL NEB PRN (15:05)
--- NOTE | 2018-06-20 21:15 | PDOC PROGRESS REPORT ---
Subjective Progress Note for:: 06/20/18 Subjective:: She was seen by the bedside, chest x-ray that was done today showed improvement , suggesting that this is probably not infection probably fluid or asthma, IV antibiotic be discontinued Reason For Visit: PNEUMONIA,H/O ASTHMA,INFILTRATES ON CXR ? Physical Exam Vital Signs: Temp Pulse Resp BP Pulse Ox 98.6 F 72 20 144/80 H 100 06/20/18 19:58 06/20/18 19:58 06/20/18 19:58 06/20/18 19:58 06/20/18 19:58 Intake & Output 06/19/18 06/20/18 06/21/18 06:59 06:59 06:59 Intake Total 635 227 8224 Output Total 3700 Balance 250 -3525 1188 Weight 97.3 kg 98.7 kg General appearance: PRESENT: no acute distress Eye exam: PRESENT: PERRLA Respiratory exam: PRESENT: rhonchi Cardiovascular exam: PRESENT: +S1, +S2 GI/Abdominal exam: PRESENT: soft Neurological exam: PRESENT: alert Results Laboratory Results: 06/19/18 06/19/18 02:35 02:35 Creatine Kinase 54 Troponin I 0.068 Impressions: Chest X-Ray 06/20/18 00:00 IMPRESSION: No interval change since the recent earlier chest x-ray. Few markings both mid lung zones probably representing subsegmental atelectasis or scarring. Assessment & Plan - Diagnosis (1) Acute diastolic heart failure Is this a current diagnosis for this admission?: Yes (2) Severe persistent asthma with exacerbation Is this a current diagnosis for this admission?: Yes (3) Allergic bronchopulmonary aspergillosis Is this a current diagnosis for this admission?: Yes (4) Mitral valve regurgitation Qualifiers: Cardiac valve disease etiology: nonrheumatic Qualified Code(s): I34.0 - Nonrheumatic mitral (valve) insufficiency Is this a current diagnosis for this admission?: Yes (5) End stage renal disease Is this a current diagnosis for this admission?: Yes
[2018-06-20] MEDS: MONTELUKAST SODIUM 10 MG TABLET PO SCH (21:34)
[2018-06-20] MEDS: CINACALCET HCL 30 MG TABLET PO SCH (21:34)
[2018-06-21] MEDS ORDERED: EPOETIN ALFA INJ 20000 UNIT/1 ML VIAL (RENAL) IV PRN (05:00)
[2018-06-21] MEDS: CLONIDINE HCL 0.1 MG TABLET PO SCH ×3 (05:10→21:18)
[2018-06-21] MEDS: HEPARIN SOD (PORCINE) 5,000 UNIT/ML 1 ML SYRINGE SUBCUT SCH ×3 (05:11→21:18)
[2018-06-21] MEDS: LANSOPRAZOLE 30 MG TAB.RAP.DR PO SCH (05:11)
[2018-06-21 06:38] LABS: HEMATOCRIT 27.9 % (36.0-47.0); HEMOGLOBIN 9.7 g/dL (12.0-15.5); MEAN CORPUSCULAR HEMOGLOBIN 30.5 pg (27.0-33.4); MEAN CORPUSCULAR HGB CONC 34.8 g/dL (32.0-36.0); MEAN CORPUSCULAR VOLUME 88 fl (80-97); PLATELET COUNT 153 10^3/uL (150-450); RED BLOOD COUNT 3.18 10^6/uL (3.72-5.28); RED CELL DISTRIBUTION WIDTH 17.2 % (11.5-14.0); WHITE BLOOD COUNT 4.7 10^3/uL (4.0-10.5)
[2018-06-21 06:55] LABS: ANION GAP 14 (5-19); BLOOD UREA NITROGEN 38 mg/dL (7-20); CALCIUM 8.8 mg/dL (8.4-10.2); CARBON DIOXIDE 28 mmol/L (22-30); CHLORIDE 98 mmol/L (98-107); GLUCOSE 93 mg/dL (75-110); POTASSIUM 4.4 mmol/L (3.6-5.0); SODIUM 140.4 mmol/L (137-145)
[2018-06-21] MEDS ORDERED: EPOETIN ALFA 10,000 UNIT in SYRINGE, DISPOSABLE, 1 EACH IV PRN (07:27)
[2018-06-21] MEDS: LEVALBUTEROL HCL NEB 1.25 MG/3 ML AMPUL NEB SCH ×3 (07:48→19:35)
[2018-06-21] MEDS: SEVELAMER HCL 800 MG TABLET PO SCH ×3 (11:47→16:08)
[2018-06-21] MEDS: COLCHICINE 0.6 MG TABLET PO SCH (13:19)
[2018-06-21] MEDS: FOLIC ACID/VITAMIN B COMP W-C CAPSULE PO SCH (13:19)
[2018-06-21] MEDS: NIFEDIPINE 30 MG TAB.ER.24 PO SCH ×2 (13:20→21:18)
[2018-06-21] MEDS: METOPROLOL SUCCINATE 50 MG TAB.SR.24H PO SCH (13:20)
[2018-06-21] MEDS: BUDESONIDE/FORMOTEROL 160-4.5 MCG 60 PUFF/6 GM MDI IH SCH ×2 (13:21→21:17)
--- NOTE | 2018-06-21 15:00 | PDOC PROGRESS REPORT ---
Subjective Progress Note for:: 06/21/18 Reason For Visit: Patient seen today on dialysis. She is undergoing dialysis without any issues. Patient denies any history of chest pain or shortness of breath. Labs and medications were reviewed with the patient. Dialysis orders were reviewed with the dialysis nurse. Physical Exam Vital Signs: Temp Pulse Resp BP Pulse Ox 97.8 F 70 20 117/71 96 06/21/18 08:01 06/21/18 14:00 06/21/18 13:53 06/21/18 08:01 06/21/18 13:53 Intake & Output 06/20/18 06/21/18 06/22/18 06:59 06:59 06:59 Intake Total 175 1188 0.5 Output Total 3700 Balance -3525 1188 0.5 Weight 98.7 kg 100.2 kg General appearance: PRESENT: no acute distress Respiratory exam: PRESENT: clear to auscultation alcira. ABSENT: crackles Cardiovascular exam: PRESENT: +S1, +S2, systolic murmur GI/Abdominal exam: PRESENT: normal bowel sounds, soft. ABSENT: organomegaly, tenderness Extremities exam: ABSENT: pedal edema Neurological exam: PRESENT: alert, awake, oriented to person, oriented to place Results Laboratory Results: 06/21/18 05:28 06/21/18 05:28 06/21/18 06/21/18 05:28 05:28 WBC 4.7 RBC 3.18 L Hgb 9.7 L Hct 27.9 L MCV 88 MCH 30.5 MCHC 34.8 RDW 17.2 H Plt Count 153 Sodium 140.4 Potassium 4.4 Chloride 98 Carbon Dioxide 28 Anion Gap 14 BUN 38 H Creatinine 9.50 H Est GFR ( Amer) 5 L Est GFR (Non-Af Amer) 4 L Glucose 93 Calcium 8.8 06/19/18 06/19/18 02:35 02:35 Creatine Kinase 54 Troponin I 0.068 Impressions: Chest X-Ray 06/20/18 00:00 IMPRESSION: No interval change since the recent earlier chest x-ray. Few markings both mid lung zones probably representing subsegmental atelectasis or scarring. Assessment & Plan - Diagnosis (1) Acute diastolic heart failure Is this a current diagnosis for this admission?: Yes (2) Acute respiratory failure Qualifiers: Respiratory failure complication: unspecified whether with hypoxia or hypercapnia Qualified Code(s): J96.00 - Acute respiratory failure, unspecified whether with hypoxia or hypercapnia Plan: Currently resolved. (3) ESRD (end stage renal disease) Plan: Patient undergoing dialysis without any issues. Vital signs are stable. Is being supervised to ensure safe and smooth procedure. Plan to ultrafiltrate approximately 4 L as tolerated. Orders were reviewed with the treating dialysis nurse. (4) HTN (hypertension) Qualifiers: Plan: Controlled. Monitor. (5) Mitral valve regurgitation Qualifiers: Plan: This might need to be interrogated by video game script writer see if this is a cause for recurrent congestive heart failure. (6) Sleep apnea syndrome Qualifiers: Plan: Advised compliance with CPAP. (7) Anemia in chronic kidney disease Plan: Stable. Monitor.
--- NOTE | 2018-06-21 19:51 | PDOC PROGRESS REPORT ---
Subjective Progress Note for:: 06/21/18 Subjective:: She was dialyzed today about 4 L of fluid was removed Reason For Visit: PNEUMONIA,H/O ASTHMA,INFILTRATES ON CXR ? Physical Exam Vital Signs: Temp Pulse Resp BP Pulse Ox 99.3 F 78 16 143/70 H 98 06/21/18 19:11 06/21/18 19:11 06/21/18 19:11 06/21/18 19:11 06/21/18 19:11 Intake & Output 06/20/18 06/21/18 06/22/18 06:59 06:59 06:59 Intake Total 175 1188 337.5 Output Total 3700 4000 Balance -3525 1188 -3662.5 Weight 98.7 kg 100.2 kg General appearance: PRESENT: no acute distress, well-developed, well-nourished Head exam: PRESENT: atraumatic, normocephalic Eye exam: PRESENT: conjunctiva pink, EOMI, PERRLA Ear exam: PRESENT: normal external ear exam Mouth exam: PRESENT: moist, tongue midline Neck exam: PRESENT: full ROM Respiratory exam: PRESENT: clear to auscultation alcira Cardiovascular exam: PRESENT: RRR, +S1, +S2, systolic murmur Pulses: PRESENT: normal dorsalis pedis pul, +2 pedal pulses bilateral Vascular exam: PRESENT: normal capillary refill GI/Abdominal exam: PRESENT: normal bowel sounds, soft Rectal exam: PRESENT: deferred Neurological exam: PRESENT: alert Psychiatric exam: PRESENT: appropriate affect, normal mood Skin exam: PRESENT: dry, intact, warm. ABSENT: cyanosis, rash Results Laboratory Results: 06/21/18 05:28 06/21/18 05:28 06/21/18 06/21/18 05:28 05:28 WBC 4.7 RBC 3.18 L Hgb 9.7 L Hct 27.9 L MCV 88 MCH 30.5 MCHC 34.8 RDW 17.2 H Plt Count 153 Sodium 140.4 Potassium 4.4 Chloride 98 Carbon Dioxide 28 Anion Gap 14 BUN 38 H Creatinine 9.50 H Est GFR ( Amer) 5 L Est GFR (Non-Af Amer) 4 L Glucose 93 Calcium 8.8 06/19/18 06/19/18 02:35 02:35 Creatine Kinase 54 Troponin I 0.068 Impressions: Chest X-Ray 06/20/18 00:00 IMPRESSION: No interval change since the recent earlier chest x-ray. Few markings both mid lung zones probably representing subsegmental atelectasis or scarring. Assessment & Plan - Diagnosis (1) Acute diastolic heart failure Is this a current diagnosis for this admission?: Yes (2) Severe persistent asthma with exacerbation Is this a current diagnosis for this admission?: Yes (3) Allergic bronchopulmonary aspergillosis Is this a current diagnosis for this admission?: Yes (4) Mitral valve regurgitation Qualifiers: Cardiac valve disease etiology: nonrheumatic Qualified Code(s): I34.0 - Nonrheumatic mitral (valve) insufficiency Is this a current diagnosis for this admission?: Yes (5) End stage renal disease Is this a current diagnosis for this admission?: Yes
[2018-06-21] MEDS: CINACALCET HCL 30 MG TABLET PO SCH (21:17)
[2018-06-21] MEDS: MONTELUKAST SODIUM 10 MG TABLET PO SCH (21:17)
[2018-06-21] MEDS: TRAMADOL HCL 50 MG TABLET PO PRN (21:20)
[2018-06-22 05:01] LABS: HEMATOCRIT 28.7 % (36.0-47.0); HEMOGLOBIN 9.9 g/dL (12.0-15.5); MEAN CORPUSCULAR HEMOGLOBIN 30.1 pg (27.0-33.4); MEAN CORPUSCULAR HGB CONC 34.3 g/dL (32.0-36.0); MEAN CORPUSCULAR VOLUME 88 fl (80-97); PLATELET COUNT 157 10^3/uL (150-450); RED BLOOD COUNT 3.27 10^6/uL (3.72-5.28); RED CELL DISTRIBUTION WIDTH 16.9 % (11.5-14.0); WHITE BLOOD COUNT 4.5 10^3/uL (4.0-10.5)
[2018-06-22] MEDS: CLONIDINE HCL 0.1 MG TABLET PO SCH ×3 (05:04→22:32)
[2018-06-22] MEDS: LANSOPRAZOLE 30 MG TAB.RAP.DR PO SCH (05:04)
[2018-06-22] MEDS: HEPARIN SOD (PORCINE) 5,000 UNIT/ML 1 ML SYRINGE SUBCUT SCH ×3 (05:04→22:33)
[2018-06-22 05:23] LABS: ANION GAP 14 (5-19); BLOOD UREA NITROGEN 24 mg/dL (7-20); CALCIUM 8.9 mg/dL (8.4-10.2); CARBON DIOXIDE 28 mmol/L (22-30); CHLORIDE 99 mmol/L (98-107); GLUCOSE 92 mg/dL (75-110); POTASSIUM 4.3 mmol/L (3.6-5.0)
[2018-06-22] MEDS: SEVELAMER HCL 800 MG TABLET PO SCH ×3 (07:14→16:30)
[2018-06-22] MEDS: LEVALBUTEROL HCL NEB 1.25 MG/3 ML AMPUL NEB SCH ×3 (07:53→19:37)
[2018-06-22] MEDS: FOLIC ACID/VITAMIN B COMP W-C CAPSULE PO SCH (09:04)
[2018-06-22] MEDS: BUDESONIDE/FORMOTEROL 160-4.5 MCG 60 PUFF/6 GM MDI IH SCH ×2 (09:04→22:34)
[2018-06-22] MEDS: COLCHICINE 0.6 MG TABLET PO SCH (09:04)
[2018-06-22] MEDS: METOPROLOL SUCCINATE 50 MG TAB.SR.24H PO SCH (09:06)
[2018-06-22] MEDS: NIFEDIPINE 30 MG TAB.ER.24 PO SCH ×2 (09:06→22:32)
--- NOTE | 2018-06-22 10:02 | PDOC PROGRESS REPORT ---
Subjective Progress Note for:: 06/22/18 Subjective:: Patient is sitting up in her bed doing well. She had 4 more liters of fluid removed yesterday on dialysis. She no longer is requiring constant oxygen therapy while laying in bed. She denies chest or SOB. Reason For Visit: PNEUMONIA,H/O ASTHMA,INFILTRATES ON CXR ? Physical Exam Vital Signs: Temp Pulse Resp BP Pulse Ox 98.4 F 64 18 103/53 L 92 06/22/18 07:44 06/22/18 07:54 06/22/18 07:54 06/22/18 07:44 06/22/18 07:54 Intake & Output 06/21/18 06/22/18 06/23/18 06:59 06:59 06:59 Intake Total 1188 837.5 Output Total 4000 Balance 1188 -3162.5 Weight 100.2 kg 98.3 kg General appearance: PRESENT: no acute distress, well-developed, well-nourished Mouth exam: PRESENT: moist, neck supple Neck exam: ABSENT: JVD Respiratory exam: PRESENT: clear to auscultation alcira. ABSENT: accessory muscle use, crackles, rales, rhonchi, stridor, wheezes Cardiovascular exam: PRESENT: +S1, +S2, systolic murmur GI/Abdominal exam: PRESENT: normal bowel sounds, soft. ABSENT: organomegaly, tenderness Extremities exam: ABSENT: pedal edema, tenderness, +1 edema, +2 edema Musculoskeletal exam: PRESENT: normal inspection. ABSENT: tenderness Neurological exam: PRESENT: alert, awake, oriented to person, oriented to place , oriented to time, oriented to situation Psychiatric exam: PRESENT: appropriate affect, normal mood Skin exam: PRESENT: dry, intact, warm. ABSENT: cyanosis Results Laboratory Results: 06/22/18 04:07 06/22/18 04:07 06/22/18 06/22/18 04:07 04:07 WBC 4.5 RBC 3.27 L Hgb 9.9 L Hct 28.7 L MCV 88 MCH 30.1 MCHC 34.3 RDW 16.9 H Plt Count 157 Sodium 141.0 Potassium 4.3 Chloride 99 Carbon Dioxide 28 Anion Gap 14 BUN 24 H Creatinine 5.98 H Est GFR ( Amer) 9 L Est GFR (Non-Af Amer) 7 L Glucose 92 Calcium 8.9 06/19/18 06/19/18 02:35 02:35 Creatine Kinase 54 Troponin I 0.068 Impressions: Chest X-Ray 06/20/18 00:00 IMPRESSION: No interval change since the recent earlier chest x-ray. Few markings both mid lung zones probably representing subsegmental atelectasis or scarring. Assessment & Plan - Diagnosis (1) Acute diastolic heart failure Is this a current diagnosis for this admission?: Yes Plan: resolved, currently at baseline (2) Acute respiratory failure Qualifiers: Respiratory failure complication: unspecified whether with hypoxia or hypercapnia Qualified Code(s): J96.00 - Acute respiratory failure, unspecified whether with hypoxia or hypercapnia Plan: resolved (3) End stage renal disease Is this a current diagnosis for this admission?: Yes Plan: If she is still here tomorrow I will look to set her up for dialysis. If she is discharged the she will continue dialysis on Tuesday. Discussed the proper amount of fluid to be drank between each dialysis treatment. (4) Anemia in chronic kidney disease Plan: giving epogen on dialysis (5) Mitral valve regurgitation Qualifiers: Cardiac valve disease etiology: nonrheumatic Qualified Code(s): I34.0 - Nonrheumatic mitral (valve) insufficiency Is this a current diagnosis for this admission?: Yes (6) HTN (hypertension) Qualifiers: Plan: stable
[2018-06-22 18:37] LABS: ASPERGILLUS FLAVUS Negative (Neg:<1:1); ASPERGILLUS FUMIGATUS Negative (Neg:<1:1)
--- NOTE | 2018-06-22 21:28 | PDOC PROGRESS REPORT ---
Subjective Progress Note for:: 06/22/18 Subjective:: Patient was seen by the bedside I suspected that she may have an allergic bronchopulmonary aspergillosis, the serum IgE is 2664 the aspergillus antibodies are pending, this was explained to patient she we need anti-IgE therapy with omalizumab, this is typically outpatient therapy, the asthma is not well controlled on glucocorticoid Reason For Visit: PNEUMONIA,H/O ASTHMA,INFILTRATES ON CXR ? Physical Exam Vital Signs: Temp Pulse Resp BP Pulse Ox 98.3 F 79 20 128/67 H 100 06/22/18 19:47 06/22/18 19:47 06/22/18 19:47 06/22/18 19:47 06/22/18 19:47 Intake & Output 06/21/18 06/22/18 06/23/18 06:59 06:59 06:59 Intake Total 1188 837.5 474 Output Total 4000 Balance 1188 -3162.5 474 Weight 100.2 kg 98.3 kg General appearance: PRESENT: no acute distress Head exam: PRESENT: atraumatic, normocephalic Eye exam: PRESENT: conjunctiva pink, EOMI, PERRLA Ear exam: PRESENT: normal external ear exam Mouth exam: PRESENT: moist, tongue midline Neck exam: PRESENT: full ROM Respiratory exam: PRESENT: wheezes Cardiovascular exam: PRESENT: RRR, +S1, +S2 Pulses: PRESENT: normal dorsalis pedis pul, +2 pedal pulses bilateral Vascular exam: PRESENT: normal capillary refill GI/Abdominal exam: PRESENT: normal bowel sounds, soft Rectal exam: PRESENT: deferred Neurological exam: PRESENT: alert, awake, oriented to person, oriented to place , oriented to time, oriented to situation, CN II-XII grossly intact. ABSENT: motor sensory deficit Psychiatric exam: PRESENT: appropriate affect, normal mood Skin exam: PRESENT: dry, intact, warm Results Laboratory Results: 06/22/18 04:07 06/22/18 04:07 06/22/18 06/22/18 04:07 04:07 WBC 4.5 RBC 3.27 L Hgb 9.9 L Hct 28.7 L MCV 88 MCH 30.1 MCHC 34.3 RDW 16.9 H Plt Count 157 Sodium 141.0 Potassium 4.3 Chloride 99 Carbon Dioxide 28 Anion Gap 14 BUN 24 H Creatinine 5.98 H Est GFR ( Amer) 9 L Est GFR (Non-Af Amer) 7 L Glucose 92 Calcium 8.9 06/19/18 06/19/18 02:35 02:35 Creatine Kinase 54 Troponin I 0.068 Impressions: Chest X-Ray 06/20/18 00:00 IMPRESSION: No interval change since the recent earlier chest x-ray. Few markings both mid lung zones probably representing subsegmental atelectasis or scarring. Assessment & Plan - Diagnosis (1) Acute diastolic heart failure Is this a current diagnosis for this admission?: Yes (2) Severe persistent asthma with exacerbation Is this a current diagnosis for this admission?: Yes (3) Allergic bronchopulmonary aspergillosis Is this a current diagnosis for this admission?: Yes Plan: The serum IgE is 2664, this suggests IgE mediated asthma more importantly she may have allergic bronchopulmonary aspergillosis, the Aspergillus serologies pending, she may benefit from anti-IgE therapy with omalizumab (4) Mitral valve regurgitation Qualifiers: Cardiac valve disease etiology: nonrheumatic Qualified Code(s): I34.0 - Nonrheumatic mitral (valve) insufficiency Is this a current diagnosis for this admission?: Yes (5) End stage renal disease Is this a current diagnosis for this admission?: Yes
[2018-06-22] MEDS: TRAMADOL HCL 50 MG TABLET PO PRN (22:32)
[2018-06-22] MEDS: MONTELUKAST SODIUM 10 MG TABLET PO SCH (22:32)
[2018-06-22] MEDS: CINACALCET HCL 30 MG TABLET PO SCH (22:32)
[2018-06-23] MEDS ORDERED: EPOETIN ALFA INJ 20000 UNIT/1 ML VIAL (RENAL) IV PRN (05:00)
[2018-06-23 05:06] LABS: HEMATOCRIT 28.4 % (36.0-47.0); HEMOGLOBIN 9.8 g/dL (12.0-15.5); MEAN CORPUSCULAR HEMOGLOBIN 30.3 pg (27.0-33.4); MEAN CORPUSCULAR HGB CONC 34.4 g/dL (32.0-36.0); MEAN CORPUSCULAR VOLUME 88 fl (80-97); PLATELET COUNT 158 10^3/uL (150-450); RED BLOOD COUNT 3.23 10^6/uL (3.72-5.28); RED CELL DISTRIBUTION WIDTH 16.8 % (11.5-14.0); WHITE BLOOD COUNT 4.4 10^3/uL (4.0-10.5)
[2018-06-23] MEDS: CLONIDINE HCL 0.1 MG TABLET PO SCH ×2 (05:11→13:10)
[2018-06-23 05:23] LABS: ANION GAP 16 (5-19); BLOOD UREA NITROGEN 42 mg/dL (7-20); CALCIUM 9.1 mg/dL (8.4-10.2); CARBON DIOXIDE 26 mmol/L (22-30); CHLORIDE 98 mmol/L (98-107); GLUCOSE 92 mg/dL (75-110); POTASSIUM 4.4 mmol/L (3.6-5.0)
[2018-06-23] MEDS: HEPARIN SOD (PORCINE) 5,000 UNIT/ML 1 ML SYRINGE SUBCUT SCH ×2 (05:30→13:08)
[2018-06-23] MEDS: LANSOPRAZOLE 30 MG TAB.RAP.DR PO SCH (05:30)
[2018-06-23] MEDS: TRAMADOL HCL 50 MG TABLET PO PRN (05:30)
[2018-06-23] MEDS ORDERED: EPOETIN ALFA 10,000 UNIT in SYRINGE, DISPOSABLE, 1 EACH SUBCUT PRN (07:26)
[2018-06-23] MEDS: LEVALBUTEROL HCL NEB 1.25 MG/3 ML AMPUL NEB SCH ×2 (08:00→13:56)
[2018-06-23] MEDS: PROMETHAZINE HCL 25 MG TABLET PO PRN (08:04)
[2018-06-23] MEDS: SEVELAMER HCL 800 MG TABLET PO SCH ×3 (08:16→17:06)
[2018-06-23] MEDS: FOLIC ACID/VITAMIN B COMP W-C CAPSULE PO SCH (13:09)
[2018-06-23] MEDS: COLCHICINE 0.6 MG TABLET PO SCH (13:09)
[2018-06-23] MEDS: NIFEDIPINE 30 MG TAB.ER.24 PO SCH (13:10)
[2018-06-23] MEDS: METOPROLOL SUCCINATE 50 MG TAB.SR.24H PO SCH (13:10)
[2018-06-23] MEDS: BUDESONIDE/FORMOTEROL 160-4.5 MCG 60 PUFF/6 GM MDI IH SCH (13:10)
[2018-06-23 14:50] LABS: ASPERGILLUS NIGER Negative (Neg:<1:1)
--- NOTE | 2018-06-23 16:43 | PDOC PROGRESS REPORT ---
Subjective Progress Note for:: 06/23/18 Reason For Visit: Patient seen on dialysis today. She is undergoing dialysis without any issues. She denies any history of chest pains or shortness of breath. Vital signs are stable. Labs and medications were reviewed with the patient.Looks like she might have ABPA as per investigations done by Dr. Bell. Physical Exam Vital Signs: Temp Pulse Resp BP Pulse Ox 98.3 F 70 12 114/60 95 06/23/18 12:00 06/23/18 14:00 06/23/18 13:55 06/23/18 13:09 06/23/18 13:55 Intake & Output 06/22/18 06/23/18 06/24/18 06:59 06:59 06:59 Intake Total 837.5 874 Output Total 4000 1 3200 Balance -3162.5 873 -3200 Weight 98.3 kg 98.4 kg General appearance: PRESENT: no acute distress Respiratory exam: PRESENT: clear to auscultation alcira. ABSENT: crackles Cardiovascular exam: PRESENT: +S1, +S2, systolic murmur GI/Abdominal exam: PRESENT: normal bowel sounds, soft. ABSENT: organomegaly, tenderness Neurological exam: PRESENT: alert, awake, oriented to person Results Laboratory Results: 06/23/18 04:10 06/23/18 04:10 06/23/18 06/23/18 04:10 04:10 WBC 4.4 RBC 3.23 L Hgb 9.8 L Hct 28.4 L MCV 88 MCH 30.3 MCHC 34.4 RDW 16.8 H Plt Count 158 Sodium 140.0 Potassium 4.4 Chloride 98 Carbon Dioxide 26 Anion Gap 16 BUN 42 H Creatinine 8.39 H Est GFR ( Amer) 6 L Est GFR (Non-Af Amer) 5 L Glucose 92 Calcium 9.1 06/19/18 06/19/18 02:35 02:35 Creatine Kinase 54 Troponin I 0.068 Impressions: Chest X-Ray 06/20/18 00:00 IMPRESSION: No interval change since the recent earlier chest x-ray. Few markings both mid lung zones probably representing subsegmental atelectasis or scarring. Assessment & Plan - Diagnosis (1) Acute diastolic heart failure Is this a current diagnosis for this admission?: Yes Plan: Currently resolved. (2) Acute respiratory failure Qualifiers: Respiratory failure complication: unspecified whether with hypoxia or hypercapnia Qualified Code(s): J96.00 - Acute respiratory failure, unspecified whether with hypoxia or hypercapnia Plan: Currently resolved.However further evaluations as per Dr. Bell previous possibility of ABPA. (3) ESRD (end stage renal disease) Plan: Patient undergoing dialysis without any issues. Vital signs are stable. Is being supervised to ensure safe and smooth procedure. Plan to ultrafiltrate approximately 2-3 L as tolerated. Orders were reviewed with the treating dialysis nurse. (4) HTN (hypertension) Qualifiers: Plan: Controlled. Monitor. (5) Mitral valve regurgitation Qualifiers: Plan: This might need to be interrogated by can conveyor feeder see if this is a cause for recurrent congestive heart failure. (6) Sleep apnea syndrome Qualifiers: Plan: Advised compliance with CPAP. (7) Anemia in chronic kidney disease Plan: Stable. Monitor.
--- NOTE | 2018-06-23 17:02 | PDOC DISCHARGE SUMMARY ---
General - Admit/Disc Date/PCP Admission Date/Primary Care Provider: 06/18/18 23:47 KEVIN REED MD Discharge Date: 06/23/18 - Discharge Diagnosis (1) Acute hypoxemic respiratory failure Is this a current diagnosis for this admission?: Yes (2) Acute diastolic heart failure Is this a current diagnosis for this admission?: Yes (3) Severe persistent asthma with exacerbation Is this a current diagnosis for this admission?: Yes (4) Allergic bronchopulmonary aspergillosis Is this a current diagnosis for this admission?: Yes (5) Mitral valve regurgitation Is this a current diagnosis for this admission?: Yes (6) End stage renal disease Is this a current diagnosis for this admission?: Yes - Additional Information Discharge Activity: Activity As Tolerated, Balance Activity w/Rest, Weigh Daily Home Medications: Albuterol Sulfate [Albuterol Sulfate 2.5mg/3 mL] 1 vial IH RTQ6HP PRN 06/19/18 Albuterol Sulfate [Proair HFA] 2 puff IH Q6HP PRN 06/19/18 Budesonide/Formoterol Fumarate [Symbicort Hfa 160-4.5 Mcg Inhaler 6 gm] 2 puff IH Q12 06/19/18 Calcium Carbonate [Tums Chewable 500 mg Tab.chew] 1,000 mg PO DAILYP PRN Cinacalcet HCl [Sensipar] 60 mg PO QHS 06/19/18 Clonidine HCl [Catapres 0.3 mg Tablet] 0.15 mg PO .DIALYSIS 06/19/18 Clonidine HCl [Catapres 0.3 mg Tablet] 0.3 mg PO Q8 06/19/18 Colchicine [Colcrys 0.6 mg Tablet] 0.6 mg PO DAILY 06/19/18 Diclofenac Sodium [Voltaren] 1 applic TP DAILY 06/19/18 Esomeprazole Magnesium [Nexium] 40 mg PO Q6AM 06/19/18 Folic Acid/Vitamin B Comp W-C [Nephrocaps Multiple Vitamin Capsule] 1 cap PO DAILY 06/19/18 Lactulose [Cephulac 20 gm/30 ml Syrup UD Cup] 20 gm PO DAILYP PRN 06/19/18 Linaclotide [Linzess 145 Mcg Capsule] 145 mcg PO DAILYP PRN 06/19/18 Metoprolol Succinate [Toprol XL 200 mg Tablet] 200 mg PO DAILY 06/19/18 Montelukast Sodium [Singulair 10 mg Tablet] 10 mg PO QHS 06/19/18 Nifedipine [Nifedipine ER] 90 mg PO Q12 06/19/18 Promethazine HCl [Phenergan 25 mg Tablet] 12.5 mg PO Q6HP PRN 06/19/18 Sevelamer Carbonate [Renvela] 1,600 mg PO .SNACKS 06/19/18 Sevelamer Carbonate [Renvela] 2,400 mg PO MEALS 06/19/18 Tramadol HCl [Ultram 50 mg Tablet] 50 mg PO Q6HP PRN 06/19/18 History of Present Illness History of Present Illness: CAPO HDEZ is a 62 year old female, She has a history of severe persistent asthma, allergy, end-stage renal disease on hemodialysis, she came to the emergency room for evaluation of shortness of breath, a chest x-ray was done, it demonstrated air space opacities in both lung bases, it was felt by the ED physicians that patient have pneumonia. She has a history of severe mitral valve regurgitation, chronic diastolic heart failure, she is scheduled to see the CT surgeon at [facility] regarding the mitral valve incompetence, she may need a repair/replacement of the mitral valve. She was dialyzed this morning she was admitted last night, she was empirically started on IV antibiotic for pneumonia. Because she has a history of asthma on the floor that the chest x-ray showed infiltrate, allergy bronchopulmonary aspergillosis was suspected as a potential etiology of her symptoms, IgE and aspergillus antibody ordered but a symptom is more consistent with acute pulmonary edema secondary to mitral valve regurgitation in the setting of diastolic heart failure.The emergency room physician stated that when the patient arrived in the ER she was wheezing, she required bronchodilators and also noninvasive positive pressure ventilation with BiPAP to support breathing Hospital Course Hospital Course: Patient was admitted for the management of acute respiratory failure due to combination of pulmonary edema from moderate to severe mitral valve regurgitation, allergic bronchopulmonary aspergillosis was suspected as a potential etiology and also acute diastolic heart failure. She was seen by nephrology, she underwent hemodialysis during this hospital admission. The serum IgE level was over 2000, the Aspergillus serologies pending. She required noninvasive positive airway ventilation transiently when she was admitted. Pneumonia was suspected on admission but this was rule out.She has IgE mediated asthma she may benefit from anti-IgE therapy with omalizumab Physical Exam Vital Signs: Temp Pulse Resp BP Pulse Ox 98.3 F 70 12 114/60 95 06/23/18 12:00 06/23/18 14:00 06/23/18 13:55 06/23/18 13:09 06/23/18 13:55 Intake & Output 06/22/18 06/23/18 06/24/18 06:59 06:59 06:59 Intake Total 837.5 874 Output Total 4000 1 3200 Balance -3162.5 873 -3200 Weight 98.3 kg 98.4 kg General appearance: PRESENT: no acute distress, well-developed, well-nourished Head exam: PRESENT: atraumatic, normocephalic Eye exam: PRESENT: conjunctiva pink, EOMI, PERRLA Ear exam: PRESENT: normal external ear exam Mouth exam: PRESENT: moist, tongue midline Neck exam: PRESENT: full ROM Cardiovascular exam: PRESENT: RRR, +S1, +S2 Pulses: PRESENT: normal dorsalis pedis pul, +2 pedal pulses bilateral Vascular exam: PRESENT: normal capillary refill GI/Abdominal exam: PRESENT: normal bowel sounds, soft Rectal exam: PRESENT: deferred Neurological exam: PRESENT: alert, CN II-XII grossly intact Psychiatric exam: PRESENT: appropriate affect, normal mood Skin exam: PRESENT: dry, intact, warm. ABSENT: cyanosis, rash Results Laboratory Results: 06/23/18 04:10 06/23/18 04:10 06/23/18 06/23/18 04:10 04:10 WBC 4.4 RBC 3.23 L Hgb 9.8 L Hct 28.4 L MCV 88 MCH 30.3 MCHC 34.4 RDW 16.8 H Plt Count 158 Sodium 140.0 Potassium 4.4 Chloride 98 Carbon Dioxide 26 Anion Gap 16 BUN 42 H Creatinine 8.39 H Est GFR ( Amer) 6 L Est GFR (Non-Af Amer) 5 L Glucose 92 Calcium 9.1 06/19/18 06/19/18 02:35 02:35 Creatine Kinase 54 Troponin I 0.068 Impressions: Chest X-Ray 06/20/18 00:00 IMPRESSION: No interval change since the recent earlier chest x-ray. Few markings both mid lung zones probably representing subsegmental atelectasis or scarring. Qualifiers - * PATIENT BEING DISCHARGED WITH ANY OF THE FOLLOWING DIAGNOSIS: No
[2018-06-23 17:18] VITALS: BP 142/78
== END 2018-06-23 18:11 | disposition home or self-care (01) | DRG 291 ==
LOC: ER 20:46 → EH 23:47 → 3N 06-19 15:29
PROVIDERS: ADMIT Internal Medicine; ATTEND Internal Medicine
PROC: 3E0F73Z Introduction of Anti-inflammatory into Respiratory Tract, Via Natural or Artificial Opening (ICD-10-PCS; 2018-06-18)
PROC: 5A09457 Assistance with Respiratory Ventilation, 24-96 Consecutive Hours, Continuous Positive Airway Pressure (ICD-10-PCS; 2018-06-18)
PROC: 5A1D70Z Performance of Urinary Filtration, Intermittent, Less than 6 Hours Per Day (ICD-10-PCS; principal; 2018-06-19)
PROC: 5A1D70Z Performance of Urinary Filtration, Intermittent, Less than 6 Hours Per Day (ICD-10-PCS; 2018-06-21)
PROC: 5A1D70Z Performance of Urinary Filtration, Intermittent, Less than 6 Hours Per Day (ICD-10-PCS; 2018-06-23)
DX: I13.2 Hypertensive heart and chronic kidney disease with heart failure and with stage 5 chronic kidney disease, or end stage renal disease (principal); J96.01 Acute respiratory failure with hypoxia; N18.6 End stage renal disease; I50.33 Acute on chronic diastolic (congestive) heart failure; J18.9 Pneumonia, unspecified organism; J45.51 Severe persistent asthma with (acute) exacerbation; B44.81 Allergic bronchopulmonary aspergillosis; N25.81 Secondary hyperparathyroidism of renal origin; J44.0 Chronic obstructive pulmonary disease with (acute) lower respiratory infection; I34.0 Nonrheumatic mitral (valve) insufficiency; I27.29 Other secondary pulmonary hypertension; E78.00 Pure hypercholesterolemia, unspecified; K21.9 Gastro-esophageal reflux disease without esophagitis; K44.9 Diaphragmatic hernia without obstruction or gangrene; M10.9 Gout, unspecified; D63.1 Anemia in chronic kidney disease; G47.30 Sleep apnea, unspecified; E21.3 Hyperparathyroidism, unspecified; E05.90 Thyrotoxicosis, unspecified without thyrotoxic crisis or storm; Z79.899 Other long term (current) drug therapy; Z99.2 Dependence on renal dialysis; Z90.49 Acquired absence of other specified parts of digestive tract; Z87.891 Personal history of nicotine dependence; Z88.0 Allergy status to penicillin; Z88.8 Allergy status to other drugs, medicaments and biological substances; Z88.6 Allergy status to analgesic agent; Z91.041 Radiographic dye allergy status; Z90.710 Acquired absence of both cervix and uterus; Z82.49 Family history of ischemic heart disease and other diseases of the circulatory system
CPT/HCPCS: 36415; 71045; 71046; 80048; 80053; 81001; 82550; 82785; 82803; 83605; 84484; 85025; 85027; 85610; 86606; 87040; 87086; 93005; 93010; 94660; 99291; J0456; J0692; J1644; J1956; J3370; J3490; J7060; J7620; Q4081

== ENCOUNTER → 2018-09-25 | Day surgery (SDC) | payer MEDICARE, MEDICAID ==
[2018-09-22 09:59] LABS: HEMATOCRIT 37.3 % (36.0-47.0); MEAN CORPUSCULAR HEMOGLOBIN 31.4 pg (27.0-33.4); MEAN CORPUSCULAR VOLUME 90 fl (80-97); PLATELET COUNT 177 10^3/uL (150-450); RED BLOOD COUNT 4.15 10^6/uL (3.72-5.28); RED CELL DISTRIBUTION WIDTH 17.1 % (11.5-14.0); WHITE BLOOD COUNT 5.6 10^3/uL (4.0-10.5)
[2018-09-22 10:16] LABS: ANION GAP 19 (5-19); BLOOD UREA NITROGEN 39 mg/dL (7-20); CALCIUM 8.9 mg/dL (8.4-10.2); CARBON DIOXIDE 28 mmol/L (22-30); CHLORIDE 96 mmol/L (98-107); GLUCOSE 91 mg/dL (75-110); POTASSIUM 5.6 mmol/L (3.6-5.0); SODIUM 143.4 mmol/L (137-145)
--- NOTE | 2018-09-22 13:47 | EKG REPORT ---
SEVERITY:- ABNORMAL ECG - SINUS RHYTHM LEFT VENTRICULAR HYPERTROPHY : Confirmed by: Hayden Cardoso MD 22-Sep-2018 13:46:58
[~2018-09-25] MED LIST changes: +BACITRACIN INJ 50,000 UNIT VIAL ONE; +BUPIVACAINE HCL 0.5 % INJ/PF 30 ML SDV ONE; +CEFAZOLIN 1 GM/D5W RTU 1 GM/50 ML RTUPB IV ONE; +CEFAZOLIN 1 GM/D5W RTU 1 GM/50 ML RTUPB IV PRN; -DIAZEPAM 5 MG TABLET PO PRN; +FENTANYL CITRATE INJ/PF 100 MCG/2 ML AMPUL ONE; +HEPARIN SOD (PORCINE) 1,000 UNIT/ML 10 ML VIAL ONE; +LIDOCAINE 0.5% INJ-PF (5 MG/ML) 50 ML SDV ONE; +LIDOCAINE 1% INJ-PF (10 MG/ML) 30 ML SDV ONE; +MIDAZOLAM 2 MG/2 ML INJ ONE; +NORMAL SALINE 1000 ML (RENAL PATIENTS) IV PRN; -OXYCODONE-ACETAMINOPHEN 5-325 MG TABLET PO PRN; +PROPOFOL INJ 200 MG/20 ML VIAL IV ONE; +SODIUM POLYSTYRENE SULFONATE 15 GM/60 ML ONE
[2018-09-25 12:57] VITALS: BP 152/86
--- NOTE | 2018-09-25 13:44 | Discharge Summary ---
Discharge Summary (SDC) - Discharge Final Diagnosis: #1 hyperkalemia. 2. End-stage renal disease on hemodialysis. 3. Malfunctioning AV fistula. 4. Increased body mass index. 5. Hypertension. Date of Surgery: 09/25/18 Discharge Date: 09/25/18 Condition: Fair Treatment or Instructions: Discharge home [after recovery per ASU criteria]. Diet , [renal],as tolerated, when fully awake advance as tolerated. Activities within moderation encouraged. Follow up in my office by appointment in about 1 month. Call for appointment. Meds per med rec. Fistula insertion to be rescheduled. The patient is to continue her usual dialysis which was next to be on Tuesday, tomorrow. Kayexalate 30 g before discharge. May shower [in 48 hrs], [try to keep operated area as dry as possible]. Referrals: KEVIN REED MD [Primary Care Provider] - Discharge Diet: Other (Comments) - Renal. Respiratory Treatments at Home: Deep Breathing/Coughing Discharge Activity: Activity As Tolerated Report the Following to Your Physician Immediately: Shortness of Breath, Unusual Bleeding
== END ==
LOC: OROUT 11:39
PROVIDERS: ATTEND Surgery
DX: Z01.818 Encounter for other preprocedural examination (principal); N18.6 End stage renal disease; I87.1 Compression of vein; I77.0 Arteriovenous fistula, acquired; I12.0 Hypertensive chronic kidney disease with stage 5 chronic kidney disease or end stage renal disease; E87.5 Hyperkalemia; Z99.2 Dependence on renal dialysis; T82.590A Other mechanical complication of surgically created arteriovenous fistula, initial encounter; Y83.2 Surgical operation with anastomosis, bypass or graft as the cause of abnormal reaction of the patient, or of later complication, without mention of misadventure at the time of the procedure
CPT/HCPCS: 93005; 36415 ×2; 84132; 85027; 80048; 93010; J3490 ×4; J0690; J1644; J2250; J2704; J3010

== ENCOUNTER 2018-10-01 12:29 | Emergency (ER) | payer MEDICARE, MEDICAID ==
--- NOTE | 2018-10-01 13:07 | ER Document Report ---
ED Medical Screen (RME) - General Chief Complaint: Hand Pain Stated Complaint: LEFT HAND PAIN Time Seen by Provider: 10/01/18 13:06 Mode of Arrival: Ambulatory Information source: Patient TRAVEL OUTSIDE OF THE [place] IN LAST 30 DAYS: No - HPI Patient complains to provider of: L hand pain Onset: This morning - Pt. with c/o L hand pain after waking up this am. Denies trauma - Related Data Allergies/Adverse Reactions: codeine [Codeine] Allergy (Severe, Verified 10/01/18 12:30) Lips & tongue swell hydrocodone bitartrate [From Vicodin] Allergy (Severe, Verified 10/01/18 12:30) Throat & tongue swell, severe itch Iodinated Contrast- Oral and IV Dye [IV Dye, Iodine Containing] Allergy (Severe , Verified 10/01/18 12:30) Anaphylaxis lanthanum carbonate [From FOSRENOL] Allergy (Severe, Verified 10/01/18 12:30) losartan potassium [From Cozaar] Allergy (Severe, Verified 10/01/18 12:30) Swelling of Throat oxycodone HCl [From OxyContin] Allergy (Severe, Verified 10/01/18 12:30) Throat & tongue swell, severe itch propoxyphene napsylate [From Darvocet-N 100] Allergy (Severe, Verified 10/01/18 12:30) Mouth swells, itch ramipril [From Altace] Allergy (Severe, Verified 10/01/18 12:30) Lips, tongue & throat swell Penicillins Allergy (Intermediate, Verified 10/01/18 12:30) Generalized Itching acetaminophen [From Percocet] Allergy (Verified 10/01/18 12:30) ITCHING angiotensin II acetate, human Allergy (Verified 10/01/18 12:30) SEVERE STOMACH PAIN hydralazine Allergy (Verified 10/01/18 12:30) Swollen tongue oxycodone [From Percocet] Allergy (Verified 10/01/18 12:30) ITCHING adhesive tape [Adhesive Tape] Adverse Reaction (Intermediate, Verified 10/01/18 12:30) ITCHING, PULLS SKIN OFF aspirin [Aspirin] Adverse Reaction (Intermediate, Verified 10/01/18 12:30) Tegaderm Allergy (Intermediate, Uncoded 10/01/18 12:30) Pulls skin off, itching Past Medical History - Past Medical History Cardiac Medical History: Reports: Hx Hypercholesterolemia, Hx Hypertension - ON MEDS Denies: Hx Coronary Artery Disease, Hx Heart Attack Pulmonary Medical History: Reports: Hx Asthma Denies: Hx Bronchitis, Hx COPD, Hx Pneumonia Neurological Medical History: Denies: Hx Cerebrovascular Accident, Hx Seizures Endocrine Medical History: Reports: Hx Hyperthyroidism Renal/ Medical History: Reports: Hx End Stage Renal Disease, Hx Hemodialysis. Denies: Hx Peritoneal Dialysis GI Medical History: Reports: Hx Gastroesophageal Reflux Disease, Hx Hiatal Hernia Musculoskeltal Medical History: Reports Hx Arthritis Psychiatric Medical History: Denies: Hx Depression Infectious Medical History: Past Surgical History: Reports: Hx Abdominal Surgery - GALL BLADDER, Hx Cardiac Catheterization - 2011, Hx Section, Hx Cholecystectomy, Hx Gynecologic Surgery - hysteroscopy. Denies: Hx Adenoidectomy, Hx Hysterectomy, Hx Pacemaker - Immunizations Hx Diphtheria, Pertussis, Tetanus Vaccination: Yes History of Influenza Vaccine for 08/2017 - 01/2018 Season: Yes Influenza Administration Date for 08/2017 - 01/2018 Season: 08/14/18 Physical Exam - Vital signs Vitals: Temp Pulse Resp BP Pulse Ox 98.4 F 68 18 144/81 H 94 10/01/18 12:44 10/01/18 12:44 10/01/18 12:44 10/01/18 12:44 10/01/18 12:44 Course - Vital Signs Vital signs: Temp Pulse Resp BP Pulse Ox 98.4 F 68 18 144/81 H 94 10/01/18 12:44 10/01/18 12:44 10/01/18 12:44 10/01/18 12:44 10/01/18 12:44 Doctor's Discharge - Discharge Referrals: KEVIN REED MD [Primary Care Provider] - Follow up as needed
--- NOTE | 2018-10-01 13:57 | RADIOLOGY REPORT (SQ) ---
EXAM DESCRIPTION: HAND LEFT 3 VIEWS COMPLETED DATE/TIME: 10/01/2018 1:48 pm REASON FOR STUDY: L hand pain COMPARISON: None. EXAM PARAMETERS: NUMBER OF VIEWS: Three views. TECHNIQUE: AP, lateral and oblique radiographic images acquired of the left hand. LIMITATIONS: None. FINDINGS: MINERALIZATION: Normal. BONES: No acute fracture or dislocation. No worrisome bone lesions. Scattered degenerative changes pa rticularly 1st metacarpal carpal joint. JOINTS: No erosions. No butch-articular osteopenia. No chondrocalcinosis. SOFT TISSUES: No swelling. No calcifications. OTHER: No other significant finding. IMPRESSION: No acute fracture. TECHNICAL DOCUMENTATION: JOB ID: [id number] [employer]- All Rights Reserved Reading location - IP/workstation name: [email or web address]
[2018-10-01] MEDS ORDERED: TRAMADOL HCL 50 MG TABLET PO ONE (15:16)
--- NOTE | 2018-10-01 15:16 | ER Document Report ---
ED General - General Chief Complaint: Hand Pain Stated Complaint: LEFT HAND PAIN Time Seen by Provider: 10/01/18 13:06 Mode of Arrival: Ambulatory Information source: Patient Notes: 63-year-old female with hyperlipidemia, hypertension, end-stage renal disease undergoing dialysis Tuesday presents with complaint of left hand pain that started this morning. Patient states that she awoke yesterday with left thumb pain went to dialysis and when she awoke this morning she had extreme sharp pain along for her knuckles on the dorsum of her hand. She denies any hand injury. Prior similar symptoms. She does not currently do any activities that require repetitive motion. She does have a history of gout. She denies any fever, chills, nausea, vomiting. TRAVEL OUTSIDE OF THE [place] IN LAST 30 DAYS: No - HPI Onset: This morning Onset/Duration: Gradual, Worse Quality of pain: Sharp Severity: Moderate Associated symptoms: denies: Chest pain, Chills, Fever, Nausea, Vomiting, Shortness of breath Exacerbated by: Movement Relieved by: Denies Similar symptoms previously: No Recently seen / treated by doctor: No - Related Data Allergies/Adverse Reactions: codeine [Codeine] Allergy (Severe, Verified 10/01/18 12:30) Lips & tongue swell hydrocodone bitartrate [From Vicodin] Allergy (Severe, Verified 10/01/18 12:30) Throat & tongue swell, severe itch Iodinated Contrast- Oral and IV Dye [IV Dye, Iodine Containing] Allergy (Severe , Verified 10/01/18 12:30) Anaphylaxis lanthanum carbonate [From FOSRENOL] Allergy (Severe, Verified 10/01/18 12:30) losartan potassium [From Cozaar] Allergy (Severe, Verified 10/01/18 12:30) Swelling of Throat oxycodone HCl [From OxyContin] Allergy (Severe, Verified 10/01/18 12:30) Throat & tongue swell, severe itch propoxyphene napsylate [From Darvocet-N 100] Allergy (Severe, Verified 10/01/18 12:30) Mouth swells, itch ramipril [From Altace] Allergy (Severe, Verified 10/01/18 12:30) Lips, tongue & throat swell Penicillins Allergy (Intermediate, Verified 10/01/18 12:30) Generalized Itching acetaminophen [From Percocet] Allergy (Verified 10/01/18 12:30) ITCHING angiotensin II acetate, human Allergy (Verified 10/01/18 12:30) SEVERE STOMACH PAIN hydralazine Allergy (Verified 10/01/18 12:30) Swollen tongue oxycodone [From Percocet] Allergy (Verified 10/01/18 12:30) ITCHING adhesive tape [Adhesive Tape] Adverse Reaction (Intermediate, Verified 10/01/18 12:30) ITCHING, PULLS SKIN OFF aspirin [Aspirin] Adverse Reaction (Intermediate, Verified 10/01/18 12:30) Tegaderm Allergy (Intermediate, Uncoded 10/01/18 12:30) Pulls skin off, itching Past Medical History - General Information source: Patient - Social History Smoking Status: Never Smoker Frequency of alcohol use: None Drug Abuse: None Lives with: Family Family History: Reviewed & Not Pertinent, Hypertension Patient has suicidal ideation: No Patient has homicidal ideation: No - Past Medical History Cardiac Medical History: Reports: Hx Hypercholesterolemia, Hx Hypertension - ON MEDS Denies: Hx Coronary Artery Disease, Hx Heart Attack Pulmonary Medical History: Reports: Hx Asthma Denies: Hx Bronchitis, Hx COPD, Hx Pneumonia Neurological Medical History: Denies: Hx Cerebrovascular Accident, Hx Seizures Endocrine Medical History: Reports: Hx Hyperthyroidism Renal/ Medical History: Reports: Hx End Stage Renal Disease, Hx Hemodialysis. Denies: Hx Peritoneal Dialysis GI Medical History: Reports: Hx Gastroesophageal Reflux Disease, Hx Hiatal Hernia Musculoskeletal Medical History: Reports Hx Arthritis Psychiatric Medical History: Denies: Hx Depression Infectious Medical History: Past Surgical History: Reports: Hx Abdominal Surgery - GALL BLADDER, Hx Cardiac Catheterization - 2011, Hx Section, Hx Cholecystectomy, Hx Gynecologic Surgery - hysteroscopy. Denies: Hx Adenoidectomy, Hx Hysterectomy, Hx Pacemaker - Immunizations Hx Diphtheria, Pertussis, Tetanus Vaccination: Yes Hx Pneumococcal Vaccination: 08/14/15 Review of Systems - Review of Systems Notes: REVIEW OF SYSTEMS: CONSTITUTIONAL : Denies fever, chills, or sweats. Denies recent illness. Denies weight loss, recent hospitalizations. EENT: Denies visual changes, eye pain. Denies sore throat, oral lesions, difficulty swallowing. CARDIOVASCULAR: Denies chest pain. Denies palpitations. Denies lower extremity edema. RESPIRATORY: Denies cough. Denies shortness of breath, wheezing. GASTROINTESTINAL: Denies abdominal pain or distention. Denies nausea, vomiting , or diarrhea. Denies blood in vomitus, stools, or per rectum. Denies black, tarry stools. Denies constipation. GENITOURINARY: Denies difficulty urinating, painful urination, frequency, blood in urine, or vaginal discharge. MUSCULOSKELETAL: Denies back or neck pain or stiffness. SKIN: Denies rash, lesions or sores. HEMATOLOGIC : Denies easy bruising or bleeding. LYMPHATIC: Denies swollen glands. NEUROLOGICAL: Denies confusion or altered mental status. Denies loss of consciousness. Denies dizziness or lightheadedness. Denies headache. Denies weakness or paralysis. Denies problems difficulty with ambulation, slurred speech. Denies sensory loss, numbness, or tingling. Denies seizures. PSYCHIATRIC: Denies anxiety or stress. Denies depression, suicidal ideation, or homicidal ideation. Denies visual or auditory hallucinations. Physical Exam - Vital signs Vitals: Temp Pulse Resp BP Pulse Ox 98.4 F 68 18 144/81 H 94 10/01/18 12:44 10/01/18 12:44 10/01/18 12:44 10/01/18 12:44 10/01/18 12:44 Interpretation: Hypertensive. No: Febrile - Notes Notes: PHYSICAL EXAMINATION: GENERAL: Well-appearing, well-nourished and in no acute distress. HEAD: Atraumatic, normocephalic. EYES: Pupils equal round and reactive to light, extraocular movements intact, conjunctiva are normal. ENT: Nares patent, oropharynx clear without exudates. Moist mucous membranes. NECK: Normal range of motion, supple without lymphadenopathy LUNGS: Breath sounds clear to auscultation bilaterally and equal. No wheezes rales or rhonchi. HEART: Regular rate and rhythm without murmurs ABDOMEN: Soft, nontender, nondistended abdomen. No guarding, no rebound. No masses appreciated. Female : deferred Musculoskeletal: Normal range of motion, no pitting or edema. No cyanosis. Left forearm with fistula strong bruit. left- hand exam- Symmetrically palpable radial and ulnar pulses. Cap refill less than 2 seconds on all digits. Intact sensation to light touch of the radial, median and ulnar nerves demonstrated by testing in the dorsal webspace of the thumb the distal palmar aspect of the index finger and lateral surface of the fifth finger. Two-point discrimination intact to 5 mm of discrimination in the affected digit. Intact motor function of the radial median and ulnar nerves demonstrated by strength of extension of the isolated distal joint of the index finger, hand lockstitch cup setter, and spreading of the second through fifth digits. Intact recurrent median nerve as demonstrated by ability to move down fully through opposition, abduction and flexion. No snuffbox tenderness. No erythema , swelling. NEUROLOGICAL: Cranial nerves grossly intact. Normal speech, normal gait. Normal sensory, motor exams PSYCH: Normal mood, normal affect. SKIN: Warm, Dry, normal turgor, no rashes or lesions noted. Course - Re-evaluation Re-evalutation: Hand X-Ray 10/01/18 13:06 IMPRESSION: No acute fracture. 10/01/18 15:21 63-year-old female presents with left hand pain that started yesterday but worsened today. She denies any injury. Vital signs reviewed upon arrival and patient is mildly hypertensive otherwise afebrile and well-appearing. She is crying secondary to pain. She has a normal physical exam. No obvious deformity , swelling, erythema. She has diffuse tenderness over the dorsal aspect of the right hand, but she has full range of motion and no neuro deficits. X-rays were obtained and showed no obvious fracture, dislocation but does show some degeneration. Patient underwent dialysis yesterday without difficulty. Her shunt is in the left arm just above her wrist but she has no pain in that area. Exam is not consistent with septic arthritis, cellulitis, fracture. This could be early onset of a gout flare in a new area. Patient given a short course of tramadol and Mobic. Patient was evaluated and treated as appropriate for the patient's presenting symptoms and complaint, with consideration of any critical or life threatening conditions that may be associated with their obtained history and exam as noted above. All results were discussed with patient. Patient provided the opportunity to ask questions, and express concerns. Patient was educated on treatments based on their presumed diagnosis as noted above. At this time we will discharge the patient with return precautions and follow-up recommendations. Verbal discharge instructions given a the bedside. Medication warnings reviewed. Patient is in agreement with this plan and has verbalized understanding of return precautions. After careful consideration I feel that that patient can be safely discharged from the emergency department, they were advised to followup with a primary care physician in 2-3 days. Dictation on this chart was performed using voice recognition software and may result in unintended grammatical, spelling, syntax or errors. 10/01/18 22:20 - Vital Signs Vital signs: Temp Pulse Resp BP Pulse Ox 98.4 F 69 16 148/85 H 96 10/01/18 16:37 10/01/18 16:37 10/01/18 16:37 10/01/18 16:37 10/01/18 16:37 - Diagnostic Test Radiology reviewed: Image reviewed, Reports reviewed Discharge - Discharge Clinical Impression: Left hand pain, History of gout, Elevated blood pressure reading, History of end stage renal disease Condition: Good Disposition: HOME, SELF-CARE Instructions: Arthritis ([facility]), Gout ([facility]), Gout Diet ([facility]) Additional Instructions: Follow up with your [id number] hours for further care or return to the ED IMMEDIATELY if symptoms worsen or you have any concerns. If you cannot afford to follow up with your primary care physician a list of low cost clinics have been provided at the end of your discharge papers as well. Most prescribed medications have multiple side effects. The safest thing to do is when filling your prescription speak to your pharmacist regarding possible interactions with your normal home medications and over the counter medications such as Ibuprofen, Tylenol, Benadryl. If you experience any symptoms that cause you discomfort or concern you should discontinue the medication immediately and return to the emergency room or call your primary care physician. Prescriptions: Meloxicam [Mobic] 7.5 mg PO DAILY #7 tablet Tramadol HCl [Ultram 50 mg Tablet] 50 mg PO Q8H PRN #12 tab PRN Reason: Referrals: KEVIN REED MD [Primary Care Provider] - Follow up as needed
[2018-10-01] MEDS ORDERED: PREDNISONE 20 MG TABLET PO ONE (15:17)
[2018-10-01 16:39] VITALS: BP 148/85
== END 2018-10-01 16:39 | disposition home or self-care (01) ==
LOC: ER 12:29
DX: M25.541 Pain in joints of right hand (principal); I12.0 Hypertensive chronic kidney disease with stage 5 chronic kidney disease or end stage renal disease; N18.6 End stage renal disease; Z99.2 Dependence on renal dialysis; J45.909 Unspecified asthma, uncomplicated; Z87.39 Personal history of other diseases of the musculoskeletal system and connective tissue; Z88.5 Allergy status to narcotic agent; Z91.041 Radiographic dye allergy status; Z88.8 Allergy status to other drugs, medicaments and biological substances; Z88.0 Allergy status to penicillin; Z88.6 Allergy status to analgesic agent
CPT/HCPCS: 99283; 73130; L3908; A9270 ×2; J7512

== ENCOUNTER 2018-10-05 13:10 | Observation (INO) | payer MEDICARE, MEDICAID ==
[2018-10-05] MEDS ORDERED: FENTANYL CITRATE INJ/PF 100 MCG/2 ML AMPUL IV ONE (14:17)
--- NOTE | 2018-10-05 14:19 | ER Document Report ---
ED Hand/Wrist Injury - General Chief Complaint: Hand Swelling Stated Complaint: SWOLLEN HAND/PAIN Time Seen by Provider: 10/05/18 14:06 Notes: This is a 63-year-old female to the emergency department for evaluation of left arm swelling, pain. Was seen here a few days ago. Has steadily gotten worse. Is warm to the touch. Patient feels chills and just does not feel right. Has been taking pain medication but not helping. Was sent here from dialysis for evaluation. TRAVEL OUTSIDE OF THE [place] IN LAST 30 DAYS: No - HPI Injury to: Arm, Forearm, Hand Onset: Last week Where: Home Timing: Constant, Worse Quality of pain: Throbbing Severity: Moderate Pain Level: 5 - Related Data Allergies/Adverse Reactions: codeine [Codeine] Allergy (Severe, Verified 10/05/18 13:18) Lips & tongue swell hydrocodone bitartrate [From Vicodin] Allergy (Severe, Verified 10/05/18 13:18) Throat & tongue swell, severe itch Iodinated Contrast- Oral and IV Dye [IV Dye, Iodine Containing] Allergy (Severe , Verified 10/05/18 13:18) Anaphylaxis lanthanum carbonate [From FOSRENOL] Allergy (Severe, Verified 10/05/18 13:18) losartan potassium [From Cozaar] Allergy (Severe, Verified 10/05/18 13:18) Swelling of Throat oxycodone HCl [From OxyContin] Allergy (Severe, Verified 10/05/18 13:18) Throat & tongue swell, severe itch propoxyphene napsylate [From Darvocet-N 100] Allergy (Severe, Verified 10/05/18 13:18) Mouth swells, itch ramipril [From Altace] Allergy (Severe, Verified 10/05/18 13:18) Lips, tongue & throat swell Penicillins Allergy (Intermediate, Verified 10/05/18 13:18) Generalized Itching acetaminophen [From Percocet] Allergy (Verified 10/05/18 13:18) ITCHING angiotensin II acetate, human Allergy (Verified 10/05/18 13:18) SEVERE STOMACH PAIN hydralazine Allergy (Verified 10/05/18 13:18) Swollen tongue oxycodone [From Percocet] Allergy (Verified 10/05/18 13:18) ITCHING adhesive tape [Adhesive Tape] Adverse Reaction (Intermediate, Verified 10/05/18 13:18) ITCHING, PULLS SKIN OFF aspirin [Aspirin] Adverse Reaction (Intermediate, Verified 10/05/18 13:18) Tegaderm Allergy (Intermediate, Uncoded 10/05/18 13:18) Pulls skin off, itching Past Medical History - General Information source: Patient - Social History Smoking Status: Unknown if Ever Smoked Chew tobacco use (# tins/day): No Frequency of alcohol use: None Drug Abuse: None Lives with: Family Family History: Reviewed & Not Pertinent, Hypertension Patient has suicidal ideation: No Patient has homicidal ideation: No - Past Medical History Cardiac Medical History: Reports: Hx Hypercholesterolemia, Hx Hypertension - ON MEDS Denies: Hx Coronary Artery Disease, Hx Heart Attack Pulmonary Medical History: Reports: Hx Asthma Denies: Hx Bronchitis, Hx COPD, Hx Pneumonia Neurological Medical History: Denies: Hx Cerebrovascular Accident, Hx Seizures Endocrine Medical History: Reports: Hx Hyperthyroidism Renal/ Medical History: Reports: Hx End Stage Renal Disease, Hx Hemodialysis, Hx Peritoneal Dialysis GI Medical History: Reports: Hx Gastroesophageal Reflux Disease, Hx Hiatal Hernia Musculoskeletal Medical History: Reports Hx Arthritis Psychiatric Medical History: Denies: Hx Depression Infectious Medical History: Past Surgical History: Reports: Hx Abdominal Surgery - GALL BLADDER, Hx Cardiac Catheterization - 2011, Hx Section, Hx Cholecystectomy, Hx Gynecologic Surgery - hysteroscopy. Denies: Hx Adenoidectomy, Hx Hysterectomy, Hx Pacemaker - Immunizations Hx Diphtheria, Pertussis, Tetanus Vaccination: Yes Hx Pneumococcal Vaccination: 08/14/15 Review of Systems - Review of Systems Notes: Constitutional: Positive for chills and fever. EENT: denies: Eye discharge, Blurred vision, Tearing, Double vision, Nose congestion, Nose discharge, Throat swelling, Mouth pain Cardiovascular: denies: Palpitations, Heart racing, Orthopnea, Dyspnea, Chest pain Respiratory: denies: Cough, Hurts to breathe, Wheezing, Shortness of breath Gastrointestinal: denies: Abdominal pain, Diarrhea, Nausea, Vomiting, Black stools, bright red blood in stool Genitourinary: denies: Burning, Dysuria, Discharge, Frequency, Flank pain, Hematuria Musculoskeletal: Complaining of pain and swelling in the left upper extremity on the hand, wrist and forearm. Hematologic/Lymphatic: denies: Anemia, Easy bleeding, Easy bruising, Blood clots Neurological/Psychological: denies: Confusion, Dementia, Depression, Loss of consciousness Skin: No lesions, no masses, no skin breakdown, no abscesses Physical Exam - Vital signs Vitals: Temp Pulse Resp BP Pulse Ox 98.6 F 66 18 155/84 H 97 10/05/18 13:32 10/05/18 13:32 10/05/18 13:32 10/05/18 13:32 10/05/18 13:32 Interpretation: Normal - General General appearance: Appears well, Alert - HEENT Head: Normocephalic, Atraumatic Eyes: Normal Pupils: PERRL - Respiratory Respiratory status: No respiratory distress Chest status: Nontender Breath sounds: Normal Chest palpation: Normal - Cardiovascular Rhythm: Regular Heart sounds: Normal auscultation Murmur: No - Abdominal Inspection: Normal Distension: No distension Bowel sounds: Normal Tenderness: Nontender Organomegaly: No organomegaly - Back Back: Normal, Nontender - Extremities General upper extremity: Other - The left upper extremity demonstrates significant edema and swelling. There is swelling of the left hand, wrist, forearm. There is thrill and bruit present the AV fistula grafts of the left upper extremity. Neurovascularly intact. Sensation is intact. The skin is very warm to the touch. General lower extremity: Normal inspection, Nontender, Normal color, Normal ROM , Normal temperature, Normal weight bearing. No: Roxana's sign - Neurological Neuro grossly intact: Yes Cognition: Normal Orientation: AAOx4 [place] Coma Scale Eye Opening: Spontaneous [place] Coma Scale Verbal: Oriented [place] Coma Scale Motor: Obeys Commands [place] Coma Scale Total: 15 Speech: Normal Motor strength normal: LUE, RUE, LLE, RLE Sensory: Normal - Psychological Associated symptoms: Normal affect, Normal mood - Skin Skin Temperature: Warm Skin Moisture: Dry Skin Color: Normal Course - Re-evaluation Re-evalutation: 10/05/18 14:31 At this time I am concerned about a possible infection. There could be potential for blood clot as well. Patient does have a history of gout so this could be a problem however she has been taking previous treatments directed at gout and only getting worse. Dr. Preciado actually saw her a few days ago and is currently in the ER. She has taken not peak at the patient and states that she indeed has much more swelling than she had a few days ago. We will get an ultrasound, blood work, pain medication and reassess. 10/05/18 18:16 Laboratory 10/05/18 10/05/18 10/05/18 14:35 14:35 14:35 WBC 6.2 RBC 4.19 Hgb 12.9 Hct 37.6 MCV 90 MCH 30.7 MCHC 34.3 RDW 17.2 H Plt Count 166 Seg Neutrophils % 63.4 Lymphocytes % 20.7 Monocytes % 9.9 Eosinophils % 4.5 Basophils % 1.5 Absolute Neutrophils 4.0 Absolute Lymphocytes 1.3 Absolute Monocytes 0.6 Absolute Eosinophils 0.3 Absolute Basophils 0.1 ESR 60 H Sodium 138.5 Potassium 4.3 Chloride 94 L Carbon Dioxide 31 H Anion Gap 14 BUN 41 H Creatinine 8.54 H Est GFR ( Amer) 6 L Est GFR (Non-Af Amer) 5 L Glucose 93 Lactic Acid 1.3 Uric Acid 3.8 Calcium 9.2 Total Bilirubin 0.9 Direct Bilirubin 0.5 H Neonat Total Bilirubin Not Reportable Neonat Direct Bilirubin Not Reportable Neonat Indirect Bili Not Reportable AST 13 L ALT 10 Alkaline Phosphatase 219 H C-Reactive Protein 49.0 H Total Protein 8.1 Albumin 4.3 Patient still having significant amount of swelling and pain. Consult with Dr. Betancourt who is covering for Dr. Bell. He would like to place patient in the hospital overnight for observation. He thinks this is more of an inflammatory state and would like to start her on prednisone. Currently patient does not have an elevated WBC count however her inflammatory markers are elevated. She does not have a fever. I have given her some Toradol as well as fentanyl. Did have dialysis today so should not need dialysis. We will see if the prednisone works and Dr. Betancourt shall continue to follow. - Vital Signs Vital signs: Temp Pulse Resp BP Pulse Ox 98.6 F 66 23 H 156/86 H 95 10/05/18 14:46 10/05/18 13:32 10/05/18 15:17 10/05/18 15:17 10/05/18 15:17 - Laboratory Result Diagrams: 10/05/18 14:35 10/05/18 14:35 Laboratory results interpreted by me: 10/05/18 10/05/18 14:35 14:35 RDW 17.2 H ESR 60 H Chloride 94 L Carbon Dioxide 31 H BUN 41 H Creatinine 8.54 H Est GFR ( Amer) 6 L Est GFR (Non-Af Amer) 5 L Direct Bilirubin 0.5 H AST 13 L Alkaline Phosphatase 219 H C-Reactive Protein 49.0 H Discharge - Discharge Clinical Impression: Inflammatory arthritis Condition: Good Disposition: ADMITTED OBSERVATION Admitting Provider: [facility] Admitted: Medical Floor
[2018-10-05 14:46] LABS: ABSOLUTE BASOPHILS # (AUTO) 0.1 10^3/uL (0.0-0.2); ABSOLUTE EOSINOPHILS # (AUTO) 0.3 10^3/uL (0.0-0.6); ABSOLUTE LYMPHOCYTES (AUTO) 1.3 10^3/uL (0.5-4.7); ABSOLUTE MONOCYTES (AUTO) 0.6 10^3/uL (0.1-1.4); BASOPHILS % (AUTO) 1.5 % (0-2); EOSINOPHILS % (AUTO) 4.5 % (0-6); HEMATOCRIT 37.6 % (36.0-47.0); HEMOGLOBIN 12.9 g/dL (12.0-15.5); LYMPHOCYTES % (AUTO) 20.7 % (13-45); MEAN CORPUSCULAR HEMOGLOBIN 30.7 pg (27.0-33.4); MEAN CORPUSCULAR HGB CONC 34.3 g/dL (32.0-36.0); MEAN CORPUSCULAR VOLUME 90 fl (80-97); MONOCYTES % (AUTO) 9.9 % (3-13); PLATELET COUNT 166 10^3/uL (150-450); RED BLOOD COUNT 4.19 10^6/uL (3.72-5.28); RED CELL DISTRIBUTION WIDTH 17.2 % (11.5-14.0); SEGMENTED NEUTROPHILS % (AUTO) 63.4 % (42-78); TOTAL CELLS COUNTED % (AUTO) 100 %; WHITE BLOOD COUNT 6.2 10^3/uL (4.0-10.5)
[2018-10-05 15:03] LABS: ALANINE AMINOTRANSFERASE 10 U/L (9-52); ALBUMIN 4.3 g/dL (3.5-5.0); ALKALINE PHOSPHATASE 219 U/L (38-126); ANION GAP 14 (5-19); ASPARTATE AMINO TRANSFERASE 13 U/L (14-36); BILIRUBIN,DIRECT 0.5 mg/dL (0.0-0.4); BILIRUBIN,TOTAL 0.9 mg/dL (0.2-1.3); BLOOD UREA NITROGEN 41 mg/dL (7-20); CALCIUM 9.2 mg/dL (8.4-10.2); CARBON DIOXIDE 31 mmol/L (22-30); CHLORIDE 94 mmol/L (98-107); GLUCOSE 93 mg/dL (75-110); POTASSIUM 4.3 mmol/L (3.6-5.0); SODIUM 138.5 mmol/L (137-145); TOTAL PROTEIN 8.1 g/dL (6.3-8.2); URIC ACID 3.8 mg/dL (2.5-7.5)
[2018-10-05 15:23] LABS: ERYTHROCYTE SEDIMENTATION RATE 60 mm/hr (0-30)
[2018-10-05] MEDS ORDERED: KETOROLAC TROMETHAMINE INJ/PF 30 MG/1 ML SDV IV ONE (17:03)
[2018-10-05] MEDS ORDERED: PREDNISONE 20 MG TABLET PO ONE (18:15)
[2018-10-05] MEDS ORDERED: METHYLPREDNISOLONE INJ 125 MG/2 ML SDV IV ONE (18:18)
--- NOTE | 2018-10-05 19:07 | RADIOLOGY REPORT (SQ) ---
EXAM DESCRIPTION: VENOUS UNILATERAL UPPER COMPLETED DATE/TIME: 10/05/2018 6:56 pm REASON FOR STUDY: swselling and pain in LUE COMPARISON: None. TECHNIQUE: Dynamic and static taylor scale and color images acquired of the left arm venous system. Se lected spectral images acquired with additional compression and augmentation maneuvers. The contralat eral subclavian vein and internal jugular vein were also imaged. Images stored on PACS. LIMITATIONS: None. FINDINGS: INTERNAL JUGULAR VEIN: Normal phasicity, compression, augmentation. No visualized echogeni c material on taylor scale. No defects on color images. Comparison opposite side normal. SUBCLAVIAN VEIN: Normal compression, augmentation. No visualized echogenic material on taylor scale. No defects on color images. AXILLARY VEIN: Normal compression, augmentation. No visualized echogenic material on taylor scale. No d efects on color images. BRACHIAL VEIN: Normal compression, augmentation. No visualized echogenic material on taylor scale. No d efects on color images. BASILIC VEIN: Normal compression, augmentation. No visualized echogenic material on taylor scale. No de fects on color images. CEPHALIC VEIN: Radiocephalic fistula, patent. Proximal venous scratch sat stenosis in the cephalic v ein as it comes off the subclavian vein distally. There is also intraluminal peripheral nonocclusive thrombus in the cephalic just distal to the antecubital fossa. OTHER: Radial and ulnar veins not visualized due to swelling and patient pain. CONTRALATERAL SUBCLAVIAN VEIN AND INTERNAL JUGULAR VEIN: Normal phasicity, compression and augmentation. No visualized echogenic material on taylor scale. No de fects on color images. IMPRESSION: 1. Patent AV fistula. 2. Mild peripheral nonocclusive thrombus in the cephalic vein. TECHNICAL DOCUMENTATION: JOB ID: [id number] [employer]- All Rights Reserved Reading location - IP/workstation name: [email or web address]
--- NOTE | 2018-10-05 19:56 | EKG REPORT ---
SEVERITY:- ABNORMAL ECG - SINUS RHYTHM LEFT VENTRICULAR HYPERTROPHY CONSIDER ANTERIOR INFARCT : Confirmed by: Enriqueta Butcher MD 05-Oct-2018 19:55:35
[2018-10-05] MEDS: TRAMADOL HCL 50 MG TABLET PO PRN (21:39)
[2018-10-06] MEDS: TRAMADOL HCL 50 MG TABLET PO PRN ×2 (09:25→15:19)
[2018-10-06] MEDS ORDERED: NORMAL SALINE 1000 ML 1,000 ML IV PRN (11:11)
--- NOTE | 2018-10-06 11:28 | PDOC CONSULTATION ---
Consultation Consult Date: 10/06/18 Attending physician:: ROB BONILLA Consult reason:: I was asked to see the patient to supervise dialysis. History of Present Illness Admission Date/PCP: 10/05/18 18:30 KEVIN REED MD History of Present Illness: CAPO HDEZ is a 63 year old -[place] female with history of ESRD on hemodialysis on Tuesdays, and Saturdays, history of hypertension, COPD, and anemia who presented yesterday because of left arm swelling and pain. Patient said that she was in the emergency room last Tuesday because of the same reason of left arm swelling and was sent home. 2 days ago, Tuesday her left arm started hurting and yesterday she just could not bear it anymore because it is so painful she decided to go to the emergency room. She does not have any other complaints otherwise. Doppler ultrasound of her left arm showed mild peripheral nonocclusive thrombotic disease. She denies any chest pains no shortness of breath or any other complaints. I am seeing the patient during dialysis treatment today which she is tolerating using her left arm AV fistula. She is hemodynamically stable and still complaining of some pain in the left arm. She is being monitored toward dialysis treatment. Past Medical History Cardiac Medical History: Reports: Hyperlipidemia, Hypertension-primary Pulmonary Medical History: Reports: Asthma, Chronic Obstructive Pulmonary Disease (COPD) Endocrine Medical History: Reports: Hyperthyroidism Renal/ Medical History: Reports: End Stage Renal Disease, Secondary Hyperparathyroidism GI Medical History: Reports: Gastroesophageal Reflux Disease, Hiatal Hernia Musculoskeltal Medical History: Reports: Arthritis, Gout Psychiatric Medical History: Denies: Depression Hematology Medical History: Reports Anemia of Chronic Kidney Disease Past Surgical History Past Surgical History: Reports: Cardiac Catheterization - 2011, Section, Cholecystectomy Social History Information Source: Patient, [facility] Records Lives with: Family Smoking Status: Unknown if Ever Smoked Frequency of Alcohol Use: None Hx Recreational Drug Use: No Drugs: None Hx Prescription Drug Abuse: No Family History Family History: Reviewed & Not Pertinent Parental Family History Reviewed: Yes Children Family History Reviewed: Yes Sibling(s) Family History Reviewed.: Yes Medication/Allergy Allergies/Adverse Reactions: codeine [Codeine] Allergy (Severe, Verified 10/05/18 13:18) Lips & tongue swell hydrocodone bitartrate [From Vicodin] Allergy (Severe, Verified 10/05/18 13:18) Throat & tongue swell, severe itch Iodinated Contrast- Oral and IV Dye [IV Dye, Iodine Containing] Allergy (Severe , Verified 10/05/18 13:18) Anaphylaxis lanthanum carbonate [From FOSRENOL] Allergy (Severe, Verified 10/05/18 13:18) losartan potassium [From Cozaar] Allergy (Severe, Verified 10/05/18 13:18) Swelling of Throat oxycodone HCl [From OxyContin] Allergy (Severe, Verified 10/05/18 13:18) Throat & tongue swell, severe itch propoxyphene napsylate [From Darvocet-N 100] Allergy (Severe, Verified 10/05/18 13:18) Mouth swells, itch ramipril [From Altace] Allergy (Severe, Verified 10/05/18 13:18) Lips, tongue & throat swell Penicillins Allergy (Intermediate, Verified 10/05/18 13:18) Generalized Itching acetaminophen [From Percocet] Allergy (Verified 10/05/18 13:18) ITCHING angiotensin II acetate, human Allergy (Verified 10/05/18 13:18) SEVERE STOMACH PAIN hydralazine Allergy (Verified 10/05/18 13:18) Swollen tongue oxycodone [From Percocet] Allergy (Verified 10/05/18 13:18) ITCHING adhesive tape [Adhesive Tape] Adverse Reaction (Intermediate, Verified 10/05/18 13:18) ITCHING, PULLS SKIN OFF aspirin [Aspirin] Adverse Reaction (Intermediate, Verified 10/05/18 13:18) Tegaderm Allergy (Intermediate, Uncoded 10/05/18 13:18) Pulls skin off, itching Review of Systems All systems: reviewed and no additional remarkable complaints except as stated Review of Systems: Constitutional: ABSENT: chills, fatigue, fever(s), headache(s), weight gain, weight loss Eyes: ABSENT: visual disturbances Ears: ABSENT: hearing changes Cardiovascular: ABSENT: chest pain, dyspnea on exertion, orthropnea, palpitations; left arm swelling and pain Respiratory: ABSENT: cough, dyspnea, hemoptysis Gastrointestinal: ABSENT: abdominal pain, constipation, diarrhea, hematemesis, hematochezia, nausea, vomiting Genitourinary: ABSENT: dysuria, hematuria Musculoskeletal: ABSENT: joint swelling Integumentary: ABSENT: rash, wounds Neurological: ABSENT: abnormal gait, abnormal speech, confusion, dizziness, focal weakness, numbness, syncope Psychiatric: ABSENT: anxiety, depression Endocrine: ABSENT: cold intolerance, heat intolerance, polydipsia, polyuria Hematologic/Lymphatic: ABSENT: easy bleeding, easy bruising, lymphadenopathy Physical Exam Vital Signs: Temp Pulse Resp BP Pulse Ox 97.5 F 60 16 149/90 H 100 10/06/18 08:19 10/06/18 08:19 10/06/18 08:19 10/06/18 08:19 10/06/18 08:19 Intake & Output 10/05/18 10/06/18 10/07/18 06:59 06:59 06:59 Intake Total 640 Output Total 0 Balance 640 Weight 99.2 kg Vitals during dialysis: Blood pressure 146/80, heart rate of 70, blood flow rate of 450 mL/min, dialysate flow rate of 800 mL/min. Exam: General appearance: No acute distress, cooperative, well-developed, well- nourished Head exam: PRESENT: atraumatic, normocephalic Eye exam: PRESENT: Conjunctiva [place], EOMI, PERRLA. ABSENT: conjunctival injection, scleral icterus Mouth exam: PRESENT: moist, neck supple, tongue midline Neck exam: PRESENT: full ROM. ABSENT: carotid bruit, JVD, lymphadenopathy, thyromegaly Respiratory exam: PRESENT: clear to auscultation bilaterally. ABSENT: rales, rhonchi, stridor, wheezes Cardiovascular exam: PRESENT: RRR, +S1, +S2. ABSENT: systolic murmur Pulses: PRESENT: normal radial pulses, normal dorsalis pedis pulses GI/Abdominal exam: PRESENT: normal bowel sounds, soft. ABSENT: guarding, mass, tenderness Rectal exam: Deferred Extremities exam: PRESENT: full ROM. Her left arm is swollen, tight and is tender. ABSENT: calf tenderness, pedal edema Musculoskeletal: PRESENT: full ROM. ABSENT: deformity Neurological exam: PRESENT: alert, Awake, Oriented to person, Oriented to place , Oriented to time, reflexes normal, CN II-XII grossly intact. ABSENT: motor sensory deficit Psychiatric exam: PRESENT: appropriate affect, normal mood. ABSENT: homicidal ideation, suicidal ideation Skin exam: PRESENT: intact, dry, warm. ABSENT: rash Results Laboratory Results: Laboratory 10/05/18 10/05/18 10/05/18 14:35 14:35 14:35 WBC 6.2 RBC 4.19 Hgb 12.9 Hct 37.6 MCV 90 MCH 30.7 MCHC 34.3 RDW 17.2 H Plt Count 166 Seg Neutrophils % 63.4 Lymphocytes % 20.7 Monocytes % 9.9 Eosinophils % 4.5 Basophils % 1.5 Absolute Neutrophils 4.0 Absolute Lymphocytes 1.3 Absolute Monocytes 0.6 Absolute Eosinophils 0.3 Absolute Basophils 0.1 ESR 60 H Sodium 138.5 Potassium 4.3 Chloride 94 L Carbon Dioxide 31 H Anion Gap 14 BUN 41 H Creatinine 8.54 H Est GFR ( Amer) 6 L Est GFR (Non-Af Amer) 5 L Glucose 93 Lactic Acid 1.3 Uric Acid 3.8 Calcium 9.2 Total Bilirubin 0.9 Direct Bilirubin 0.5 H Neonat Total Bilirubin Not Reportable Neonat Direct Bilirubin Not Reportable Neonat Indirect Bili Not Reportable AST 13 L ALT 10 Alkaline Phosphatase 219 H C-Reactive Protein 49.0 H Total Protein 8.1 Albumin 4.3 Impressions: Venous Doppler Study 10/05/18 14:17 IMPRESSION: 1. Patent AV fistula. 2. Mild peripheral nonocclusive thrombus in the cephalic vein. Assessment & Plan - Diagnosis (1) ESRD (end stage renal disease) Is this a current diagnosis for this admission?: Yes Plan: We will do dialysis today for 4 hours, using the patient's left arm AV fistula, with 2 potassium bath, blood flow rate of 450 mL per minute, dialysate flow rate of 800 mL per minute, ultrafiltration 3-4 L as tolerated, no heparin and no Procrit. Patient will be monitored throughout dialysis treatment today. Once discharged today I advised patient to show up on her regular dialysis treatment at the [facility] tomorrow to maximize ultrafiltration to help the left arm swelling. Also inform Dr. Handley about this. 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 I spoke to Dr. Rolando Hung today her vascular surgeon who is taking care of the patient's AV fistula and he indicated that there is really nothing much we can do at this point. He plans to place another AV fistula on the right arm and on the left arm swelling he will also try to do an angiogram and see if there is any peripheral or stenosis that can be open up to ease up the left arm swelling. She has an appointment on Tuesday for the procedure as a stated above by Dr. Hung. So since we cannot do anything with this problem at this point aside from ultrafiltration to dialysis so the patient can be discharged home today after dialysis. (3) Left hand pain Is this a current diagnosis for this admission?: Yes (4) HTN (hypertension) Qualifiers: Is this a current diagnosis for this admission?: Yes - Notes Notes: Thank you very much for this consultation. Discussed plan with Dr. Handley, Dr. Hung, the patient and her dialysis nurse treating the patient currently. - Time Time Spent: 50 to 70 Minutes
[2018-10-06] MEDS ORDERED: PREDNISONE 20 MG TABLET PO ONE (15:15)
--- NOTE | 2018-10-06 16:30 | PDOC DISCHARGE SUMMARY ---
General - Admit/Disc Date/PCP Admission Date/Primary Care Provider: 10/05/18 18:30 KEVIN REED MD Discharge Date: 10/06/18 - Discharge Diagnosis (1) Left arm swelling Is this a current diagnosis for this admission?: Yes Summary: Most likely due to the left peripheral thrombosis and follow-up with Dr. Rolando Hung in his Tuesday as discussed with him I think can do at this point (2) Anemia in chronic kidney disease Is this a current diagnosis for this admission?: Yes (3) ESRD (end stage renal disease) Is this a current diagnosis for this admission?: Yes Summary: Follow-up with the nephrology (4) HTN (hypertension) Is this a current diagnosis for this admission?: Yes - Additional Information Home Medications: Albuterol Sulfate [Proair HFA Inhalation Aerosol 8.5 gm MDI] 2 puff IH Q6HP PRN 10/06/18 Albuterol Sulfate [Ventolin 0.083% Neb 2.5 mg/3 mL Ampul] 3 ml NEB Q6HP PRN Allopurinol [Zyloprim 100 mg Tablet] 100 mg PO DAILY 10/06/18 Clonidine HCl [Catapres 0.3 mg Tablet] 0.3 mg PO Q8 10/06/18 Esomeprazole Magnesium 40 mg PO DAILYP PRN 10/06/18 Folic Acid/Vitamin B Comp W-C [Nephrocaps Softgel] 1 mg PO DAILY 10/06/18 Lactulose [Constulose 10 gm/15 mL Oral Solution] 20 gm PO DAILYP PRN 10/06/18 Linaclotide [Linzess 145 Mcg Capsule] 145 mcg PO DAILY 10/06/18 Loratadine [Claritin 10 mg Tablet] 10 mg PO DAILY 10/06/18 Metoprolol Succinate [Toprol Xl] 200 mg PO DAILY 10/06/18 Montelukast Sodium [Singulair 10 mg Tablet] 10 mg PO QHS 10/06/18 Nifedipine [Nifedipine ER] 90 mg PO Q12 10/06/18 Promethazine HCl [Phenergan 25 mg Tablet] 25 mg PO Q6HP PRN 10/06/18 Sevelamer Carbonate [Renvela] 1,600 mg PO .SNACKS 10/06/18 Sevelamer Carbonate [Renvela] 2,400 mg PO MEALS 10/06/18 Sodium Polystyrene Sulfonate [Kayexalate 15 gm/60 ml Susp 60 ml] 15 gm PO DAILYP PRN 10/06/18 Tramadol HCl [Ultram 50 mg Tablet] 50 mg PO Q8HP PRN 10/06/18 Triamcinolone Acetonide [Aristocort 0.1% Cream] 1 applic TOP BID 10/06/18 History of Present Illness History of Present Illness: CAPO HDEZ is a 63 year old female Patient admitted for the left arm swelling and the pain and received a prednisone for presumed possible arthritis but the patient's venous Doppler was done which showed the peripheral thrombosis Hospital Course Hospital Course: This is a 63-year-old female with end-stage renal disease on hemodialysis with multiple other medical problems admitting in the hospital for left arm swelling and the pain in a venous Doppler source of peripheral thrombosis and S were discussed with Dr. Rolando Hung by nephrology and suggest to follow outpatient on the Tuesday nothing is to be do Patient also dialyzed today and schedule dialyze him tomorrow As per discussed with nephrology patient can be discharged and to follow outpatients Dr. Sheriff for left arm problems Patient is otherwise doing well denies any complaints patient's denied any pain at this point discharged home with a stable condition follow outpatient Physical Exam Vital Signs: Temp Pulse Resp BP Pulse Ox 97.5 F 70 16 149/90 H 100 10/06/18 08:19 10/06/18 16:00 10/06/18 08:19 10/06/18 08:19 10/06/18 08:19 Intake & Output 10/05/18 10/06/18 10/07/18 06:59 06:59 06:59 Intake Total 640 Output Total 0 3200 Balance 640 -3200 Weight 99.2 kg General appearance: PRESENT: no acute distress, well-developed, well-nourished Head exam: PRESENT: atraumatic, normocephalic Eye exam: PRESENT: conjunctiva pink, EOMI, PERRLA. ABSENT: scleral icterus Ear exam: PRESENT: normal external ear exam Mouth exam: PRESENT: moist, tongue midline Neck exam: PRESENT: full ROM. ABSENT: carotid bruit, JVD, lymphadenopathy, thyromegaly Respiratory exam: PRESENT: clear to auscultation alcira Cardiovascular exam: PRESENT: RRR. ABSENT: diastolic murmur, rubs, systolic murmur Pulses: PRESENT: normal dorsalis pedis pul, +2 pedal pulses bilateral Vascular exam: PRESENT: normal capillary refill GI/Abdominal exam: PRESENT: normal bowel sounds, soft. ABSENT: distended, guarding, mass, organolmegaly, rebound, tenderness Rectal exam: PRESENT: deferred Additional comments: Left arm mild swelling is present Musculoskeletal exam: PRESENT: ambulatory Neurological exam: PRESENT: alert, awake, oriented to person, oriented to place , oriented to time, oriented to situation, CN II-XII grossly intact. ABSENT: motor sensory deficit Psychiatric exam: PRESENT: appropriate affect, normal mood. ABSENT: homicidal ideation, suicidal ideation Skin exam: PRESENT: dry, intact, warm. ABSENT: cyanosis, rash Results Impressions: Venous Doppler Study 10/05/18 14:17 IMPRESSION: 1. Patent AV fistula. 2. Mild peripheral nonocclusive thrombus in the cephalic vein. Qualifiers - * PATIENT BEING DISCHARGED WITH ANY OF THE FOLLOWING DIAGNOSIS: No VTE patient discharged on overlapping Therapy?: Yes Plan Time Spent: Greater than 30 Minutes - Patient is discharged home with a stable condition follow outpatient Rolando Coreas for outpatient dialysis
[2018-10-06 17:35] VITALS: BP 133/72
--- NOTE | 2018-10-06 22:06 | HISTORY AND PHYSICAL E ---
History and Physical NAME: CAPO HDEZ : 1955 AGE: 63Y ADMITTED: 10/05/2018 ROOM: 531 CHIEF COMPLAINT: Left hand pain. HISTORY OF PRESENT ILLNESS: This is a 63-year-old -Portuguese female with a history of end-stage renal disease on hemodialysis, history of hypertension, COPD, anemia, who presented yesterday because of left arm swelling and pain. Patient stated that she was in the emergency room last Tuesday because of the same reason, left arm swelling, and was sent home. Two days ago, Tuesday, her left arm started hurting, and yesterday, she just could not bear it any more, because it was so painful, she decided to go to the emergency room. She does not have any other complaints otherwise. Doppler ultrasound of the left arm showed mild peripheral nonocclusive thrombotic disease. She denied any chest pain. No shortness of breath or other complaint. Patient received some prednisone in the emergency department. She otherwise denied any other symptoms. PAST MEDICAL HISTORY: 1. Hyperlipidemia. 2. Hypertension. 3. History of asthma. 4. Chronic obstructive pulmonary disease. 5. History of hypothyroidism. 6. End-stage renal disease on hemodialysis. 7. Secondary hypothyroidism. 8. Gastroesophageal reflux disease. 9. Hiatal hernia. 10. Arthritis. 11. Gout. PAST SURGICAL HISTORY: 1. Cardiac catheterization in 2011. 2. C-sections. 3. Cholecystectomy. SOCIAL HISTORY: Denies smoking, alcohol or substance abuse. FAMILY HISTORY: Unremarkable. MEDICATION ALLERGIES: 1. CODEINE. 2. HYDROCODONE. 3. IODINE CONTRAST. 4. *------* 5. LOSARTAN. 6. OXYCODONE. 7. DARVOCET. 8. RAMIPRIL. 9. PENICILLIN. 10. ACETAMINOPHEN. 11. ANGIOTENSIN RECEPTOR ESTEFANIA. 12. HYDRALAZINE. 13. ADHESIVE TAPE. 14. ASPIRIN. 15. TEGADERM. REVIEW OF SYSTEMS: As above. All other pertinent systems negative. PHYSICAL EXAMINATION: VITAL SIGNS: Blood pressure is 149/90, temperature is 97.5, pulse was 62, O2 is 100% on room air. GENERAL: Patient is alert, awake, oriented x3. There was no acute distress. HEAD AND NECK: Normocephalic. LONA. LUNGS: No wheezing noted. There are no rhonchi. HEART: S1, S2 are present. ABDOMEN: Soft. Bowel sounds are present. EXTREMITIES: Full range of motion. Left arm is swollen, tight and tender. No calf tenderness. NEUROLOGIC: Patient is alert, awake, oriented x3. No focal weakness is seen. DIAGNOSTIC STUDIES: WBC 6.2, hemoglobin is 12.9, platelets are 66,000. ESR is 60. Chemistry: Sodium is 138, potassium is 4.3, BUN is 41, creatinine is 8.54. Patient's lactic acid is 1.3. Albumin is 4.3. Patient's venous Doppler studies suggest the patient has a patent AV fistula. Mild peripheral nonocclusive thrombus of saphenous vein. ASSESSMENT: 1. Left arm swelling. 2. Left hand pain. 3. Hypertension. 4. End-stage renal disease. 5. Left *------* occlusion. PLAN: As per discussion with Nephrology, Dr. Hung today, her vascular surgeon who is taking care of the patient's AV fistula, he indicated there is really nothing much we can do at this point. The plan is to place another AV fistula on the right arm, and for the left arm swelling, he will also try to do angiogram and see if there is any peripheral stenosis that can be opened up to ease the left arm swelling. She has an appointment to see him on Tuesday for the procedure, as stated above, by Dr. Hung. Since we cannot do anything at this point, patient is scheduled to be dialyzed and the patient will be discharged home today. Patient otherwise to continue the current medications. DICTATING PHYSICIAN: JATINDER DOWNING M.D. [id number] [facility]#: [id number] ID: [id number] JOB#: [id number] ACCT: [id number] cc:Coco MACKAY M.D. >
== END 2018-10-06 18:00 | disposition home or self-care (01) ==
LOC: ER 13:10 → EH 18:30 → 5 19:47
PROVIDERS: ADMIT Internal Medicine; ATTEND Internal Medicine Geriatric Medicine
PROC: 5A1D70Z Performance of Urinary Filtration, Intermittent, Less than 6 Hours Per Day (ICD-10-PCS; principal; 2018-10-06)
DX: M79.89 Other specified soft tissue disorders (principal); I82.612 Acute embolism and thrombosis of superficial veins of left upper extremity; I12.0 Hypertensive chronic kidney disease with stage 5 chronic kidney disease or end stage renal disease; N18.6 End stage renal disease; D63.1 Anemia in chronic kidney disease; J44.9 Chronic obstructive pulmonary disease, unspecified; K21.9 Gastro-esophageal reflux disease without esophagitis; M10.9 Gout, unspecified; M79.642 Pain in left hand; M19.90 Unspecified osteoarthritis, unspecified site; R50.9 Fever, unspecified; Z99.2 Dependence on renal dialysis; Z79.899 Other long term (current) drug therapy; Z90.49 Acquired absence of other specified parts of digestive tract
CPT/HCPCS: 93005; 99285; 96374; 96375; 36415; 87040; 84550; 85025; 85652; 86140; 80053; 83605; 93971; 93010; 94660; G0378 ×3; J3010; J2930; J1885; A9270 ×4; G0257; J7512

== ENCOUNTER 2018-10-09 10:00 | Day surgery (SDC) | payer MEDICARE, MEDICAID ==
[~2018-10-09 10:00] MED LIST changes: -CEFAZOLIN 1 GM/D5W RTU 1 GM/50 ML RTUPB IV ONE; -CEFAZOLIN 1 GM/D5W RTU 1 GM/50 ML RTUPB IV PRN; -FENTANYL CITRATE INJ/PF 100 MCG/2 ML AMPUL ONE; -MIDAZOLAM 2 MG/2 ML INJ ONE; +NITROGLYCERIN/D5W 50 MG/250 ML RTUINJ IV ONE; -NORMAL SALINE 1000 ML (RENAL PATIENTS) IV PRN; -PROPOFOL INJ 200 MG/20 ML VIAL IV ONE; -SODIUM POLYSTYRENE SULFONATE 15 GM/60 ML ONE
[2018-10-09] MEDS ORDERED: MIDAZOLAM 2 MG/2 ML INJ ONE (11:47)
[2018-10-09] MEDS ORDERED: FENTANYL CITRATE INJ/PF 100 MCG/2 ML AMPUL ONE (11:47)
[2018-10-09] MEDS ORDERED: ONDANSETRON HCL INJ/PF 4 MG/2 ML SDV ONE (11:47)
[2018-10-09] MEDS ORDERED: KETAMINE HCL INJ 500 MG/10 ML VIAL ONE (11:47)
[2018-10-09] MEDS ORDERED: PROPOFOL INJ 200 MG/20 ML VIAL IV ONE (11:48)
[2018-10-09 11:54] LABS: HEMATOCRIT 29.7 % (36.0-47.0); MEAN CORPUSCULAR HEMOGLOBIN 30.4 pg (27.0-33.4); MEAN CORPUSCULAR HGB CONC 33.9 g/dL (32.0-36.0); MEAN CORPUSCULAR VOLUME 90 fl (80-97); PLATELET COUNT 196 10^3/uL (150-450); RED CELL DISTRIBUTION WIDTH 16.6 % (11.5-14.0); WHITE BLOOD COUNT 6.4 10^3/uL (4.0-10.5)
[2018-10-09 12:15] LABS: ANION GAP 18 (5-19); BLOOD UREA NITROGEN 68 mg/dL (7-20); CALCIUM 8.6 mg/dL (8.4-10.2); CARBON DIOXIDE 25 mmol/L (22-30); CHLORIDE 96 mmol/L (98-107); GLUCOSE 98 mg/dL (75-110); POTASSIUM 4.4 mmol/L (3.6-5.0); SODIUM 139.4 mmol/L (137-145)
[2018-10-09] MEDS ORDERED: VANCOMYCIN HCL 500 MG in DEXTROSE 5%-WATER 100 ML IV PRN (12:15)
--- NOTE | 2018-10-09 12:52 | EKG REPORT ---
SEVERITY:- ABNORMAL ECG - SINUS RHYTHM LEFT VENTRICULAR HYPERTROPHY : Confirmed by: Hayden Cardoso MD 09-Oct-2018 12:50:47
--- NOTE | 2018-10-09 14:28 | Discharge Summary ---
Discharge Summary (SDC) - Discharge Final Diagnosis: #1 end-stage renal disease on hemodialysis. 2. Increased body mass index. 3. Hypertension. Date of Surgery: 10/09/18 Discharge Date: 10/09/18 Condition: Good Treatment or Instructions: Discharge home [after recovery per ASU criteria]. Diet , [renal],as tolerated, when fully awake advance as tolerated. Activities within moderation encouraged. Follow up in my office by appointment in about [1 week]. Call for appointment. Leave wounds [covered], [keep clean and dry, until office visit in 1 week]. Hold of on school/work [until evaluation in office]. Meds per med rec. May shower [in 48 hrs], [try to keep operated area as dry as possible]. Referrals: KEVIN REED MD [Primary Care Provider] - Discharge Diet: Other (Comments) - Renal. Respiratory Treatments at Home: Deep Breathing/Coughing Discharge Activity: Activity As Tolerated Report the Following to Your Physician Immediately: Shortness of Breath, Unusual Bleeding
--- NOTE | 2018-10-09 14:35 | Operative Report ---
Operative Report DATE OF SURGERY: 10/09/18 PREOPERATIVE DIAGNOSIS: #1 end-stage renal disease on hemodialysis. 2. Increased body mass index. 3. Hypertension. POSTOPERATIVE DIAGNOSIS: #1 end-stage renal disease on hemodialysis. 2. Increased body mass index. 3. Hypertension. OPERATION: Insertion of transposed radial to cephalic fistula right forearm. SURGEON: REJI DE LEON SYSTEMS INTEGRATION ANALYST: None. ANESTHESIA: LMAC TISSUE REMOVED OR ALTERED: Not applicable. COMPLICATIONS: None. ESTIMATED BLOOD LOSS: 5 mL. INTRAOPERATIVE FINDINGS: Of an acceptable cephalic vein easily accepting of treatment millimeter coronary dilator for at least 15 cm. An area of stenosis in the vein was surmised about 3 cm from the transected end. This area was not used, anastomosis just above it. The fistula. To function fine with appropriate Doppler signals right up to the closure of skin. Auscultation externally was difficult, probably because of a thick layer of adiposity. The thick layer of adiposity will almost certainly suggest the need for superficialisation once mature. PROCEDURE: Operative Report Indication: This patient has been dialyzed for some years through her left forearm radiocephalic fistula. Unfortunately she has run into complications of left innominate vein stenosis. The consequences is significantly large left upper extremity and reduced efficacy of access. She has had numerous interventions including an attempt at central opening at [facility]. None have been successful. The patient has had peritoneal dialysis in the past which was eventually abandoned. The patient has been evaluated for transplant. Her increased body mass index has made it difficult to continue. I understand that she is pursuing a possibility at [facility]. For the time being a new fistula is to be established in anticipation of abandonment of the old fistula. In particular the patient understands that her central stenotic problems may in fact cause this new fistula to be abandoned. Nevertheless seems a reasonable proposition given the vein mapping findings. She accepts the risks. PROCEDURE: After reviewing the procedure with the patient, [she] was taken to the operating room. The patient was sedated and the right upper extremity] prepared with chlorhexidine and draped out with sterile linen. After the "" universal timeout", in which it was verified that the patient [received IV antibiotics] the procedure commenced. The sterilely sheathed ultrasound probe was used to evaluate the right venous and arterial systems, pertinent to the previously done vein mapping. Local anesthesia was infiltrated and a longitudinal incision made over the mid forearm , over the most distal reasonable looking radial artery. Dissection proceeded through the subcutaneous tissues down to the radial artery. This was dissected out proximally and distally for about 2 cm. . Rubber loops were placed on either end. The cephalic vein was now dissected out for a distance of about 6 cm. The patient was given 2500 units of heparin intravenously. The cephalic vein was transected and irrigated with heparinized solution. The distal branches were clipped Coronary dilators were accepted [up to 3.0 mm]. This did require discarding the distal 3 cm as there was an area of stenosis. The artery was controlled proximally and distally with rubber loops. The vein was transposed into the arterial incision using a hemostat. An arteriotomy approximately 1.2 cm in length was made, the artery was irrigated proximally and distally with heparinized solution. The transected vein was now spatulated [using the vein and mouth technique, it was then anastomosed end to end to side into the radial artery. This was done using a continuous suture of 6-0 Prolene. Controls of the fistula were now released and it was analyzed using a Doppler probe. Hemostasis was secured once optimal function was assured, the wound was irrigated with antibiotic containing solution and closed. Closure was done using interrupted 3-0 PDS for the subcutaneous tissues. The skin was closed, in either wound, using a continuous subcutaneous suture of 4-0 Monocryl which was reinforced with Steri-Strips over benzoin. I then left the operative field and returned with a stethoscope covered with a sterile Tegaderm dressing. This allowed external auscultation of the fistula. Auscultation was borderline. The procedure was concluded by applying a Kerlix dressing over the surgical site. DICTATING PHYSICIAN: REJI ERWIN M.D.
[2018-10-09 15:58] VITALS: BP 160/90
== END 2018-10-09 16:10 | disposition home or self-care (01) ==
LOC: OROUT 10:00
PROVIDERS: ATTEND Surgery
DX: T82.590A Other mechanical complication of surgically created arteriovenous fistula, initial encounter (principal); Y83.2 Surgical operation with anastomosis, bypass or graft as the cause of abnormal reaction of the patient, or of later complication, without mention of misadventure at the time of the procedure; I12.0 Hypertensive chronic kidney disease with stage 5 chronic kidney disease or end stage renal disease; N18.6 End stage renal disease; Z99.2 Dependence on renal dialysis; M19.90 Unspecified osteoarthritis, unspecified site; E66.9 Obesity, unspecified; E03.9 Hypothyroidism, unspecified; Z88.5 Allergy status to narcotic agent; Z88.0 Allergy status to penicillin; Z88.8 Allergy status to other drugs, medicaments and biological substances; Z79.82 Long term (current) use of aspirin; Z79.899 Other long term (current) drug therapy; Z68.41 Body mass index [BMI] 40.0-44.9, adult
CPT/HCPCS: 36415; 85027; 80048; 93005; 93010; 36821; J2250; J3490 ×6; J3010; J1644; J2405; J3370; J2704; 1844

== ENCOUNTER 2018-10-29 22:31 | Emergency (ER) | payer MEDICARE, MEDICAID ==
--- NOTE | 2018-10-29 22:56 | ER Document Report ---
ED General - General Chief Complaint: Abdominal Pain Stated Complaint: HEART PALPITATIONS Time Seen by Provider: 10/29/18 22:55 Notes: Patient is a 63-year-old female who presents with complaint of pain in her right flank and back. Patient says it started immediately when she got off dialysis yesterday. No fevers. Some nausea. No vomiting. No diarrhea. Dialysis was normal. She gets dialysis Tuesday. No blood in her stool. Normal bowel movements. No dysuria. She makes very little urine. She does have previous history of peritoneal dialysis but this was 7 years ago. No peritoneal catheterization since 7 years ago. She has never had this pain before. No other complaints at this time. Previous abdominal surgeries include and previous peritoneal catheter placement. TRAVEL OUTSIDE OF THE [place] IN LAST 30 DAYS: No - Related Data Allergies/Adverse Reactions: codeine [Codeine] Allergy (Severe, Verified 10/05/18 13:18) Lips & tongue swell hydrocodone bitartrate [From Vicodin] Allergy (Severe, Verified 10/05/18 13:18) Throat & tongue swell, severe itch Iodinated Contrast- Oral and IV Dye [IV Dye, Iodine Containing] Allergy (Severe , Verified 10/05/18 13:18) Anaphylaxis lanthanum carbonate [From FOSRENOL] Allergy (Severe, Verified 10/05/18 13:18) losartan potassium [From Cozaar] Allergy (Severe, Verified 10/05/18 13:18) Swelling of Throat oxycodone HCl [From OxyContin] Allergy (Severe, Verified 10/05/18 13:18) Throat & tongue swell, severe itch propoxyphene napsylate [From Darvocet-N 100] Allergy (Severe, Verified 10/05/18 13:18) Mouth swells, itch ramipril [From Altace] Allergy (Severe, Verified 10/05/18 13:18) Lips, tongue & throat swell Penicillins Allergy (Intermediate, Verified 10/05/18 13:18) Generalized Itching acetaminophen [From Percocet] Allergy (Verified 10/05/18 13:18) ITCHING angiotensin II acetate, human Allergy (Verified 10/05/18 13:18) SEVERE STOMACH PAIN hydralazine Allergy (Verified 10/05/18 13:18) Swollen tongue oxycodone [From Percocet] Allergy (Verified 10/05/18 13:18) ITCHING adhesive tape [Adhesive Tape] Adverse Reaction (Intermediate, Verified 10/05/18 13:18) ITCHING, PULLS SKIN OFF aspirin [Aspirin] Adverse Reaction (Intermediate, Verified 10/05/18 13:18) Tegaderm Allergy (Intermediate, Uncoded 10/05/18 13:18) Pulls skin off, itching Past Medical History - Social History Smoking Status: Unknown if Ever Smoked Frequency of alcohol use: None Drug Abuse: None Family History: Reviewed & Not Pertinent, Hypertension - Past Medical History Cardiac Medical History: Reports: Hx Hypercholesterolemia, Hx Hypertension - ON MEDS Denies: Hx Coronary Artery Disease, Hx Heart Attack Pulmonary Medical History: Reports: Hx Asthma, Hx COPD Denies: Hx Bronchitis, Hx Pneumonia Neurological Medical History: Denies: Hx Cerebrovascular Accident, Hx Seizures Endocrine Medical History: Reports: Hx Hyperthyroidism Renal/ Medical History: Reports: Hx End Stage Renal Disease, Hx Hemodialysis, Hx Peritoneal Dialysis GI Medical History: Reports: Hx Gastroesophageal Reflux Disease, Hx Hiatal Hernia Musculoskeletal Medical History: Reports Hx Arthritis, Reports Hx Gout Psychiatric Medical History: Denies: Hx Depression Infectious Medical History: Past Surgical History: Reports: Hx Abdominal Surgery - GALL BLADDER, Hx Cardiac Catheterization - 2011, Hx Section, Hx Cholecystectomy, Hx Gynecologic Surgery - hysteroscopy. Denies: Hx Adenoidectomy, Hx Hysterectomy, Hx Pacemaker - Immunizations Hx Diphtheria, Pertussis, Tetanus Vaccination: Yes Hx Pneumococcal Vaccination: 08/14/15 Review of Systems - Review of Systems Notes: My Normal Review Basic REVIEW OF SYSTEMS: CONSTITUTIONAL : Denies fever, chills, or sweats. Denies recent illness. EENT: Denies eye, ear, throat, or mouth pain or symptoms. Denies nasal or sinus congestion. CARDIOVASCULAR: Denies chest pain. RESPIRATORY: Denies cough, cold, or chest congestion. Denies shortness of breath, difficulty breathing, or wheezing. GASTROINTESTINAL: Flank pain. Some nausea. GENITOURINARY: Denies difficulty urinating, painful urination, burning, frequency, or blood in urine. MUSCULOSKELETAL: Denies neck or back pain or joint pain or swelling. SKIN: Denies rash or skin lesions. NEUROLOGICAL: Denies altered mental status or loss of consciousness. Denies headache. Denies weakness or paralysis or loss of use of either side. Denies problems with gait or speech. Denies sensory or motor loss. ALL OTHER SYSTEMS REVIEWED AND NEGATIVE. Physical Exam - Vital signs Vitals: Resp Pulse Ox 18 98 10/29/18 22:46 10/29/18 22:46 - Notes Notes: General Appearance: Well nourished, alert, cooperative, no acute distress, moderate obvious discomfort. Vitals: reviewed, See vital signs table. Head: no swelling or tenderness to the head Eyes: PERRL, EOMI, Conjuctiva clear Mouth: No decreasd moisture Lungs: No wheezing, No rales, No rhonci, No accessory muscle use, good air exchange bilaterally. Heart: Normal rate, Regular rythm, No murmur, no rub Abdomen: Normal BS, soft, No rigidity, patient only has pain to palpation in her left lower quadrant. When I push her left lower quadrant she really has pain in her right flank. She says she does not actually have pain in the left lower quadrant itself. Oddly she does not have any pain anywhere else when I push on her abdomen. Even when I push over her right flank and right side of her abdomen she does not have pain there. Again the only place she has pain is when I push over the left lower quadrant which causes pain into the right flank. Extremities: s good pulses in all extremities, no swelling or tenderness in the extremities, 1+ bilateral lower extremity edema. Skin: warm, dry, appropriate color, no rash Neuro: speech clear, oriented x 3, normal affect, responds appropriately to questions. Course - Re-evaluation Re-evalutation: 10/30/18 03:02 On reevaluation patient's pain is improving. She looks well. She says she has very little pain left now. The exact cause of her pain is not clear at this time. This could be related to muscle spasms following meal after dialysis being that the pain started after dialysis and she initially had pain all over her entire body and then eventually just was left with the right flank pain. I obtain a CT scan make sure that the stone or any other acute abdominal pathology. CT scan was negative. Blood work is unremarkable for the patient's chronic renal disease. The patient states be discharged at this time. I informed her if she still having pain after 24 hours and she should return to the ER for close reevaluation. Patient agrees with plan and will be discharged home. She is to return to ER immediately if she has fevers, vomiting, or worsening pain. Dictation of this chart was performed using voice recognition software; therefore, there may be some unintended grammatical errors. - Vital Signs Vital signs: Temp Pulse Resp BP Pulse Ox 98.3 F 87 15 138/67 H 93 10/29/18 22:52 10/29/18 22:52 10/30/18 02:42 10/30/18 02:42 10/30/18 02:42 - Laboratory Result Diagrams: 10/30/18 00:15 10/30/18 01:19 Laboratory results interpreted by me: 10/30/18 10/30/18 00:15 01:19 RBC 3.55 L Hgb 11.0 L Hct 31.7 L RDW 17.3 H Eosinophils % 7.0 H BUN 41 H Creatinine 8.80 H Est GFR ( Amer) 6 L Est GFR (Non-Af Amer) 5 L Direct Bilirubin 0.5 H ALT 7 L Alkaline Phosphatase 258 H - EKG Interpretation by Me Additional EKG results interpreted by me: 10/29/18 22:55 EKG is reviewed and interpreted by me. EKG shows sinus rhythm with a rate of [address] segment elevation or depression. Some T wave inversions in the lateral precordial leads and lateral leads which are unchanged comparison to old EKG from October 09, 2018. VT interval, QRS duration, QT intervals are within normal range. Discharge - Discharge Clinical Impression: Flank pain Condition: Good Disposition: HOME, SELF-CARE Additional Instructions: Please rest over the next 24 hours. Take your Tramadol at home as prescribed. please return to the ER or see your doctor for reevaluation if you are still having pain after 24 hours. Please return to the ER immediately if you have vomiting, fevers, or worsening pain. Referrals: KEVIN REED MD [Primary Care Provider] - Follow up tomorrow
[2018-10-29] MEDS ORDERED: HYDROMORPHONE HCL INJ/PF 2 MG/ML AMPULE IM ONE (23:04)
--- NOTE | 2018-10-29 23:35 | RADIOLOGY REPORT (SQ) ---
EXAM DESCRIPTION: XR CHEST 1 VIEW COMPLETED DATE/TME: 10/29/2018 23:04 CLINICAL HISTORY: 63 years Female right flank pain COMPARISON: 06/20/2018. FINDINGS: Cardiac enlargement which appears unchanged. Tortuous aorta. Focus of scarring or nodularity along the lingula which is unchanged. Some thickening along the minor fissure also stable. No acute process noted IMPRESSION: No acute abnormality is identified.
[2018-10-30 00:30] LABS: ABSOLUTE BASOPHILS # (AUTO) 0.1 10^3/uL (0.0-0.2); ABSOLUTE EOSINOPHILS # (AUTO) 0.6 10^3/uL (0.0-0.6); ABSOLUTE LYMPHOCYTES (AUTO) 1.8 10^3/uL (0.5-4.7); ABSOLUTE MONOCYTES (AUTO) 0.6 10^3/uL (0.1-1.4); ABSOLUTE NEUT (AUTO) 5.5 10^3/uL (1.7-8.2); BASOPHILS % (AUTO) 1.3 % (0-2); HEMATOCRIT 31.7 % (36.0-47.0); LYMPHOCYTES % (AUTO) 20.5 % (13-45); MEAN CORPUSCULAR HGB CONC 34.8 g/dL (32.0-36.0); MEAN CORPUSCULAR VOLUME 89 fl (80-97); MONOCYTES % (AUTO) 7.2 % (3-13); PLATELET COUNT 193 10^3/uL (150-450); RED BLOOD COUNT 3.55 10^6/uL (3.72-5.28); RED CELL DISTRIBUTION WIDTH 17.3 % (11.5-14.0); TOTAL CELLS COUNTED % (AUTO) 100 %; WHITE BLOOD COUNT 8.6 10^3/uL (4.0-10.5)
--- NOTE | 2018-10-30 00:53 | EKG REPORT ---
SEVERITY:- ABNORMAL ECG - SINUS RHYTHM PROBABLE LEFT ATRIAL ABNORMALITY LEFT VENTRICULAR HYPERTROPHY ABNORMAL T, CONSIDER ISCHEMIA, LATERAL LEADS : Confirmed by: Enriqueta Butcher MD 30-Oct-2018 00:52:49
[2018-10-30] MEDS ORDERED: HYDROMORPHONE HCL INJ/PF 2 MG/ML AMPULE IV ONE (01:04)
[2018-10-30 01:48] LABS: ALANINE AMINOTRANSFERASE 7 U/L (9-52); ALBUMIN 4.1 g/dL (3.5-5.0); ALKALINE PHOSPHATASE 258 U/L (38-126); ANION GAP 11 (5-19); ASPARTATE AMINO TRANSFERASE 22 U/L (14-36); BILIRUBIN,DIRECT 0.5 mg/dL (0.0-0.4); BILIRUBIN,TOTAL 0.6 mg/dL (0.2-1.3); BLOOD UREA NITROGEN 41 mg/dL (7-20); CARBON DIOXIDE 28 mmol/L (22-30); CHLORIDE 100 mmol/L (98-107); GLUCOSE 98 mg/dL (75-110); LIPASE 135.9 U/L (23-300); POTASSIUM 4.8 mmol/L (3.6-5.0); SODIUM 138.9 mmol/L (137-145); TOTAL PROTEIN 7.6 g/dL (6.3-8.2)
--- NOTE | 2018-10-30 02:51 | RADIOLOGY REPORT (SQ) ---
EXAM DESCRIPTION: CT ABDOMEN PELVIS WITHOUT IV CONTRAST COMPLETED DATE/TME: 10/30/2018 02:16 CLINICAL HISTORY: 63 years, Female, right flank pain post dialysis COMPARISON: None. TECHNIQUE: 330 Images stored on PACS. All CT scanners at this facility use dose modulation, iterative reconstruction, and/or weight based dosing when appropriate to reduce radiation dose to as low as reasonably achievable (ALARA). [facility]: Dose Right [facility]: CareDose [facility]: Dose Right [facility]: Teradose 4D [facility]: [employer] LIMITATIONS: None. FINDINGS: Limited evaluation of the lung bases is unremarkable. Osseous structures are grossly intact. Visualized liver, spleen, adrenal glands, pancreas is unremarkable. Atrophic appearance to the kidneys bilaterally. Multiple bilateral renal cysts, some of which appear hyperdense. Moderate atheromatous changes. No discrete obstructing calculus or hydronephrosis. Status post cholecystectomy. Large amount of stool in the colon. Normal appendix. No free air or free fluid. Urinary bladder is not distended, limiting its evaluation. IMPRESSION: Bilateral renal cortical thinning/atrophy with multiple bilateral renal cysts. Moderate atheromatous change. TECHNICAL DOCUMENTATION: Quality ID # [id number]: Final reports with documentation of one or more dose reduction techniques (e.g., Automated exposure control, adjustment of the mA and/or kV according to patient size, use of iterative reconstruction technique) copyright 2011 [employer]- All Rights Reserved
[2018-10-30 03:21] VITALS: BP 145/65
== END 2018-10-30 03:22 | disposition home or self-care (01) ==
LOC: ER 22:31
DX: R10.9 Unspecified abdominal pain (principal); R00.2 Palpitations; M54.9 Dorsalgia, unspecified; I10 Essential (primary) hypertension; J44.9 Chronic obstructive pulmonary disease, unspecified
CPT/HCPCS: 93005; 99285; 96374; 36415; 83690; 83735; 85025; 80053; 71045; 74176; 93010; J1170 ×2

== ENCOUNTER 2018-11-27 06:34 | Day surgery (SDC) | payer MEDICARE, MEDICAID ==
[~2018-11-27 06:34] MED LIST changes: -BACITRACIN INJ 50,000 UNIT VIAL ONE; -BUPIVACAINE HCL 0.5 % INJ/PF 30 ML SDV ONE; +DIAZEPAM 5 MG TABLET PO PRN; -HEPARIN SOD (PORCINE) 1,000 UNIT/ML 10 ML VIAL ONE; -LIDOCAINE 0.5% INJ-PF (5 MG/ML) 50 ML SDV ONE; -LIDOCAINE 1% INJ-PF (10 MG/ML) 30 ML SDV ONE; -NITROGLYCERIN/D5W 50 MG/250 ML RTUINJ IV ONE; +OXYCODONE-ACETAMINOPHEN 5-325 MG TABLET PO PRN
[2018-11-27 07:24] LABS: HEMOGLOBIN 11.5 g/dL (12.0-15.5); MEAN CORPUSCULAR HEMOGLOBIN 30.3 pg (27.0-33.4); MEAN CORPUSCULAR VOLUME 89 fl (80-97); PLATELET COUNT 179 10^3/uL (150-450); RED BLOOD COUNT 3.81 10^6/uL (3.72-5.28); RED CELL DISTRIBUTION WIDTH 17.6 % (11.5-14.0); WHITE BLOOD COUNT 7.6 10^3/uL (4.0-10.5)
[2018-11-27 07:38] LABS: ANION GAP 18 (5-19); BLOOD UREA NITROGEN 48 mg/dL (7-20); CALCIUM 8.7 mg/dL (8.4-10.2); CARBON DIOXIDE 20 mmol/L (22-30); CHLORIDE 100 mmol/L (98-107); GLUCOSE 127 mg/dL (75-110); POTASSIUM 5.2 mmol/L (3.6-5.0); SODIUM 138.1 mmol/L (137-145)
[2018-11-27] MEDS ORDERED: DIAZEPAM 5 MG TABLET ONE (08:00)
[2018-11-27] MEDS ORDERED: OXYCODONE-ACETAMINOPHEN 5-325 MG TABLET ONE (08:00)
[2018-11-27] MEDS ORDERED: LIDOCAINE 0.5% INJ-PF (5 MG/ML) 50 ML SDV ONE (10:40)
[2018-11-27] MEDS ORDERED: FENTANYL CITRATE INJ/PF 100 MCG/2 ML AMPUL ONE (10:40)
[2018-11-27] MEDS ORDERED: MIDAZOLAM 2 MG/2 ML INJ ONE (10:40)
[2018-11-27] MEDS ORDERED: HEPARIN SOD (PORCINE) 5,000 UNIT/ML 1 ML SYRINGE ONE (10:41)
[2018-11-27 13:15] VITALS: BP 137/81
--- NOTE | 2018-11-27 16:14 | RADIOLOGY REPORT (SQ) ---
EXAM DESCRIPTION: FISTULAGRAM W/PLASTY COMPLETED DATE/TIME: 11/27/2018 3:55 pm REASON FOR STUDY: T82.858A [facility]82.590A [facility] OF SURGICALLY CREATED ARTERIOVENOUS FIST T82.858A S TENOSIS OF OTHER VASCULAR PROSTH DEV/GRFT, INIT COMPARISON: 04/05/2018 FLUOROSCOPY TIME: 0.7 minutes 43 digital fluoroscopic images saved to PACS. TECHNIQUE: Intra-operative images acquired during surgical procedure to evaluate progress. NUMBER OF IMAGES: 43 digital fluoroscopic images LIMITATIONS: None. FINDINGS: Intra procedural imaging and fluoro during evaluation and plasty of dialysis access by Dr. Hung IMPRESSION: IMAGE(S) OBTAINED DURING PROCEDURE. COMMENT: Quality ID 145: Final reports for procedures using fluoroscopy that document radiation exp osure indices, or exposure time and number of fluorographic images (if radiation exposure indices are not available) Please consult full operative report of the attending physician for description of the procedure. TECHNICAL DOCUMENTATION: JOB ID: [id number] [email or web address]- All Rights Reserved Reading location - IP/workstation name: [email or web address]
--- NOTE | 2018-11-27 17:27 | Discharge Summary ---
Discharge Summary (SDC) - Discharge Final Diagnosis: #1 AV fistula malfunction. 2. End-stage renal disease on hemodialysis. 3. Vein occlusion. 4. Hypertension Date of Surgery: 11/27/18 Condition: Good Forms: ASU Anesthesia D/C Instruction, Discharge POC-Surgical Service Treatment or Instructions: keep site clean and dry follow up with MD as needed Referrals: KEVIN REED MD [Primary Care Provider] - REJI ERWIN MD [ACTIVE STAFF] - Respiratory Treatments at Home: Deep Breathing/Coughing Discharge Activity: Activity As Tolerated Home Care Assistance: None Needed Report the Following to Your Physician Immediately: Shortness of Breath, Fever over 101 Degrees, Redness, Swelling, Warmth, Drainage-Foul Smelling
--- NOTE | 2018-11-27 17:30 | Operative Report ---
Operative Report DATE OF SURGERY: 11/27/18 PREOPERATIVE DIAGNOSIS: #1 AV fistula malfunction. 2. End-stage renal disease on hemodialysis. 3. Vein occlusion. 4. Hypertension POSTOPERATIVE DIAGNOSIS: #1 AV fistula malfunction. 2. End-stage renal disease on hemodialysis. 3. Vein occlusion. 4. Hypertension OPERATION: Ultrasound-guided needle access into the right forearm radiocephalic fistula. 2. Angioplasty. 3. Angiogram and interpretation. SURGEON: REJI DE LEON CONSULTING APPLICATION ENGINEER: None. ANESTHESIA: Moderate Sedation TISSUE REMOVED OR ALTERED: Not applicable. COMPLICATIONS: None. ESTIMATED BLOOD LOSS: 2 mL. INTRAOPERATIVE FINDINGS: Of a newly established but inadequate right forearm radiocephalic fistula. Ultrasound shows it to be about 3.9 mm in diameter and 8.5 mm beneath the skin. It responded to gentle dilatation up to 7 mm and was more easily palpable. Because of subcutaneous tissue further transposition may be needed. The object is to get this fistula useful in function and to abandoned the fistula in the left upper extremity which is subject this stenosis and the results in left upper extremity swelling. PROCEDURE: PROCEDURE: After verifying the procedure and having obtained informed consent, the patient's left arm and forearm were prepared with Chlorhexidine and draped out with sterile linen. Local anesthesia infiltrated. Percutaneous access into the fistula ,[retrograde], obtained about [20 cm] from the arteriovenous a nastomosis using a micro puncture needle followed by micro puncture wire and then a micro puncture catheter. This was done on ultrasound guidance using real-time access into the vein. Ultrasound was also used to size the vein. Angiogram demonstrated the aforementioned findings. Angioplasty was elected. A 0.035 [place]ster wire was inserted, and over this, a 6 Slovenian short introducer was placed, this was followed by a 6 mm angioplasty balloon . Angioplasty was now done at the distal radial artery just before the anastomosis and over the anastomotic and perianastomotic segment. This was done very carefully and using a 3 mils syringe sustained for 2 minutes. Angiogram demonstrated successful outcome. The balloon was now swapped over the wire for a 7 mm angioplasty balloon. Angioplasty was In the targeted area in the mid forearm. Inflating inflating very gently and carefully using a 3 mils syringe for up to 3 minutes at the time]. Completion angiogram demonstrated [satisfactory result]. The instrumentation was now withdrawn over hand pressure for 10 minutes . Dressings applied, procedure concluded. Exposure time: 0.7 minutes Radiation: 2.79 mGy. Contrast: 25 mL of Isovue-M 300 low osmolality. DICTATING PHYSICIAN: REJI ERWIN M.D. cc: REJI ERWIN M.D. ([id number]) >>
== END 2018-11-27 13:30 | disposition home or self-care (01) ==
LOC: CCL 06:34
PROVIDERS: ATTEND Surgery
DX: T82.590A Other mechanical complication of surgically created arteriovenous fistula, initial encounter (principal); T82.858A Stenosis of other vascular prosthetic devices, implants and grafts, initial encounter; Y83.2 Surgical operation with anastomosis, bypass or graft as the cause of abnormal reaction of the patient, or of later complication, without mention of misadventure at the time of the procedure; N18.6 End stage renal disease; Z99.2 Dependence on renal dialysis; E66.9 Obesity, unspecified; E03.9 Hypothyroidism, unspecified; Z87.891 Personal history of nicotine dependence; Z79.82 Long term (current) use of aspirin; Z79.899 Other long term (current) drug therapy; Z68.39 Body mass index [BMI] 39.0-39.9, adult; Z01.818 Encounter for other preprocedural examination; Z88.5 Allergy status to narcotic agent; Z88.0 Allergy status to penicillin; Z88.8 Allergy status to other drugs, medicaments and biological substances
CPT/HCPCS: 36415; 85027; 80048; 36902; 76937; C1725 ×2; C1752; C1887; C1769; J2250; J1644 ×2; A9270 ×2; J3010; J3490

== ENCOUNTER 2019-01-22 11:08 | Day surgery (SDC) | payer MEDICARE, MEDICAID ==
--- NOTE | 2019-01-19 11:04 | RADIOLOGY REPORT (SQ) ---
EXAM DESCRIPTION: CHEST PA/LATERAL COMPLETED DATE/TIME: 01/19/2019 10:38 am REASON FOR STUDY: PRE-OP COMPARISON: CT chest 05/22/2018 Chest films 05/11/2018, 06/20/2018, 10/29/2018 EXAM PARAMETERS: NUMBER OF VIEWS: two views TECHNIQUE: Digital Frontal and Lateral radiographic views of the chest acquired. RADIATION DOSE: NA LIMITATIONS: none FINDINGS: LUNGS AND PLEURA: Stable bandlike lingular atelectasis. No acute infiltrates. No pleural effusion or pneumothorax. MEDIASTINUM AND HILAR STRUCTURES: No masses or contour abnormalities. HEART AND VASCULAR STRUCTURES: Heart normal size. No evidence for failure. BONES: No acute findings. HARDWARE: None in the chest. OTHER: No other significant finding. IMPRESSION: NO SIGNIFICANT RADIOGRAPHIC FINDING IN THE CHEST. TECHNICAL DOCUMENTATION: JOB ID: [id number] [employer]- All Rights Reserved Reading location - IP/workstation name: [email or web address]
--- NOTE | 2019-01-19 20:54 | EKG REPORT ---
SEVERITY:- BORDERLINE ECG - SINUS RHYTHM LVH BY VOLTAGE CONSIDER ANTERIOR INFARCT : Confirmed by: Enriqueta Butcher MD 19-Jan-2019 20:53:29
[~2019-01-22 11:08] MED LIST changes: +CLINDAMYCIN 600 MG/D5W RTU 600 MG/50 ML RTUPB IV PRN; -DIAZEPAM 5 MG TABLET PO PRN; +FENTANYL CITRATE INJ/PF 100 MCG/2 ML AMPUL ONE; +KETAMINE HCL INJ 500 MG/10 ML VIAL ONE; +LIDOCAINE 0.5% INJ-PF (5 MG/ML) 50 ML SDV SUBCUT PRN; +MIDAZOLAM 2 MG/2 ML INJ ONE; +NORMAL SALINE 1000 ML (RENAL PATIENTS) IV PRN; -OXYCODONE-ACETAMINOPHEN 5-325 MG TABLET PO PRN; +PROPOFOL INJ 200 MG/20 ML VIAL IV ONE
[2019-01-22] MEDS ORDERED: LIDOCAINE 0.5% INJ-PF (5 MG/ML) 50 ML SDV ONE (11:50)
[2019-01-22] MEDS ORDERED: BUPIVACAINE HCL 0.25 % INJ/PF (2.5 MG/1 ML) 30 ML VIAL ONE (11:50)
[2019-01-22] MEDS ORDERED: HEPARIN SOD (PORCINE) 1,000 UNIT/ML 10 ML VIAL ONE (12:03)
[2019-01-22] MEDS ORDERED: BACITRACIN INJ 50,000 UNIT VIAL ONE (12:03)
[2019-01-22] MEDS ORDERED: LIDOCAINE 1% INJ-PF (10 MG/ML) 30 ML SDV ONE (12:03)
[2019-01-22 12:16] LABS: HEMATOCRIT 35.2 % (36.0-47.0); HEMOGLOBIN 12.1 g/dL (12.0-15.5); MEAN CORPUSCULAR HEMOGLOBIN 30.5 pg (27.0-33.4); MEAN CORPUSCULAR HGB CONC 34.2 g/dL (32.0-36.0); MEAN CORPUSCULAR VOLUME 89 fl (80-97); PLATELET COUNT 138 10^3/uL (150-450); RED BLOOD COUNT 3.95 10^6/uL (3.72-5.28); RED CELL DISTRIBUTION WIDTH 17.4 % (11.5-14.0); WHITE BLOOD COUNT 5.1 10^3/uL (4.0-10.5)
[2019-01-22] MEDS ORDERED: ONDANSETRON HCL INJ/PF 4 MG/2 ML SDV ONE (12:33)
[2019-01-22 12:36] LABS: ANION GAP 16 (5-19); BLOOD UREA NITROGEN 75 mg/dL (7-20); CALCIUM 9.8 mg/dL (8.4-10.2); CARBON DIOXIDE 23 mmol/L (22-30); CHLORIDE 97 mmol/L (98-107); GLUCOSE 86 mg/dL (75-110); SODIUM 135.6 mmol/L (137-145)
[2019-01-22 12:49] LABS: POTASSIUM 6.4 mmol/L (3.6-5.0)
[2019-01-22] MEDS ORDERED: CALCIUM GLUCONATE 1000 MG/10 ML INJ IV ONE (12:57)
[2019-01-22] MEDS ORDERED: DEXTROSE 50%-WATER 25 GM/50 ML DISP.SYRIN IV ONE (12:59)
[2019-01-22] MEDS ORDERED: INSULIN REG, HUMAN 100 UNIT/ML 3 ML VIAL (PYX) ONE (13:00)
[2019-01-22] MEDS ORDERED: CLINDAMYCIN 600 MG/D5W RTU 600 MG/50 ML RTUPB IV ONE (13:24)
[2019-01-22] MEDS ORDERED: FENTANYL CITRATE INJ/PF 100 MCG/2 ML AMPUL IV PRN ×3 (13:41)
[2019-01-22] MEDS ORDERED: DIPHENHYDRAMINE HCL 50 MG/ML VIAL IV PRN (13:41)
--- NOTE | 2019-01-22 16:29 | Discharge Summary ---
Discharge Summary (SDC) - Discharge Final Diagnosis: 1 fistula malfunction of 2. End-stage renal disease on hemodialysis 3 history of congestive heart failure. 5. Obesity. 6. Hypertension. Date of Surgery: 01/22/19 Discharge Date: 01/22/19 Condition: Fair Treatment or Instructions: Discharge home [after recovery per ASU criteria]. Diet , [renal],as tolerated, when fully awake advance as tolerated. Activities within moderation encouraged. Follow up in my office by appointment in about [1 week]. Call for appointment. Leave wounds [covered], [keep clean and dry, until office visit in 1 week]. Hold of on school/work [until evaluation in office]. Kayexalate 30 g orally in recovery room. Do serum Potassium in the ambulatory area, analyze before discharge. Meds per med rec. Percocet. May shower [in 48 hrs], [try to keep operated area as dry as possible]. Prescriptions: Oxycodone HCl/Acetaminophen [Percocet 5-325 mg Tablet] 1 tab PO ASDIR PRN #15 tab PRN Reason: Referrals: KEVIN REED MD [Primary Care Provider] - Discharge Diet: Other (Comments) - Renal. Respiratory Treatments at Home: Deep Breathing/Coughing Discharge Activity: Activity As Tolerated Report the Following to Your Physician Immediately: Shortness of Breath, Unusual Bleeding
[2019-01-22] MEDS ORDERED: FENTANYL CITRATE INJ/PF 100 MCG/2 ML AMPUL ONE (16:33)
--- NOTE | 2019-01-22 16:37 | Operative Report ---
Operative Report DATE OF SURGERY: 01/22/19 PREOPERATIVE DIAGNOSIS: 1 fistula malfunction of. 2. End-stage renal disease on hemodialysis. 3 history of congestive heart failure. 5. Obesity. 6. Hypertension. POSTOPERATIVE DIAGNOSIS: 1 fistula malfunction of. 2. End-stage renal disease on hemodialysis. 3 history of congestive heart failure. 5. Obesity. 6. Hypertension. OPERATION: Superficialization of the right forearm radiocephalic arteriovenous fistula. SURGEON: REJI DE LEON ARABIC TRANSLATOR: None. ANESTHESIA: LMAC TISSUE REMOVED OR ALTERED: Not applicable. COMPLICATIONS: None. ESTIMATED BLOOD LOSS: 10 mL. INTRAOPERATIVE FINDINGS: Of a substantially developed right forearm r adiocephalic fistula. Very deep beneath the skin, about 1.5 cm. Successfully elevated to just beneath the skin for a distance of approximately 12 cm. PROCEDURE: PROCEDURE: After reviewing the procedure with the patient, [she] was taken to the operating room. The patient was sedated and the right upper extremity] prepared with chlorhexidine and draped out with sterile linen. After the "" universal timeout", in which it was verified that the patient [received IV antibiotics] the procedure commenced. The sterilely sheathed ultrasound probe was used to evaluate the right exchange existing arteriovenous fistula and its course marked. Local anesthesia was infiltrated and a transverse incision made in the lower third of the arm, about 4 cm in length.. Dissection proceeded through the subcutaneous tissues down to the fistula. This was dissected out proximally and distally for about 4 cm proximally and distally, as far as the incision would allow. A few side branches were doubly clipped and divided. The adipose tissue was dissected off the vein as far distally and proximally as possible. The fat between the subcuticular area and the vein was now dissected off, in a thin tunnel. The vein was dissected medially and laterally. Having utilized the incision as much as possible a second incision was now made transversely superiorly and and at an appropriate level to give maximal dissection. This was done after local anesthesia infiltration. Again through the new incision, dissection proceeded over the vein proximally and distally as far as possible and then just beneath the subcu tissue and the intervening portion of adipose tissue removed and discarded. Again the vein was from the tissues laterally and medially and any additional branches transected between clips. The fascia adjacent to the fistula was now brought up to the subcuticular level and an interrupted suture of 4-0 Monocryl used to approximate it to the subcuti cular area. This was done proximally and distally in both incisions. The vein was now nicely palpable for almost its entire length in the arm. There was a substantial tunnel where the skin came down to the vein, this seems unavoidable given the thick layer of adiposity A Caleb drain was now inserted taking care to stay away from the fistula as much as possible. It exited medially and inferiorly to the inferior wound. It was anchored with 2-0 Prolene. The skin was now closed using interrupted 3-0 PDS to the subcu layer and continuous 4-0 Monocryl to the skin. This was reinforced with Steri-Strips over benzoin and dressings applied. Sutured skin and applied dressings. DICTATING PHYSICIAN: REJI ERWIN M.D.
[2019-01-22] MEDS ORDERED: SODIUM POLYSTYRENE SULFONATE 15 GM/60 ML ONE (17:13)
[2019-01-22] MEDS ORDERED: TRAMADOL HCL 50 MG TABLET ONE (17:49)
[2019-01-22 21:07] VITALS: BP 142/81
== END 2019-01-22 18:50 | disposition home or self-care (01) ==
LOC: OROUT 11:08
PROVIDERS: ATTEND Surgery
DX: I13.2 Hypertensive heart and chronic kidney disease with heart failure and with stage 5 chronic kidney disease, or end stage renal disease (principal); I50.9 Heart failure, unspecified; N18.6 End stage renal disease; Z99.2 Dependence on renal dialysis; T82.510A Breakdown (mechanical) of surgically created arteriovenous fistula, initial encounter; Y83.2 Surgical operation with anastomosis, bypass or graft as the cause of abnormal reaction of the patient, or of later complication, without mention of misadventure at the time of the procedure; E03.9 Hypothyroidism, unspecified; I87.1 Compression of vein; E66.9 Obesity, unspecified; Z68.32 Body mass index [BMI] 32.0-32.9, adult; Z88.5 Allergy status to narcotic agent; Z88.0 Allergy status to penicillin; Z88.8 Allergy status to other drugs, medicaments and biological substances; Z87.891 Personal history of nicotine dependence; Z79.82 Long term (current) use of aspirin; Z79.899 Other long term (current) drug therapy
CPT/HCPCS: 93010; 93005; 36415; 82962; 85027; 80048; 71046; 36821; J2250; J0610; J3490 ×3; J3010; A9270 ×2; J2405; J2704; 1844; J1644; J1815

== ENCOUNTER 2019-03-29 06:46 | Day surgery (SDC) | payer MEDICARE, MEDICAID ==
[2019-03-29] MEDS ORDERED: DIAZEPAM 5 MG TABLET ONE (08:32)
[2019-03-29] MEDS ORDERED: DIAZEPAM 5 MG TABLET PO PRN (09:00)
[2019-03-29] MEDS ORDERED: OXYCODONE-ACETAMINOPHEN 5-325 MG TABLET PO PRN (09:00)
[2019-03-29 09:02] LABS: HEMATOCRIT 36.2 % (36.0-47.0); HEMOGLOBIN 12.1 g/dL (12.0-15.5); MEAN CORPUSCULAR HEMOGLOBIN 30.2 pg (27.0-33.4); MEAN CORPUSCULAR HGB CONC 33.4 g/dL (32.0-36.0); MEAN CORPUSCULAR VOLUME 90 fl (80-97); PLATELET COUNT 183 10^3/uL (150-450); RED BLOOD COUNT 4.01 10^6/uL (3.72-5.28); RED CELL DISTRIBUTION WIDTH 17.1 % (11.5-14.0); WHITE BLOOD COUNT 7.4 10^3/uL (4.0-10.5)
[2019-03-29] MEDS ORDERED: LIDOCAINE 0.5% INJ-PF (5 MG/ML) 50 ML SDV ONE (10:14)
[2019-03-29] MEDS ORDERED: MIDAZOLAM 2 MG/2 ML INJ ONE (10:17)
[2019-03-29] MEDS ORDERED: HEPARIN SOD (PORCINE) 5,000 UNIT/ML 1 ML SYRINGE ONE (10:17)
[2019-03-29] MEDS ORDERED: FENTANYL CITRATE INJ/PF 100 MCG/2 ML AMPUL ONE (10:17)
--- NOTE | 2019-03-29 11:25 | PDOC H&P ---
General Chief Complaint: The patient admitted for evaluation and intervention in her right forearm AV fistula which is exhibited diminished flow. - Diagnosis (1) Dialysis AV fistula malfunction Is this a Current Diagnosis?: Yes (2) End-stage renal disease (ESRD) Is this a Current Diagnosis?: Yes (3) HTN (hypertension) Is this a Current Diagnosis?: Yes (4) Superior vena cava syndrome Is this a Current Diagnosis?: Yes - Current Medications/Allergies Home Medications: Albuterol Sulfate [Proair HFA Inhalation Aerosol 8.5 gm MDI] 2 puff IH Q6HP PRN 10/06/18 Albuterol Sulfate [Ventolin 0.083% Neb 2.5 mg/3 mL Ampul] 3 ml NEB Q6HP PRN 10/06/18 Allopurinol [Zyloprim 100 mg Tablet] 100 mg PO DAILY PRN 10/06/18 Clonidine HCl [Catapres 0.3 mg Tablet] 0.3 mg PO Q8 10/06/18 Esomeprazole Magnesium 40 mg PO DAILYP PRN 10/06/18 Lactulose [Constulose 10 gm/15 mL Oral Solution] 20 gm PO DAILYP PRN 10/06/18 Linaclotide [Linzess 145 Mcg Capsule] 145 mcg PO DAILY 10/06/18 Loratadine [Claritin 10 mg Tablet] 10 mg PO DAILY 10/06/18 Metoprolol Succinate [Toprol Xl] 200 mg PO DAILY 10/06/18 Nifedipine [Nifedipine ER] 90 mg PO Q12 10/06/18 Sevelamer Carbonate [Renvela] 1,600 mg PO .SNACKS 10/06/18 Sodium Polystyrene Sulfonate [Kayexalate 15 gm/60 ml Susp 60 ml] 15 gm PO DAILYP PRN 10/06/18 Tramadol HCl [Ultram 50 mg Tablet] 50 mg PO Q8HP PRN 10/06/18 Triamcinolone Acetonide [Aristocort 0.1% Cream] 1 applic TOP BID 10/06/18 Allergies/Adverse Reactions: codeine [Codeine] Allergy (Severe, Verified 03/29/19 06:59) Lips & tongue swell hydrocodone bitartrate [From Vicodin] Allergy (Severe, Verified 03/29/19 06:59) Throat & tongue swell, severe itch Iodinated Contrast- Oral and IV Dye [IV Dye, Iodine Containing] Allergy (Severe, Verified 03/29/19 06:59) Anaphylaxis lanthanum carbonate [From FOSRENOL] Allergy (Severe, Verified 03/29/19 06:59) losartan potassium [From Cozaar] Allergy (Severe, Verified 03/29/19 06:59) Swelling of Throat oxycodone HCl [From OxyContin] Allergy (Severe, Verified 03/29/19 06:59) Throat & tongue swell, severe itch propoxyphene napsylate [From Darvocet-N 100] Allergy (Severe, Verified 03/29/19 06:59) Mouth swells, itch ramipril [From Altace] Allergy (Severe, Verified 03/29/19 06:59) Lips, tongue & throat swell Penicillins Allergy (Intermediate, Verified 03/29/19 06:59) Generalized Itching acetaminophen [From Percocet] Allergy (Verified 03/29/19 06:59) ITCHING angiotensin II acetate, human Allergy (Verified 03/29/19 06:59) SEVERE STOMACH PAIN hydralazine Allergy (Verified 03/29/19 06:59) Swollen tongue oxycodone [From Percocet] Allergy (Verified 03/29/19 06:59) ITCHING adhesive tape [Adhesive Tape] Adverse Reaction (Intermediate, Verified 03/29/19 06:59) ITCHING, PULLS SKIN OFF aspirin [Aspirin] Adverse Reaction (Intermediate, Verified 03/29/19 06:59) Tegaderm Allergy (Intermediate, Uncoded 03/29/19 06:59) Pulls skin off, itching Past Medical History Cardiac Medical History: Reports: Hyperlipidema, Hypertension Denies: Coronary Artery Disease, Myocardial Infarction Pulmonary Medical History: Reports: Asthma - MILD, Pneumonia Denies: Bronchitis, Chronic Obstructive Pulmonary Disease (COPD) Neurological Medical History: Denies: Seizures Endocrine Medical History: Reports: Hyperthyroidism Renal/ Medical History: Reports: End Stage Renal Disease GI Medical History: Reports: Gastroesophageal Reflux Disease, Hiatal Hernia Musculoskeltal Medical History: Reports: Arthritis - LEFT KNEE, Gout Psychiatric Medical History: Denies: Depression Hematology: Reports: Anemia Past Surgical History Past Surgical History: Reports: Cardiac Catheterization - 2011, Section, Cholecystectomy Denies: Adenoidectomy, Hysterectomy, Pacemaker Family History Family History: Reviewed & Not Pertinent, Hypertension Parental Family History Reviewed: No Children Family History Reviewed: No Sibling(s) Family History Reviewed.: No Social History Smoking Status: Former Smoker Frequency of Alcohol Use: None Hx Recreational Drug Use: No Drugs: None Hx Prescription Drug Abuse: No Physical Exam Vital Signs: Temp Pulse Resp BP Pulse Ox 98.1 F 72 18 141/72 H 100 03/29/19 07:39 03/29/19 07:39 03/29/19 07:39 03/29/19 07:39 03/29/19 07:39 Intake & Output 03/28/19 03/29/19 03/30/19 06:59 06:59 06:59 Weight 100.698 kg Additional comments: Constitutional: Well-developed well-nourished -Dutch lady, increased body mass index. No apparent acute distress. Eyes: Mucous membranes pink and moist, pupils equal and reactive to light. Conjunctiva normal. Cornea normal. ENT: Hearing grossly normal. External pinna normal to inspection. Teeth intact. Tongue normal to inspection. Cardiac: Heart sounds 1 and 2 normal. Respiratory: Normal respiratory effort. Psychiatric: Judgment, memory, insight seem normal. Mood is pleasant and appropriate. Extremities: Upper extremities show normal range of movement. Pulses present noted to the radial arteries. Capillary refill normal. No cyanosis noted. No muscle wasting noted. Bilateral forearm AV fistula. Relative swelling on the left. Right fistula somewhat soft suggesting inflow stenosis. Neurovascular: No apparent tremors, gait normal. Sensation grossly intact. Hearing grossly normal. Vison grossly intact. Impression/Plan Plan: The plan is to do an angiogram and possible angioplasty in the event that fistula improvement is available. The procedure, its risks, benefits, expected outcome and alternatives are recommended to the patient and she is agreeable.
--- NOTE | 2019-03-29 11:27 | Discharge Summary ---
Discharge Summary (SDC) - Discharge Final Diagnosis: #1 right forearm radiocephalic arteriovenous venous fistula malfunction. 2. End-stage renal disease on hemodialysis. 3. Superior vena cava syndrome. 4. Hypertension. Forms: ASU Anesthesia D/C Instruction, Discharge POC-Surgical Service Treatment or Instructions: Discharge home [after recovery per ASU criteria]. Diet , [renal],as tolerated, when fully awake advance as tolerated. Activities within moderation encouraged. Follow up in my office by appointment in about [1 month. Call for appointment. Leave wounds [covered], [keep clean and dry, until hemodialysis Meds per med rec. Hold of on school/work [until evaluation in office]. May shower [in 48 hrs], [try to keep operated area as dry as possible]. Referrals: KEVIN REED MD [Primary Care Provider] - REJI ERWIN MD [ACTIVE STAFF] - Discharge Diet: Other (Comments) - Renal. Respiratory Treatments at Home: Deep Breathing/Coughing Discharge Activity: Activity As Tolerated Report the Following to Your Physician Immediately: Unusual Bleeding
--- NOTE | 2019-03-29 11:30 | Operative Report ---
Operative Report DATE OF SURGERY: 03/29/19 PREOPERATIVE DIAGNOSIS: #1 right forearm radiocephalic arteriovenous venous fis dian malfunction. 2. End-stage renal disease on hemodialysis. 3. Superior vena cava syndrome. 4. Hypertension. POSTOPERATIVE DIAGNOSIS: #1 right forearm radiocephalic arteriovenous venous fistula malfunction. 2. End-stage renal disease on hemodialysis. 3. Superior vena cava syndrome. 4. Hypertension. OPERATION: 1. Ultrasound evaluation and real-time access in right forearm arteriovenous fistula. 2. Angioplasty. 3. Angiogram and interpretation. SURGEON: REJI DE LEON ENGINE ASSEMBLER: None. ANESTHESIA: Moderate Sedation TISSUE REMOVED OR ALTERED: Not applicable. COMPLICATIONS: None. ESTIMATED BLOOD LOSS: 2 mL. INTRAOPERATIVE FINDINGS: Of a satisfactory right forearm AV fistula except for decreased inflow, softness. This is concordant with the angiographic findings of stenosis 70 to 80% of the lumen for about 1 cm situated about 3 cm away from the anastomosis. This was completely resolved with angioplasty using a 5 mils balloon. The improvement readily appreciable on fistula palpation. PROCEDURE: PROCEDURE: After verifying the procedure and having obtained informed consent, the patient's right arm and forearm were prepared with Chlorhexidine and draped out with sterile linen. Local anesthesia infiltrated. Percutaneous access into the fistula ,[retrograde], obtained about [20 cm] from the arteriovenous anas tomosis using a micro puncture needle followed by micro puncture wire and then a micro puncture catheter. This was done on ultrasound guidance using real-time access into the vein. Ultrasound was also used to size the vein. Angiogram demonstrated the aforementioned findings. Angioplasty was elected. A 0.035 Welda wire was inserted, and over this, a 6 Malaysian short introducer was placed, this was followed by a 5 mm angioplasty balloon . Angioplasty was now done at the before the anastomosis culprit perianastomotic segment. This was done very carefully and using a 3 mils syringe sustained for 2 minutes. Angiogram demonstrated successful outcome. The instrumentation was now withdrawn over hand pressure for 10 minutes . Dressings applied, procedure concluded. Exposure time: 1.5 minutes Radiation: 3.51 mGy. Contrast: 25 mL of Isovue-M 300 low osmolality. DICTATING PHYSICIAN: REJI ERWIN M.D. cc: REJI ERWIN M.D. ([id number]) >>
--- NOTE | 2019-03-29 13:10 | RADIOLOGY REPORT (SQ) ---
EXAM DESCRIPTION: FISTULAGRAM W/PLASTY COMPLETED DATE/TIME: 03/29/2019 11:24 am REASON FOR STUDY: T82.858A T82.858A STENOSIS OF OTHER VASCULAR PROSTH DEV/GRFT, INIT COMPARISON: None. FLUOROSCOPY TIME: 1.5 minutes 84 images saved to PACS. TECHNIQUE: Intra-operative images acquired during surgical procedure to evaluate progress. NUMBER OF IMAGES: Cine fluoroscopic images. LIMITATIONS: None. FINDINGS: Selected images from arteriography and angioplasty upper extremity dialysis graft. IMPRESSION: IMAGE(S) OBTAINED DURING PROCEDURE. COMMENT: Quality ID [id number]: Final reports for procedures using fluoroscopy that document radiation exp osure indices, or exposure time and number of fluorographic images (if radiation exposure indices are not available) Please consult full operative report of the attending physician for description of the procedure. TECHNICAL DOCUMENTATION: JOB ID: [id number] [employer]- All Rights Reserved Reading location - IP/workstation name: [email or web address]
[2019-03-29 13:12] VITALS: BP 147/78
== END 2019-03-29 13:00 | disposition home or self-care (01) ==
LOC: CCL 06:46
PROVIDERS: ATTEND Surgery
DX: T82.858A Stenosis of other vascular prosthetic devices, implants and grafts, initial encounter (principal); Y83.2 Surgical operation with anastomosis, bypass or graft as the cause of abnormal reaction of the patient, or of later complication, without mention of misadventure at the time of the procedure; I12.0 Hypertensive chronic kidney disease with stage 5 chronic kidney disease or end stage renal disease; N18.6 End stage renal disease; Z99.2 Dependence on renal dialysis; E78.5 Hyperlipidemia, unspecified; J45.20 Mild intermittent asthma, uncomplicated; E05.90 Thyrotoxicosis, unspecified without thyrotoxic crisis or storm; K44.9 Diaphragmatic hernia without obstruction or gangrene; K21.9 Gastro-esophageal reflux disease without esophagitis; M10.9 Gout, unspecified; D64.9 Anemia, unspecified; M17.12 Unilateral primary osteoarthritis, left knee; E66.9 Obesity, unspecified; Z87.891 Personal history of nicotine dependence; Z68.32 Body mass index [BMI] 32.0-32.9, adult; Z79.51 Long term (current) use of inhaled steroids; Z79.899 Other long term (current) drug therapy; Z88.5 Allergy status to narcotic agent; Z88.8 Allergy status to other drugs, medicaments and biological substances; Z88.0 Allergy status to penicillin; Z88.6 Allergy status to analgesic agent; Z91.041 Radiographic dye allergy status
CPT/HCPCS: 36415; 85027; 36902; 76937; C1752; C1725; C1887; Q9967; C1769; J2250; J1644 ×2; A9270; J3010; J3490

== ENCOUNTER 2019-06-28 20:33 | Emergency (ER) | payer MEDICARE, MEDICAID ==
[2019-06-28] MEDS ORDERED: DEXAMETHASONE SOD PHOS INJ 10 MG/1 ML VIAL IM ONE (23:33)
--- NOTE | 2019-06-28 23:43 | ER Document Report ---
ED ENT - General Chief Complaint: Sore Throat Stated Complaint: SORE THROAT Time Seen by Provider: 06/28/19 23:01 Primary Care Provider: KEVIN REED MD [Primary Care Provider] - Follow up as needed Notes: Very pleasant 64-year-old female with end-stage renal disease on dialysis Tuesday/Tuesday/Tuesday and hypertension presents to the emergency department with a sore throat. She was seen at Dr. Reed's office today for throat discomfort and was prescribed doxycycline, she took 1 dose, and she started having worsening throat discomfort and the sensation of swelling in her throat. She was concerned that she is that it might be a reaction to the doxycycline so she sought care in the emergency department here. Patient is able to talk in full sentences, denies dysphagia, denies any stridor, denies any acute respiratory distress, denies any hives, denies any nausea or vomiting, denies any chest pain, denies any other symptoms. TRAVEL OUTSIDE OF THE [place] IN LAST 30 DAYS: No - Related Data Allergies/Adverse Reactions: codeine [Codeine] Allergy (Severe, Verified 03/29/19 06:59) Lips & tongue swell hydrocodone bitartrate [From Vicodin] Allergy (Severe, Verified 03/29/19 06:59) Throat & tongue swell, severe itch Iodinated Contrast Media [IV Dye, Iodine Containing] Allergy (Severe, Verified 03/29/19 06:59) Anaphylaxis lanthanum carbonate [From FOSRENOL] Allergy (Severe, Verified 03/29/19 06:59) losartan potassium [From Cozaar] Allergy (Severe, Verified 03/29/19 06:59) Swelling of Throat oxycodone HCl [From OxyContin] Allergy (Severe, Verified 03/29/19 06:59) Throat & tongue swell, severe itch propoxyphene napsylate [From Darvocet-N 100] Allergy (Severe, Verified 03/29/19 06:59) Mouth swells, itch ramipril [From Altace] Allergy (Severe, Verified 03/29/19 06:59) Lips, tongue & throat swell Penicillins Allergy (Intermediate, Verified 03/29/19 06:59) Generalized Itching acetaminophen [From Percocet] Allergy (Verified 03/29/19 06:59) ITCHING angiotensin II acetate, human Allergy (Verified 03/29/19 06:59) SEVERE STOMACH PAIN hydralazine Allergy (Verified 03/29/19 06:59) Swollen tongue oxycodone [From Percocet] Allergy (Verified 03/29/19 06:59) ITCHING adhesive tape [Adhesive Tape] Adverse Reaction (Intermediate, Verified 03/29/19 06:59) ITCHING, PULLS SKIN OFF aspirin [Aspirin] Adverse Reaction (Intermediate, Verified 03/29/19 06:59) Tegaderm Allergy (Intermediate, Uncoded 03/29/19 06:59) Pulls skin off, itching Past Medical History - Social History Smoking Status: Former Smoker Frequency of alcohol use: None Drug Abuse: None Family History: Reviewed & Not Pertinent, Hypertension Patient has suicidal ideation: No Patient has homicidal ideation: No - Past Medical History Cardiac Medical History: Reports: Hx Hypercholesterolemia, Hx Hypertension Denies: Hx Coronary Artery Disease, Hx Heart Attack Pulmonary Medical History: Reports: Hx Asthma - MILD, Hx Pneumonia Denies: Hx Bronchitis, Hx COPD Neurological Medical History: Denies: Hx Cerebrovascular Accident, Hx Seizures Endocrine Medical History: Reports: Hx Hyperthyroidism Renal/ Medical History: Reports: Hx End Stage Renal Disease, Hx Hemodialysis. Denies: Hx Peritoneal Dialysis GI Medical History: Reports: Hx Gastroesophageal Reflux Disease, Hx Hiatal Hernia Musculoskeletal Medical History: Reports Hx Arthritis - LEFT KNEE, Reports Hx Go ut Psychiatric Medical History: Denies: Hx Depression Infectious Medical History: Past Surgical History: Reports: Hx Abdominal Surgery - GALL BLADDER, Hx Cardiac Catheterization - 2011, Hx Section, Hx Cholecystectomy, Hx Gynecologic Surgery - hysteroscopy. Denies: Hx Adenoidectomy, Hx Hysterectomy, Hx Pacemaker - Immunizations Hx Diphtheria, Pertussis, Tetanus Vaccination: Yes Hx Pneumococcal Vaccination: 08/14/15 Review of Systems - Review of Systems Constitutional: See HPI EENT: See HPI Cardiovascular: See HPI Respiratory: See HPI Gastrointestinal: See HPI Genitourinary: No symptoms reported Female Genitourinary: No symptoms reported Musculoskeletal: No symptoms reported Skin: See HPI Hematologic/Lymphatic: No symptoms reported Neurological/Psychological: No symptoms reported Physical Exam - Vital signs Vitals: Temp Pulse Resp BP Pulse Ox 98.0 F 68 20 157/104 H 97 06/28/19 20:38 06/28/19 20:38 06/28/19 20:38 06/28/19 20:38 06/28/19 20:38 - Notes Notes: PHYSICAL EXAMINATION: Reviewed vital signs and charting by RN GENERAL: Alert, interacts well. No acute distress. HEAD: Normocephalic, atraumatic. EYES: Pupils equal and round. Extraocular movements intact. ENT: Oral mucosa moist, tongue midline. NECK: Full range of motion. Trachea midline. LUNGS: Clear to auscultation bilaterally, no wheezes, rales, or rhonchi. No respiratory distress. HEART: Regular rate and rhythm. No murmur ABDOMEN: soft, non-tender. No distention. Bowel sounds present EXTREMITIES: Moves all 4 extremities spontaneously. No edema, No cyanosis. PSYCH: Normal affect, normal mood. SKIN: Warm, dry, normal turgor. No rashes or lesions noted. Course - Re-evaluation Re-evalutation: 06/28/19 23:53 Overall well-appearing in no acute distress. Rapid strep was negative, on inspection airway was patent visually and there was no tonsillar hypertrophy seen. Unclear why she was placed on doxycycline but I told her to stop taking it until she follows up with Dr. Reed tomorrow. She received dexamethasone 10 mg IM once as she does not have any history of diabetes. At this time she is stable for discharge. - Vital Signs Vital signs: Temp Pulse Resp BP Pulse Ox 98.0 F 70 18 172/71 H 100 06/28/19 20:38 06/28/19 21:47 06/28/19 21:47 06/28/19 23:02 06/28/19 23:02 Discharge - Discharge Clinical Impression: Sore throat Condition: Good Disposition: HOME, SELF-CARE Additional Instructions: You have been diagnosed with a sore throat this evening. Your rapid strep test was negative which is reassuring. You have also been given a dose of steroids to help with your throat discomfort. Please continue to take ibuprofen 600 mg every 6 hours or Tylenol 1000 mg every 6 hours as needed for throat discomfort. You can also gargle with salt water. Continue to drink plenty of fluids. Follow-up with Dr. Reed doctor in the morning to discuss the doxycycline that he put you on. I would not take another dose until you see him and discuss your concerns that you may have had a possible reaction to it.. Return if you become unable to swallow, have difficulty breathing, pass out, have persistent vomiting that prevents you from being able to tolerate fluids, or have any other symptoms that are concerning to you. Referrals: KEVIN REED MD [Primary Care Provider] - Follow up as needed
[2019-06-29 00:17] VITALS: BP 184/84
== END 2019-06-29 00:13 | disposition home or self-care (01) ==
LOC: ER 20:33
DX: J02.9 Acute pharyngitis, unspecified (principal); I12.0 Hypertensive chronic kidney disease with stage 5 chronic kidney disease or end stage renal disease; N18.6 End stage renal disease; Z99.2 Dependence on renal dialysis; J45.909 Unspecified asthma, uncomplicated; Z87.891 Personal history of nicotine dependence; Z88.5 Allergy status to narcotic agent; Z87.892 Personal history of anaphylaxis; Z91.041 Radiographic dye allergy status; Z88.8 Allergy status to other drugs, medicaments and biological substances; Z88.0 Allergy status to penicillin; Z88.6 Allergy status to analgesic agent
CPT/HCPCS: 99283; 96372; 87070; 87880; J1100

== ENCOUNTER 2019-07-08 09:03 | Emergency (ER) | payer MEDICARE, MEDICAID ==
--- NOTE | 2019-07-08 09:26 | ER Document Report ---
ED Medical Screen (RME) - General Chief Complaint: Allergy Symptoms Stated Complaint: FACIAL SWELLING, THROAT SWELLING Time Seen by Provider: 07/08/19 09:20 Primary Care Provider: KEVIN REED MD [Primary Care Provider] - Follow up as needed Mode of Arrival: Wheelchair Information source: Patient Notes: 64 yo female present to ed for allergic reaction to tape from dialysis. Last dialysis was Tuesday. has been taking benadryl since Tuesday. Resp regular unlabored state throat is sore, face read and swollen itching. Tonsils red swollen with exudate. short of breath. I have greeted and performed a rapid initial assessment of this patient. A comprehensive ED assessment and evaluation of the patient, analysis of test results and completion of medical decision making process will be conducted by an additional ED providers. TRAVEL OUTSIDE OF THE [place] IN LAST 30 DAYS: No - Related Data Allergies/Adverse Reactions: codeine [Codeine] Allergy (Severe, Verified 03/29/19 06:59) Lips & tongue swell hydrocodone bitartrate [From Vicodin] Allergy (Severe, Verified 03/29/19 06:59) Throat & tongue swell, severe itch Iodinated Contrast Media [IV Dye, Iodine Containing] Allergy (Severe, Verified 03/29/19 06:59) Anaphylaxis lanthanum carbonate [From FOSRENOL] Allergy (Severe, Verified 03/29/19 06:59) losartan potassium [From Cozaar] Allergy (Severe, Verified 03/29/19 06:59) Swelling of Throat oxycodone HCl [From OxyContin] Allergy (Severe, Verified 03/29/19 06:59) Throat & tongue swell, severe itch propoxyphene napsylate [From Darvocet-N 100] Allergy (Severe, Verified 03/29/19 06:59) Mouth swells, itch ramipril [From Altace] Allergy (Severe, Verified 03/29/19 06:59) Lips, tongue & throat swell Penicillins Allergy (Intermediate, Verified 03/29/19 06:59) Generalized Itching acetaminophen [From Percocet] Allergy (Verified 03/29/19 06:59) ITCHING angiotensin II acetate, human Allergy (Verified 03/29/19 06:59) SEVERE STOMACH PAIN hydralazine Allergy (Verified 03/29/19 06:59) Swollen tongue oxycodone [From Percocet] Allergy (Verified 03/29/19 06:59) ITCHING adhesive tape [Adhesive Tape] Adverse Reaction (Intermediate, Verified 03/29/19 06:59) ITCHING, PULLS SKIN OFF aspirin [Aspirin] Adverse Reaction (Intermediate, Verified 03/29/19 06:59) Tegaderm Allergy (Intermediate, Uncoded 03/29/19 06:59) Pulls skin off, itching Past Medical History - Past Medical History Cardiac Medical History: Reports: Hx Hypercholesterolemia, Hx Hypertension Denies: Hx Coronary Artery Disease, Hx Heart Attack Pulmonary Medical History: Reports: Hx Asthma - MILD, Hx Pneumonia Denies: Hx Bronchitis, Hx COPD Neurological Medical History: Denies: Hx Cerebrovascular Accident, Hx Seizures Endocrine Medical History: Reports: Hx Hyperthyroidism Renal/ Medical History: Reports: Hx End Stage Renal Disease, Hx Hemodialysis. Denies: Hx Peritoneal Dialysis GI Medical History: Reports: Hx Gastroesophageal Reflux Disease, Hx Hiatal Hernia Musculoskeltal Medical History: Reports Hx Arthritis - LEFT KNEE, Reports Hx Gout Psychiatric Medical History: Denies: Hx Depression Infectious Medical History: Past Surgical History: Reports: Hx Cardiac Catheterization - 2011, Hx Section, Hx Cholecystectomy, Hx Gynecologic Surgery - hysteroscopy. Denies: Hx Adenoidectomy, Hx Pacemaker - Immunizations Hx Diphtheria, Pertussis, Tetanus Vaccination: Yes History of Influenza Vaccine for 08/2017 - 01/2018 Season: Unknown Influenza Administration Date for 08/2017 - 01/2018 Season: 08/14/18 Physical Exam - Vital signs Vitals: Temp Pulse Resp BP Pulse Ox 98.4 F 68 24 H 177/98 H 93 07/08/19 09:08 07/08/19 09:08 07/08/19 09:08 07/08/19 09:08 07/08/19 09:08 Course - Vital Signs Vital signs: Temp Pulse Resp BP Pulse Ox 98.4 F 68 14 148/89 H 93 07/08/19 09:08 07/08/19 09:08 07/08/19 10:25 07/08/19 10:25 07/08/19 09:08 Doctor's Discharge - Discharge Clinical Impression: Pharyngitis, Allergic reaction Condition: Good Instructions: Acute Allergic Reaction ([facility]), Use of Diphenhydramine Additional Instructions: You have been provided prescription antibiotics for acute pharyngitis. This is an infection in the back of your throat. Prescriptions: Clindamycin HCl 300 mg PO TID #21 capsule Referrals: KEVIN REED MD [Primary Care Provider] - Follow up as needed
[2019-07-08] MEDS ORDERED: FAMOTIDINE INJ/PF 20 MG/2 ML SDV IV ONE (09:28)
[2019-07-08] MEDS ORDERED: METHYLPREDNISOLONE INJ 125 MG/2 ML SDV IV ONE (09:28)
[2019-07-08] MEDS ORDERED: FAMOTIDINE 20 MG TABLET PO ONE (09:40)
[2019-07-08] MEDS ORDERED: METHYLPREDNISOLONE INJ 125 MG/2 ML SDV IM ONE (09:40)
--- NOTE | 2019-07-08 09:51 | ER Document Report ---
ED General - General Chief Complaint: Allergy Symptoms Stated Complaint: FACIAL SWELLING, THROAT SWELLING Time Seen by Provider: 07/08/19 09:20 Primary Care Provider: KEVIN REED MD [Primary Care Provider] - Follow up as needed Mode of Arrival: Wheelchair TRAVEL OUTSIDE OF THE [place] IN LAST 30 DAYS: No - HPI Notes: Patient presents with concern of facial swelling and sore swollen throat. Patient states that she is allergic to adhesive tape and a dialysis on Tuesday they used it. Since that time she states she has been having swelling of her face as well as feeling her throat is swollen. She denies any other environmental changes that could cause this and states that her symptoms are similar to when he used tape in the past. No recent fevers illnesses cough or congestion. - Related Data Allergies/Adverse Reactions: codeine [Codeine] Allergy (Severe, Verified 03/29/19 06:59) Lips & tongue swell hydrocodone bitartrate [From Vicodin] Allergy (Severe, Verified 03/29/19 06:59) Throat & tongue swell, severe itch Iodinated Contrast Media [IV Dye, Iodine Containing] Allergy (Severe, Verified 03/29/19 06:59) Anaphylaxis lanthanum carbonate [From FOSRENOL] Allergy (Severe, Verified 03/29/19 06:59) losartan potassium [From Cozaar] Allergy (Severe, Verified 03/29/19 06:59) Swelling of Throat oxycodone HCl [From OxyContin] Allergy (Severe, Verified 03/29/19 06:59) Throat & tongue swell, severe itch propoxyphene napsylate [From Darvocet-N 100] Allergy (Severe, Verified 03/29/19 06:59) Mouth swells, itch ramipril [From Altace] Allergy (Severe, Verified 03/29/19 06:59) Lips, tongue & throat swell Penicillins Allergy (Intermediate, Verified 03/29/19 06:59) Generalized Itching acetaminophen [From Percocet] Allergy (Verified 03/29/19 06:59) ITCHING angiotensin II acetate, human Allergy (Verified 03/29/19 06:59) SEVERE STOMACH PAIN hydralazine Allergy (Verified 03/29/19 06:59) Swollen tongue oxycodone [From Percocet] Allergy (Verified 03/29/19 06:59) ITCHING adhesive tape [Adhesive Tape] Adverse Reaction (Intermediate, Verified 03/29/19 06:59) ITCHING, PULLS SKIN OFF aspirin [Aspirin] Adverse Reaction (Intermediate, Verified 03/29/19 06:59) Tegaderm Allergy (Intermediate, Uncoded 03/29/19 06:59) Pulls skin off, itching Past Medical History - General Information source: Patient - Social History Smoking Status: Never Smoker Family History: Reviewed & Not Pertinent, Hypertension - Past Medical History Cardiac Medical History: Reports: Hx Hypercholesterolemia, Hx Hypertension Denies: Hx Coronary Artery Disease, Hx Heart Attack Pulmonary Medical History: Reports: Hx Asthma - MILD, Hx Pneumonia Denies: Hx Bronchitis, Hx COPD Neurological Medical History: Denies: Hx Cerebrovascular Accident, Hx Seizures Endocrine Medical History: Reports: Hx Hyperthyroidism Renal/ Medical History: Reports: Hx End Stage Renal Disease, Hx Hemodialysis. Denies: Hx Peritoneal Dialysis GI Medical History: Reports: Hx Gastroesophageal Reflux Disease, Hx Hiatal Hernia Musculoskeletal Medical History: Reports Hx Arthritis - LEFT KNEE, Reports Hx Gout Psychiatric Medical History: Denies: Hx Depression Infectious Medical History: Past Surgical History: Reports: Hx Cardiac Catheterization - 2011, Hx Section, Hx Cholecystectomy, Hx Gynecologic Surgery - hysteroscopy. Denies: Hx Adenoidectomy, Hx Pacemaker - Immunizations Hx Diphtheria, Pertussis, Tetanus Vaccination: Yes Hx Pneumococcal Vaccination: 08/14/15 Review of Systems - Review of Systems Constitutional: No symptoms reported EENT: See HPI Cardiovascular: No symptoms reported Respiratory: No symptoms reported Gastrointestinal: No symptoms reported Genitourinary: No symptoms reported Female Genitourinary: No symptoms reported Musculoskeletal: No symptoms reported Skin: No symptoms reported Hematologic/Lymphatic: No symptoms reported Neurological/Psychological: No symptoms reported Physical Exam - Vital signs Vitals: Temp Pulse Resp BP Pulse Ox 98.4 F 68 24 H 177/98 H 93 07/08/19 09:08 07/08/19 09:08 07/08/19 09:08 07/08/19 09:08 07/08/19 09:08 - General General appearance: Appears well, Alert - HEENT Head: Normocephalic, Atraumatic Eyes: Normal Mouth/Lips: Other - No tongue swelling, bilateral tonsillar exudate with swollen tonsils and swollen uvula. Mucous membranes: Normal Neck: Normal Notes: Mild erythema bilateral facial cheeks. - Respiratory Respiratory status: No respiratory distress, Other - Clear lung valenzuela no crackles or wheezes no stridor - Cardiovascular Rhythm: Regular Heart sounds: Normal auscultation Murmur: No - Abdominal Inspection: Normal Distension: No distension Bowel sounds: Normal - Skin Notes: No rash seen on upper or lower extremities or trunk. Course - Re-evaluation Re-evalutation: 07/08/19 09:49 Overall patient is well-appearing she does have a red swollen uvula and bilateral exudate on swollen tonsils but they are not impinging her airway she has no stridor in her posterior pharynx is erythematous but not swollen. Work- up in progress symptoms including strep test. She states that she feels she had an allergic reaction but this very well could be indeed infectious related as exudate is seen on exam. 07/08/19 11:32 Patient symptoms of improvement emergency department. She does have exudate on her tonsils with swollen uvula and tonsils. Will provide clindamycin as there is no hepatic or renal adjustment and she is a dialysis patient. It appears she also is having allergic reaction to the tape as erythema on her face is subsided since the administration of Pepcid and steriods. Return precautions provided - Vital Signs Vital signs: Temp Pulse Resp BP Pulse Ox 98.2 F 68 18 149/51 H 95 07/08/19 12:04 07/08/19 09:08 07/08/19 12:04 07/08/19 12:04 07/08/19 12:03 Discharge - Discharge Clinical Impression: Pharyngitis Qualifiers: Pharyngitis/tonsillitis etiology: unspecified etiology Qualified Code(s): J02.9 - Acute pharyngitis, unspecified Allergic reaction Qualifiers: Encounter type: initial encounter Qualified Code(s): T78.40XA - Allergy, unspecified, initial encounter Condition: Good Disposition: HOME, SELF-CARE Instructions: Acute Allergic Reaction ([facility]), Use of Diphenhydramine Additional Instructions: You have been provided prescription antibiotics for acute pharyngitis. This is an infection in the back of your throat. Prescriptions: Clindamycin HCl 300 mg PO TID #21 capsule Referrals: KEVIN REED MD [Primary Care Provider] - Follow up as needed
--- NOTE | 2019-07-08 10:15 | RADIOLOGY REPORT (SQ) ---
EXAM DESCRIPTION: CHEST 2 VIEWS COMPLETED DATE/TIME: 07/08/2019 9:44 am REASON FOR STUDY: short of breath COMPARISON: 01/19/2019 NUMBER OF VIEWS: Two views. TECHNIQUE: Frontal and lateral radiographic views of the chest acquired. LIMITATIONS: None. FINDINGS: LUNGS AND PLEURA: Subsegmental airspace disease in the lower lobes consistent with atelect asis or possibly early pulmonary edema. MEDIASTINUM AND HILAR STRUCTURES: No masses or contour abnormality. HEART AND VASCULAR STRUCTURES: Cardiac enlargement. Vascular congestion. BONES: No acute findings. HARDWARE: None in the chest. OTHER: No other significant finding. IMPRESSION: CARDIAC ENLARGEMENT. VASCULAR CONGESTION. TECHNICAL DOCUMENTATION: JOB ID: [id number] [employer]- All Rights Reserved Reading location - IP/workstation name: [email or web address]
[2019-07-08 12:08] VITALS: BP 149/51
== END 2019-07-08 12:06 | disposition home or self-care (01) ==
LOC: ER 09:03
DX: J02.9 Acute pharyngitis, unspecified (principal); R22.0 Localized swelling, mass and lump, head; T78.40XA Allergy, unspecified, initial encounter; X58.XXXA Exposure to other specified factors, initial encounter; I12.0 Hypertensive chronic kidney disease with stage 5 chronic kidney disease or end stage renal disease; N18.6 End stage renal disease; E78.00 Pure hypercholesterolemia, unspecified; Z99.2 Dependence on renal dialysis; Z88.6 Allergy status to analgesic agent; Z88.0 Allergy status to penicillin
CPT/HCPCS: 99283; 96372; 87070; 87880; 71046; A9270; J2930

== ENCOUNTER 2019-08-19 10:22 | Emergency (ER) | payer MEDICARE, MEDICAID ==
[2019-08-19 11:34] LABS: HEMATOCRIT 29.7 % (36.0-47.0); HEMOGLOBIN 9.9 g/dL (12.0-15.5); MEAN CORPUSCULAR HEMOGLOBIN 28.3 pg (27.0-33.4); MEAN CORPUSCULAR HGB CONC 33.5 g/dL (32.0-36.0); MEAN CORPUSCULAR VOLUME 85 fl (80-97); PLATELET COUNT 186 10^3/uL (150-450); RED BLOOD COUNT 3.51 10^6/uL (3.72-5.28); RED CELL DISTRIBUTION WIDTH 16.8 % (11.5-14.0)
[2019-08-19 11:42] LABS: ALBUMIN 4.1 g/dL (3.5-5.0); ALKALINE PHOSPHATASE 245 U/L (38-126); ANION GAP 16 (5-19); ASPARTATE AMINO TRANSFERASE 21 U/L (14-36); BILIRUBIN,DIRECT 0.4 mg/dL (0.0-0.4); BILIRUBIN,TOTAL 0.7 mg/dL (0.2-1.3); BLOOD UREA NITROGEN 36 mg/dL (7-20); CARBON DIOXIDE 24 mmol/L (22-30); CHLORIDE 101 mmol/L (98-107); CREATINE KINASE 67 U/L (30-135); GLUCOSE 95 mg/dL (75-110); POTASSIUM 4.4 mmol/L (3.6-5.0); TOTAL PROTEIN 7.2 g/dL (6.3-8.2)
--- NOTE | 2019-08-19 11:43 | RADIOLOGY REPORT (SQ) ---
EXAM DESCRIPTION: CHEST SINGLE VIEW COMPLETED DATE/TIME: 08/19/2019 11:31 am REASON FOR STUDY: SOB COMPARISON: 07/08/2019. EXAM PARAMETERS: NUMBER OF VIEWS: One view. TECHNIQUE: Single frontal radiographic view of the chest acquired. RADIATION DOSE: NA LIMITATIONS: None. FINDINGS: LUNGS AND PLEURA: Scattered linear atelectasis/ scarring. No focal infiltrates, masses or pneumothorax. No pleural effusion. MEDIASTINUM AND HILAR STRUCTURES: No masses. Contour normal. HEART AND VASCULAR STRUCTURES: Stable mild cardiomegaly. BONES: No acute findings. HARDWARE: None in the chest. OTHER: No other significant finding. IMPRESSION: STABLE MILD CARDIOMEGALY WITH SCATTERED LINEAR ATELECTASIS/SCARRING. TECHNICAL DOCUMENTATION: JOB ID: [id number] [employer]- All Rights Reserved Reading location - IP/workstation name: [email or web address]
--- NOTE | 2019-08-19 11:47 | ER Document Report ---
Entered by LADONNA HOWELL SCRIBE 08/19/19 1053 Acting as scribe for:JANESSA PFEIFFER MD ED Respiratory Problem <LAURIE ORTIZ - Last Filed: 08/19/19 18:53> - General Mode of Arrival: Ambulatory Information source: Patient TRAVEL OUTSIDE OF THE [place] IN LAST 30 DAYS: No <JANESSA PFEIFFER - Last Filed: 08/20/19 12:32> - General Stated Complaint: SHORTNESS OF BREATH Time Seen by Provider: 08/19/19 10:44 Primary Care Provider: KEVIN REED MD [Primary Care Provider] - Follow up as needed Notes: 64-year-old female who presents to the emergency department today with complaints of a 2-week history of shortness of breath. Patient is a MWF hemodialysis patient with a normal treatment done on Tuesday. Patient states that her shortness of breath seems to be getting worse since onset. Patient reports that her shortness of breath usually gets better after dialysis, but for the past 2 weeks it has not been improving after she would finish her dialysis. She further states that she has not drunk 1 bottle of water since she dialyzed on Tuesday. (JANESSA PFEIFFER) - Related Data Allergies/Adverse Reactions: codeine [Codeine] Allergy (Severe, Verified 08/19/19 10:48) Lips & tongue swell hydrocodone bitartrate [From Vicodin] Allergy (Severe, Verified 08/19/19 10:48) Throat & tongue swell, severe itch Iodinated Contrast Media [IV Dye, Iodine Containing] Allergy (Severe, Verified 08/19/19 10:48) Anaphylaxis lanthanum carbonate [From FOSRENOL] Allergy (Severe, Verified 08/19/19 10:48) losartan potassium [From Cozaar] Allergy (Severe, Verified 08/19/19 10:48) Swelling of Throat oxycodone HCl [From OxyContin] Allergy (Severe, Verified 08/19/19 10:48) Throat & tongue swell, severe itch propoxyphene napsylate [From Darvocet-N 100] Allergy (Severe, Verified 08/19/19 10:48) Mouth swells, itch ramipril [From Altace] Allergy (Severe, Verified 08/19/19 10:48) Lips, tongue & throat swell Penicillins Allergy (Intermediate, Verified 08/19/19 10:48) Generalized Itching acetaminophen [From Percocet] Allergy (Verified 08/19/19 10:48) ITCHING angiotensin II acetate, human Allergy (Verified 08/19/19 10:48) SEVERE STOMACH PAIN hydralazine Allergy (Verified 08/19/19 10:48) Swollen tongue oxycodone [From Percocet] Allergy (Verified 08/19/19 10:48) ITCHING adhesive tape [Adhesive Tape] Adverse Reaction (Intermediate, Verified 08/19/19 10:48) ITCHING, PULLS SKIN OFF aspirin [Aspirin] Adverse Reaction (Intermediate, Verified 08/19/19 10:48) Tegaderm Allergy (Intermediate, Uncoded 08/19/19 10:48) Pulls skin off, itching Past Medical History - General Information source: Patient, [facility] Records - Social History Smoking Status: Never Smoker Cigarette use (# per day): No Chew tobacco use (# tins/day): No Smoking Education Provided: No Frequency of alcohol use: None Drug Abuse: None Lives with: Family Family History: Reviewed & Not Pertinent, Hypertension - Past Medical History Cardiac Medical History: Reports: Hx Hypercholesterolemia, Hx Hypertension Pulmonary Medical History: Reports: Hx Asthma - MILD, Hx Pneumonia Endocrine Medical History: Reports: Hx Hyperthyroidism Renal/ Medical History: Reports: Hx End Stage Renal Disease, Hx Hemodialysis GI Medical History: Reports: Hx Gastroesophageal Reflux Disease, Hx Hiatal Hernia Musculoskeletal Medical History: Reports Hx Arthritis - LEFT KNEE, Reports Hx Gout Infectious Medical History: Past Surgical History: Reports: Hx Cardiac Catheterization - 2011, Hx Section, Hx Cholecystectomy, Hx Gynecologic Surgery - hysteroscopy - Immunizations Hx Diphtheria, Pertussis, Tetanus Vaccination: Yes Hx Pneumococcal Vaccination: 08/14/15 <JANESSA PFEIFFER - Last Filed: 08/20/19 12:32> Review of Systems - Review of Systems Constitutional: No symptoms reported EENT: No symptoms reported Cardiovascular: No symptoms reported Respiratory: See HPI, Short of breath Gastrointestinal: No symptoms reported Genitourinary: No symptoms reported Female Genitourinary: No symptoms reported Musculoskeletal: No symptoms reported Skin: No symptoms reported Hematologic/Lymphatic: No symptoms reported Neurological/Psychological: No symptoms reported -: Yes All other systems reviewed and negative <JANESSA PFEIFFER - Last Filed: 08/20/19 12:32> Physical Exam <JANESSA PFEIFFER - Last Filed: 08/20/19 12:32> - Vital signs Vitals: Temp Pulse Resp BP Pulse Ox 97.6 F 67 34 H 156/110 H 90 L 08/19/19 10:27 08/19/19 10:27 08/19/19 10:27 08/19/19 10:27 08/19/19 10:27 - Notes Notes: Physical Exam: General: Alert, appears somewhat short of breath. HEENT: Normocephalic. Atraumatic. PERRL. Extraocular movements intact. Oropharynx clear. Neck: Supple. Non-tender. Respiratory: Mild respiratory distress, hypoxic, 87% on room air which rises to the mid 90s on 2 L via nasal cannula. Tachypneic. Lungs sound reasonably clear bilaterally. Cardiovascular: Regular rate and rhythm. Abdominal: Normal Inspection. Non-tender. No distension. Normal Bowel Sounds. Back: No gross abnormalities. Extremities: Moves all four extremities. Upper extremities: Normal inspection. Normal ROM. Lower extremities: Normal inspection. No edema. Normal ROM. Neurological: Normal cognition. AAOx4. Normal speech. Psychological: Normal affect. Normal Mood. Skin: Warm. Dry. Normal color. (JANESSA PFEIFFER) Course - Laboratory Result Diagrams: 08/19/19 10:51 08/19/19 10:51 <ORTIZLAURIE - Last Filed: 08/19/19 18:53> - Laboratory Result Diagrams: 08/19/19 10:51 08/19/19 10:51 - Diagnostic Test Radiology reviewed: Image reviewed, Reports reviewed - Chest x-ray shows stable cardiomegaly with scattered linear atelectasis or scarring. Ventilation/perfusion lung scan is read as low probability. Radiologist recommended a noncontrast CT scan to see if that would help clarify the reason for the patient's dyspnea. - EKG Interpretation by Me EKG shows normal: Sinus rhythm, Burney, Intervals, QRS Complexes. abnormal: ST-T Waves - Diffuse nonspecific T abnormalities Rate: Normal - 67 Rhythm: NSR P Waves: LAE - Consults Dr. Betancourt Time consulted: 16:33 Consulted provider: other - Dr. Betancourt is not willing to admit the patient for Dr. Reed because dialysis is not available today, and nephrology is not network operations center engineer to discuss the patient. - Transfer of Care Care transferred to following provider: Dr. Shaila Ortiz <JANESSA PFEIFFER - Last Filed: 08/20/19 12:32> - Re-evaluation Re-evalutation: 08/19/19 18:54 I personally evaluated this patient. She is currently requiring 3 L nasal cannula oxygen to maintain O2 sats above 95%. Lung sounds are wheezy to auscultation bilaterally. Patient has received her initial breathing treatment and states that it seems to have "opened up" her lungs. Patient was ordered 2 more albuterol's as well as Solu-Medrol for possible COPD. CT scan shows small pleural effusions bilaterally. Patient did have desaturation down to 80% on josue m air while being switched from breathing treatments back to nasal cannula oxygen. She is requiring admission for her hypoxia. Currently there are no beds available for dialysis at this facility therefore she is requiring transfer to a facility capable of managing a dialysis patient. Her care was discussed with Dr. Desai at [facility] who has accepted patient for transfer. ( LAURIE ORTIZ) 08/19/19 16:25 The patient reports that when she was laying down for a VQ scan, she could hear herself wheezing some. At this time on auscultation I do not hear any wheezes. I do hear some scattered rales that are inconsistent and not necessarily at the bases. Patient still seems to be quite dyspneic. I turned off her oxygen and O2 sats dropped to 87% quickly. She was put back on O2 at 3 L nasal cannula. 08/20/19 12:32 Transport is here for the patient at this time. Her vital signs remained stable. She is stable for transfer. (JANESSA PFEIFFER) - Vital Signs Vital signs: Temp Pulse Resp BP Pulse Ox 98.0 F 67 20 139/63 H 99 08/19/19 23:13 08/19/19 10:55 08/20/19 06:01 08/20/19 06:00 08/20/19 06:01 - Laboratory Laboratory results interpreted by me: 08/19/19 08/19/19 08/19/19 10:51 10:51 10:51 RBC 3.51 L Hgb 9.9 L Hct 29.7 L RDW 16.8 H Monocytes % (Manual) 1 L Eosinophils % (Manual) 7 H BUN 36 H Creatinine 9.74 H Est GFR ( Amer) 5 L Est GFR (MDRD) Non-Af 4 L Alkaline Phosphatase 245 H NT-Pro-B Natriuret Pep 14475 H - Transfer of Care Notes: 08/19/19 16:41 Patient is pending a noncontrast CT scan of the chest to see if infiltrate or CHF might be the reason for her dyspnea. The patient will receive Lasix 100 mg IV, despite the fact that she makes very little urine. An ABG has been ordered. At this time she is on 3 L nasal cannula with a pulse ox of 94%. A DuoNeb treatment is ordered in case there is some wheezing contributing to her dyspnea. (JANESSA PFEIFFER) Discharge <LAURIE ORTIZ - Last Filed: 08/19/19 18:53> <JANESSA PFEIFFER - Last Filed: 08/20/19 12:32> - Discharge Clinical Impression: Hypoxia, End-stage renal disease (ESRD), Shortness of breath Dyspnea Qualifiers: Dyspnea type: shortness of breath Qualified Code(s): R06.02 - Shortness of breath Chronic renal failure Qualifiers: Chronic kidney disease stage: stage 5 Qualified Code(s): N18.5 - Chronic kidney disease, stage 5 Condition: Stable [facility]position[facility] Referrals: KEVIN REED MD [Primary Care Provider] - Follow up as needed Scribe Attestation: 08/19/19 11:47 I personally performed the services described in the documentation, reviewed and edited the documentation which was dictated to the scribe in my presence, and it accurately records my words and actions. (JANESSA PFEIFFER) I personally performed the services described in the documentation, reviewed and edited the documentation which was dictated to the scribe in my presence, and it accurately records my words and actions.
[2019-08-19 11:59] LABS: TROPONIN I 0.049 ng/mL
[2019-08-19 12:06] LABS: ABSOLUTE MONOCYTES # (MANUAL) 0.1 10^3/uL (0.1-1.4); BASOPHILS % (MANUAL) 0 % (0-2); EOSINOPHILS % (MANUAL) 7 % (0-6); LYMPHOCYTES % (MANUAL) 22 % (13-45); MONOCYTES % (MANUAL) 1 % (3-13); SEGMENTED NEUTROPHILS % (MAN) 70 % (42-78); TOTAL CELLS COUNTED 100
[2019-08-19 12:07] LABS: ANISOCYTOSIS 1+; PLATELET COMMENT ADEQUATE
[2019-08-19] MEDS ORDERED: PANTOPRAZOLE SODIUM 40 MG VIAL IV ONE (12:22)
[2019-08-19] MEDS ORDERED: FUROSEMIDE INJ/PF 100 MG/10 ML SDV IV ONE ×2 (12:23→16:38)
[2019-08-19] MEDS ORDERED: IPRATROPIUM/ALBUTEROL 0.5-2.5 MG/3 ML AMPUL NEB ONE (16:25)
--- NOTE | 2019-08-19 16:42 | RADIOLOGY REPORT (SQ) ---
EXAM DESCRIPTION: NM LUNG VENT/PERF SCAN COMPLETED DATE/TIME: 08/19/2019 4:19 pm REASON FOR STUDY: Dyspnea, chronic renal failure COMPARISON: Chest x-ray 08/19/2019, V/Q scan 01/24/2018. RADIONUCLIDE AND DOSE: 5 millicuries TC-99m MAA Intravenous 30 millicuries TC-99m DTPA Inhaled aerosol TECHNIQUE: 2 views of the lungs acquired post ventilation of DTPA aerosol. Eight matching views of the lungs acquired following injection of MAA. LIMITATIONS: None. FINDINGS: VENTILATION: Anterior and posterior images demonstrate mildly heterogeneous distribution o f the radiopharmaceutical. PERFUSION: No wedge-shaped or segmental defects are noted. No ventilation-perfusion mismatches. IMPRESSION: Low probability for pulmonary emboli. TECHNICAL DOCUMENTATION: JOB ID: [id number] 2010 [employer]- All Rights Reserved Reading location - IP/workstation name: [email or web address]
[2019-08-19] MEDS ORDERED: METHYLPREDNISOLONE INJ 125 MG/2 ML SDV IV ONE (17:22)
[2019-08-19] MEDS ORDERED: ALBUTEROL SULFATE 0.083% NEB 2.5 MG/3 ML AMPUL NEB ONE (17:22)
--- NOTE | 2019-08-19 18:33 | RADIOLOGY REPORT (SQ) ---
EXAM DESCRIPTION: CT CHEST WITHOUT COMPLETED DATE/TIME: 08/19/2019 5:50 pm REASON FOR STUDY: Dialysis patient, hypoxic, negative VQ scan COMPARISON: CT chest 05/22/2018. Chest x-ray 08/19/2019. TECHNIQUE: CT scan performed of the chest without intravenous contrast. Images reviewed with lung, soft tissue and bone windows. Reconstructed coronal and sagittal MPR images reviewed. All images st ored on PACS. All CT scanners at this facility use dose modulation, iterative reconstruction, and/or weight based d osing when appropriate to reduce radiation dose to as low as reasonably achievable (ALARA). [facility]: Dose Right [facility]: CareDose [facility]: Dose Right [facility]: Teradose 4D [facility]: [employer] RADIATION DOSE: CT Rad equipment meets quality standard of care and radiation dose reduction techniq ues were employed. CTDIvol: 20.7 mGy. DLP: 742 mGy-cm. mGy. LIMITATIONS: There is motion artifact. FINDINGS: LUNGS AND PLEURA: There are small bilateral pleural effusions with consolidation at the ri ght lower lobe. There are bilateral ground-glass opacities. No pneumothorax HILAR AND MEDIASTINAL STRUCTURES: Mildly enlarged mediastinal lymph nodes measuring up to 12 mm in sh ort axis. Limited evaluation for hilar adenopathy on unenhanced CT. HEART AND VASCULAR STRUCTURES: No thoracic aortic aneurysm. The heart is enlarged. Scattered bueno ry arteries calcifications are noted. No pericardial effusion. UPPER ABDOMEN: No obvious acute findings. Limited exam. THYROID AND OTHER SOFT TISSUES: The thyroid gland is enlarged. BONES: Multilevel degenerative changes at the spine. Diffuse sclerosis of the osseous structures may be secondary to renal osteodystrophy. HARDWARE: None in the chest. IMPRESSION: 1. Small bilateral pleural effusions with consolidation at the right lower lobe. Bilate ral ground-glass opacities, may be secondary to pulmonary edema and/or pneumonia. 2. Mild mediastinal adenopathy. 3. Cardiomegaly. 4. Enlarged thyroid gland. TECHNICAL DOCUMENTATION: JOB ID: [id number] [id number] Quality ID # [id number]: Final reports with documentation of one or more dose reduction techniques (e.g., Au tomated exposure control, adjustment of the mA and/or kV according to patient size, use of iterative reconstruction technique) 2010 [employer]- All Rights Reserved Reading location - IP/workstation name: [email or web address]
[2019-08-19] MEDS ORDERED: DIPHENHYDRAMINE HCL 50 MG CAPSULE PO ONE (20:45)
[2019-08-19] MEDS: NIFEDIPINE 30 MG TAB.ER.24 PO SCH (21:46)
[2019-08-19] MEDS: CLONIDINE HCL 0.2 MG TABLET PO SCH (21:46)
[2019-08-19] MEDS: ALBUTEROL SULFATE 0.083% NEB 2.5 MG/3 ML AMPUL NEB SCH (21:47)
--- NOTE | 2019-08-19 22:41 | EKG REPORT ---
SEVERITY:- ABNORMAL ECG - SINUS RHYTHM PROBABLE LEFT ATRIAL ABNORMALITY NONSPECIFIC T ABNORMALITIES, DIFFUSE LEADS : Confirmed by: Enriqueta Butcher MD 19-Aug-2019 22:41:01
[2019-08-20] MEDS: ALBUTEROL SULFATE 0.083% NEB 2.5 MG/3 ML AMPUL NEB SCH ×3 (02:59→10:26)
[2019-08-20] MEDS: CLONIDINE HCL 0.2 MG TABLET PO SCH (06:22)
[2019-08-20] MEDS ORDERED: METOPROLOL SUCCINATE 50 MG TAB.SR.24H PO SCH (10:00)
[2019-08-20] MEDS: NIFEDIPINE 30 MG TAB.ER.24 PO SCH (10:26)
[2019-08-20 12:46] VITALS: BP 159/87
== END 2019-08-20 12:40 | disposition short-term general hospital (02) ==
LOC: ER 10:22
DX: R09.02 Hypoxemia (principal); R06.02 Shortness of breath; I12.0 Hypertensive chronic kidney disease with stage 5 chronic kidney disease or end stage renal disease; N18.6 End stage renal disease; R06.2 Wheezing; Z99.2 Dependence on renal dialysis; E78.00 Pure hypercholesterolemia, unspecified; Z90.49 Acquired absence of other specified parts of digestive tract; Z88.6 Allergy status to analgesic agent
CPT/HCPCS: 93005; 94640 ×2; 99285; 96374; 36415; 82550; 85025; 80053; 84484; 83880; 71045; 78582; 71250; 93010; 94660; A9540; A9567; A9270 ×9; J2930; Q9969; J7620

== ENCOUNTER 2020-08-07 22:38 | Emergency (ER) | payer MEDICARE, MEDICAID ==
[2020-08-08 00:01] VITALS: BP 153/83
--- NOTE | 2020-08-08 21:34 | EKG REPORT ---
SEVERITY:- ABNORMAL ECG - SINUS RHYTHM PROBABLE LEFT VENTRICULAR HYPERTROPHY BORDERLINE T ABNORMALITIES, INFERIOR LEADS : Confirmed by: Enriqueta Butcher MD 08-Aug-2020 21:33:31
== END 2020-08-08 01:00 | disposition left against medical advice (07) ==
LOC: ER 22:38
DX: Z53.21 Procedure and treatment not carried out due to patient leaving prior to being seen by health care provider (principal)
CPT/HCPCS: 93005; 93010

== ENCOUNTER 2020-08-14 22:08 | Inpatient (IN) | payer MEDICARE, MEDICAID ==
--- NOTE | 2020-08-14 23:46 | RADIOLOGY REPORT (SQ) ---
EXAM DESCRIPTION: XR CHEST 1 VIEW COMPLETED DATE/TME: 08/14/2020 23:06 CLINICAL HISTORY: 65 years Female shortness of breath COMPARISON: 08/19/2019. FINDINGS: The cardiomediastinal silhouette appears unchanged. Calcified aorta. Findings suggesting small bilateral effusions. Patchy areas of infiltrate in the lower lung valenzuela right greater than left. IMPRESSION: No interval change in the appearance of the chest
--- NOTE | 2020-08-15 | ER Document Report ---
ED General - General Chief Complaint: Shortness Of Breath Stated Complaint: DIFFICULTY BREATHING Time Seen by Provider: 08/14/20 23:05 Notes: Patient is a 65-year-old female with end-stage renal disease who presents emergency department with a chief complaint of shortness of breath. States that she has had her shortness of breath for the past 5 to 6 days. Patient states that she feels that there is not enough fluid being taken off dialysis. Patient also has history of pneumonia. States that she has a slight cough. Denies any contact with anyone who has tested positive for COVID-19. Patient states that she only goes to dialysis into her house. TRAVEL OUTSIDE OF THE [place] IN LAST 30 DAYS: No - Related Data Allergies/Adverse Reactions: codeine [Codeine] Allergy (Severe, Verified 08/19/19 10:48) Lips & tongue swell hydrocodone bitartrate [From Vicodin] Allergy (Severe, Verified 08/19/19 10:48) Throat & tongue swell, severe itch Iodinated Contrast Media [IV Dye, Iodine Containing] Allergy (Severe, Verified 08/19/19 10:48) Anaphylaxis lanthanum carbonate [From FOSRENOL] Allergy (Severe, Verified 08/19/19 10:48) losartan potassium [From Cozaar] Allergy (Severe, Verified 08/19/19 10:48) Swelling of Throat oxycodone HCl [From OxyContin] Allergy (Severe, Verified 08/19/19 10:48) Throat & tongue swell, severe itch propoxyphene napsylate [From Darvocet-N 100] Allergy (Severe, Verified 08/19/19 10:48) Mouth swells, itch ramipril [From Altace] Allergy (Severe, Verified 08/19/19 10:48) Lips, tongue & throat swell Penicillins Allergy (Intermediate, Verified 08/19/19 10:48) Generalized Itching acetaminophen [From Percocet] Allergy (Verified 08/19/19 10:48) ITCHING angiotensin II acetate, human Allergy (Verified 08/19/19 10:48) SEVERE STOMACH PAIN hydralazine Allergy (Verified 08/19/19 10:48) Swollen tongue oxycodone [From Percocet] Allergy (Verified 08/19/19 10:48) ITCHING adhesive tape [Adhesive Tape] Adverse Reaction (Intermediate, Verified 08/19/19 10:48) ITCHING, PULLS SKIN OFF aspirin [Aspirin] Adverse Reaction (Intermediate, Verified 08/19/19 10:48) Tegaderm Allergy (Intermediate, Uncoded 08/19/19 10:48) Pulls skin off, itching Past Medical History - General Information source: Patient - Social History Smoking Status: Never Smoker Frequency of alcohol use: None Drug Abuse: None Family History: Reviewed & Not Pertinent, Hypertension Patient has homicidal ideation: No - Past Medical History Cardiac Medical History: Reports: Hx Hypercholesterolemia, Hx Hypertension Denies: Hx Coronary Artery Disease, Hx Heart Attack Pulmonary Medical History: Reports: Hx Asthma - MILD, Hx Pneumonia Denies: Hx Bronchitis, Hx COPD Neurological Medical History: Denies: Hx Cerebrovascular Accident, Hx Seizures Endocrine Medical History: Reports: Hx Hyperthyroidism Renal/ Medical History: Reports: Hx End Stage Renal Disease, Hx Hemodialysis. Denies: Hx Peritoneal Dialysis GI Medical History: Reports: Hx Gastroesophageal Reflux Disease, Hx Hiatal Hernia Musculoskeletal Medical History: Reports Hx Arthritis - LEFT KNEE, Reports Hx Gout Psychiatric Medical History: Denies: Hx Depression Infectious Medical History: Past Surgical History: Reports: Hx Cardiac Catheterization - 2011, Hx Section, Hx Cholecystectomy, Hx Gynecologic Surgery - hysteroscopy. Denies: Hx Adenoidectomy, Hx Pacemaker - Immunizations Hx Diphtheria, Pertussis, Tetanus Vaccination: Yes Hx Pneumococcal Vaccination: 08/14/15 Review of Systems - Review of Systems Notes: REVIEW OF SYSTEMS: CONSTITUTIONAL : Denies recent illness. Denies recent unintentional weight loss. Denies fever, chills, or sweats. EENT: Denies eye, ear, throat, or mouth pain, discharge, or symptoms. Denies nasal or sinus congestion. CARDIOVASCULAR: Denies chest pain. RESPIRATORY: See HPI. GASTROINTESTINAL: Denies nausea, vomiting, and diarrhea. Denies abdominal pain. Denies constipation. GENITOURINARY: Denies difficulty urinating, burning, blood in urine, urgency or frequency. MUSCULOSKELETAL: Denies neck and back pain. Denies joint pain or swelling. SKIN: Denies rash, itchiness, or lesions HEMATOLOGIC : Denies easy bruising or bleeding. LYMPHATIC: Denies swollen, painful, enlarged glands. NEUROLOGICAL: Denies no numbness or tingling denies weakness. Denies headache. Denies altered mental status. Denies alteration in speech. PSYCHIATRIC: Denies stress, anxiety, alteration in sleep patterns, or depression. All other systems reviewed and negative. Physical Exam - Vital signs Vitals: Pulse Ox 96 08/14/20 22:20 - Notes Notes: PHYSICAL EXAMINATION: GENERAL: Appears well, healthy, well-nourished, no acute distress. HEAD: Normocephalic, atraumatic. EYES: PERRL, conjunctiva normal, all extraocular movements intact, sclera nonicteric ENT: Moist mucous membranes. NECK: Supple, no noticeable swelling, redness, rash. Normal range of motion. LUNGS: Diminished breath sounds in bilateral bases. CARDIOVASCULAR: S1-S2, regular rate, regular rhythm. Radial pulses 2+, normal. ABDOMEN: Normoactive bowel sounds. Soft, nontender, no guarding, no rebound tenderness, and no masses palpated. EXTREMITIES: Normal strength and range of motion, no pitting or edema. No cyanosis. NEUROLOGICAL: Moves all extremities upon command. Strength 5/5 in all extremities. PSYCH: Normal mood, normal affect. SKIN: Warm, dry. No rash, lesions, ulcerations noted. Normal skin turgor. Course - Re-evaluation Re-evalutation: 08/15/20 03:50 CT of the chest shows cardiomegaly and small bibasilar effusions with atelectasis. Due to the patient requiring oxygen, will contact Dr. Garcia, the software engineering analyst on-call. Paged through the operating system. Will await callback. 08/15/20 03:[address] Garcia, the software engineering analyst. She agrees to dialyze the patient in the morning pending admission. 08/15/20 03:[address] Bell. He would like to have her tested for COVID-19. Patient will be admitted to [facility]. - Vital Signs Vital signs: Temp Pulse Resp BP Pulse Ox 98.1 F 21 H 166/54 H 94 08/15/20 01:00 08/15/20 01:00 08/15/20 06:01 08/15/20 07:01 - Laboratory Result Diagrams: 08/15/20 01:18 08/15/20 01:18 Laboratory results interpreted by me: 08/15/20 08/15/20 08/15/20 01:18 01:18 01:18 RBC 2.97 L Hgb 9.8 L Hct 27.3 L RDW 15.7 H ABG pO2 ABG O2 Saturation BUN 41 H Creatinine 10.37 H Est GFR ( Amer) 5 L Est GFR (MDRD) Non-Af 4 L AST 12 L NT-Pro-B Natriuret Pep 77155 H 08/15/20 01:38 RBC Hgb Hct RDW ABG pO2 113.4 H ABG O2 Saturation 98.3 H BUN Creatinine Est GFR ( Amer) Est GFR (MDRD) Non-Af AST NT-Pro-B Natriuret Pep Discharge - Discharge Clinical Impression: Shortness of breath Congestive heart failure Qualifiers: Heart failure type: other Qualified Code(s): I50.9 - Heart failure, unspecified Condition: Stable Disposition: ADMITTED INPATIENT Admitting Provider: [facility] Admitted: [facility]
[2020-08-15 01:36] LABS: ABSOLUTE BASOPHILS # (AUTO) 0.1 10^3/uL (0.0-0.2); ABSOLUTE EOSINOPHILS # (AUTO) 0.3 10^3/uL (0.0-0.6); ABSOLUTE LYMPHOCYTES (AUTO) 1.3 10^3/uL (0.5-4.7); ABSOLUTE MONOCYTES (AUTO) 0.4 10^3/uL (0.1-1.4); ABSOLUTE NEUT (AUTO) 5.4 10^3/uL (1.7-8.2); BASOPHILS % (AUTO) 1.2 % (0-2); EOSINOPHILS % (AUTO) 4.1 % (0-6); HEMATOCRIT 27.3 % (36.0-47.0); HEMOGLOBIN 9.8 g/dL (12.0-15.5); LYMPHOCYTES % (AUTO) 16.7 % (13-45); MEAN CORPUSCULAR HEMOGLOBIN 32.9 pg (27.0-33.4); MEAN CORPUSCULAR HGB CONC 35.8 g/dL (32.0-36.0); MEAN CORPUSCULAR VOLUME 92 fl (80-97); MONOCYTES % (AUTO) 5.6 % (3-13); PLATELET COUNT 184 10^3/uL (150-450); RED BLOOD COUNT 2.97 10^6/uL (3.72-5.28); RED CELL DISTRIBUTION WIDTH 15.7 % (11.5-14.0); SEGMENTED NEUTROPHILS % (AUTO) 72.4 % (42-78); TOTAL CELLS COUNTED % (AUTO) 100 %; WHITE BLOOD COUNT 7.5 10^3/uL (4.0-10.5)
[2020-08-15 01:52] LABS: ALBUMIN 4.3 g/dL (3.5-5.0); ALKALINE PHOSPHATASE 102 U/L (38-126); ANION GAP 14 (5-19); ASPARTATE AMINO TRANSFERASE 12 U/L (14-36); BILIRUBIN,DIRECT 0.4 mg/dL (0.0-0.4); BILIRUBIN,TOTAL 0.8 mg/dL (0.2-1.3); BLOOD UREA NITROGEN 41 mg/dL (7-20); CALCIUM 10.1 mg/dL (8.4-10.2); CARBON DIOXIDE 25 mmol/L (22-30); CHLORIDE 101 mmol/L (98-107); GLUCOSE 97 mg/dL (75-110); POTASSIUM 4.5 mmol/L (3.6-5.0); TOTAL PROTEIN 7.3 g/dL (6.3-8.2)
[2020-08-15 01:53] LABS: ARTERIAL BLOOD BASE EXCESS -1.1 mmol/L; ARTERIAL BLOOD H2CO3 1.06 mmol/L (1.05-1.35); ARTERIAL BLOOD HCO3 22.8 mmol/L (20-24); ARTERIAL BLOOD O2 SATURATION 98.3 % (94-98); ARTERIAL BLOOD PCO2 35.1 mmHg (35-45); ARTERIAL BLOOD PH 7.43 (7.35-7.45); ARTERIAL BLOOD PO2 113.4 mmHg (80-100); ARTERIAL BLOOD TOTAL CO2 23.9 mmol/L (21-25)
[2020-08-15 01:57] LABS: ARTERIAL BLOOD FIO2 2L
[2020-08-15] MEDS ORDERED: BUMETANIDE INJ/PF 1 MG/4 ML SDV IV ONE (02:36)
--- NOTE | 2020-08-15 02:59 | RADIOLOGY REPORT (SQ) ---
EXAM DESCRIPTION: CT CHEST WITHOUT IV CONTRAST COMPLETED DATE/TME: 08/15/2020 02:11 CLINICAL HISTORY: 65 years, Female, shortness of breath COMPARISON: 08/19/2019 CT TECHNIQUE: 290 Images stored on PACS. All CT scanners at this facility use dose modulation, iterative reconstruction, and/or weight based dosing when appropriate to reduce radiation dose to as low as reasonably achievable (ALARA). [facility]: Dose Right [facility]: CareDose [facility]: Dose Right [facility]: Teradose 4D [facility]: [employer] LIMITATIONS: None. FINDINGS: Cardiomegaly. Nonspecific enlarged axillary chain lymph nodes on the left, similar to the prior exam. Evaluation of the mediastinum and hilum limited due to lack of IV contrast, however there are grossly stable borderline enlarged mediastinal lymph nodes. Limited evaluation of upper abdomen shows atrophic appearance to the kidneys. Postcholecystectomy changes. Small bilateral pleural effusions. Osseous structures are grossly intact. No pneumothorax. Subsegmental atelectasis in the lung bases bilaterally. IMPRESSION: Cardiomegaly. Small bibasilar effusions with adjacent subsegmental atelectasis. TECHNICAL DOCUMENTATION: Quality ID # 436: Final reports with documentation of one or more dose reduction techniques (e.g., Automated exposure control, adjustment of the mA and/or kV according to patient size, use of iterative reconstruction technique) copyright 2011 to [employer]- All Rights Reserved
[2020-08-15] MEDS ORDERED: DIPHENHYDRAMINE HCL 25 MG CAPSULE PO ONE (04:52)
[2020-08-15] MEDS ORDERED: EPOETIN ALFA-EPBX 10,000 UNIT in SYRINGE, DISPOSABLE, 1 EACH IV PRN (06:35)
--- NOTE | 2020-08-15 13:01 | EKG REPORT ---
SEVERITY:- BORDERLINE ECG - SINUS RHYTHM ATRIAL PREMATURE COMPLEX BORDERLINE T ABNORMALITIES, INFERIOR LEADS : Confirmed by: Hayden Cardoso MD 15-Aug-2020 13:00:14
[2020-08-15] MEDS ORDERED: (PENDING PHARMACY ID) (Sevelamer Carbonate [Renvela] 1,600 MG) PO SCH (15:00)
[2020-08-15] MEDS ORDERED: (PENDING PHARMACY ID) (Clonidine Hcl [Catapres 0.3 Mg Tablet] 0.3 MG) PO SCH (15:00)
[2020-08-15] MEDS ORDERED: (PENDING PHARMACY ID) (Metoprolol Succinate [Toprol Xl] 200 MG) PO SCH (15:00)
[2020-08-15] MEDS ORDERED: SEVELAMER HCL 800 MG TABLET PO PRN (15:06)
[2020-08-15] MEDS ORDERED: LIDOCAINE 1% INJ-PF (10 MG/ML) 30 ML SDV ONE ×3 (16:10→17:40)
[2020-08-15] MEDS ORDERED: (PENDING PHARMACY ID) (Sevelamer Carbonate [Renvela] 2,400 MG) PO SCH (17:00)
--- NOTE | 2020-08-15 17:02 | PDOC CONSULTATION ---
Consultation Consult Date: 08/15/20 Provider Consulted: Shaila ORTIZ Consult reason:: ESRD for dialysis. History of Present Illness Admission Date/PCP: 08/15/20 04:18 KEVIN REED MD History of Present Illness: CAPO HDEZ is a 65 year old female with a history of ESRD in the background of hypertension was admitted with history of progressive shortness of breath over the last 2 to 3 days. She thinks that she is not having any for fluid removal over the last couple of dialysis. 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 She denies any history of chest pains or fever or chills. However she admits to having rather nonproductive cough for the last couple of days as well. No apparent history of any exposure to COVID people. Labs and medications were reviewed. Chest x-ray shows mild patchy infiltrate in the right lower base. Past Medical History Cardiac Medical History: Reports: Hyperlipidemia, Hypertension-primary Denies: Coronary Artery Disease, Myocardial Infarction Pulmonary Medical History: Reports: Asthma - MILD, Pneumonia Denies: Bronchitis, Chronic Obstructive Pulmonary Disease (COPD) Neurological Medical History: Denies: Seizures Endocrine Medical History: Reports: Hyperthyroidism Renal/ Medical History: Reports: End Stage Renal Disease, Secondary Hyperparathyroidism GI Medical History: Reports: Gastroesophageal Reflux Disease, Hiatal Hernia Musculoskeltal Medical History: Reports: Arthritis - LEFT KNEE, Gout Psychiatric Medical History: Denies: Depression Hematology Medical History: Reports Anemia of Chronic Kidney Disease Past Surgical History Past Surgical History: Reports: Cardiac Catheterization - 2011, Section, Cholecystectomy Denies: Pacemaker Social History Smoking Status: Never Smoker Frequency of Alcohol Use: None Hx Recreational Drug Use: No Drugs: None Hx Prescription Drug Abuse: No Family History Parental Family History Reviewed: Yes - Negative for ESRD Children Family History Reviewed: Yes - Negative for CKD Sibling(s) Family History Reviewed.: No Medication/Allergy Home Medications: Allopurinol [Zyloprim 100 mg Tablet] 100 mg PO DAILY PRN 10/06/18 Clonidine HCl [Catapres 0.3 mg Tablet] 0.3 mg PO Q8 10/06/18 Metoprolol Succinate [Toprol Xl] 200 mg PO DAILY 10/06/18 Sevelamer Carbonate [Renvela] 1,600 mg PO .SNACKS 10/06/18 Budesonide/Formoterol Fumarate [Symbicort Hfa 160-4.5 Mcg Inhaler 6 gm] 2 puff IH Q12 08/15/20 Hydroxyzine Pamoate [Vistaril 25 mg Capsule] 25 mg PO Q12 08/15/20 Lidocaine/Prilocaine [Lidocaine-Prilocaine Cream] 1 each TP ASDIR PRN 08/15/20 Sevelamer Carbonate [Renvela] 2,400 mg PO MEALS 08/15/20 Allergies/Adverse Reactions: codeine [Codeine] Allergy (Severe, Verified 08/19/19 10:48) Lips & tongue swell hydrocodone bitartrate [From Vicodin] Allergy (Severe, Verified 08/19/19 10:48) Throat & tongue swell, severe itch Iodinated Contrast Media [IV Dye, Iodine Containing] Allergy (Severe, Verified 08/19/19 10:48) Anaphylaxis lanthanum carbonate [From FOSRENOL] Allergy (Severe, Verified 08/19/19 10:48) losartan potassium [From Cozaar] Allergy (Severe, Verified 08/19/19 10:48) Swelling of Throat oxycodone HCl [From OxyContin] Allergy (Severe, Verified 08/19/19 10:48) Throat & tongue swell, severe itch propoxyphene napsylate [From Darvocet-N 100] Allergy (Severe, Verified 08/19/19 10:48) Mouth swells, itch ramipril [From Altace] Allergy (Severe, Verified 08/19/19 10:48) Lips, tongue & throat swell Penicillins Allergy (Intermediate, Verified 08/19/19 10:48) Generalized Itching acetaminophen [From Percocet] Allergy (Verified 08/19/19 10:48) ITCHING angiotensin II acetate, human Allergy (Verified 08/19/19 10:48) SEVERE STOMACH PAIN hydralazine Allergy (Verified 08/19/19 10:48) Swollen tongue oxycodone [From Percocet] Allergy (Verified 08/19/19 10:48) ITCHING adhesive tape [Adhesive Tape] Adverse Reaction (Intermediate, Verified 08/19/19 10:48) ITCHING, PULLS SKIN OFF aspirin [Aspirin] Adverse Reaction (Intermediate, Verified 08/19/19 10:48) Tegaderm Allergy (Intermediate, Uncoded 08/19/19 10:48) Pulls skin off, itching Review of Systems Constitutional: PRESENT: fatigue. ABSENT: anorexia, chills, fever(s), weakness Nose, Mouth, and Throat: ABSENT: mouth pain, sore throat Cardiovascular: PRESENT: dyspnea on exertion. ABSENT: chest pain, edema, orthropnea, palpitations Respiratory: PRESENT: cough, dyspnea. ABSENT: hemoptysis Gastrointestinal: ABSENT: abdominal pain, coffee ground emesis, diarrhea, dysphagia, heartburn, hematemesis, hematochezia Musculoskeletal: ABSENT: deformity, joint swelling Integumentary: ABSENT: lesions, pruritus, rash Neurological: ABSENT: abnormal movements, abnormal speech, confusion, focal weakness, frequent falls Hematologic/Lymphatic: ABSENT: easy bruising, lymphadenopathy Physical Exam Vital Signs: Temp Pulse Resp BP Pulse Ox 98.3 F 66 15 155/70 H 94 08/15/20 16:00 08/15/20 16:00 08/15/20 16:00 08/15/20 16:00 08/15/20 16:00 Intake & Output 08/14/20 08/15/20 08/16/20 06:59 06:59 06:59 Weight 98.43 kg General appearance: PRESENT: no acute distress Eye exam: PRESENT: EOMI, PERRLA. ABSENT: scleral icterus Ear exam: PRESENT: normal external ear exam Mouth exam: PRESENT: moist Neck exam: ABSENT: meningismus, tenderness, thyromegaly, tracheal deviation Respiratory exam: PRESENT: clear to auscultation alcira, decreased breath sounds. ABSENT: crackles Cardiovascular exam: PRESENT: +S1, +S2, systolic murmur. ABSENT: rubs GI/Abdominal exam: PRESENT: normal bowel sounds, soft. ABSENT: organomegaly, tenderness Extremities exam: PRESENT: pedal edema Neurological exam: PRESENT: alert, awake, oriented to person, oriented to place Psychiatric exam: PRESENT: appropriate affect Skin exam: ABSENT: erythema, mottled, rash Results Laboratory Results: 08/15/20 01:18 08/15/20 01:18 08/15/20 08/15/20 08/15/20 01:18 01:18 01:38 WBC 7.5 RBC 2.97 L Hgb 9.8 L Hct 27.3 L MCV 92 MCH 32.9 MCHC 35.8 RDW 15.7 H Plt Count 184 Seg Neutrophils % 72.4 Carbonic Acid 1.06 HCO3/H2CO3 Ratio 21:1 ABG pH 7.43 ABG pCO2 35.1 ABG pO2 113.4 H ABG HCO3 22.8 ABG O2 Saturation 98.3 H ABG Base Excess -1.1 FiO2 2L Sodium 139.9 Potassium 4.5 Chloride 101 Carbon Dioxide 25 Anion Gap 14 BUN 41 H Creatinine 10.37 H Est GFR ( Amer) 5 L Glucose 97 Calcium 10.1 Total Bilirubin 0.8 AST 12 L Alkaline Phosphatase 102 Total Protein 7.3 Albumin 4.3 08/15/20 01:18 NT-Pro-B Natriuret Pep [id number] H Impressions: Chest X-Ray 08/14/20 23:06 IMPRESSION: No interval change in the appearance of the chest Chest CT 08/15/20 02:11 IMPRESSION: Cardiomegaly. Small bibasilar effusions with adjacent subsegmental atelectasis. TECHNICAL DOCUMENTATION: Quality ID # [id number]: Final reports with documentation of one or more dose reduction techniques (e.g., Automated exposure control, adjustment of the mA and/or kV according to patient size, use of iterative reconstruction technique) copyright 2011 [employer]- All Rights Reserved Assessment & Plan - Diagnosis (1) Acute diastolic heart failure Plan: See response to ultrafiltration on hemodialysis. (2) ESRD (end stage renal disease) Plan: Patient currently undergoing dialysis which is being supervised. Plan to remove 3-4 L of fluid as tolerated. She is got a well working newly placed right lower arm AV graft. 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 Chandra in a couple of weeks at [facility]. Currently does not show any evidence to indicate severe dilatation of possibility of rupture. Advised patient to avoid trauma which she knows very well. (3) HTN (hypertension) Qualifiers: Plan: Controlled. See response to fluid removal. Monitor. (4) Anemia Plan: Adjust erythropoietin on dialysis. Monitor.
--- NOTE | 2020-08-15 17:58 | EKG REPORT ---
SEVERITY:- ABNORMAL ECG - SINUS RHYTHM PROBABLE LEFT VENTRICULAR HYPERTROPHY BORDERLINE T ABNORMALITIES, INFERIOR LEADS INTRAVENTRICULAR CONDUCTION DELAY : Confirmed by: Hayden Cardoso MD 15-Aug-2020 17:58:35
--- NOTE | 2020-08-15 18:26 | PDOC CONSULTATION ---
Consultation Consult Date: 08/15/20 Provider Consulted: LELIA GUTIERREZ Consult reason:: Central venous access History of Present Illness Admission Date/PCP: 08/15/20 04:18 KEVIN REED MD Patient complains of: Need the central venous access History of Present Illness: CAPO HDEZ is a 65 year old female, obese, in need of IV access for administration of medications, she is currently on hemodialysis via right upper extremity fistula; she has a left upper extremity fistula not currently used. She has had problems with IV access in the past. Past Medical History Cardiac Medical History: Reports: Hyperlipidema, Hypertension Denies: Coronary Artery Disease, Myocardial Infarction Pulmonary Medical History: Reports: Asthma - MILD, Pneumonia Denies: Bronchitis, Chronic Obstructive Pulmonary Disease (COPD) Neurological Medical History: Denies: Seizures Endocrine Medical History: Reports: Hyperthyroidism Renal/ Medical History: Reports: End Stage Renal Disease GI Medical History: Reports: Gastroesophageal Reflux Disease, Hiatal Hernia Musculoskeltal Medical History: Reports: Arthritis - LEFT KNEE, Gout Psychiatric Medical History: Denies: Depression Hematology: Reports: Anemia Past Surgical History Past Surgical History: Reports: Cardiac Catheterization - 2011, Section, Cholecystectomy Denies: Adenoidectomy, Pacemaker Social History Smoking Status: Never Smoker Frequency of Alcohol Use: None Hx Recreational Drug Use: No Drugs: None Hx Prescription Drug Abuse: No Family History Family History: Reviewed & Not Pertinent, Hypertension Parental Family History Reviewed: No Children Family History Reviewed: No Sibling(s) Family History Reviewed.: No Medication/Allergy Home Medications: Allopurinol [Zyloprim 100 mg Tablet] 100 mg PO DAILY PRN 10/06/18 Clonidine HCl [Catapres 0.3 mg Tablet] 0.3 mg PO Q8 10/06/18 Metoprolol Succinate [Toprol Xl] 200 mg PO DAILY 10/06/18 Sevelamer Carbonate [Renvela] 1,600 mg PO .SNACKS 10/06/18 Budesonide/Formoterol Fumarate [Symbicort Hfa 160-4.5 Mcg Inhaler 6 gm] 2 puff IH Q12 08/15/20 Hydroxyzine Pamoate [Vistaril 25 mg Capsule] 25 mg PO Q12 08/15/20 Lidocaine/Prilocaine [Lidocaine-Prilocaine Cream] 1 each TP ASDIR PRN 08/15/20 Sevelamer Carbonate [Renvela] 2,400 mg PO MEALS 08/15/20 Allergies/Adverse Reactions: codeine [Codeine] Allergy (Severe, Verified 08/19/19 10:48) Lips & tongue swell hydrocodone bitartrate [From Vicodin] Allergy (Severe, Verified 08/19/19 10:48) Throat & tongue swell, severe itch Iodinated Contrast Media [IV Dye, Iodine Containing] Allergy (Severe, Verified 08/19/19 10:48) Anaphylaxis lanthanum carbonate [From FOSRENOL] Allergy (Severe, Verified 08/19/19 10:48) losartan potassium [From Cozaar] Allergy (Severe, Verified 08/19/19 10:48) Swelling of Throat oxycodone HCl [From OxyContin] Allergy (Severe, Verified 08/19/19 10:48) Throat & tongue swell, severe itch propoxyphene napsylate [From Darvocet-N 100] Allergy (Severe, Verified 08/19/19 10:48) Mouth swells, itch ramipril [From Altace] Allergy (Severe, Verified 08/19/19 10:48) Lips, tongue & throat swell Penicillins Allergy (Intermediate, Verified 08/19/19 10:48) Generalized Itching acetaminophen [From Percocet] Allergy (Verified 08/19/19 10:48) ITCHING angiotensin II acetate, human Allergy (Verified 08/19/19 10:48) SEVERE STOMACH PAIN hydralazine Allergy (Verified 08/19/19 10:48) Swollen tongue oxycodone [From Percocet] Allergy (Verified 08/19/19 10:48) ITCHING adhesive tape [Adhesive Tape] Adverse Reaction (Intermediate, Verified 08/19/19 10:48) ITCHING, PULLS SKIN OFF aspirin [Aspirin] Adverse Reaction (Intermediate, Verified 08/19/19 10:48) Tegaderm Allergy (Intermediate, Uncoded 08/19/19 10:48) Pulls skin off, itching Physical Exam Vital Signs: Temp Pulse Resp BP Pulse Ox 98.3 F 66 15 155/70 H 94 08/15/20 16:00 08/15/20 16:00 08/15/20 16:00 08/15/20 16:00 08/15/20 16:00 Intake & Output 08/14/20 08/15/20 08/16/20 06:59 06:59 06:59 Output Total 4200 Balance -4200 Weight 98.43 kg General appearance: PRESENT: no acute distress, obese Head exam: PRESENT: atraumatic Eye exam: PRESENT: EOMI Mouth exam: PRESENT: neck supple Teeth exam: PRESENT: poor dentation Neck exam: PRESENT: full ROM Respiratory exam: PRESENT: clear to auscultation alcira Cardiovascular exam: PRESENT: RRR GI/Abdominal exam: PRESENT: soft Results Laboratory Results: 08/15/20 01:18 08/15/20 01:18 08/15/20 08/15/20 08/15/20 01:18 01:18 01:38 WBC 7.5 RBC 2.97 L Hgb 9.8 L Hct 27.3 L MCV 92 MCH 32.9 MCHC 35.8 RDW 15.7 H Plt Count 184 Seg Neutrophils % 72.4 Carbonic Acid 1.06 HCO3/H2CO3 Ratio 21:1 ABG pH 7.43 ABG pCO2 35.1 ABG pO2 113.4 H ABG HCO3 22.8 ABG O2 Saturation 98.3 H ABG Base Excess -1.1 FiO2 2L Sodium 139.9 Potassium 4.5 Chloride 101 Carbon Dioxide 25 Anion Gap 14 BUN 41 H Creatinine 10.37 H Est GFR ( Amer) 5 L Glucose 97 Calcium 10.1 Total Bilirubin 0.8 AST 12 L Alkaline Phosphatase 102 Total Protein 7.3 Albumin 4.3 08/15/20 01:18 NT-Pro-B Natriuret Pep [id number] H Impressions: Chest X-Ray 08/14/20 23:06 IMPRESSION: No interval change in the appearance of the chest Chest CT 08/15/20 02:11 IMPRESSION: Cardiomegaly. Small bibasilar effusions with adjacent subsegmental atelectasis. TECHNICAL DOCUMENTATION: Quality ID # 436: Final reports with documentation of one or more dose reduction techniques (e.g., Automated exposure control, adjustment of the mA and/or kV according to patient size, use of iterative reconstruction technique) copyright 2011 [employer]- All Rights Reserved Assessment & Plan - Diagnosis (1) Need for intravenous access Is this a current diagnosis for this admission?: Yes - Plan Summary Plan Summary: Assessment: 65-year-old female in need of IV access for medication reaction End-stage renal disease on hemodialysis using a right upper extremity AV fistula Left upper extremity AV fistula partially working Plan: Plan placement of subclavian vein triple-lumen catheter If successful, I will attempt placement of femoral central venous line. Procedure, risk, benefits, complications, explained to the patient, she understands all the above, and she desires to proceed
[2020-08-15] MEDS: HYDROXYZINE PAMOATE 25 MG CAPSULE PO SCH ×2 (18:28→21:24)
[2020-08-15] MEDS: SEVELAMER HCL 800 MG TABLET PO SCH (18:28)
[2020-08-15] MEDS: METOPROLOL SUCCINATE 50 MG TAB.SR.24H PO SCH (18:28)
[2020-08-15] MEDS: CLONIDINE HCL 0.1 MG TABLET PO SCH ×2 (18:28→21:24)
--- NOTE | 2020-08-15 18:34 | Operative Report ---
Operative Report DATE OF SURGERY: 08/15/20 PREOPERATIVE DIAGNOSIS: Need of IV access for medication drugs POSTOPERATIVE DIAGNOSIS: Same OPERATION: 1) attempted placement of left subclavian central venous line. 2) placement of left femoral central venous line catheter SURGEON: LELIA GUTIERREZ ANESTHESIA: Local - 1 mL's 1% lidocaine TISSUE REMOVED OR ALTERED: Not applicable COMPLICATIONS: None ESTIMATED BLOOD LOSS: 10 mL's INTRAOPERATIVE FINDINGS: Difficult placement of left subclavian vein guidewire; single stick placement of left femoral vein central venous catheter PROCEDURE: The procedure was done at bedside: The patient was placed in a supine position, the patient neck and chest were prepped and draped in the usual fashion. The midportion of the left clavicle and just below it was infiltrated with lidocaine, a 16-gauge needle was then used to cannulate the left subclavian vein without difficulty with good blood return; however, the guidewire could not inserted easily through the left subclavian vein and anonima vein. Despite several attempts the procedure had to be aborted. The left groin was prepped and draped in the usual fashion, the left femoral artery was palpated and the area just medial to this was infiltrated with lidocaine. The left femoral vein was accessed with a number 16-gauge without difficulty, a guidewire was inserted through the needle into the femoral vein and the needle was removed. The insertion point of the guidewire was enlarged with a #11 blade and a tissue dilator which was then started and removed. A triple-lumen catheter was inserted without difficulty over the guidewire into the left femoral vein up to 20 cm, the guidewire was removed. Each port was aspirated and flushed with normal saline without difficulty. The catheter was secured to the skin with 3-0 nylon sutures and sterile dressing applied. The patient tolerated the procedure well and portable chest-ray was obtained to rule out the presence of a left pneumothorax.
[2020-08-15] MEDS: FLUTICASONE/VILANTEROL 200-25 MCG/DOSE IH SCH (18:35)
[2020-08-15] MEDS ORDERED: INFLUENZA QUAD (6MOS+) 2020-21 VAC 0.5 ML SYR IM ONE (19:00)
--- NOTE | 2020-08-15 19:04 | RADIOLOGY REPORT (SQ) ---
EXAM DESCRIPTION: CHEST SINGLE VIEW IMAGES COMPLETED DATE/TIME: 08/15/2020 6:46 pm REASON FOR STUDY: Check placement of central line COMPARISON: 08/14/2020 TECHNIQUE: Single frontal radiographic view of the chest acquired. NUMBER OF VIEWS: One view. LIMITATIONS: None. FINDINGS: LUNGS AND PLEURA: No pneumothorax. Similar bibasilar subsegmental atelectasis. No signif icant pleural effusion. MEDIASTINUM AND HILAR STRUCTURES: Stable. HEART AND VASCULAR STRUCTURES: Stable. BONES: No acute findings. HARDWARE: None in the chest. OTHER: No other significant finding. IMPRESSION: NO ACUTE FINDINGS. No central line identified. TECHNICAL DOCUMENTATION: JOB ID: [id number] [place]-72 2010 [employer]- All Rights Reserved Reading location - IP/workstation name: [email or web address]
--- NOTE | 2020-08-15 21:13 | PDOC H&P ---
History of Present Illness Admission Date/PCP: 08/15/20 04:18 KEVIN REED MD History of Present Illness: CAPO HDEZ is a 65 year old female, She has end-stage renal disease on maintenance hemodialysis, she came to the emergency room for evaluation of progressive shortness of breath for the last 5 to 7 days. She states that she feels that enough fluid is not been taken off during dialysis, she also complain of cough, in the emergency room a chest x-ray was done that demonstrated mild patchy infiltrate in the left lower lobe, the B-type natruretic peptide was elevated I am not sure of the significance of this in the setting of ESRD. Past Medical History Cardiac Medical History: Reports: Hyperlipidema, Hypertension, Other - Chronic diastolic heart failure Pulmonary Medical History: Reports: Asthma - MILD, Pneumonia Endocrine Medical History: Reports: Hyperthyroidism Renal/ Medical History: Reports: End Stage Renal Disease GI Medical History: Reports: Gastroesophageal Reflux Disease, Hiatal Hernia Musculoskeltal Medical History: Reports: Arthritis - LEFT KNEE, Gout Hematology: Reports: Anemia Past Surgical History Past Surgical History: Reports: Cardiac Catheterization - 2011, Section, Cholecystectomy Social History Smoking Status: Never Smoker Frequency of Alcohol Use: None Hx Recreational Drug Use: No Drugs: None Hx Prescription Drug Abuse: No Family History Family History: Reviewed & Not Pertinent, Hypertension Parental Family History Reviewed: Yes Children Family History Reviewed: Yes Sibling(s) Family History Reviewed.: Yes Medication/Allergy Home Medications: Allopurinol [Zyloprim 100 mg Tablet] 100 mg PO DAILY PRN 10/06/18 Clonidine HCl [Catapres 0.3 mg Tablet] 0.3 mg PO Q8 10/06/18 Metoprolol Succinate [Toprol Xl] 200 mg PO DAILY 10/06/18 Sevelamer Carbonate [Renvela] 1,600 mg PO .SNACKS 10/06/18 Budesonide/Formoterol Fumarate [Symbicort Hfa 160-4.5 Mcg Inhaler 6 gm] 2 puff IH Q12 08/15/20 Hydroxyzine Pamoate [Vistaril 25 mg Capsule] 25 mg PO Q12 08/15/20 Lidocaine/Prilocaine [Lidocaine-Prilocaine Cream] 1 each TP ASDIR PRN 08/15/20 Sevelamer Carbonate [Renvela] 2,400 mg PO MEALS 08/15/20 Allergies/Adverse Reactions: codeine [Codeine] Allergy (Severe, Verified 08/19/19 10:48) Lips & tongue swell hydrocodone bitartrate [From Vicodin] Allergy (Severe, Verified 08/19/19 10:48) Throat & tongue swell, severe itch Iodinated Contrast Media [IV Dye, Iodine Containing] Allergy (Severe, Verified 08/19/19 10:48) Anaphylaxis lanthanum carbonate [From FOSRENOL] Allergy (Severe, Verified 08/19/19 10:48) losartan potassium [From Cozaar] Allergy (Severe, Verified 08/19/19 10:48) Swelling of Throat oxycodone HCl [From OxyContin] Allergy (Severe, Verified 08/19/19 10:48) Throat & tongue swell, severe itch propoxyphene napsylate [From Darvocet-N 100] Allergy (Severe, Verified 08/19/19 10:48) Mouth swells, itch ramipril [From Altace] Allergy (Severe, Verified 08/19/19 10:48) Lips, tongue & throat swell Penicillins Allergy (Intermediate, Verified 08/19/19 10:48) Generalized Itching acetaminophen [From Percocet] Allergy (Verified 08/19/19 10:48) ITCHING angiotensin II acetate, human Allergy (Verified 08/19/19 10:48) SEVERE STOMACH PAIN hydralazine Allergy (Verified 08/19/19 10:48) Swollen tongue oxycodone [From Percocet] Allergy (Verified 08/19/19 10:48) ITCHING adhesive tape [Adhesive Tape] Adverse Reaction (Intermediate, Verified 08/19/19 10:48) ITCHING, PULLS SKIN OFF aspirin [Aspirin] Adverse Reaction (Intermediate, Verified 08/19/19 10:48) Tegaderm Allergy (Intermediate, Uncoded 08/19/19 10:48) Pulls skin off, itching Review of Systems Constitutional: ABSENT: chills, fever(s), headache(s), weight gain, weight loss Eyes: ABSENT: visual disturbances Ears: ABSENT: hearing changes Cardiovascular: ABSENT: chest pain, dyspnea on exertion, edema, orthropnea, palpitations Respiratory: PRESENT: cough, dyspnea. ABSENT: hemoptysis Gastrointestinal: ABSENT: abdominal pain, constipation, diarrhea, hematemesis, hematochezia, nausea, vomiting Genitourinary: ABSENT: dysuria, hematuria Musculoskeletal: ABSENT: joint swelling Integumentary: ABSENT: rash, wounds Neurological: ABSENT: abnormal gait, abnormal speech, confusion, dizziness, focal weakness, syncope Psychiatric: ABSENT: anxiety, depression, homidical ideation, suicidal ideation Endocrine: ABSENT: cold intolerance, heat intolerance, menstrual abnormalities, polydipsia, polyuria Hematologic/Lymphatic: ABSENT: easy bleeding, easy bruising, lymphadenopathy Physical Exam Vital Signs: Temp Pulse Resp BP Pulse Ox 98.9 F 73 22 H 149/52 H 100 08/15/20 19:42 08/15/20 19:42 08/15/20 19:42 08/15/20 19:42 08/15/20 19:42 Intake & Output 08/14/20 08/15/20 08/16/20 06:59 06:59 06:59 Output Total 4200 Balance -4200 Weight 98.43 kg General appearance: PRESENT: no acute distress, obese Head exam: PRESENT: atraumatic, normocephalic Eye exam: PRESENT: PERRLA Neck exam: PRESENT: full ROM Respiratory exam: PRESENT: rhonchi Cardiovascular exam: PRESENT: RRR, +S1, +S2 Vascular exam: PRESENT: normal capillary refill GI/Abdominal exam: PRESENT: normal bowel sounds, soft Rectal exam: PRESENT: deferred Neurological exam: PRESENT: alert, CN II-XII grossly intact Psychiatric exam: PRESENT: appropriate affect, normal mood Skin exam: PRESENT: dry, intact, warm Results Laboratory Results: 08/15/20 01:18 08/15/20 01:18 08/15/20 08/15/20 08/15/20 01:18 01:18 01:38 WBC 7.5 RBC 2.97 L Hgb 9.8 L Hct 27.3 L MCV 92 MCH 32.9 MCHC 35.8 RDW 15.7 H Plt Count 184 Seg Neutrophils % 72.4 Carbonic Acid 1.06 HCO3/H2CO3 Ratio 21:1 ABG pH 7.43 ABG pCO2 35.1 ABG pO2 113.4 H ABG HCO3 22.8 ABG O2 Saturation 98.3 H ABG Base Excess -1.1 FiO2 2L Sodium 139.9 Potassium 4.5 Chloride 101 Carbon Dioxide 25 Anion Gap 14 BUN 41 H Creatinine 10.37 H Est GFR ( Amer) 5 L Glucose 97 Calcium 10.1 Total Bilirubin 0.8 AST 12 L Alkaline Phosphatase 102 Total Protein 7.3 Albumin 4.3 08/15/20 01:18 NT-Pro-B Natriuret Pep [id number] H Impressions: Chest X-Ray 08/15/20 00:00 IMPRESSION: NO ACUTE FINDINGS. No central line identified. Chest CT 08/15/20 02:11 IMPRESSION: Cardiomegaly. Small bibasilar effusions with adjacent subsegmental atelectasis. TECHNICAL DOCUMENTATION: Quality ID # 436: Final reports with documentation of one or more dose reduction techniques (e.g., Automated exposure control, adjustment of the mA and/or kV according to patient size, use of iterative reconstruction technique) copyright 2011 [employer]- All Rights Reserved Assessment & Plan - Diagnosis (1) Acute diastolic heart failure Is this a current diagnosis for this admission?: Yes Plan: She has acute diastolic heart failure ,need to rule out SARS-CoV-2 infection, she will be isolated in COVID unit (2) End-stage renal disease (ESRD) Is this a current diagnosis for this admission?: Yes Plan: Per nephrology - Time Time Spent: Greater than 70 Minutes Medications reviewed and adjusted accordingly: Yes Anticipated Discharge Disposition: Home, Self Care Anticipated Discharge Timeframe: within 48 hours - Inpatient Certification Based on my medical assessment, after consideration of the patient's comorbidities, presenting symptoms, or acuity I expect that the services needed warrant INPATIENT care.: Yes I certify that my determination is in accordance with my understanding of Medicare's requirements for reasonable and necessary INPATIENT services [42 CFR 412.3e].: Yes
[2020-08-16] MEDS: CLONIDINE HCL 0.1 MG TABLET PO SCH ×3 (05:39→21:05)
[2020-08-16] MEDS: SEVELAMER HCL 800 MG TABLET PO SCH ×3 (07:59→18:00)
[2020-08-16] MEDS ORDERED: INFLUENZA QUAD (6MOS+) 2020-21 VAC 0.5 ML SYR IM ONE (08:00)
[2020-08-16] MEDS: ALLOPURINOL 100 MG TABLET PO SCH (09:12)
[2020-08-16] MEDS: HYDROXYZINE PAMOATE 25 MG CAPSULE PO SCH ×2 (09:12→21:04)
[2020-08-16] MEDS: METOPROLOL SUCCINATE 50 MG TAB.SR.24H PO SCH (09:13)
[2020-08-16] MEDS: FLUTICASONE/VILANTEROL 200-25 MCG/DOSE IH SCH (09:48)
--- NOTE | 2020-08-16 12:07 | PDOC PROGRESS REPORT ---
Subjective Progress Note for:: 08/16/20 Subjective:: No chest pain or difficulty with breathing. No nausea, vomiting or abdominal pain. No fever or chills. Reason For Visit: CONGESTIVE HEART FAILURE, END STAGE RENAL DISEASE Physical Exam Vital Signs: Temp Pulse Resp BP Pulse Ox 98.7 F 84 18 121/69 97 08/16/20 10:00 08/16/20 10:00 08/16/20 08:11 08/16/20 08:11 08/16/20 08:11 Intake & Output 08/15/20 08/16/20 08/17/20 06:59 06:59 06:59 Intake Total 450 Output Total 4200 Balance -3750 Weight 98.43 kg 100 kg General appearance: PRESENT: no acute distress Head exam: PRESENT: atraumatic, normocephalic Respiratory exam: PRESENT: clear to auscultation alcira Vascular exam: ABSENT: pallor GI/Abdominal exam: PRESENT: normal bowel sounds, soft Extremities exam: ABSENT: pedal edema Neurological exam: PRESENT: alert, awake Skin exam: PRESENT: dry, warm Results Laboratory Results: 08/15/20 01:18 08/15/20 01:18 08/15/20 01:18 NT-Pro-B Natriuret Pep [id number] H Impressions: Chest X-Ray 08/15/20 00:00 IMPRESSION: NO ACUTE FINDINGS. No central line identified. Chest CT 08/15/20 02:11 IMPRESSION: Cardiomegaly. Small bibasilar effusions with adjacent subsegmental atelectasis. TECHNICAL DOCUMENTATION: Quality ID # 436: Final reports with documentation of one or more dose reduction techniques (e.g., Automated exposure control, adjustment of the mA and/or kV according to patient size, use of iterative reconstruction technique) copyright 2011 [employer]- All Rights Reserved Assessment & Plan - Diagnosis (1) Acute diastolic heart failure Is this a current diagnosis for this admission?: Yes Plan: Improving with HD session. Continue current medication management. (2) ESRD (end stage renal disease) on dialysis Is this a current diagnosis for this admission?: Yes Plan: Continue current management nephrology team input appreciated. (3) HTN (hypertension) Qualifiers: Hypertension type: essential hypertension Qualified Code(s): I10 - Essential (primary) hypertension Is this a current diagnosis for this admission?: Yes Plan: Maintain on current mediation management - Time Time Spent with patient: 25-34 minutes Level of Care: IMCU Medications reviewed and adjusted accordingly: Yes Anticipated discharge: Home with Homehealth Anticipated DC Timeframe: within 72 hours - Inpatient Certification Based on my medical assessment, after consideration of the patient's kasandra rbidities, presenting symptoms, or acuity I expect that the services needed warrant INPATIENT care.: Yes I certify that my determination is in accordance with my understanding of Medicare's requirements for reasonable and necessary INPATIENT services [42 CFR 412.3e].: Yes Medical Necessity: Significant Comorbidiites Make Outpatient Treatment Too Risky, Need Close Monitoring Due to Risk of Patient Decompensation, Need For Continuous Telemetry Monitoring, Need for Surgery, Risk of Complication if Not Cared For in Hospital, Risk of Diagnosis Which Will Require Inpatient Eval/Care/Monitoring Post Hospital Care: D/C Donor Relations Coordinator Documentation - Plan Summary Plan Summary: Continue current medication management. Follow up on COVID-19 test result.
[2020-08-16] MEDS: TRAMADOL HCL 50 MG TABLET PO PRN (21:04)
[2020-08-17] MEDS: CLONIDINE HCL 0.1 MG TABLET PO SCH ×3 (05:42→21:27)
[2020-08-17] MEDS: SEVELAMER HCL 800 MG TABLET PO SCH ×3 (07:40→16:49)
[2020-08-17] MEDS: HYDROXYZINE PAMOATE 25 MG CAPSULE PO SCH ×2 (09:11→21:26)
[2020-08-17] MEDS: ALLOPURINOL 100 MG TABLET PO SCH (09:12)
[2020-08-17] MEDS: FLUTICASONE/VILANTEROL 200-25 MCG/DOSE IH SCH (09:14)
[2020-08-17] MEDS: TRAMADOL HCL 50 MG TABLET PO PRN (13:52)
--- NOTE | 2020-08-17 15:55 | PDOC PROGRESS REPORT ---
Subjective Progress Note for:: 08/17/20 Subjective:: patient denied any chest pain or difficulty with breathing. No nausea, vomiting or abdominal pain. No fever or chills. She is schedule for HD tomorrow. Reason For Visit: CONGESTIVE HEART FAILURE, END STAGE RENAL DISEASE Physical Exam Vital Signs: Temp Pulse Resp BP Pulse Ox 98.5 F 72 15 109/59 L 100 08/17/20 12:05 08/17/20 14:00 08/17/20 12:05 08/17/20 12:05 08/17/20 12:05 Intake & Output 08/16/20 08/17/20 08/18/20 06:59 06:59 06:59 Intake Total 450 2280 Output Total 4200 Balance -3750 2280 Weight 100 kg 101 kg Physical Exam: General appearance: PRESENT: no acute distress Head exam: PRESENT: atraumatic, normocephalic EYES: Conjunctiva pink. ABSENT: Sclera icterus, pallor Respiratory exam: PRESENT: clear to auscultation alcira GI/Abdominal exam: PRESENT: normal bowel sounds, soft Extremities exam: ABSENT: pedal edema Neurological exam: PRESENT: alert, awake Skin exam: PRESENT: dry, warm Results Laboratory Results: 08/15/20 01:18 08/15/20 01:18 08/15/20 01:18 NT-Pro-B Natriuret Pep [id number] H Impressions: Chest X-Ray 08/15/20 00:00 IMPRESSION: NO ACUTE FINDINGS. No central line identified. Chest CT 08/15/20 02:11 IMPRESSION: Cardiomegaly. Small bibasilar effusions with adjacent subsegmental atelectasis. TECHNICAL DOCUMENTATION: Quality ID # 436: Final reports with documentation of one or more dose reduction techniques (e.g., Automated exposure control, adjustment of the mA and/or kV according to patient size, use of iterative reconstruction technique) copyright 2011 [employer]- All Rights Reserved Assessment & Plan - Diagnosis (1) Acute diastolic heart failure Is this a current diagnosis for this admission?: Yes (2) ESRD (end stage renal disease) on dialysis Is this a current diagnosis for this admission?: Yes (3) HTN (hypertension) Qualifiers: Hypertension type: essential hypertension Qualified Code(s): I10 - Essential (primary) hypertension Is this a current diagnosis for this admission?: Yes - Time Time Spent with patient: 25-34 minutes Level of Care: IMCU Medications reviewed and adjusted accordingly: Yes Anticipated discharge: Home with Homehealth Anticipated DC Timeframe: within 72 hours - Inpatient Certification Based on my medical assessment, after consideration of the patient's comorbidities, presenting symptoms, or acuity I expect that the services needed warrant INPATIENT care.: Yes I certify that my determination is in accordance with my understanding of Medicare's requirements for reasonable and necessary INPATIENT services [42 CFR 412.3e].: Yes Medical Necessity: Significant Comorbidiites Make Outpatient Treatment Too Risky, Need Close Monitoring Due to Risk of Patient Decompensation, Need For Continuous Telemetry Monitoring, Risk of Complication if Not Cared For in Hospital, Risk of Diagnosis Which Will Require Inpatient Eval/Care/Monitoring 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 Obtain CBC with diff and CMP in am.
[2020-08-17] MEDS: METOPROLOL SUCCINATE 50 MG TAB.SR.24H PO SCH (17:16)
[2020-08-18] MEDS ORDERED: EPOETIN ALFA-EPBX 10,000 UNIT in SYRINGE, DISPOSABLE, 1 EACH IV PRN (05:00)
[2020-08-18] MEDS: CLONIDINE HCL 0.1 MG TABLET PO SCH ×2 (05:13→14:31)
[2020-08-18 06:48] LABS: HEMATOCRIT 27.9 % (36.0-47.0); HEMOGLOBIN 9.6 g/dL (12.0-15.5); MEAN CORPUSCULAR HEMOGLOBIN 31.9 pg (27.0-33.4); MEAN CORPUSCULAR HGB CONC 34.3 g/dL (32.0-36.0); MEAN CORPUSCULAR VOLUME 93 fl (80-97); PLATELET COUNT 179 10^3/uL (150-450); RED CELL DISTRIBUTION WIDTH 15.5 % (11.5-14.0); WHITE BLOOD COUNT 7.1 10^3/uL (4.0-10.5)
[2020-08-18 07:09] LABS: ANION GAP 16 (5-19); BLOOD UREA NITROGEN 61 mg/dL (7-20); CALCIUM 9.6 mg/dL (8.4-10.2); CARBON DIOXIDE 23 mmol/L (22-30); CHLORIDE 95 mmol/L (98-107); GLUCOSE 91 mg/dL (75-110); POTASSIUM 5.3 mmol/L (3.6-5.0)
[2020-08-18] MEDS ORDERED: TRAMADOL HCL 50 MG TABLET PO PRN (09:27)
[2020-08-18] MEDS: HYDROXYZINE PAMOATE 25 MG CAPSULE PO SCH (11:29)
[2020-08-18] MEDS: METOPROLOL SUCCINATE 50 MG TAB.SR.24H PO SCH (11:29)
[2020-08-18] MEDS: SEVELAMER HCL 800 MG TABLET PO SCH ×3 (11:30→17:03)
[2020-08-18] MEDS: ALLOPURINOL 100 MG TABLET PO SCH (11:31)
[2020-08-18] MEDS: FLUTICASONE/VILANTEROL 200-25 MCG/DOSE IH SCH (11:31)
--- NOTE | 2020-08-18 12:14 | PDOC PROGRESS REPORT ---
Subjective Progress Note for:: 08/18/20 Reason For Visit: Patient seen on dialysis which she is under going very well without any issues. She is very happy with the progress she has made and admits to the fact that she has cut corners on her OP dialysis by cutting short her treatments and sometimes missing her dialysis treatments as an outpatient which obviously led her to current admission. She currently denies any history of chest pain or shortness of breath. Labs and medications were reviewed. Dialysis orders were reviewed with the treating dialysis nurse. Physical Exam Vital Signs: Temp Pulse Resp BP Pulse Ox 97.9 F 65 18 125/80 97 08/18/20 11:24 08/18/20 11:24 08/18/20 11:24 08/18/20 11:24 08/18/20 11:24 Intake & Output 08/17/20 08/18/20 08/19/20 06:59 06:59 06:59 Intake Total 2280 240 1000 Output Total 4000 Balance 2280 240 -3000 Weight 101 kg 101.8 kg General appearance: PRESENT: no acute distress Respiratory exam: PRESENT: clear to auscultation alcira, decreased breath sounds. ABSENT: crackles Cardiovascular exam: PRESENT: +S1, +S2, systolic murmur. ABSENT: rubs GI/Abdominal exam: PRESENT: normal bowel sounds, soft. ABSENT: organomegaly, tenderness Extremities exam: ABSENT: pedal edema Neurological exam: PRESENT: alert, awake, oriented to person, oriented to place Psychiatric exam: PRESENT: appropriate affect Results Laboratory Results: 08/18/20 06:00 08/18/20 06:00 08/18/20 08/18/20 06:00 06:00 WBC 7.1 RBC 3.00 L Hgb 9.6 L Hct 27.9 L MCV 93 MCH 31.9 MCHC 34.3 RDW 15.5 H Plt Count 179 Sodium 134.1 L Potassium 5.3 H Chloride 95 L Carbon Dioxide 23 Anion Gap 16 BUN 61 H Creatinine 13.85 H Est GFR ( Amer) 3 L Glucose 91 Calcium 9.6 08/15/20 01:18 NT-Pro-B Natriuret Pep [id number] H Impressions: Chest X-Ray 08/15/20 00:00 IMPRESSION: NO ACUTE FINDINGS. No central line identified. Chest CT 08/15/20 02:11 IMPRESSION: Cardiomegaly. Small bibasilar effusions with adjacent subsegmental atelectasis. TECHNICAL DOCUMENTATION: Quality ID # 436: Final reports with documentation of one or more dose reduction techniques (e.g., Automated exposure control, adjustment of the mA and/or kV according to patient size, use of iterative reconstruction technique) copyright 2011 [employer]- All Rights Reserved Assessment & Plan - Diagnosis (1) Acute diastolic heart failure Is this a current diagnosis for this admission?: Yes Plan: Currently resolved. Advised the patient about watching her diet and fluid intake and not to cut corners during outpatient dialysis treatments. She agrees to the plan of action. (2) ESRD (end stage renal disease) Plan: Patient currently undergoing dialysis which is being supervised. Plan to remove 3-4 L of fluid as tolerated. She is got a well working newly placed right lower arm AV graft. 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 Chandra in a couple of weeks at [facility]. Currently does not show any evidence to indicate severe dilatation of possibility of rupture. Advised patient to avoid trauma which she knows very well.Advised the patient to make sure she keeps her appointment with vascular surgeon to look at her dilated left lower arm AV fistula which needs to be surgically repaired. (3) HTN (hypertension) Qualifiers: Hypertension type: essential hypertension Qualified Code(s): I10 - Esse ntial (primary) hypertension Is this a current diagnosis for this admission?: Yes Plan: Controlled. See response to fluid removal. Monitor. (4) Anemia Plan: Adjust erythropoietin on dialysis. Monitor.
--- NOTE | 2020-08-18 17:18 | PDOC DISCHARGE SUMMARY ---
Impression - Admit/DC Date/PCP Admission Date/Primary Care Provider: 08/15/20 04:18 KEVIN REED MD Discharge Date: 08/18/20 - Discharge Diagnosis (1) Acute diastolic heart failure Is this a current diagnosis for this admission?: Yes (2) End-stage renal disease (ESRD) Is this a current diagnosis for this admission?: Yes - Additional Information Discharge Diet: Other (Comments) Discharge Activity: Activity As Tolerated, Balance Activity w/Rest, Weigh Daily Referrals: KEVIN REED MD [Primary Care Provider] - 08/26/20 10:15 am Home Medications: RX: Allopurinol [Zyloprim 100 mg Tablet] 100 mg PO DAILY PRN 10/06/18 RX: Clonidine HCl [Catapres 0.3 mg Tablet] 0.3 mg PO Q8 10/06/18 RX: Metoprolol Succinate [Toprol Xl] 200 mg PO DAILY 10/06/18 RX: Sevelamer Carbonate [Renvela] 1,600 mg PO .SNACKS 10/06/18 RX: Budesonide/Formoterol Fumarate [Symbicort HFA 160-4.5 mcg Inhaler 6 gm] 2 puff IH Q12 08/15/20 RX: Hydroxyzine Pamoate [Vistaril 25 mg Capsule] 25 mg PO Q12 08/15/20 RX: Lidocaine/Prilocaine [Lidocaine-Prilocaine Cream] 1 each TP ASDIR PRN 08/15/20 RX: Sevelamer Carbonate [Renvela] 2,400 mg PO MEALS 08/15/20 History of Present Illiness History of Present Illness: CAPO HDEZ is a 65 year old female, She has end-stage renal disease on maintenance hemodialysis, she came to the emergency room for evaluation of progressive shortness of breath for the last 5 to 7 days. She states that she feels that enough fluid is not been taken off during dialysis, she also complain of cough, in the emergency room a chest x-ray was done that demonstrated mild patchy infiltrate in the left lower lobe, the B-type natruretic peptide was elevated I am not sure of the significance of this in the setting of ESRD. Hospital Course Hospital Course: Patient was admitted for the management of acute diastolic heart failure, end- stage renal disease, she was seen by nephrology Dr. Lang Red she underwent hemodialysis without any event.She was seen today by the bedside she is stable, ready for discharge to home. It seems she has not been receiving adequate hemodialysis treatment outpatient and that is somewhat responsible for the acute compensation of chronic diastolic heart failure. She was successfully hemodialyzed in the hospital without any events Physical Exam Vital Signs: Temp Pulse Resp BP Pulse Ox 97.9 F 65 18 125/80 97 08/18/20 11:24 08/18/20 11:24 08/18/20 11:24 08/18/20 11:24 08/18/20 11:24 Intake & Output 08/17/20 08/18/20 08/19/20 06:59 06:59 06:59 Intake Total 2280 240 1000 Output Total 4000 Balance 2280 240 -3000 Weight 101 kg 101.8 kg Results Laboratory Results: WBC 7.1 10^3/uL (4.0-10.5) 08/18/20 06:00 RBC 3.00 10^6/uL (3.72-5.28) L 08/18/20 06:00 Hgb 9.6 g/dL (12.0-15.5) L 08/18/20 06:00 Hct 27.9 % (36.0-47.0) L 08/18/20 06:00 MCV 93 fl (80-97) 08/18/20 06:00 MCH 31.9 pg (27.0-33.4) 08/18/20 06:00 MCHC 34.3 g/dL (32.0-36.0) 08/18/20 06:00 RDW 15.5 % (11.5-14.0) H 08/18/20 06:00 Plt Count 179 10^3/uL (150-450) 08/18/20 06:00 Lymph % (Auto) 16.7 % (13-45) 08/15/20 01:18 [place] % (Auto) 5.6 % (3-13) 08/15/20 01:18 Eos % (Auto) 4.1 % (0-6) 08/15/20 01:18 Baso % (Auto) 1.2 % (0-2) 08/15/20 01:18 Absolute Neuts (auto) 5.4 10^3/uL (1.7-8.2) 08/15/20 01:18 Absolute Lymphs (auto) 1.3 10^3/uL (0.5-4.7) 08/15/20 01:18 Absolute Monos (auto) 0.4 10^3/uL (0.1-1.4) 08/15/20 01:18 Absolute Eos (auto) 0.3 10^3/uL (0.0-0.6) 08/15/20 01:18 Absolute Basos (auto) 0.1 10^3/uL (0.0-0.2) 08/15/20 01:18 Seg Neutrophils % 72.4 % (42-78) 08/15/20 01:18 Carbonic Acid 1.06 mmol/L (1.05-1.35) 08/15/20 01:38 HCO3/H2CO3 Ratio 21:1 08/15/20 01:38 ABG pH 7.43 (7.35-7.45) 08/15/20 01:38 ABG pCO2 35.1 mmHg (35-45) 08/15/20 01:38 ABG pO2 113.4 mmHg (80-100) H 08/15/20 01:38 ABG HCO3 22.8 mmol/L (20-24) 08/15/20 01:38 ABG Total CO2 23.9 mmol/L (21-25) 08/15/20 01:38 ABG O2 Saturation 98.3 % (94-98) H 08/15/20 01:38 ABG Base Excess -1.1 mmol/L 08/15/20 01:38 FiO2 2L 08/15/20 01:38 Sodium 134.1 mmol/L (137-145) L 08/18/20 06:00 Potassium 5.3 mmol/L (3.6-5.0) H 08/18/20 06:00 Chloride 95 mmol/L (98-107) L 08/18/20 06:00 Carbon Dioxide 23 mmol/L (22-30) 08/18/20 06:00 Anion Gap 16 (5-19) 08/18/20 06:00 BUN 61 mg/dL (7-20) H 08/18/20 06:00 Creatinine 13.85 mg/dL (0.52-1.25) H 08/18/20 06:00 Est GFR ( Amer) 3 (>60) L 08/18/20 06:00 Est GFR (MDRD) Non-Af 3 (>60) L 08/18/20 06:00 Glucose 91 mg/dL (75-110) 08/18/20 06:00 Calcium 9.6 mg/dL (8.4-10.2) 08/18/20 06:00 Total Bilirubin 0.8 mg/dL (0.2-1.3) 08/15/20 01:18 Direct Bilirubin 0.4 mg/dL (0.0-0.4) 08/15/20 01:18 Neonat Total Bilirubin Not Reportable 08/15/20 01:18 Neonat Direct Bilirubin Not Reportable 08/15/20 01:18 Neonat Indirect Bili Not Reportable 08/15/20 01:18 AST 12 U/L (14-36) L 08/15/20 01:18 ALT 8 U/L (<35) 08/15/20 01:18 Alkaline Phosphatase 102 U/L (38-126) 08/15/20 01:18 NT-Pro-B Natriuret Pep 01577 pg/mL (<125) H 08/15/20 01:18 Total Protein 7.3 g/dL (6.3-8.2) 08/15/20 01:18 Albumin 4.3 g/dL (3.5-5.0) 08/15/20 01:18 COVID-19 Source See comment 08/15/20 06:46 COVID-19 (NICOLASA) Not Detected (Not Detect) 08/15/20 06:46 08/15/20 01:18 NT-Pro-B Natriuret Pep 28053 H Impressions: Chest X-Ray 08/14/20 23:06 IMPRESSION: No interval change in the appearance of the chest Chest X-Ray 08/15/20 00:00 IMPRESSION: NO ACUTE FINDINGS. No central line identified. Chest CT 08/15/20 02:11 IMPRESSION: Cardiomegaly. Small bibasilar effusions with adjacent subsegmental atelectasis. TECHNICAL DOCUMENTATION: Quality ID # [id number]: Final reports with documentation of one or more dose reduction techniques (e.g., Automated exposure control, adjustment of the mA and/or kV according to patient size, use of iterative reconstruction technique) copyright 2011 [employer]- All Rights Reserved Stroke Is this a Stroke Patient?: No Acute Heart Failure Is this a Heart Failure Patient?: No
[2020-08-18 18:16] VITALS: BP 155/70
== END 2020-08-18 19:00 | disposition home or self-care (01) | DRG 291 ==
LOC: ER 22:08 → EH 08-15 04:18 → 3N 08-15 08:00 → 3S 08-17 10:18
PROVIDERS: ADMIT Internal Medicine; ATTEND Internal Medicine
PROC: 06HN33Z Insertion of Infusion Device into Left Femoral Vein, Percutaneous Approach (ICD-10-PCS; principal; 2020-08-15)
PROC: 05JY3ZZ Inspection of Upper Vein, Percutaneous Approach (ICD-10-PCS; 2020-08-15)
PROC: 5A1D70Z Performance of Urinary Filtration, Intermittent, Less than 6 Hours Per Day (ICD-10-PCS; 2020-08-15)
PROC: 5A1D70Z Performance of Urinary Filtration, Intermittent, Less than 6 Hours Per Day (ICD-10-PCS; 2020-08-18)
DX: I13.2 Hypertensive heart and chronic kidney disease with heart failure and with stage 5 chronic kidney disease, or end stage renal disease (principal); N18.6 End stage renal disease; I50.33 Acute on chronic diastolic (congestive) heart failure; E78.5 Hyperlipidemia, unspecified; J45.909 Unspecified asthma, uncomplicated; D63.1 Anemia in chronic kidney disease; K21.9 Gastro-esophageal reflux disease without esophagitis; Z99.2 Dependence on renal dialysis; Z90.49 Acquired absence of other specified parts of digestive tract; Z88.6 Allergy status to analgesic agent; Z88.0 Allergy status to penicillin; Z88.8 Allergy status to other drugs, medicaments and biological substances; Z91.041 Radiographic dye allergy status; Z20.828 Contact with and (suspected) exposure to other viral communicable diseases; Z82.49 Family history of ischemic heart disease and other diseases of the circulatory system
CPT/HCPCS: 36415; 71045; 71250; 78580; 80048; 80053; 82803; 83880; 85025; 85027; 87635; 93005; 93010; 99285; A9540; C9803; J3490; Q5105; Q9969